=== PATIENT | female | born 1970 | race Caucasian/White ===

== ENCOUNTER 2017-08-25 18:33 | Inpatient (IN) | payer OTHER ==
--- OUTSIDE RECORDS SUMMARY | 2017-08-25 18:36 | XMS REPORT | Clinical Summary ---
:1970 Author Organization [facility] Address [address] [place] [address] Care Team Providers Name Role Phone Chidi Anguiano MD Primary Care Provider Allergies Active Allergy Reactions Severity Noted Date Comments Aspirin 05/26/2016 Aspirin Anaphylaxis High 06/16/2016 Codeine 05/26/2016 Codeine Anaphylaxis High 06/16/2016 Meperidine 05/26/2016 Meperidine Anaphylaxis High 06/16/2016 Hydrocodone 05/26/2016 Hydrocodone Anaphylaxis High 06/16/2016 Morphine Anaphylaxis High 06/16/2016 Penicillins 05/26/2016 Penicillins Anaphylaxis High 06/16/2016 Ondansetron Hcl 05/26/2016 Ondansetron Hcl Other (See Comments) High 06/16/2016 Psychotic behavior Current Medications Prescription Sig. Disp. Refills Start End Date Status Date clonAZEPAM (KlonoPIN) Take 0.5 mg by Active 0.5 MG tablet mouth 2 (two) times a day as needed for anxiety. nifedipine 0.2% with Apply 1 Active lidocaine 5% 0.2-0.5 application % ointment topically 2 (two) times a day as needed (for Anal Fissures). zolpidem (AMBIEN) 5 Take 5 mg by Active MG tablet mouth nightly as needed for sleep. pantoprazole Take 40 mg by Active (PROTONIX) 40 MG EC mouth daily. tablet traMADol (ULTRAM) 50 Take 50 mg by Active mg tablet mouth every 6 (six) hours as needed for moderate pain. enoxaparin (LOVENOX) Inject 0.8 mL 60 Syringe 1 Active 120 mg/0.8 mL syringe (120 mg total) 8 under the skin 2 (two) times a day. apixaban (ELIQUIS) 5 Take 1 tablet 60 tablet 11 Active mg tablet (5 mg total) by 8 mouth 2 (two) times a day. nifedipine 0.2% with Apply 1 0.06 g 0 11/25/19 Discontinued lidocaine 5% 0.2-0.5 application 7 17 % ointment topically 2 (two) times a day. Apply generously every morning and evening. SUPREP BOWEL PREP KIT Take 2 Bottles 354 mL 0 11/15/19 17.5-3.13-1.6 gram (354 mL total) 7 17 recon soln by mouth once for 1 dose. Take as directed by physician zolpidem (AMBIEN) 5 Take 5 mg by 11/25/19 Discontinued MG tablet mouth nightly 17 as needed for sleep. nebivolol (BYSTOLIC) Take 5 mg by 11/25/19 Discontinued 5 MG tablet mouth daily. 17 lisdexamfetamine 10 Take 10 mg by 11/25/19 Discontinued mg capsule mouth daily. 17 hyoscyamine (LEVSIN) Take 0.125 mg 11/24/19 Discontinued 0.125 mg SL tablet by mouth every 17 4 (four) hours as needed for cramping. clonAZEPAM (KlonoPIN) Take 0.5 mg by 11/25/19 Discontinued 0.5 MG tablet mouth 2 (two) 17 times a day as needed for anxiety. traMADol (ULTRAM) 50 Take 50 mg by 11/24/19 Discontinued mg tablet mouth every 6 17 (six) hours as needed for moderate pain. traMADol (ULTRAM) 50 Take 1 tablet 15 tablet 0 11/25/19 Discontinued mg tablet (50 mg total) 7 17 by mouth every 6 (six) hours as needed for moderate pain for up to 15 days. nebivolol (BYSTOLIC) Take 5 mg by 11/29/19 Discontinued 5 MG tablet mouth daily. 17 lisdexamfetamine Take 30 mg by 04/10/19 Discontinued (VYVANSE) 30 MG mouth every 18 capsule morning. amLODIPine (NORVASC) Take 1 tablet 30 tablet 0 12/29/19 2.5 mg tablet (2.5 mg total) 7 17 by mouth daily for 30 days. traMADol (ULTRAM) 50 Take 1 tablet 50 tablet 0 12/09/19 mg tablet (50 mg total) 7 17 by mouth every 6 (six) hours as needed for moderate pain for up to 10 days. Active Problems Problem Noted Date Generalized abdominal pain 11/24/2016 Colonic polyp 11/21/2016 Encounters Date Type Specialty Care Team Description 06/08/2017 Hospital Encounter Radiology Saud Sosa Malignant neoplasm of overlapping sites of colon; MD Abhishek Portal vein thrombosis; RLQ abdominal pain; Obesity, unspecified classification, unspecified obesity type, unspecified whether serious comorbidity present 05/21/2017 Procedure Pass Radiology 05/21/2017 Transcribe Orders Access Saud Sosa Malignant neoplasm of overlapping sites of colon (Primary Dx); MD Abhishek Portal vein thrombosis; RLQ abdominal pain; Obesity, unspecified classification, unspecified obesity type, unspecified whether serious comorbidity present 05/08/2017 Lab Lab Marianna Blum Portal vein thrombosis 05/08/2017 Office Visit Oncology Marianna Blum Portal vein thrombosis (Primary Dx) 05/07/2017 Hospital Encounter Radiology Marianna Blum Portal vein thrombosis 05/07/2017 Telephone Oncology Marianna Blum MD 04/27/2017 Orders Only Oncology Marianna Blum MD 04/26/2017 Telephone Oncology Marianna Blum MD 04/13/2017 Telephone Oncology Jazmin Carreno RN 04/13/2017 Orders Only Oncology Jazmin Carreno RN 04/10/2017 Lab Lab Marianna Blum Portal vein thrombosis 04/10/2017 Office Visit Oncology Marianna Blum Portal vein thrombosis (Primary Dx) 04/10/2017 Orders Only Oncology Marianna Blum MD 04/05/2017 Telephone Oncology Tom Avila MD 04/04/2017 Orders Only General Surgery Rafiagurumy, Portal vein Zaira Roberto thrombosis (Primary [employer]-C Dx) 04/03/2017 Hospital Encounter Radiology Vinh Nicholas Abdominal pain, MD Horace unspecified abdominal location 04/03/2017 Ancillary Orders General Surgery Vinh Nicholas Abdominal pain, MD Horace unspecified abdominal location 03/30/2017 Orders Only General Surgery Vinh Nicholas Abdominal pain, MD Horace unspecified abdominal location (Primary Dx) 03/21/2017 Office Visit General Surgery Vinh Nicholas Abdominal pain, MD Horace generalized (Primary Dx) 12/06/2016 Office Visit General Surgery Vinh Nicholas Adenomatous polyp of MD Horace ascending colon (Primary Dx) 11/24/2016 - Hospital Encounter General Surgery Vinh Nicholas Generalized 11/28/2016 MD Horace abdominal pain Kamlesh Solano (Primary Dx) MD Josep 11/21/2016 - Hospital Encounter General Surgery Vinh Nicholas Colonic polyp 11/23/2016 MD Horace 11/21/2016 Procedure Pass General Surgery 11/21/2016 Surgery General Surgery Vinh Nicholas LAPROSCOPIC RIGHT MD Horace COLECTOMY 11/15/2016 Pre-Admit Testing Pre-Admission Vinh Nicholas Preop testing Appointment Testing MD Horace (Primary Dx) 11/15/2016 Anesthesia Event General Surgery Sabiha Whitlock NP 11/15/2016 Orders Only General Surgery Vinh Nicholas MD 11/14/2016 Orders Only General Surgery Vinh Nicholas MD 11/13/2016 Office Visit General Surgery Vinh Nicholas Colon polyp (Primary Dx) ; MD Horace Fecal incontinence; LLQ abdominal pain 11/10/2016 Orders Only General Surgery Vinh Nicholas MD 11/07/2016 Orders Only General Surgery Vinh Nicholas MD 11/02/2016 Office Visit General Surgery Vinh Nicholas LLQ abdominal pain ( Primary Dx); MD Horace Fecal urgency; Fecal incontinence; Colon polyp 11/02/2016 Orders Only General Surgery Vinh Nicholas Constipation, MD Horace unspecified constipation type (Primary Dx) after 08/24/2016 Immunizations Name Dates Previously Given Next Due FLUCELVAX QUAD PF (0.5mL syringe) 11/23/2016 Family History Medical History Relation Name Comments Heart disease Father Lung cancer Father Stroke Father Colon cancer Paternal Grandfather Liver cancer Paternal Grandmother Relation Name Status Comments Father Paternal Aunt pancreatic cancer Alive Paternal Grandfather Paternal Grandmother Social History Tobacco Use Types Packs/Day Years Used Date Former Smoker Cigarettes 03 21 Quit: 2015 Smokeless Tobacco: Never Used Tobacco Cessation: Counseling Given: No Alcohol Use Drinks/Week oz/Week Comments No Sex Assigned at Date Recorded Not on file Last Filed Vital Signs Vital Sign Reading Time Taken Blood Pressure 144/74 05/08/2017 9:21 AM CDT Pulse 85 05/08/2017 9:21 AM CDT Temperature 35.7 C (96.3 F) 04/10/2017 9:16 AM [employer] Respiratory Rate 16 05/08/2017 9:21 AM CDT Oxygen Saturation 95% 11/28/2016 4:32 PM CDT Inhaled Oxygen Concentration - - Weight 126 kg (277 lb) 06/08/2017 9:21 AM CDT Height 180.3 cm (5' 11") 06/08/2017 9:21 AM CDT Body Mass Index 38.63 06/08/2017 9:21 AM CDT Plan of Treatment Health Maintenance Due Date Last Done Comments CERVICAL CANCER SCREENING 1993 INFLUENZA VACCINE 09/26/2017 11/23/2016 Procedures Procedure Name Priority Date/Time Associated Comments Diagnosis MRI ABDOMEN W WO Routine 06/08/2017 9:55 Malignant neoplasm Results for this CONTRAST AM CDT of overlapping procedure are in sites of colon the results Portal vein section. thrombosis RLQ abdominal pain Obesity, unspecified classification, unspecified obesity type, unspecified whether serious comorbidity present FLOW CYTOMETRY Routine 05/08/2017 10:23 Portal vein Results for this EVALUATION AM CDT thrombosis procedure are in the results section. US ABDOMINAL DOPPLER Routine 05/07/2017 11:18 Portal vein Results for this AM CDT thrombosis procedure are in the results section. ANTI XA, LOW MOLECULAR Routine 04/27/2017 11:48 Results for this WEIGHT AM [employer] procedure are in the results section. ESTIMATED GFR Routine 04/10/2017 10:43 Results for this AM [employer] procedure are in the results section. COMPREHENSIVE Routine 04/10/2017 10:43 Portal vein Results for this METABOLIC PANEL AM [employer] thrombosis procedure are in the results section. HOMOCYSTINE, PLASMA Routine 04/10/2017 10:43 Portal vein Results for this AM [employer] thrombosis procedure are in the results section. CARDIOLIPIN ANTIBODIES Routine 04/10/2017 10:43 Portal vein Results for this AM [employer] thrombosis procedure are in the results section. PROTHROMBIN MUTATION, Routine 04/10/2017 10:43 Portal vein Results for this FACTOR II, BY PCR AM [employer] thrombosis procedure are in the results section. FACTOR V LEIDEN BY PCR Routine 04/10/2017 10:43 Portal vein Results for this AM [employer] thrombosis procedure are in the results section. LUPUS ANTICOAGULANT Routine 04/10/2017 10:43 Portal vein Results for this PANEL AM [employer] thrombosis procedure are in the results section. FUNCTIONAL PROTEIN S Routine 04/10/2017 10:43 Portal vein Results for this AM [employer] thrombosis procedure are in the results section. FUNCTIONAL PROTEIN C Routine 04/10/2017 10:43 Portal vein Results for this AM [employer] thrombosis procedure are in the results section. ANTITHROMBIN III LEVEL Routine 04/10/2017 10:43 Portal vein Results for this AM [employer] thrombosis procedure are in the results section. FACTOR VIII ASSAY Routine 04/10/2017 10:43 Portal vein Results for this AM [employer] thrombosis procedure are in the results section. HC COMPLETE BLD COUNT Routine 04/10/2017 10:43 Portal vein Results for this W/AUTO DIFF AM [employer] thrombosis procedure are in the results section. PROTEIN C ANTIGEN, Routine 04/10/2017 10:36 Results for this TOTAL AM [employer] procedure are in the results section. CT ABDOMEN PELVIS W Routine 04/03/2017 3:54 Abdominal pain, Results for this CONTRAST PM [employer] unspecified procedure are in abdominal location the results section. ESTIMATED GFR Routine 11/28/2016 4:00 Results for this AM CDT procedure are in the results section. BASIC METABOLIC PANEL Routine 11/28/2016 4:00 Results for this AM CDT procedure are in the results section. HC COMPLETE BLD COUNT Routine 11/28/2016 4:00 Results for this W/AUTO DIFF AM CDT procedure are in the results section. HC COMPLETE BLD COUNT Routine 11/27/2016 4:40 Results for this W/AUTO DIFF AM CDT procedure are in the results section. ESTIMATED GFR Routine 11/27/2016 4:00 Results for this AM CDT procedure are in the results section. BASIC METABOLIC PANEL Routine 11/27/2016 4:00 Results for this AM CDT procedure are in the results section. POC GLUCOSE Routine 11/26/2016 5:45 Results for this PM CDT procedure are in the results section. POC GLUCOSE Routine 11/26/2016 12:20 Results for this PM CDT procedure are in the results section. ESTIMATED GFR Routine 11/26/2016 8:50 Results for this AM CDT procedure are in the results section. BASIC METABOLIC PANEL Routine 11/26/2016 8:50 Results for this AM CDT procedure are in the results section. HC COMPLETE BLD COUNT Routine 11/26/2016 8:50 Results for this W/AUTO DIFF AM CDT procedure are in the results section. POC GLUCOSE Routine 11/26/2016 8:23 Results for this AM CDT procedure are in the results section. POC GLUCOSE Routine 11/26/2016 3:52 Results for this AM CDT procedure are in the results section. POC GLUCOSE Routine 11/25/2016 11:46 Results for this PM CDT procedure are in the results section. POC GLUCOSE Routine 11/25/2016 8:55 Results for this PM CDT procedure are in the results section. POC GLUCOSE Routine 11/25/2016 8:00 Results for this PM CDT procedure are in the results section. POC GLUCOSE Routine 11/25/2016 6:38 Results for this PM CDT procedure are in the results section. POC GLUCOSE Routine 11/25/2016 12:54 Results for this PM CDT procedure are in the results section. HC COMPLETE BLD COUNT Routine 11/25/2016 4:35 Results for this W/AUTO DIFF AM CDT procedure are in the results section. ESTIMATED GFR Routine 11/25/2016 4:00 Results for this AM CDT procedure are in the results section. PHOSPHORUS LEVEL Routine 11/25/2016 4:00 Results for this AM CDT procedure are in the results section. MAGNESIUM LEVEL Routine 11/25/2016 4:00 Results for this AM CDT procedure are in the results section. BASIC METABOLIC PANEL Routine 11/25/2016 4:00 Results for this AM CDT procedure are in the results section. XR ABDOMEN 1 VW STAT 11/24/2016 7:30 Results for this PORTABLE PM CDT procedure are in the results section. ESTIMATED GFR STAT 11/24/2016 5:00 Results for this PM CDT procedure are in the results section. HC COMPLETE BLD COUNT STAT 11/24/2016 5:00 Results for this W/AUTO DIFF PM CDT procedure are in the results section. COMPREHENSIVE STAT 11/24/2016 5:00 Results for this METABOLIC PANEL PM CDT procedure are in the results section. URINALYSIS SCREEN AND Routine 11/24/2016 4:10 Results for this MICROSCOPY, WITH PM CDT procedure are in REFLEX TO CULTURE the results section. GRAM STAIN Routine 11/24/2016 4:10 Results for this PM CDT procedure are in the results section. URINE CULTURE Routine 11/24/2016 4:10 Results for this PM CDT procedure are in the results section. ESTIMATED GFR Routine 11/23/2016 3:04 Results for this AM CDT procedure are in the results section. PHOSPHORUS LEVEL Routine 11/23/2016 3:04 Results for this AM CDT procedure are in the results section. MAGNESIUM LEVEL Routine 11/23/2016 3:04 Results for this AM CDT procedure are in the results section. BASIC METABOLIC PANEL Routine 11/23/2016 3:04 Results for this AM CDT procedure are in the results section. HC COMPLETE BLD COUNT Routine 11/23/2016 2:35 Results for this W/AUTO DIFF AM CDT procedure are in the results section. ESTIMATED GFR Routine 11/22/2016 4:00 Results for this AM CDT procedure are in the results section. PHOSPHORUS LEVEL Routine 11/22/2016 4:00 Results for this AM CDT procedure are in the results section. MAGNESIUM LEVEL Routine 11/22/2016 4:00 Results for this AM CDT procedure are in the results section. BASIC METABOLIC PANEL Routine 11/22/2016 4:00 Results for this AM CDT procedure are in the results section. CBC WITH PLATELET AND Routine 11/22/2016 3:50 Results for this DIFFERENTIAL AM CDT procedure are in the results section. SURGICAL PATHOLOGY Routine 11/21/2016 1:38 Results for this REQUEST PM CDT procedure are in the results section. TX AN ELECTIVE Routine 11/21/2016 9:02 ENDOTRACHEAL AIRWAY AM CDT Procedure Note - Haley Ryder CRNA - 11/21/2016 8:06 AM CDT Airway Date/Time: 11/21/2016 7:37 AM Performed by: HALEY RYDER Authorized by: RANJAN GANNON Location: OR Urgency: Elective Difficult Airway: No Anesthesiologist: RANJAN GANNON Resident/REHABILITATION CASEWORKER: HALEY RYDER Preoxygenated with 100% O2: Yes Mask Ventilation: Easy mask Final Airway Type: Endotracheal airway Final Endotracheal Airway: ETT Technique Used: Direct laryngoscopy Devices/Methods Used in Placement: Intubating stylet Insertion Site: Oral Blade Type: Arnett Laryngoscope Blade/Videolaryngoscope Blade Size: 2 ETT Size (mm): 7.0 Measured from: Teeth ETT to Teeth (cm): 21 Placement Verified by: CO2 detection, direct visualization and equal breath sounds Laryngoscopic view: Grade I - full view of glottis Number of Attempts at Approach: 2 DL X 1 by SRNA. Grade 3 view. DL X 1 by REHABILITATION CASEWORKER. Grade 1 view. Atraumatic DL. No apparent change to oropharynx/dentition HEMICOLECTOMY, RIGHT, LAPAROSCOPIC 11/21/2016 7:30 AM CDT Colonic polyp Case Notes PINPOINT, AIRSEAL Special Needs PINPOINT, AIRSEAL CONSULT TO OSTOMY CARE STAT 11/21/2016 6:06 AM NURSE CDT ECG PRE/POST OP Routine 11/15/2016 1:10 PM Preop testing Results for this CDT procedure are in the results section. ESTIMATED GFR Routine 11/15/2016 12:51 PM Results for this CDT procedure are in the results section. TYPE AND SCREEN Routine 11/15/2016 12:51 PM Preop testing Results for this CDT procedure are in the results section. COMPREHENSIVE METABOLIC Routine 11/15/2016 12:51 PM Preop testing Results for this PANEL CDT procedure are in the results section. HC COMPLETE BLD COUNT Routine 11/15/2016 12:51 PM Preop testing Results for this W/AUTO DIFF CDT procedure are in the results section. RADIOLOGY EXAM SURG Routine 11/08/2016 12:00 AM SPECIMEN CDT RADIOLOGY EXAM SURG Routine 11/08/2016 12:00 AM SPECIMEN CDT SURGICAL PATHOLOGY Routine 11/06/2016 12:00 AM REQUEST CDT after 08/24/2016 Results MRI Abdomen W Wo Contrast (06/08/2017 9:55 AM) Narrative Performed At EXAMINATION:MRI ABDOMEN W WO CONTRAST HM [facility] CLINICAL HISTORY:C18.8 Malignant neoplasm of overlapping sites of colon, I81 Portal vein thrombosis, COLON CA COMPARISON:April 03, 2017 TECHNIQUE: Multiplanar, multisequence MRI of the abdomen with and without intravenous gadolinium. FINDINGS: [id number] fatty infiltration of the liver with geographic prominence in the right posterior segment. There is some subcapsular increased T2 signal in the posterior right lobe with subtle parenc hymal distortion. There is relative hypertrophy of the left lobe. No hepatic mass is seen. Portal vein thrombosis has resolved. Spleen is normal in size. No ascites. No significant varices are seen. Gallbladder absent. Normal pancreas. Bile ducts are nondilated. Multifocal cortical scarring in the right kidney. Punctate cyst in the right lower pole. IMPRESSION: 1.Resolved portal vein thrombosis. 2.Fatty liver disease with suggestion of some peripheral fibrosis, mostly in the posterior right lobe, possibly secondary to KENNEY. [facility]-[id number] Procedure Note Hm Interface, Radiology Results Incoming - 06/08/2017 10:19 AM CDT EXAMINATION: MRI ABDOMEN W WO CONTRAST CLINICAL HISTORY: C18.8 Malignant neoplasm of overlapping sites of colon, I81 Portal vein thrombosis, COLON CA COMPARISON: April 03, 2017 TECHNIQUE: Multiplanar, multisequence MRI of the abdomen with and without intravenous gadolinium. FINDINGS: [id number] fatty infiltration of the liver with geographic prominence in the right posterior segment. There is some subcapsular increased T2 signal in the posterior right lobe with subtle parenchymal distortion. There is relative hypertrophy of the left lobe. No hepatic mass is seen. Portal vein thrombosis has resolved. Spleen is normal in size. No ascites. No significant varices are seen. Gallbladder absent. Normal pancreas. Bile ducts are nondilated. Multifocal cortical scarring in the right kidney. Punctate cyst in the right lower pole. IMPRESSION: 1. Resolved portal vein thrombosis. 2. Fatty liver disease with suggestion of some peripheral fibrosis, mostly in the posterior right lobe, possibly secondary to KENNEY. [facility]-[id number] Performing Organization Address City/[facility]/Zipcode Phone Number [facility] [address] [place] [address] Flow cytometry evaluation (05/08/2017 10:23 AM) [facility] DEPARTMENT OF PATHOLOGY AND GENOMIC MEDICINE Flow cytometry evaluation See link below for PDF [facility] DEPARTMENT OF Lab Report PATHOLOGY AND GENOMIC MEDICINE Specimen Blood Performing Organization Address City/[facility]/Zipcode Phone Number [facility] DEPARTMENT OF PATHOLOGY AND [address] [place] [phone] [employer] MEDICINE US Abdominal Doppler (05/07/2017 11:18 AM) Narrative Performed At EXAMINATION:US ABDOMINAL DOPPLER [facility] CLINICAL HISTORY:I81 Portal vein thrombosis, re-evaluate known portal vein thrombosis COMPARISON:CT scan April 03, 2017 TECHNIQUE: Treadwell scale, color Doppler and spectral waveform analysis of the hepatic and upper abdominal vasculature. IMPRESSION: PORTAL VEIN:Main portal vein measures 14 mm, with velocity of 20.3 cm/sec. Main, right, and left portal veins are patent with hepatopetal flow. Thrombus has resolved. HEPATIC VEINS:The middle, right and left hepatic veins are patent and demonstrate acceptable waveforms. HEPATIC ARTERIES:The proper, right, and left hepatic arteries are identified with appropriate waveforms. INFERIOR VENA CAVA: Patent. SUPERIOR MESENTERIC VEIN: Patent. SPLENIC ARTERY AND VEIN:Splenic artery and vein are identified and are patent. [facility]-[id number] Procedure Note Hm Interface, Radiology Results Incoming - 05/07/2017 11:23 AM CDT EXAMINATION: US ABDOMINAL DOPPLER CLINICAL HISTORY: I81 Portal vein thrombosis, re-evaluate known portal vein thrombosis COMPARISON: CT scan April 03, 2017 TECHNIQUE: Treadwell scale, color Doppler and spectral waveform analysis of the hepatic and upper abdominal vasculature. IMPRESSION: PORTAL VEIN: Main portal vein measures 14 mm, with velocity of 20.3 cm/sec. Main, right, and left portal veins are patent with hepatopetal flow. Thrombus has resolved. HEPATIC VEINS: The middle, right and left hepatic veins are patent and demonstrate acceptable waveforms. HEPATIC ARTERIES: The proper, right, and left hepatic arteries are identified with appropriate waveforms. INFERIOR VENA CAVA: Patent. SUPERIOR MESENTERIC VEIN: Patent. SPLENIC ARTERY AND VEIN: Splenic artery and vein are identified and are patent. [facility]-[id number] Performing Organization Address City/State/Zipcode Phone Number [facility] [address] [place] [address] Anti Xa, low molecular weight (04/27/2017 11:48 AM) Anti Xa, low molecular 1.09 IU/mL [facility] weight Comment: [employer] [facility] UFH Therapeutic Range: 0.30-0.70 LMWH Therapeutic Ranges (target anti-Xa levels measured 4 hours after dosing): Enoxaparin (Lovenox) Therapeutic bid dosing 0.6-1.0 Therapeutic qD dosing >1.0 Tinzaparin (Innohep) Therapeutic qD dosing 0.85 Dalteparin (Fragmin) Therapeutic qD dosing 1.05 Reference: Chest 2012;141;[id number] For more information on this test, go to: http://education.[employer]/faq/AXU73a4 (This link is being provided for informational/educational purposes only.) Narrative Performed At FASTING:YES [facility] FASTING: YES Resulting Agency Comment Performing Organization Information: Site ID: [id number] Name: [facility], Address: [address] [place] [address] Director: Yancy Ann MD,PhD,REBEL Performing Organization Address City/State/Zipcode Phone Number [facility] [address] [place] [address] [phone] [facility] Homocystine, plasma (04/10/2017 10:43 AM) Homocysteine 11.5 0.0 - 15.0 umol/L [facility] DEPARTMENT OF Comment: PATHOLOGY AND GENOMIC The risk for coronary vascular disease increases progressively MEDICINE with homocysteine concentration.A 3.4 times greater risk is associated with a homocysteine concentration of greater than 15.8 umol/L as compared to a concentration below 14.1 umol/L. Specimen Plasma specimen Performing Organization Address [facility] Phone Number [facility] DEPARTMENT OF PATHOLOGY AND [address] [place] [address] [employer] MEDICINE Estimated GFR (04/10/2017 10:43 AM)Only the most recent of9 resultswithin the time period is included. GFR Non Af Amer >90 mL/min/1.73 m2 [facility] DEPARTMENT OF PATHOLOGY AND GENOMIC MEDICINE GFR Af Amer >90 mL/min/1.73 m2 [facility] DEPARTMENT OF Comment: PATHOLOGY AND GENOMIC Chronic kidney disease: <60 mL/min/1.73m2 MEDICINE Kidney failure: <15 mL/min/1.73m2 The estimated GFR is calculated from the IDMS-traceable Modification of Diet in Renal Disease Equation. The accuracy of the calculation is poor when the creatinine is normal. Calculated values >90 mL/min/1.73m2 are not reported. This equation has not been validated in children (<18 years), women, the elderly (>70 years), or ethnic groups other than Caucasians and Americans. Specimen Plasma specimen Performing Organization Address City/[facility] Phone Number [facility] DEPARTMENT OF PATHOLOGY AND [address] [place] [phone] [employer] [facility] Prothrombin mutation, factor II, by PCR (04/10/2017 10:43 AM) Prothrombin gene mutation Heterozygous (A) Normal [facility] DEPARTMENT OF PATHOLOGY AND GENOMIC MEDICINE Prothrombin gene mutation See link below for PDF Lab [facility] DEPARTMENT OF ReportComment: Case PATHOLOGY AND GENOMIC Number: [id number] MEDICINE Specimen Blood Performing Organization Address City/[facility] Centercode Phone Number [facility] DEPARTMENT OF PATHOLOGY AND [address] [place] [phone] [place] [address] MEDICINE Functional protein S (04/10/2017 10:43 AM) Functional protein S 86 58 - 160 % [facility] DEPARTMENT OF Comment: PATHOLOGY AND GENOMIC Functional Protein S performed.If result is decreased Total MEDICINE and Free Protein S Antigen will be performed. Specimen Blood Performing Organization Address City/[facility] Centercode Phone Number [facility] DEPARTMENT OF PATHOLOGY AND [address] [place] [phone] [place] [address] Functional protein C (04/10/2017 10:43 AM) Functional protein C 100 70 - 165 % [facility] DEPARTMENT OF PATHOLOGY AND GENOMIC MEDICINE Specimen Blood Performing Organization Address [facility] Centercode Phone Number [facility] DEPARTMENT OF PATHOLOGY AND [address] [place] [id number] [place] [address] Lupus anticoagulant panel (04/10/2017 10:43 AM) Prothrombin time 13.5 12.0 - 15.0 sec [facility] DEPARTMENT OF PATHOLOGY AND GENOMIC MEDICINE INR 1.0 [facility] DEPARTMENT OF Comment: PATHOLOGY AND The International Normalized Ratio (INR) is a therapeutic [facility] monitoring tool for patients who are stable on oral anticoagulant therapy. An INR of 2.0-3.0 is suggested for deep vein thrombosis/pulmonary embolism. PTT 25.8 23.0 - 36.0 sec [facility] DEPARTMENT OF Comment: PATHOLOGY AND PTT therapeutic range for unfractionated heparin is [facility] 61.0-112.0 seconds which corresponds to Anti-Xa 0.3-0.7 U/ml. PTT lupus anticoagulant 25.4 (L) 27.0 - 38.0 sec [facility] DEPARTMENT OF Comment: PATHOLOGY AND Lupus anticoagulant (LA) panel consists of PT, PTT, PTT-LA, GENOMIC MEDICINE and DRVVT. If the PTT-LA is above the normal range, the hexagonal phospholipid will be performed. If the DRVVT is above the normal range, the DRVVC confirmatory test will be performed. A normal result for both the DRVVT and the PTT-LA means the patient is negative for lupus anticoagulant. The patient is considered positive for lupus anticoagulant if either the Ratio SCR/CONF or the hexagonal phospholipid is high (positive) on two occassions at least six weeks apart. Clinical confirmation is also required for diagnosis. DRVVT 30.6 29.0 - 46.0 sec [facility] DEPARTMENT OF PATHOLOGY AND [employer] MEDICINE Specimen Blood Performing Organization Address City/[facility] Centercode Phone Number [facility] DEPARTMENT OF PATHOLOGY AND [address] [place] [address] Cardiolipin antibodies (04/10/2017 10:43 AM) Cardiolipin IgG 5 0 - 14 GPL [facility] DEPARTMENT OF PATHOLOGY AND Comment: GENOMIC MEDICINE Negative=<15 GPL Indeterminate=15-20 GPL Positive=>20 GPL Cardiolipin IgM 9 0 - 12 MPL [facility] DEPARTMENT OF PATHOLOGY AND Comment: GENOMIC MEDICINE Negative=<13 MPL Indeterminate=13-20 MPL Positive=>20 MPL Specimen Blood Performing Organization Address City/[facility] Phone Number [facility] DEPARTMENT OF PATHOLOGY AND [address] [place] [address] Factor V leiden by PCR (04/10/2017 10:43 AM) Factor V Leiden Normal [facility] DEPARTMENT OF PATHOLOGY AND [employer] MEDICINE Factor V Leiden See link below for PDF Lab [facility] DEPARTMENT OF PATHOLOGY AND ReportComment: Case Number: [facility] [id number] Specimen Blood Performing Organization Address [facility] Centercopa Phone Number [facility] DEPARTMENT OF PATHOLOGY AND [address] [place] [address] Antithrombin III level (04/10/2017 10:43 AM) Antithrombin III 94 80 - 130 % [facility] DEPARTMENT OF PATHOLOGY AND [employer] MEDICINE Specimen Blood Performing Organization Address [facility] Phone Number [facility] DEPARTMENT OF PATHOLOGY AND [address] [place] [address] Factor VIII assay (04/10/2017 10:43 AM) Factor VIII activity 211 (H) 60 - 150 % [facility] DEPARTMENT OF PATHOLOGY AND [employer] MEDICINE Specimen Blood Performing Organization Address [facility] Centercode Phone Number [facility] DEPARTMENT OF PATHOLOGY AND [address] [place] [address] CBC with platelet and differential (04/10/2017 10:43 AM)Only the most recent of9 resultswithin the time period is included. WBC 9.53 4.50 - 11.00 k/uL [facility] DEPARTMENT OF PATHOLOGY AND GENOMIC MEDICINE RBC 4.76 4.20 - 5.50 m/uL [facility] DEPARTMENT OF PATHOLOGY AND GENOMIC MEDICINE HGB 14.2 12.0 - 16.0 g/dL [facility] DEPARTMENT OF PATHOLOGY AND GENOMIC MEDICINE HCT 43.2 37.0 - 47.0 % [facility] DEPARTMENT OF PATHOLOGY AND GENOMIC MEDICINE MCV 90.8 82.0 - 100.0 fL [facility] DEPARTMENT OF PATHOLOGY AND GENOMIC MEDICINE MCH 29.8 27.0 - 34.0 pg [facility] DEPARTMENT OF PATHOLOGY AND GENOMIC MEDICINE MCHC 32.9 31.0 - 37.0 g/dL [facility] DEPARTMENT OF PATHOLOGY AND GENOMIC MEDICINE RDW - SD 45.3 37.0 - 55.0 fL [facility] DEPARTMENT OF PATHOLOGY AND GENOMIC MEDICINE MPV 9.4 8.8 - 13.2 fL [facility] DEPARTMENT OF PATHOLOGY AND GENOMIC MEDICINE Platelet count 323 150 - 400 k/uL [facility] DEPARTMENT OF PATHOLOGY AND GENOMIC MEDICINE Nucleated RBC 0.00 /100 WBC [facility] DEPARTMENT OF PATHOLOGY AND GENOMIC MEDICINE Neutrophils 76.2 (H) 39.0 - 69.0 % [facility] DEPARTMENT OF PATHOLOGY AND GENOMIC MEDICINE Lymphocytes 16.9 (L) 25.0 - 45.0 % [facility] DEPARTMENT OF PATHOLOGY AND GENOMIC MEDICINE Monocytes 5.4 0.0 - 10.0 % [facility] DEPARTMENT OF PATHOLOGY AND GENOMIC MEDICINE Eosinophils 0.9 0.0 - 5.0 % [facility] DEPARTMENT OF PATHOLOGY AND GENOMIC MEDICINE Basophils 0.4 0.0 - 1.0 % [facility] DEPARTMENT OF PATHOLOGY AND GENOMIC MEDICINE Immature granulocytes 0.2Comment: 0.0 - 1.0 % [facility] DEPARTMENT OF "Immature PATHOLOGY AND GENOMIC granulocytes" MEDICINE (promyelocytes, myelocytes, metamyelocytes) Specimen Blood Performing Organization Address City/State/Zipcode Phone Number [facility] DEPARTMENT OF PATHOLOGY AND [address] [place] [address] GENOMIC MEDICINE Comprehensive metabolic panel (04/10/2017 10:43 AM)Only the most recent of3 resultswithin the time period is included. Sodium 139 135 - 148 mEq/L [facility] DEPARTMENT OF PATHOLOGY AND GENOMIC MEDICINE Potassium 4.5 3.5 - 5.0 mEq/L [facility] DEPARTMENT OF PATHOLOGY AND GENOMIC MEDICINE Chloride 103 98 - 112 mEq/L [facility] DEPARTMENT OF PATHOLOGY AND GENOMIC MEDICINE CO2 24 24 - 31 mEq/L [facility] DEPARTMENT OF PATHOLOGY AND GENOMIC MEDICINE Anion gap 12 7 - 15 mEq/L [facility] DEPARTMENT OF Comment: PATHOLOGY AND GENOMIC Starting from May , anion gap calculation MEDICINE no longer incorporates potassium. Please note the change. BUN 9 6 - 20 mg/dL [facility] DEPARTMENT OF PATHOLOGY AND GENOMIC MEDICINE Creatinine 0.7 0.5 - 0.9 mg/dL [facility] DEPARTMENT OF PATHOLOGY AND GENOMIC MEDICINE Glucose 92 65 - 99 mg/dL [facility] DEPARTMENT OF PATHOLOGY AND GENOMIC MEDICINE Calcium 9.3 8.3 - 10.2 mg/dL [facility] DEPARTMENT OF PATHOLOGY AND GENOMIC MEDICINE Protein 8.0 6.3 - 8.3 g/dL [facility] DEPARTMENT OF Comment: PATHOLOGY AND GENOMIC 4.6-7.0 g/dL MEDICINE 1 week 4.4-7.6 g/dL 7 months-1year5.1-7.3 g/dL 1-2 years5.6-7.5 g/dL >3 years6.0-8.0 g/dL 18-150 6.3-8.3 g/dL Albumin 3.6 3.5 - 5.0 g/dL [facility] DEPARTMENT OF PATHOLOGY AND GENOMIC MEDICINE A/G ratio 0.8 0.7 - 3.8 [facility] DEPARTMENT OF PATHOLOGY AND GENOMIC MEDICINE Alkaline phosphatase 86 35 - 104 U/L [facility] DEPARTMENT OF PATHOLOGY AND GENOMIC MEDICINE AST 19 10 - 35 U/L [facility] DEPARTMENT OF PATHOLOGY AND GENOMIC MEDICINE ALT 8 5 - 50 U/L [facility] DEPARTMENT OF PATHOLOGY AND GENOMIC MEDICINE Total bilirubin 0.3 0.0 - 1.2 mg/dL [facility] DEPARTMENT OF PATHOLOGY AND GENOMIC MEDICINE Specimen Plasma specimen Performing Organization Address City/State/Zipcode Phone Number [facility] DEPARTMENT OF PATHOLOGY AND [address] [place] [address] [facility] Protein C antigen, total (04/10/2017 10:36 AM) Functional protein C 64 (L) 70 - 180 % normal [facility] Comment: DI[facility]NOST[facility]/[employer] [facility] Decreased levels of protein C activity may be found in hereditary deficiency, treatment with oral anticoagulants, liver disease, D.I.C. and post surgery. An elevated protein C activity is not clinically significant. Only deficiencies are associated with an increased thrombotic risk. However, anti-thrombin or oral anti-Xa medications may cause false elevations. Protein C antigen 113 70 - 140 % normal [facility] Comment: DIAGNOSTICS/[employer] [facility] Decreased levels of Protein C antigen may be found in congenital deficiency, treatment with oral anticoagulants, liver disease, D.I.C. and post surgery. Narrative Performed At FASTING: UNKNOWN [facility] Resulting Agency Comment Performing Organization Information: Site ID: [id number] Name: Brian Malik/Laquita [facility], Address: [id number] [place] [phone] Director: Shemar King MD,PhD Performing Organization Address City/State/Zipcode Phone Number BRIAN MALIK/LAQUITA [address] [place] [address] [facility] CT Abdomen Pelvis W Contrast (04/03/2017 3:54 PM) Narrative Performed At EXAMINATION:CT ABDOMEN PELVIS W CONTRAST [facility] CLINICAL HISTORY:R10.9 Unspecified abdominal pain, concern for SMVportal vein thrombosisplease do three phase CT to evaluate for portal vein thrombosis per protocol. no oral contrast needed TECHNIQUE: Multiple axial images of the abdomen and pelvis were obtained following intravenous administration of iodinated contrast. Sagittal and coronal computerized reformatted images were also obtained.CT scans are performed using radiation dose reduction techniques. Technical factors are evaluated and adjusted to ensure appropriate moderation of exposure. Automated dose management technology is applied to adjust radiation exposure while achieving a diagnostic quality image. COMPARISON:06/16/2016 IMPRESSION: Abdomen: 1. 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 2.Liver is normal in contour. Gallbladder surgically absent. 3.Patient is post sleeve gastrectomy and right hemicolectomy. 4.Spleen, pancreas, adrenals, kidneys are within normal limits. 5.The abdominal aorta is normal in caliber. There is no regional adenopathy. Pelvis: 1. Urinary bladder is decompressed. Uterus is unremarkable. No adnexal mass. 2.No suspicious osseous lesions are seen. [facility]-[id number] Procedure Note Interface, Radiology Results Incoming - 04/03/2017 5:33 PM TEACHER VOCAL EXAMINATION: CT ABDOMEN PELVIS W CONTRAST CLINICAL HISTORY: R10.9 Unspecified abdominal pain, concern for SMV portal vein thrombosis please do three phase CT to evaluate for portal vein thrombosis per protocol. no oral contrast needed TECHNIQUE: Multiple axial images of the abdomen and pelvis were obtained following intravenous administration of iodinated contrast. Sagittal and coronal computerized reformatted images were also obtained.CT scans are performed using radiation dose reduction techniques. Technical factors are evaluated and adjusted to ensure appropriate moderation of exposure. Automated dose management technology is applied to adjust radiation exposure while achieving a diagnostic quality image. COMPARISON: 06/16/2016 IMPRESSION: Abdomen: 1. 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 2. Liver is normal in contour. Gallbladder surgically absent. 3. Patient is post sleeve gastrectomy and right hemicolectomy. 4. Spleen, pancreas, adrenals, kidneys are within normal limits. 5. The abdominal aorta is normal in caliber. There is no regional adenopathy. Pelvis: 1. Urinary bladder is decompressed. Uterus is unremarkable. No adnexal mass. 2. No suspicious osseous lesions are seen. [facility]-[id number] Performing Organization Address City/[facility]ode Phone Number [facility] [address] [place] [address] Basic metabolic panel (11/28/2016 4:00 AM)Only the most recent of6 resultswithin the time period is included. Sodium 138 135 - 148 mEq/L [facility] DEPARTMENT OF PATHOLOGY AND GENOMIC MEDICINE Potassium 4.0 3.5 - 5.0 mEq/L [facility] DEPARTMENT OF PATHOLOGY AND GENOMIC MEDICINE Chloride 102 98 - 112 mEq/L [facility] DEPARTMENT OF PATHOLOGY AND GENOMIC MEDICINE CO2 22 (L) 24 - 31 mEq/L [facility] DEPARTMENT OF PATHOLOGY AND GENOMIC MEDICINE Anion gap 14 7 - 15 mEq/L [facility] DEPARTMENT OF PATHOLOGY Comment: [facility] Starting from May , anion gap calculation no longer incorporates potassium. Please note the change. BUN 4 (L) 6 - 20 mg/dL [facility] DEPARTMENT OF PATHOLOGY AND GENOMIC MEDICINE Creatinine 0.6 0.5 - 0.9 mg/dL [facility] DEPARTMENT OF PATHOLOGY AND GENOMIC MEDICINE Glucose 93 65 - 99 mg/dL [facility] DEPARTMENT OF PATHOLOGY AND GENOMIC MEDICINE Calcium 8.4 8.3 - 10.2 mg/dL [facility] DEPARTMENT OF PATHOLOGY AND GENOMIC MEDICINE Specimen Plasma specimen Performing Organization Address City/[facility]ode Phone Number [facility] DEPARTMENT OF PATHOLOGY AND [address] [place] [address] [facility] POC glucose (11/26/2016 5:45 PM)Only the most recent of9 resultswithin the time period is included. POC glucose 96 65 - 99 mg/dL [facility] DEPARTMENT OF PATHOLOGY AND Comment: GENOMIC MEDICINE [facility] Notified RN Meter ID: [id number] Philanthropy Officer: Radha Merritt Performing Organization Address [facility] Phone Number [facility] DEPARTMENT OF PATHOLOGY AND [address] [place] [address] Phosphorus level (11/25/2016 4:00 AM)Only the most recent of3 resultswithin the time period is included. Phosphorus 2.5 2.4 - 4.5 mg/dL [facility] DEPARTMENT OF PATHOLOGY AND GENOMIC MEDICINE Specimen Plasma specimen Performing Organization Address [facility]ercode Phone Number [facility] DEPARTMENT OF PATHOLOGY AND [address] [place] [address] GENOMIC [facility] Magnesium level (11/25/2016 4:00 AM)Only the most recent of3 resultswithin the time period is included. Magnesium 1.8 1.6 - 2.6 mg/dL [facility] DEPARTMENT OF PATHOLOGY AND GENOMIC MEDICINE Specimen Plasma specimen Performing Organization Address [facility] Phone Number [facility] DEPARTMENT OF PATHOLOGY AND [address] [place] [address] XR Abdomen 1 Vw Portable (11/24/2016 7:30 PM) Narrative Performed At EXAM:XR ABDOMEN 1 VW PORTABLE [facility] CLINICAL HISTORY:ng tube COMPARISON:None. IMPRESSION: A Dobbhoff tube is identified with the tip overlying the right upper quadrant in the expected location of the first portion of the duodenum. Loop of small bowel within the right hemiabdomen measures 3.5 cm, dilated. The colon does not appear to be dilated. No pathologic masses or calcifications are identified. The lung bases are free of acute disease. There are clips within the right upper abdomen likely related to prior cholecystectomy. No acute osseous abnormality identified. [facility]-[id number] Procedure Note Interface, Radiology Results Incoming - 11/24/2016 7:39 PM CDT EXAM: XR ABDOMEN 1 VW PORTABLE CLINICAL HISTORY: ng tube COMPARISON: None. IMPRESSION: A Dobbhoff tube is identified with the tip overlying the right upper quadrant in the expected location of the first portion of the duodenum. Loop of small bowel within the right hemiabdomen measures 3.5 cm, dilated. The colon does not appear to be dilated. No pathologic masses or calcifications are identified. The lung bases are free of acute disease. There are clips within the right upper abdomen likely related to prior cholecystectomy. No acute osseous abnormality identified. [facility]-[id number] Performing Organization Address City/State/Zipcode Phone Number [facility] [address] [place] [address] Urinalysis screen and microscopy, with reflex to culture (11/24/2016 4:10 PM) Specimen site Random void [facility] DEPARTMENT OF PATHOLOGY AND GENOMIC MEDICINE Color, UA Yellow [facility] DEPARTMENT OF PATHOLOGY AND GENOMIC MEDICINE Appearance, UA Clear [facility] DEPARTMENT OF PATHOLOGY AND GENOMIC MEDICINE Specific gravity, UA 1.041 (H) 1.001 - 1.035 [facility] DEPARTMENT OF PATHOLOGY AND GENOMIC MEDICINE pH, UA 6.0 5.0 - 8.5 [facility] DEPARTMENT OF PATHOLOGY AND GENOMIC MEDICINE Protein, UA 1+ (A) Negative [facility] DEPARTMENT OF PATHOLOGY AND GENOMIC MEDICINE Glucose, UA Negative Negative [facility] DEPARTMENT OF PATHOLOGY AND GENOMIC MEDICINE Ketones, UA 2+ (A) Negative [facility] DEPARTMENT OF PATHOLOGY AND GENOMIC MEDICINE Bilirubin, UA Negative Negative [facility] DEPARTMENT OF PATHOLOGY AND GENOMIC MEDICINE Blood, UA Small (A) Negative [facility] DEPARTMENT OF PATHOLOGY AND GENOMIC MEDICINE Nitrite, UA Positive (A) Negative [facility] DEPARTMENT OF PATHOLOGY AND GENOMIC MEDICINE Urobilinogen, UA <2.0 <2.0 [facility] DEPARTMENT OF PATHOLOGY AND GENOMIC MEDICINE Leukocyte esterase, UA Small (A) Negative [facility] DEPARTMENT OF PATHOLOGY AND GENOMIC MEDICINE Epithelial cells, UA 4 /HPF [facility] DEPARTMENT OF PATHOLOGY AND GENOMIC MEDICINE WBC, UA 54 (H) 0 - 4 /HPF [facility] DEPARTMENT OF PATHOLOGY AND GENOMIC MEDICINE RBC, UA 2 0 - 2 /HPF [facility] DEPARTMENT OF PATHOLOGY AND GENOMIC MEDICINE Bacteria, UA Moderate (A) None seen [facility] DEPARTMENT OF PATHOLOGY AND GENOMIC MEDICINE Yeast, UA None seen [facility] DEPARTMENT OF PATHOLOGY AND GENOMIC MEDICINE Yeast with pseudohyphae, UA None seen [facility] DEPARTMENT OF PATHOLOGY AND GENOMIC MEDICINE Specimen Urine Performing Organization Address City/[facility]/Zipcode Phone Number [facility] DEPARTMENT OF PATHOLOGY AND [address] [place] [address] GENOMIC MEDICINE Gram stain (11/24/2016 4:10 PM) Gram stain result Few WBC's [facility] DEPARTMENT OF PATHOLOGY No organisms seen AND GENOMIC MEDICINE Comment: Specimen Information Specimen Source: Urine Specimen Site: Clean catch Specimen Urine Performing Organization Address City/[facility]/Zipcode Phone Number [facility] DEPARTMENT OF PATHOLOGY AND [address] [place] [address] [facility] Urine culture (11/24/2016 4:10 PM) Urine culture isolate Mixed Gram positive phillip [facility] DEPARTMENT OF 10-4 cfu/ml PATHOLOGY AND GENOMIC (A) MEDICINE Comment: Specimen Information Specimen Source: Urine Specimen Site: Clean catch Urine culture isolate Escherichia coli [facility] DEPARTMENT OF colony count undetermined, PATHOLOGY AND GENOMIC probably due to inhibiting substance. MEDICINE (A) Specimen Urine Organism Antibiotic Method Susceptibility Escherichia coli Ampicillin ZAKI >16 mcg/mL: Resistant Escherichia coli Amoxicillin/Clavulanate ZAKI 8/4 mcg/mL: Susceptible Escherichia coli Amikacin ZAKI <=4 mcg/mL: Susceptible Escherichia coli Aztreonam ZAKI <=1 mcg/mL: Susceptible Escherichia coli Ceftazidime ZAKI <=0.5 mcg/mL: Susceptible Escherichia coli Ciprofloxacin ZAKI >2 mcg/mL: Resistant Escherichia coli Ceftriaxone ZAKI <=0.5 mcg/mL: Susceptible Escherichia coli Cefuroxime Sodium ZAKI 8 mcg/mL: Susceptible Escherichia coli Cefazolin ZAKI 2 mcg/mL: Susceptible Escherichia coli Cefipime ZAKI <=0.5 mcg/mL: Susceptible Escherichia coli Nitrofurantoin ZAKI <=16 mcg/mL: Susceptible Escherichia coli Cefoxitin ZAKI 8 mcg/mL: Susceptible Escherichia coli Gentamicin ZAKI >8 mcg/mL: Resistant Escherichia coli Imipenem ZAKI <=0.25 mcg/mL: Susceptible Escherichia coli Levofloxacin ZAKI >4 mcg/mL: Resistant Escherichia coli Meropenem ZAKI <=0.125 mcg/mL: Susceptible Escherichia coli Tobramycin ZAKI 8 mcg/mL: Resistant Escherichia coli Ampicillin/Sulbactam ZAKI 16/8 mcg/mL: Resistant Escherichia coli Trimethoprim/Sulfamethoxazole ZAKI >2/38 mcg/mL: Resistant Escherichia coli Tetracycline ZAKI >8 mcg/mL: Resistant Escherichia coli Piperacillin/Tazobactam ZAKI 4/4 mcg/mL: Susceptible Escherichia coli Ertapenem ZAKI <=0.125 mcg/mL: Susceptible Escherichia coli Tigecycline ZAKI <=0.5 mcg/mL: Susceptible Performing Organization Address City/State/Zipcode Phone Number [facility] DEPARTMENT OF PATHOLOGY AND [address] [place] [address] [facility] Surgical pathology request (11/21/2016 1:38 PM)Only the most recent of2 resultswithin the time period is included. [facility] DEPARTMENT OF PATHOLOGY AND GENOMIC MEDICINE Surgical pathology report See link below for PDF [facility] DEPARTMENT OF Lab Report PATHOLOGY AND GENOMIC MEDICINE Performing Organization Address City/State/Zipcode Phone Number [facility] DEPARTMENT OF PATHOLOGY AND [address] [place] [address] GENOMIC MEDICINE ECG Pre/Post Op (11/15/2016 1:10 PM) Ventricular rate 55 [facility] MUSE Atrial rate 55 [facility] MUSE [place] interval 144 [facility] MUSE QRSD interval 78 [facility] MUSE QT interval 412 [facility] MUSE QTC interval 394 [facility] MUSE P axis 1 70 [facility] QRS axis 1 58 [facility] MUSE T wave axis 49 [facility] MUSE EKG impression Sinus bradycardia-Otherwise normal ECG-No [facility] M[facility] previous ECGs available- Performing Organization Address City/State/Zipcode Phone Number [facility] MUSE [address] [place] [address] Type and screen (11/15/2016 12:51 PM) ABO grouping O [facility] DEPARTMENT OF PATHOLOGY AND GENOMIC MEDICINE Rh type POS [facility] DEPARTMENT OF PATHOLOGY AND GENOMIC MEDICINE Antibody screen (gel) NEG [facility] DEPARTMENT OF PATHOLOGY AND GENOMIC MEDICINE Specimen Blood Performing Organization Address City/[facility] Number [facility] DEPARTMENT OF PATHOLOGY AND [address] [place] [address] GENOMIC MEDICINE Radiology Exam Surg Specimen (11/08/2016)Only the most recent of2 resultswithin the time period is included. Narrative Performed At after 08/24/2016 Insurance Payer Benefit Plan / Group Subscriber ID Type Phone Address AETNA AETNA HMO,POS,EPO, MC/EC xxxxxxxxxx HMO
[2017-08-25] MEDS ORDERED: NA CHLORIDE 0.9% 1,000 ML ONE ×2 (19:41→19:49)
--- NOTE | 2017-08-25 19:47 | EDPHYS ---
Physician Documentation [facility] Name: Blanka Reilly Age: 46 yrs Sex: Female : 1970 Arrival Date: 08/25/2017 Time: 18:37 Bed 14 Private MD: Chidi Anguiano ED Physician TommieJono HPI: 08/25 19:44 This 46 yrs old Female presents to ER via Ambulatory with complaints of Blood nayely Pressure Problem - LOW. 19:44 The patient or guardian reports chest pain that is located primarily in the substernal nayely area. Onset: today. weakness, low blood pressure. The pain does not radiate. Onset: The symptoms/episode began/occurred today. Associated signs and symptoms: The patient has no apparent associated signs or symptoms. The chest pain is described as a pressure. 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 aj1 Historical: - Allergies: 19:03 Aspirin; aj1 19:03 Codeine; aj1 19:03 Demerol; aj1 19:03 HYDROCODONE; aj1 19:03 Morphine; aj1 19:03 PENICILLINS; aj1 19:03 Zofran; aj1 - Home Meds: 19:03 amlodipine 5 mg tab 1 tab once daily [Active]; Eliquis 5 mg oral tab 1 tab 2 times per aj1 day [Active]; olmesartan-hydrochlorothiazide oral 20-12.5 mg oral once daily [Active]; Vyvanse 30 mg oral cap 1 cap once in the morning and once at lunch time [Active]; Ambien 5 mg Oral tab 1 tab once daily [Active]; clonazepam 0.5 mg Oral TbDL 1 tab 2 times per day [Active]; - PMHx: 19:03 colon cancer; kidney disease; Portal vein thrombosis; aj1 - PSHx: 19:03 Bowel resection; aj1 - Immunization history:: Flu vaccine is up to date. - Social history:: Smoking status: Patient/guardian denies using tobacco. - Ebola Screening: : Patient denies travel to an Ebola-affected area in the 21 days before illness onset. - Family history:: not pertinent. ROS: 19:44 Constitutional: Negative for fever, chills, and weight loss, Eyes: Negative for injury, nayely pain, redness, and discharge, ENT: Negative for injury, pain, and discharge, Neck: Negative for injury, pain, and swelling, Respiratory: Negative for shortness of breath, cough, wheezing, and pleuritic chest pain, Abdomen/GI: Negative for abdominal pain, nausea, vomiting, diarrhea, and constipation, Back: Negative for injury and pain, : Negative for injury, bleeding, discharge, and swelling, MS/Extremity: Negative for injury and deformity, Skin: Negative for injury, rash, and discoloration, Neuro: Negative for headache, weakness, numbness, tingling, and seizure, Psych: Negative for depression, anxiety, suicide ideation, homicidal ideation, and hallucinations, Allergy/Immunology: Negative for hives, rash, and allergies, Endocrine: Negative for neck swelling, polydipsia, polyuria, polyphagia, and marked weight changes, Hematologic/Lymphatic: Negative for swollen nodes, abnormal bleeding, and unusual bruising. 19:44 Neck: Positive for 19:44 Cardiovascular: Positive for chest pain. Exam: 19:44 Constitutional: This is a well developed, well nourished patient who is awake, alert, nayely and in no acute distress. Head/Face: Normocephalic, atraumatic. Eyes: Pupils equal round and reactive to light, extra-ocular motions intact. Lids and lashes normal. Conjunctiva and sclera are non-icteric and not injected. Cornea within normal limits. Periorbital areas with no swelling, redness, or edema. ENT: Nares patent. No nasal discharge, no septal abnormalities noted. Tympanic membranes are normal and external auditory canals are clear. Oropharynx with no redness, swelling, or masses, exudates, or evidence of obstruction, uvula midline. Mucous membranes moist. Neck: Trachea midline, no thyromegaly or masses palpated, and no cervical lymphadenopathy. Supple, full range of motion without nuchal rigidity, or vertebral point tenderness. No Meningismus. Chest/axilla: Normal chest wall appearance and motion. Nontender with no deformity. No lesions are appreciated. Cardiovascular: Regular rate and rhythm with a normal S1 and S2. No gallops, murmurs, or rubs. Normal PMI, no JVD. No pulse deficits. Respiratory: Lungs have equal breath sounds bilaterally, clear to auscultation and percussion. No rales, rhonchi or wheezes noted. No increased work of breathing, no retractions or nasal flaring. Abdomen/GI: Soft, non-tender, with normal bowel sounds. No distension or tympany. No guarding or rebound. No evidence of tenderness throughout. Back: No spinal tenderness. No costovertebral tenderness. Full range of motion. Female : Normal external genitalia. Skin: Warm, dry with normal turgor. Normal color with no rashes, no lesions, and no evidence of cellulitis. MS/ Extremity: Pulses equal, no cyanosis. Neurovascular intact. Full, normal range of motion. Neuro: Awake and alert, GCS 15, oriented to person, place, time, and situation. Cranial nerves II-XII grossly intact. Motor strength 5/5 in all extremities. Sensory grossly intact. Cerebellar exam normal. Normal gait. Psych: Awake, alert, with orientation to person, place and time. Behavior, mood, and affect are within normal limits. 19:44 Musculoskeletal/extremity: DVT Exam: No signs of deep vein thrombosis. no pain, no swelling, no tenderness, negative Homans' sign noted on exam, no appreciated bluish discoloration, no erythema, no increased warmth. Vital Signs: 19:03 BP 108 / 62; Pulse 85; Resp 18; Temp 98.1; Pulse Ox 97% on R/A; Weight 120.2 kg; Height aj1 5 ft. 11 in. (180.34 cm); Pain 5/10; 20:20 BP 97 / 66; Pulse 62; Resp 12; Pulse Ox 98% on R/A; rv 20:50 BP 99 / 69; Pulse 63; Resp 16; Pulse Ox 100% on R/A; rv 21:55 BP 100 / 77; Pulse 63; Resp 16; Pulse Ox 97% on R/A; rv 19:03 Body Mass Index 36.96 (120.20 kg, 180.34 cm) aj1 MDM: 19:12 Patient medically screened. [facility] 19:46 Data reviewed: vital signs, nurses notes, lab test result(s), EKG, radiologic studies, [facility] plain films. 08/25 19:22 Order name: Basic Metabolic Panel; Complete Time: 20:22 [facility] 08/25 19:22 Order name: CBC with Diff; Complete Time: 20:22 [facility] 08/25 19:22 Order name: Ckmb; Complete Time: 20:22 [facility] 08/25 19:22 Order name: CPK; Complete Time: 20:22 [facility] 08/25 19:22 Order name: LFT's; Complete Time: 20:22 [facility] 08/25 19:22 Order name: Magnesium; Complete Time: 20:22 [facility] 08/25 19:22 Order name: NT PRO-BNP; Complete Time: 20:22 [facility] 08/25 19:22 Order name: PT-INR; Complete Time: 20:22 [facility] 08/25 19:22 Order name: Ptt, Activated; Complete Time: 20:22 [facility] 08/25 19:22 Order name: Troponin (emerg Dept Use Only); Complete Time: 20:22 [facility] 08/25 19:22 Order name: Lipase; Complete Time: 20:22 [facility] 08/25 19:22 Order name: Urine Culture [facility] 08/25 19:22 Order name: Type And Screen; Complete Time: 21:22 [facility] 08/25 19:22 Order name: Blood Culture Adult (2) [facility] 08/25 19:22 Order name: XRAY Chest (1 view) [facility] 08/25 20:02 Order name: Basic Metabolic Panel [facility] 08/25 20:02 Order name: Basic Metabolic Panel [facility] 08/25 20:02 Order name: CBC with Automated Diff [facility] 08/25 20:02 Order name: CBC with Automated Diff [facility] 08/25 20:02 Order name: Troponin I [facility] 08/25 20:02 Order name: Troponin I [facility] 08/25 20:02 Order name: Troponin I [facility] 08/25 20:02 Order name: Chest Single View [facility] 08/25 20:47 Order name: Cortisol [facility] 08/25 20:55 Order name: ABO/RH no charge; Complete Time: 21:22 [facility] 08/25 21:00 Order name: Urine Dipstick--Ancillary (enter results) 08/25 21:00 Order name: Urine --Ancillary (enter results) 08/25 21:03 Order name: Urine --Ancillary; Complete Time: 21:22 [facility] 08/25 21:03 Order name: Urine Dipstick-Ancillary; Complete Time: 21:22 [facility] 08/25 21:17 Order name: Cortisol; Complete Time: 21:22 [facility] 08/25 19:22 Order name: Urine Test (obtain specimen) [facility] 08/25 19:22 Order name: EKG; Complete Time: 19:22 [facility] 08/25 19:22 Order name: Cardiac monitoring; Complete Time: 19:41 [facility] 08/25 19:22 Order name: EKG - Nurse/Tech; Complete Time: 19:23 [facility] 08/25 19:22 Order name: IV Saline Lock; Complete Time: 19:41 [facility] 08/25 19:22 Order name: Labs collected and sent; Complete Time: 19:41 [facility] 08/25 19:22 Order name: O2 Per Protocol; Complete Time: 19:41 [facility] 08/25 19:22 Order name: O2 Sat Monitoring; Complete Time: 19:41 [facility] 08/25 20:02 Order name: Consistent Carb (ADA) [address] EDMS 08/25 20:02 Order name: EKG Electrocardiogram EDMS 08/25 20:02 Order name: EKG Electrocardiogram EDMS 08/25 20:02 Order name: EKG Electrocardiogram EDMS 08/25 20:02 Order name: EKG Electrocardiogram EDMS 08/25 20:02 Order name: Chest Single View EDMS 08/25 20:23 Order name: CT Chest For PE Angio [facility] 08/25 21:07 Order name: RAD; Complete Time: 21:22 EDMS 08/25 21:29 Order name: CT; Complete Time: 21:53 EDMS Administered Medications: 19:41 Drug: NS 0.9% 1000 ml Route: IV; Rate: 125 ml/hr; Site: right antecubital; rv 20:22 Follow up: Response: No adverse reaction rv 22:05 Follow up: IV Status: Infusion continued upon admission rv 19:44 Drug: NS 0.9% 1000 ml Route: IV; Rate: 1 bolus; Site: right antecubital; rv 20:21 Follow up: Response: No adverse reaction rv 22:05 Follow up: IV Status: Completed infusion rv 20:30 Drug: Potassium Effervescent Tablet 25 mEq Route: PO; rv 22:04 Follow up: Response: No adverse reaction rv 21:45 Drug: Rocephin - (cefTRIAXone) 1 grams Route: IVPB; Infused Over: 30 mins; Site: right rv antecubital; 21:57 Follow up: Response: No adverse reaction rv Disposition: 08/25/17 19:47 Hospitalization ordered by Chidi Anguiano for Observation. Preliminary diagnosis are Hypotension, Weakness, Chest pain on breathing, Hypokalemia. - Bed requested for Telemetry/MedSurg (observation). - Status is Observation. rv - Condition is Stable. - Problem is new. - Symptoms have improved. UTI on Admission? No Signatures: Dispatcher [employer] EDNeeta Wynne RN RN aj1 Jono Reilly MD MD cha Botello, Elizabeth eb Vicente, Ronaldo, RN RN rv Corrections: (The following items were deleted from the chart) 20:24 19:47 Hospitalization Ordered by Chidi Anguiano MD for Inpatient Admission. Preliminary nayely diagnosis is Hypotension; Weakness; Chest pain on breathing. Bed requested for Telemetry/MedSurg (Inpatient). Status is Inpatient Admission. Condition is Stable. Problem is new. Symptoms have improved. UTI on Admission? No. nayely 20:30 20:24 08/25/2017 19:47 Hospitalization Ordered by Chidi Anguiano MD for Inpatient nayely Admission. Preliminary diagnosis is Hypotension; Weakness; Chest pain on breathing; Hypokalemia. Bed requested for Telemetry/MedSurg (Inpatient). Status is Inpatient Admission. Condition is Stable. Problem is new. Symptoms have improved. UTI on Admission? No. nayely 20:31 20:30 08/25/2017 19:47 Hospitalization Ordered by Chidi Anguiano MD for Observation. eb Preliminary diagnosis is Hypotension; Weakness; Chest pain on breathing; Hypokalemia. Bed requested for Telemetry/MedSurg (observation). Status is Observation. Condition is Stable. Problem is new. Symptoms have improved. UTI on Admission? No. nayely 21:39 20:31 08/25/2017 19:47 Hospitalization Ordered by Chidi Anguiano MD for Observation. eb Preliminary diagnosis is Hypotension; Weakness; Chest pain on breathing; Hypokalemia. Bed requested for Telemetry/MedSurg (observation). Status is Observation. Condition is Stable. Problem is new. Symptoms have improved. UTI on Admission? No. eb 22:14 21:39 08/25/2017 19:47 Hospitalization Ordered by Chidi Anguiano MD for Observation. rv Preliminary diagnosis is Hypotension; Weakness; Chest pain on breathing; Hypokalemia. Bed requested for Telemetry/MedSurg (observation). Status is Observation. Condition is Stable. Problem is new. Symptoms have improved. UTI on Admission? No. eb
--- NOTE | 2017-08-25 19:47 | ER ---
Nurse's Notes [facility] Name: Blanka Reilly Age: 46 yrs Sex: Female : 1970 Arrival Date: 08/25/2017 Time: 18:37 Bed 14 Private MD: Chidi Anguiano Diagnosis: Hypotension;Weakness;Chest pain on breathing;Hypokalemia Presentation: 08/25 18:57 Presenting complaint: Patient states: "My blood pressure just keeps getting lower and aj1 lower so I was told on the phone by Dr. Anguiano told me to come straight here" Reports dizziness, chest pain. Reports that her blood pressure was 74/43 at home on her wrist monitor. Transition of care: patient was not received from another setting of care. Onset of symptoms was August 25, 2017. Risk Assessment: Do you want to hurt yourself or someone else? Patient reports no desire to harm self or others. Initial Sepsis Screen: Does the patient meet any 2 criteria? No. Patient's initial sepsis screen is negative. Does the patient have a suspected source of infection? No. Patient's initial sepsis screen is negative. Care prior to arrival: None. 18:57 Method Of Arrival: Ambulatory aj1 18:57 Acuity: ILANA 3 aj1 Triage Assessment: 19:03 General: Appears in no apparent distress. uncomfortable, Behavior is calm, cooperative, aj1 appropriate for age. Pain: Complains of pain in anterior aspect of left upper chest and left side of neck Pain does not radiate. Pain currently is 5 out of 10 on a pain scale. Neuro: Level of Consciousness is awake, alert, obeys commands, Oriented to person, place, time, situation, Moves all extremities. Full function Gait is steady, Speech is normal, Facial symmetry appears normal, Reports dizziness. Cardiovascular: Reports chest pain, Denies nausea, palpitations, shortness of breath, Patient's skin is warm and dry. Respiratory: Airway is patent Respiratory effort is even, unlabored, Respiratory pattern is regular, symmetrical. Derm: Skin is pink, warm \\T\\ dry. normal. Musculoskeletal: Circulation, motion, and sensation intact. 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 aj1 Historical: - Allergies: 19:03 Aspirin; aj1 19:03 Codeine; aj1 19:03 Demerol; aj1 19:03 HYDROCODONE; aj1 19:03 Morphine; aj1 19:03 PENICILLINS; aj1 19:03 Zofran; aj1 - Home Meds: 19:03 amlodipine 5 mg tab 1 tab once daily [Active]; Eliquis 5 mg oral tab 1 tab 2 times per aj1 day [Active]; olmesartan-hydrochlorothiazide oral 20-12.5 mg oral once daily [Active]; Vyvanse 30 mg oral cap 1 cap once in the morning and once at lunch time [Active]; Ambien 5 mg Oral tab 1 tab once daily [Active]; clonazepam 0.5 mg Oral TbDL 1 tab 2 times per day [Active]; - PMHx: 19:03 colon cancer; kidney disease; Portal vein thrombosis; aj1 - PSHx: 19:03 Bowel resection; aj - Immunization history:: Flu vaccine is up to date. - Social history:: Smoking status: Patient/guardian denies using tobacco. - Ebola Screening: : Patient denies travel to an Ebola-affected area in the 21 days before illness onset. - Family history:: not pertinent. Screenin:42 Abuse screen: Denies threats or abuse. Denies injuries from another. Nutritional rv screening: No deficits noted. Tuberculosis screening: No symptoms or risk factors identified. Fall Risk None identified. Assessment: 19:23 General: Appears in no apparent distress. uncomfortable, Behavior is calm, cooperative. rv Pain: Denies pain. Complains of pain in chest Pain does not radiate. Pain level that patient reports is acceptable is 5 out of 10 on a pain scale. Neuro: Level of Consciousness is awake, alert, obeys commands, Oriented to person, place, time, situation. Cardiovascular: Heart tones S1 S2 present. Respiratory: Airway is patent. GI: No signs and/or symptoms were reported involving the gastrointestinal system. : No signs and/or symptoms were reported regarding the genitourinary system. EENT: No signs and/or symptoms were reported regarding the EENT system. Derm: Skin is intact. Musculoskeletal: No signs and/or symptoms reported regarding the musculoskeletal system. 21:55 Reassessment: Patient appears in no apparent distress at this time. Patient is alert, rv oriented x 3, equal unlabored respirations, skin warm/dry/pink. PATIENT NOTED TO BE STILL DIZZY. ABLE TO USE BEDSIDE COMMODE. VITAL SIGNS ARE STABLE. Vital Signs: 19:03 BP 108 / 62; Pulse 85; Resp 18; Temp 98.1; Pulse Ox 97% on R/A; Weight 120.2 kg; Height aj1 5 ft. 11 in. (180.34 cm); Pain 5/10; 20:20 BP 97 / 66; Pulse 62; Resp 12; Pulse Ox 98% on R/A; rv 20:50 BP 99 / 69; Pulse 63; Resp 16; Pulse Ox 100% on R/A; rv 21:55 BP 100 / 77; Pulse 63; Resp 16; Pulse Ox 97% on R/A; rv 19:03 Body Mass Index 36.96 (120.20 kg, 180.34 cm) aj1 ED Course: 18:37 Patient arrived in ED. sb2 18:37 Chidi Anguiano MD is Private Physician. sb2 18:59 Triage completed. aj1 19:03 Arm band placed on Patient placed in an exam room. aj1 19:10 Mari Mcmullen, RN is Primary Nurse. aj 19:12 Jono Reilly MD is Attending Physician. nayely 19:19 Keron Gutiérrez, RUBY is Primary Nurse. bp 19:30 Inserted saline lock: 20 gauge in right antecubital area, using aseptic technique. rv 19:43 Patient has correct armband on for positive identification. Placed in gown. Bed in low rv position. Call light in reach. Side rails up X 1. Adult w/ patient. cardiac monitor technician on. Pulse ox on. NIBP on. 19:46 Chidi Anguiano MD is Hospitalizing Provider. nayely 20:13 X-ray completed. Portable x-ray completed in exam room. Patient tolerated procedure la2 well. 20:34 Radiology exam delayed due to test not completed at this time. sj 20:58 Note: neg upt per jesus akers. sj 21:18 CT completed. Patient tolerated procedure well. Patient moved back from CT. sj 22:02 Patient admitted, IV remains in place. intact. rv 22:02 No provider procedures requiring assistance completed. rv Administered Medications: 19:41 Drug: NS 0.9% 1000 ml Route: IV; Rate: 125 ml/hr; Site: right antecubital; rv 20:22 Follow up: Response: No adverse reaction rv 22:05 Follow up: IV Status: Infusion continued upon admission rv 19:44 Drug: NS 0.9% 1000 ml Route: IV; Rate: 1 bolus; Site: right antecubital; rv 20:21 Follow up: Response: No adverse reaction rv 22:05 Follow up: IV Status: Completed infusion rv 20:30 Drug: Potassium Effervescent Tablet 25 mEq Route: PO; rv 22:04 Follow up: Response: No adverse reaction rv 21:45 Drug: Rocephin - (cefTRIAXone) 1 grams Route: IVPB; Infused Over: 30 mins; Site: right rv antecubital; 21:57 Follow up: Response: No adverse reaction rv Outcome: 19:47 Decision to Hospitalize by Provider. nayely 22:03 Admitted to Tele accompanied by tech, via stretcher, room 405, with chart, Report rv called to GLENN 22:03 Condition: stable rv 22:03 Instructed on the need for admit. 22:14 Patient left the ED. rv Signatures: Neeta Spencer RN RN Mari Carlos RN RN aj Anderson, Corey, MD MD cha Jones, Susan sj Ardoin, Leslie la2 Keron Gutiérrez RN RN bp Billeau, Sheri sb2 Jj Gastelum RN RN rv Corrections: (The following items were deleted from the chart) 19:42 19:42 Inserted saline lock: 20 gauge in right antecubital area, using aseptic rv technique. rv
[2017-08-25 19:49] LABS: Absolute Lymphocytes (CBC) 3.3 K/uL (0.7-4.9); Absolute Monocytes 0.8 K/uL (0.1-1.3); Absolute Neutrophil 7.7 K/uL (1.8-8.0); Basophils % 0.6 % (0-1.3); Eosinophils % 1.4 % (0-4.4); Hematocrit 39.9 % (36.0-45.0); Lymphocytes % 27.3 % (15.3-44.8); MCH 29.6 pg (27.0-35.0); MCV 88.2 fL (80-100); MPV 8.2 fL (7.6-11.3); Monocytes % 6.4 % (3.3-12.3); RBC Red Blood Cell Count 4.52 M/uL (3.86-4.86)
[2017-08-25 19:52] LABS: Protime INR 1.47
[2017-08-25] MEDS ORDERED: ACETAMINOPHEN 500 MG TAB PO PRN (19:59)
[2017-08-25] MEDS ORDERED: ONDANSETRON 4 MG/2 ML VIAL IV PRN (19:59)
[2017-08-25 20:09] LABS: ALT/SGPT 20 U/L (12-78); AST/SGOT 16 U/L (15-37); Albumin 3.5 g/dL (3.4-5.0); Alkaline Phosphatase 92 U/L (45-117); BUN Blood Urea Nitrogen 21 mg/dL (7-18); Bicarbonate 28 mmol/L (21-32); Bilirubin Direct < 0.1 mg/dL (0-0.2); Bilirubin Total 0.2 mg/dL (0.2-1.0); CKMB Creatine Kinase MB < 1.0 ng/mL (0.3-3.6); Creatine Phosphokinase 62 U/L (26-192); Glucose Level 103 mg/dL (74-106); Lipase 340 U/L (73-393); Magnesium 2.1 mg/dL (1.8-2.4); NT PRO-BNP 45 pg/mL (<125); Potassium 3.3 mmol/L (3.5-5.1); Protein, Total 7.7 g/dL (6.4-8.2); Sodium Level 141 mmol/L (136-145)
[2017-08-25] MEDS: APIXABAN 5 MG TABLET PO SCH (21:00)
[2017-08-25 21:03] LABS: Urine Blood NEGATIVE (NEG); Urine Glucose NEGATIVE (NEG); Urine Protein NEGATIVE (NEG); Urine Specific Gravity 1.025 (1.005-1.030); Urine pH 5.5 (5.0-7.0)
--- NOTE | 2017-08-25 21:07 | RAD REPORT ---
EXAM DESCRIPTION: RAD - Chest Single View - 08/25/2017 8:17 pm CLINICAL HISTORY: Cough and congestion COMPARISON: April 13 TECHNIQUE: AP portable chest image was obtained 1944 hours . FINDINGS: Lungs are clear. Heart and vasculature are normal. No measurable pleural effusion and no p neumothorax. No gross bony abnormality seen. No acute aortic findings suspected. IMPRESSION: No acute cardiopulmonary process. No significant interval change.
--- NOTE | 2017-08-25 21:28 | RAD REPORT ---
EXAM DESCRIPTION: CT - Chest For Pe Angio - 08/25/2017 9:19 pm CLINICAL HISTORY: Dizziness, chest pain, shortness of breath COMPARISON: Chest films same date, PE study April 13 TECHNIQUE: Dynamically enhanced 3 mm thick images of the chest were obtained during administration o f approximately 150mL Isovue 370 IV contrast. Coronal and oblique reconstruction images were generate d using maximum intensity projection algorithm and reviewed. Exam utilizes a protocol to evaluate the pulmonary arterial tree. All CT scans are performed using dose optimization technique as appropriate and may include automated exposure control or mA/KV adjustment according to patient size. FINDINGS: No pulmonary emboli are identified. The aorta as imaged shows no acute or suspicious finding. No pericardial thickening or effusion. No infiltrate or mass in the lung parenchyma. No pleural effusion or pleural thickening. No mediastinal or hilar suspicious masses. No chest wall masses or abnormal axillary lymphadenopathy. IMPRESSION: No pulmonary emboli identified. No other significant or suspicious findings.
[2017-08-25] MEDS ORDERED: CEFTRIAXONE/SWI 1gm 1 GM/10 ML SYR ONE (21:44)
[2017-08-25] MEDS: FAMOTIDINE 20 MG/2 ML VIAL IV SCH (22:45)
[2017-08-25] MEDS: PROMETHAZINE 25 MG/ML VIAL IV PRN (22:46)
[2017-08-25] MEDS: POTASSIUM 25 MEQ EFFERV TAB PO SCH (22:47)
--- NOTE | 2017-08-25 22:56 | EKG ---
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
[2017-08-26 04:31] LABS: Absolute Lymphocytes (CBC) 3.3 K/uL (0.7-4.9); Absolute Monocytes 0.5 K/uL (0.1-1.3); Basophils % 0.7 % (0-1.3); Eosinophils % 1.8 % (0-4.4); Hematocrit 36.5 % (36.0-45.0); Lymphocytes % 41.3 % (15.3-44.8); MCV 88.5 fL (80-100); MPV 8.2 fL (7.6-11.3); Monocytes % 6.4 % (3.3-12.3); RBC Red Blood Cell Count 4.13 M/uL (3.86-4.86)
[2017-08-26 04:51] LABS: Potassium 3.3 mmol/L (3.5-5.1)
[2017-08-26] MEDS: APIXABAN 5 MG TABLET PO SCH ×2 (09:10→21:23)
[2017-08-26] MEDS: POTASSIUM 25 MEQ EFFERV TAB PO SCH ×2 (09:10→21:22)
[2017-08-26] MEDS: FAMOTIDINE 20 MG/2 ML VIAL IV SCH ×2 (09:10→21:23)
[2017-08-26] MEDS: PROMETHAZINE 25 MG/ML VIAL IV PRN ×3 (09:17→21:34)
[2017-08-26] MEDS: NA CHLORIDE 0.9% 1,000 ML IV SCH ×4 (09:18→23:58)
--- NOTE | 2017-08-26 12:19 | RAD REPORT ---
EXAM DESCRIPTION: RAD - Chest Single View - 08/26/2017 6:36 am CLINICAL HISTORY: Chest Pain Chest pain. COMPARISON: Chest Single View dated 08/25/2017; Chest Single View dated 04/13/2017; CHEST SINGLE VIEW dated 08/16/2012; CHEST PA AND LAT 2 VIEW dated 04/15/2012 FINDINGS: Portable technique limits examination quality. The lungs are grossly clear. The heart is normal in size. No displaced fractures. IMPRESSION: No acute intrathoracic process suspected.
--- NOTE | 2017-08-26 16:20 | HP ---
Date of Admission: 08/25/2017 HUSSAIN/MODL Voice ID: [id number]
--- NOTE | 2017-08-26 19:19 | HP ---
Date of Admission: 08/26/2017 Chief Complaint: Feeling weak and dizzy. History Of Present Illness: A 46-year-old female patient, who sees me regularly and the last time she was seen at office was on 08/15/2017. The patient was taking amlodipine 5 mg twice a day for her hypertension and her blood pressure well controlled at office, but she was complaining of leg swelling. So decision was made to reduce amlodipine dose to 5 mg daily at bedtime and olmesartan/HCTZ 20/12.5 mg 1 tablet p.o. daily in morning was prescribed to her. The patient was asked to come for followup in about 1 month. She was doing fine until yesterday. She was feeling weak, dizzy as if she might faint, so she decided to check her blood pressure. Her blood pressure was 90/50 and pulse rate was around 52, so she called me yesterday morning with this as she was concerned about it. I explained it to her not to take any medication yesterday at all and as of today, she was advised just to take olmesartan/HCTZ in the morning and not to take amlodipine at all and for her to keep her appointment to see me, which should be the next 2 weeks or so. The patient contacted me second time yesterday during evening hours and at that time. She was feeling worse with her blood pressure even dropping further, it was 74/43. So, I advised her to come to emergency room and she was brought in by her family. She denies any fall or injury. Denies any vomiting or diarrhea. No fever or chills. No abdominal pain. Denies any bleeding. After she was evaluated in the ER, she was admitted to the hospital. This morning, when I saw her, she is still feeling weaker than usual. Denies any chest pain or shortness of breath. Allergies: TO ASPIRIN, CODEINE, HYDROCODONE, MORPHINE, MEPERIDINE, PENICILLIN, ZOFRAN, AND SHE DESCRIBES ALL OF THOSE MEDICATION CAUSING ANAPHYLAXIS. Medications: Ambien 5 mg at bedtime as needed, amlodipine 5 mg in the evening time, clonazepam 0.5 mg daily as needed for anxiety, Eliquis 5 mg p.o. b.i.d., Imitrex 50 mg p.o. every 2 hours as needed for migraine, olmesartan/HCTZ 20/ 12.5 one p.o. daily in morning, Ultram 50 mg p.o. 3 times a day as needed, vitamin B12 1000 mcg p.o. daily. Review of Systems: Cardiovascular: As mentioned above. All other systems reviewed and negative. Past Medical History: Significant for hypertension, portal vein thrombosis, gastroesophageal reflux disease, migraine, chronic anticoagulation therapy due to portal vein thrombosis and hypercoagulable state and she is under care of Dr. Davidson, attention deficit disorder, cervical cancer, colon cancer for which she had right hemicolectomy in November 21, 2016, and bipolar disorder. Past Surgical History: Significant for gastric sleeve, April 25, 2014 for morbid obesity; right hemicolectomy, November 21, 2016 for colon cancer; cholecystectomy in 2002, exploratory laparotomy with lysis of intraabdominal adhesions in 1999. Family History: Father, who had stroke. Social History: Occasional smoking. Use of alcohol, negative. Physical Examination: Vital Signs: Height 5 feet 11 inches, weight recorded as 250 pounds, temperature 98, pulse 55, respiratory rate 16, blood pressure 88/54, oxygen saturation 94%. General exam: The patient appears weaker than normal. Not in any distress. Awake, alert, oriented x3. HEENT: Head atraumatic, normocephalic. Conjunctivae nonerythematous. Sclerae white. Mouth, no thrush or edema noted. Ears/Nose, no mass, lesion, discharge noted. Neck: Supple. No JVD, lymph nodes, bruit, thyromegaly noted. Lungs: Bilateral good equal air entry. Clear to auscultation. No rhonchi. No rales. Heart: Normal heart sounds, no murmur or gallop. Abdomen: Soft, bowel sounds normal. No guarding, rigidity, tenderness, mass, hepatosplenomegaly, distention, or bruit noted. Extremities: No leg edema. No calf tenderness. Skin: No rash, ulcer, cellulitis. Lymphatics: No lymph node enlargement in neck, supraclavicular, infraclavicular region. Neuro: No focal neurological deficit. Chest: Unremarkable. External Genitalia: Deferred. Rectal: Deferred. Laboratory Data: Yesterday white count 12, hemoglobin 13.4, platelets 338. This morning white count 8.1, hemoglobin 12.4, platelets 309. INR 1.47, sodium 141 yesterday with potassium 3.3, chloride 107 bicarb 28, BUN 21, creatinine 1.10, glucose 103, liver function tests unremarkable, troponin less than 0.02, lipase 340, and random serum cortisol level was 6.4. This morning, sodium 142, potassium 3.3, chloride 109, bicarb 28, BUN 16, creatinine 0.80, glucose 93. Troponin less than 0.02. Urinalysis trace leukocyte esterase, otherwise negative. Urine test negative. CAT scan of the chest per PE protocol , no evidence of any pulmonary embolism. No other significant or suspicious findings. Chest x-ray, no acute changes. Normal sinus rhythm, normal EKG. Impression: 1. Hypotension. 2. Hypokalemia. 3. Rule out adrenal insufficiency. 4. Colon cancer. 5. Total vein thrombosis. 6. Hypercoagulable state. 7. Chronic anticoagulation therapy. 8. Migraine. Plan: We will go ahead and admit the patient to hospital for further evaluation and management of this problem. The patient is appropriate for inpatient and is expected to spend 2 midnights in hospital. We will continue her Eliquis as she takes it at home. The patient received 1 L of IV fluid in the emergency room and we will continue IV fluid using normal saline at 125 cc/ hour. I will go ahead and get a CAT scan of the abdomen with contrast to be done tomorrow to evaluate her adrenal glands. We need to make sure there is no evidence of any metastatic disease to adrenal gland because of her colon cancer problem, other thing we also need to rule out is adrenal insufficiency with help of cortisol stimulation test, which will be done tomorrow morning. Depending on this test results we will decide if she is stable enough for discharge tomorrow or not with appropriate medication changes. We will not be giving any antihypertensive medication while in the hospital and at the time of discharge we will decide if she needs to restart any particular medication then we will discuss it with the patient. Plan of treatment discussed with her. Please note that the patient's weight at office was 270 pounds when she came to see me about 10 days ago and at the hospital it was recorded as 250 pounds. The patient feels like she might have lost some weight, but not 20 pounds, so what we will do is obviously I will follow up her weight when she comes back to see me and also will review multiple prior office visits and weight chart as it is possible that if she has not lost this 20 pounds then there is some inaccurate weight measurement at some point, whether that was at hospital or office. If office weight readings are consistent, then we will have to think about that hospital weight recorded was wrong. HUSSAIN/MARISELL Voice ID: [id number] GARRETT
[2017-08-26] MEDS: ZOLPIDEM TARTRATE 5 MG TABLET PO SCH (21:23)
[2017-08-27 04:13] LABS: Absolute Lymphocytes (CBC) 3.1 K/uL (0.7-4.9); Absolute Monocytes 0.4 K/uL (0.1-1.3); Absolute Neutrophil 3.7 K/uL (1.8-8.0); Basophils % 0.7 % (0-1.3); Lymphocytes % 41.9 % (15.3-44.8); MCH 29.7 pg (27.0-35.0); MCV 90.2 fL (80-100); MPV 8.5 fL (7.6-11.3); Monocytes % 5.4 % (3.3-12.3); RBC Red Blood Cell Count 4.11 M/uL (3.86-4.86)
[2017-08-27 04:34] LABS: Potassium 3.6 mmol/L (3.5-5.1); Thyroid Stimulating Hormone 0.85 uIU/mL (0.36-3.74)
[2017-08-27] MEDS ORDERED: KCL 20 MEQ/100 mL IVPB 20 MEQ/100 ML BAG IV SCH (06:00)
[2017-08-27] MEDS: NA CHLORIDE 0.9% 1,000 ML IV SCH ×3 (06:29→16:20)
[2017-08-27] MEDS ORDERED: COSYNTROPIN 0.25 MG VIAL IV ONE (08:00)
[2017-08-27] MEDS ORDERED: SODIUM CHLORIDE 0.9% 10ML INJ IV ONE (08:00)
[2017-08-27] MEDS: POTASSIUM 25 MEQ EFFERV TAB PO SCH ×2 (09:00→20:48)
[2017-08-27] MEDS: APIXABAN 5 MG TABLET PO SCH ×3 (09:00→20:48)
[2017-08-27] MEDS: FAMOTIDINE 20 MG/2 ML VIAL IV SCH ×2 (09:33→20:48)
[2017-08-27] MEDS: PROMETHAZINE 25 MG/ML VIAL IV PRN ×3 (09:43→22:47)
--- NOTE | 2017-08-27 13:19 | RAD REPORT ---
EXAM DESCRIPTION: CT - Abdomen Pelvis W/Wo Contrast - 08/27/2017 12:56 pm CLINICAL HISTORY: Colon cancer. COMPARISON: February 2017. TECHNIQUE: Computed axial tomography of the abdomen and pelvis was obtained. Un-enhanced and enhance d images were taken. 100 cc Isovue 300 was administered intravenously. Images were obtained in arteri al, venous and delayed phases. Coronal reconstruction was performed. All CT scans are performed using dose optimization technique as appropriate and may include automated exposure control or mA/KV adjustment according to patient size. Coronal reconstruction was performed . FINDINGS: Fatty infiltration of the liver is present. The gallbladder has been removed. The caudate and left lobe are prominent. The spleen, pancreas and kidneys demonstrate no significant abnormality. An adrenal mass is not visualized. Postsurgical changes of a right hemicolectomy are present. The bowel caliber is normal. The previously described omental infarct has decreased in size. An umbilical hernia contains fat. A 2 cm left ovarian cyst is present without significant free-fluid. IMPRESSION: 1. Fatty infiltration of the liver. 2. Prominence of the caudate and left lobe of the liver may indicate chronic disease. 3. Right hemicolectomy. 4. An adrenal mass is not seen.
--- NOTE | 2017-08-27 16:58 | ECHO ---
HEIGHT: 5 ft 11 in WEIGHT: 250 lb 0 oz DATE OF STUDY: 08/27/[address]: Chidi Anguiano MD 2-DIMENSIONAL: YES M.MODE: YES DOPPLER: YES COLOR FLOW: YES TDS: PORTABLE: DEFINITY: BUBBLE STUDY: DIAGNOSIS: HYPOTENSION CARDIAC HISTORY: CATHERIZATION: NO SURGERY: NO PROSTHETIC VALVE: NO PACEMAKER: NO MEASUREMENTS (cm) DIASTOLIC (NORMALS) SYSTOLIC (NORMALS) IVSd 0.8 (0.6-1.2) LA Diam 3.7 (1.9-4.0) LVEF 53% LVIDd 4.9 (3.5-5.7) LVIDs 3.5 (2.0-3.5) %FS 28% LVPWd 0.8 (0.6-1.2) Ao Diam 2.9 (2.0-3.7) 2 DIMENSIONAL ASSESSMENT: RIGHT ATRIUM: NORMAL LEFT ATRIUM: NORMAL RIGHT VENTRICLE: NORMAL LEFT VENTRICLE: NORMAL TRICUSPID VALVE: NORMAL MITRAL VALVE: NORMAL PULMONIC VALVE: NORMAL AORTIC VALVE: NORMAL PERICARDIAL EFFUSION: NONE AORTIC ROOT: NORMAL LEFT VENTRICULAR WALL MOTION: NORMAL DOPPLER/COLOR FLOW: TRACE MITRAL REGURGITATION AND TRICUSPID REGURGITATION. NORMAL RIGHT VENTRICULAR SYSTOLIC PRESSURE. COMMENTS: NORMAL TWO DIMENSIONAL ECHOCARDIOGRAM. MITRAL REGURGITATION AND TRICUSPID REGURGITATION. TECHNOLOGIST: LATISHA ROSEN
[2017-08-27 20:34] VITALS: O2SAT 98
[2017-08-27] MEDS: ZOLPIDEM TARTRATE 5 MG TABLET PO SCH (20:48)
--- NOTE | 2017-08-28 00:54 | PN ---
Date of Progress Note: 08/27/2017 Subjective: The patient was seen this morning for followup. She was complaining of feeling tired, b ut no other complaints. No chest pain or shortness of breath. No nausea, vomiting, diarrhea. Objective: Vital Signs: Reviewed. Blood pressure remains low and the last blood pressure this morn ing before I saw her was 82/50. HEENT: Unremarkable. Lungs: Clear to auscultation. Heart: Heart sounds normal. Abdomen: Soft, bowel sounds normal. No guarding, rigidity, tenderness, or distention. Extremities: No leg edema. Laboratory Data: White count 7.4, hemoglobin 12.2, platelets 288. Sodium 145, potassium 3.6, chlori de 112, bicarb 28, BUN 9, creatinine 0.90. Glucose 100. TSH 0.850. Echocardiogram shows normal eje ction fraction, unremarkable echo. CAT scan of the abdomen showed changes of fatty liver disease, ot herwise no acute findings. No evidence of any edema or mass. Impression: 1.Hypotension. 2.Colon cancer. 3.Fatty liver disease. 4.Portal vein thrombosis. 5.Chronic anticoagulation therapy. Plan: The patient will have cortisol stimulation test. We will follow up on that result. Continue IV fluid. She has not received any antihypertensive medication during this hospitalization. Dependi ng on her test results and her condition, we will decide if we can possibly discharge her to go home tomorrow or not. Plan of treatment discussed with her. HUSSAIN/MODL Voice ID: [id number] Report ID: [id number]
[2017-08-28] MEDS: NA CHLORIDE 0.9% 1,000 ML IV SCH ×3 (01:00→09:00)
[2017-08-28] MEDS: PROMETHAZINE 25 MG/ML VIAL IV PRN (07:28)
[2017-08-28 08:15] VITALS: BP 116/73; TEMP 97.2
[2017-08-28 08:16] VITALS: BMI 39.1
[2017-08-28] MEDS: APIXABAN 5 MG TABLET PO SCH (09:45)
[2017-08-28] MEDS: FAMOTIDINE 20 MG/2 ML VIAL IV SCH (09:46)
[2017-08-28] MEDS: POTASSIUM 25 MEQ EFFERV TAB PO SCH (09:46)
--- NOTE | 2017-08-28 10:10 | HP ---
Date of Admission: 08/26/2017 HUSSAIN/MODL Voice ID: [id number] MTDD
--- NOTE | 2017-08-28 13:40 | DS ---
Date of Discharge: 08/28/2017 Disposition: Discharged to go home. Physical Examination: HEENT: Unremarkable. Lungs: Clear to auscultation. Heart: Sounds normal. Abdomen: Soft, bowel sounds normal. No guarding, rigidity, tenderness, or distention. Extremities: No leg edema. Laboratory Data: Labs and test results done during this hospitalization. Cortisol stimulation test from yesterday shows baseline cortisol level of 12.2, 30 minutes cortisol level was 19.9, 60 minutes cortisol level was 24.8, and 90 minutes cortisol level was 26.0. Her white count upon admission was 12.0, hemoglobin 13.4, platelets 338. Last white count yesterday 7.4, hemoglobin 12.2, platelets 288 . Her TSH yesterday 0.850. Chemistry from yesterday sodium 145, potassium 3.6, chloride 112, bicarb 28, BUN 9, creatinine 0.90, glucose 100, magnesium 2. Her random cortisol level when she was admitt ed through ER was 6.4 on 08/25/2017. Troponin less than 0.02. CAT scan of the chest per PE protocol was negative for pulmonary embolism or any other acute or significant finding in the chest cavity. Chest x-ray, no acute cardiopulmonary changes. Echocardiogram from yesterday shows unremarkable echo cardiogram with normal ejection fraction and CAT scan of abdomen done yesterday with contrast shows n o evidence of any adrenal tumor, changes of fatty infiltration of liver, an approximately 2 cm left o varian cyst. Discharge Medications: Continue all prior home medications except stop losartan/HCTZ and stop amlodi pine. Discharge Instructions: The patient to check blood pressure 2 times a day every morning and every ev ening and once systolic blood pressure is 140 or higher then to restart amlodipine 5 mg 1 tablet by miguel christensen daily. Follow up at my office this month as per her scheduled appointment. The patient was advised today wh en I saw her, that she should bring her home blood pressure readings and machine to office when she c omes to see me at the time of her appointment. The patient did inform me that recently she started to take some medications for her ADD and she is g oing to go ahead and discontinue that. She does not know the name. This is something fairly new giorgio t she just started within last 2-3 weeks of this admission. Hospital Course: A 46-year-old female patient, who was admitted to the hospital after she came into emergency room with complaints of feeling weak and dizzy. Please see dictated H and P for more infor mation. After patient was evaluated in the ER, she was admitted to the hospital with hypotension pro blem. No definite etiology was found with initial evaluation in emergency room. She does not have a ny vomiting diarrhea. No bleeding. After she was admitted to the hospital, she was started on IV fl uid. We did not give any antihypertensive medication during this hospitalization at all. Her blood pressure remained low. Lowest blood pressure during this hospitalization was 82/50. As of this morn ing, her blood pressure is looking actually better and this is the best reading we have seen this mor milagros is between rather around 110 systolic. We have ruled out adrenal insufficiency, pulmonary embol ism, and there was no evidence of any volume loss. At this point, we believe that her low blood pres sure was due to her antihypertensive medication. Her weight during last office visit was around 272 pounds or so, when she was admitted to the hospital her weight was recorded at 250 pounds which was h dat to believe and today her weight was rechecked and it was recorded at 280 pounds. I believe that hospital's weight measurement is not accurate and I have advised the patient that we will follow up o n her weight when she comes back to see me at the office. She feels weaker than usual and dizzy, whe n her blood pressure runs low. I have advised her not to restrict any salt intake right now to start with and once her blood pressure starts to go up, then we will worry about salt restriction at that time. The patient was discharged to go home in stable condition with above-mentioned medication and instructions. I did inform her about the ovarian cyst that we have detected and she was advised to f kacilow up with her cable braider, Dr. Liang. She saw him sometime later part of last year. 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 Final Diagnoses: 1.Hypotension. 2.Colon cancer. 3.Portal vein thrombosis. 4.Hypercoagulable state. 5.Chronic anticoagulation therapy. 6.Gastroesophageal reflux disease. 7.Migraine. 8.Hypertension. HUSSAIN/MODL Voice ID: [id number] Report ID: [id number]
[2017-08-30] MEDS ORDERED: BUPIVACAINE 0.5% PF 10 ML VIAL ONE (09:20)
[2017-08-30] MEDS ORDERED: LIDOCAINE 1% MPF 5 ML VIAL ONE (09:21)
== END 2017-08-28 10:00 | disposition home or self-care (01) | DRG 314 ==
LOC: ER 18:33 → ERHOLD 19:57 → 4TH 22:06
PROVIDERS: ADMIT Internal Medicine; ATTEND Internal Medicine
DX: I95.9 Hypotension, unspecified (principal); I81 Portal vein thrombosis; D68.59 Other primary thrombophilia; K21.9 Gastro-esophageal reflux disease without esophagitis; G43.909 Migraine, unspecified, not intractable, without status migrainosus; I10 Essential (primary) hypertension; K76.0 Fatty (change of) liver, not elsewhere classified; F31.9 Bipolar disorder, unspecified; F98.8 Other specified behavioral and emotional disorders with onset usually occurring in childhood and adolescence; Z79.01 Long term (current) use of anticoagulants; Z88.5 Allergy status to narcotic agent; Z88.0 Allergy status to penicillin; Z88.8 Allergy status to other drugs, medicaments and biological substances; Z85.41 Personal history of malignant neoplasm of cervix uteri; Z85.038 Personal history of other malignant neoplasm of large intestine; Z90.49 Acquired absence of other specified parts of digestive tract; Z98.84 Bariatric surgery status; E87.6 Hypokalemia; T46.5X5A Adverse effect of other antihypertensive drugs, initial encounter; Y92.009 Unspecified place in unspecified non-institutional (private) residence as the place of occurrence of the external cause
CPT/HCPCS: 36415; 71045; 71275; 74178; 80048; 80076; 81003; 81025; 82024; 82533; 82550; 82553; 83690; 83735; 83880; 84443; 84484; 85025; 85610; 85730; 86850; 86900; 86901; 87040; 87077; 87086; 87088; 87186; 93005; 93306; 96361; 96374; 99285; J0696; J0834; J2550; J7030; Q9967

== ENCOUNTER 2018-10-14 10:41 | Emergency (ER) | payer OTHER ==
--- OUTSIDE RECORDS SUMMARY | 2018-10-14 10:53 | XMS REPORT | Clinical Summary ---
:1970 Author Organization [facility] Address [address] [place] [address] Care Team Providers Name Role Phone Chidi Anguiano MD Primary Care Provider Allergies Active Allergy Reactions Severity Noted Date Comments Aspirin 05/26/2016 Aspirin Anaphylaxis High 06/16/2016 Codeine 05/26/2016 Codeine Anaphylaxis High 06/16/2016 Meperidine 05/26/2016 Meperidine Anaphylaxis High 06/16/2016 Hydrocodone 05/26/2016 Hydrocodone Anaphylaxis High 06/16/2016 Morphine Anaphylaxis High 06/16/2016 Penicillins 05/26/2016 Penicillins Anaphylaxis High 06/16/2016 Vancomycin Itching 07/21/2018 Patient developed rash and itching after receiving second dose of IV vancomycin Ondansetron Hcl 05/26/2016 Ondansetron Hcl Other (See Comments) High 06/16/2016 Psychotic behavior Medications Medication Sig Dispensed Refills Start End Date Status Date clonAZEPAM Take 0.5 mg by 0 Active (KlonoPIN) 0.5 MG mouth 2 (two) tablet times a day as needed for anxiety. pantoprazole Take 40 mg by 0 Active (PROTONIX) 40 MG mouth daily. EC tablet nifedipine 0.2% Apply 1 0 06/27/19 Discontinued with lidocaine 5% application 19 (Med List 0.2-0.5 % topically 2 Cleanup) ointment (two) times a day as needed (for Anal Fissures). zolpidem (AMBIEN) Take 5 mg by 0 07/25/19 Discontinued 5 MG tablet mouth nightly as 19 (Stop Taking at needed for Discharge) sleep. traMADol (ULTRAM) Take 50 mg by 0 07/25/19 Discontinued 50 mg tablet mouth every 6 19 (Stop Taking at (six) hours as Discharge) needed for moderate pain. enoxaparin Inject 0.8 mL 60 Syringe 1 06/27/19 Discontinued (LOVENOX) 120 (120 mg total) 8 19 (Med List mg/0.8 mL syringe under the skin 2 Cleanup) (two) times a day. apixaban Take 1 tablet (5 60 tablet 11 04/30/19 Discontinued (ELIQUIS) 5 mg mg total) by 8 19 (Reorder) tablet mouth 2 (two) times a day. ELIQUIS 5 mg TAKE 1 TABLET BY 60 tablet 0 07/25/19 Discontinued tablet MOUTH TWICE 9 19 (Stop Taking at DAILY Discharge) levoFLOXacin Take 1 tablet 7 tablet 0 08/01/19 (LEVAQUIN) 500 MG (500 mg total) 9 19 tablet by mouth daily for 7 days. apixaban Take 1 tablet (5 60 tablet 0 08/24/19 (ELIQUIS) 5 mg mg total) by 9 19 tablet mouth 2 (two) times a day for 30 days. sennosides-docusa Take 1 tablet by 60 tablet 0 08/24/19 te sodium mouth 2 (two) 9 19 (SENOKOT-S) times a day for 8.6-50 mg per 30 days. tablet Active Problems Problem Noted Date AMOL drain, broken, sequela 08/08/2018 Incisional hernia, without obstruction or gangrene 07/19/2018 Incisional hernia of anterior abdominal wall without obstruction or 05/15/2018 gangrene Generalized abdominal pain 11/24/2016 Colonic polyp 11/21/2016 Encounters Date Type Specialty Care Team Description 08/22/2018 Telephone General Surgery Maurice Russ MA 08/14/2018 Office Visit General Surgery Gordy Bowels Canceled (Patient) Nikita Villavicencio MD 08/08/2018 Office Visit General Surgery Gordy Bowles Incisional hernia of anterior abdominal wall without obstruction or gangrene (Primary Dx); Nikita Villavicencio MD JP drain, broken, sequela 07/19/2018 Surgery General Surgery Gordy Bowles OPEN INCISIONAL Nikita Villavicencio MD HERNIA REPAIR W/ MESH; REMOVAL OF HERNIA SAC 07/19/2018 Anesthesia Event General Surgery Terrence Reyes MD Everitt, Amanda W., MANAGER LINE 07/19/2018 - Hospital Encounter General Surgery Gordy Bowles Incisional hernia, 07/24/2018 Nikita Villavicencio MD without obstruction Tarun Bustamante, or gangrene 07/17/2018 Anesthesia Event Pre-Admission Mari Curtis Testing W., MANAGER LINE 07/02/2018 Pre-Admit Testing Pre-Admission Wilbur Gordy Preop examination Appointment Testing Nikita Villavicencio MD (Primary Dx) 06/29/2018 Refill Oncology Marianna Blum MD 06/27/2018 Pre-Admit Testing Pre-Admission Wilbur Gordy Preop examination Appointment Testing Nikita Villavicencio MD (Primary Dx) 05/23/2018 Office Visit General Surgery Gordy Bowles Incisional hernia Nikita Villavicencio MD of anterior abdominal wall without obstruction or gangrene (Primary Dx) 05/17/2018 Hospital Encounter Radiology Gordy Bowles Incisional hernia, without obstruction or gangrene; Nikita Villavicencio MD Umbilical hernia without obstruction and without gangrene 05/14/2018 Orders Only General Surgery Gordy Bowles Incisional hernia, without obstruction or gangrene (Primary Dx); Nikita Villavicencio MD Umbilical hernia without obstruction and without gangrene 05/13/2018 Office Visit General Surgery Gordy Bowles Incisional hernia Nikita Villavicencio MD of anterior abdominal wall without obstruction or gangrene (Primary Dx) 04/29/2018 Refill Oncology Marianna Blum MD after 10/13/2017 Immunizations Name Administration Dates Next Due FLUCELVAX QUAD PF (0.5mL syringe) [...] Comments No Sex Assigned at Date Recorded Female 08/12/2018 10:19 AM CDT Job Start Date Occupation Industry Not on file Not on file Not on file Travel History Travel Start Travel End No recent travel history available. Last Filed Vital Signs Vital Sign Reading Time Taken Comments Blood Pressure 127/90 08/08/2018 12:41 PM CDT Pulse 97 08/08/2018 12:41 PM CDT Temperature 36.8 C (98.2 F) 08/08/2018 12:41 PM CDT Respiratory Rate 18 07/24/2018 8:35 AM CDT Oxygen Saturation 94% 07/24/2018 8:35 AM CDT Inhaled Oxygen Concentration - - Weight 124 kg (272 lb 4.8 oz) 07/19/2018 8:35 AM CDT Height 180.3 cm (5' 11") 07/19/2018 8:35 AM CDT Body Mass Index 37.98 07/19/2018 8:35 AM CDT Plan of Treatment Health Maintenance Due Date Last Done Comments INFLUENZA VACCINE 09/26/2018 11/23/2016 Implants Implanted Type Area Associate Designer Device Shelf Model / Identifier Expiration Serial / Date Lot Matrx Tiss Strttice 10 X 16cm Rcnstrctv Prcn Acell Perforate - [id number] Human Tissue N/A: N/A [employer] 04/25/2020 [id number] / Implanted: Qty: 1 on 07/19/2018 by Gordy Bowles MD at [facility] [employer] / [id number] Procedures Procedure Name Priority Date/Time Associated Comments Diagnosis ESTIMATED GFR Routine 07/23/2018 5:50 Results for this AM CDT procedure are in the results section. PHOSPHORUS LEVEL Routine 07/23/2018 5:50 Results for this AM CDT procedure are in the results section. MAGNESIUM LEVEL Routine 07/23/2018 5:50 Results for this AM CDT procedure are in the results section. HC COMPLETE BLD COUNT Routine 07/23/2018 5:50 Results for this W/AUTO DIFF AM CDT procedure are in the results section. BASIC METABOLIC PANEL Routine 07/23/2018 5:50 Results for this AM CDT procedure are in the results section. ANTI XA, LOW Timed 07/22/2018 1:02 Results for this MOLECULAR WEIGHT PM CDT procedure are in the results section. ESTIMATED GFR Routine 07/22/2018 4:00 Results for this AM CDT procedure are in the results section. ANTI XA, LOW Routine 07/22/2018 4:00 Results for this MOLECULAR WEIGHT AM CDT procedure are in the results section. C-REACTIVE PROTEIN Routine 07/22/2018 4:00 Results for this AM CDT procedure are in the results section. PHOSPHORUS LEVEL Routine 07/22/2018 4:00 Results for this AM CDT procedure are in the results section. MAGNESIUM LEVEL Routine 07/22/2018 4:00 Results for this AM CDT procedure are in the results section. CBC WITH PLATELET AND Routine 07/22/2018 4:00 Results for this DIFFERENTIAL AM CDT procedure are in the results section. BASIC METABOLIC PANEL Routine 07/22/2018 4:00 Results for this AM CDT procedure are in the results section. ANTI XA, LOW Routine 07/22/2018 1:00 Results for this MOLECULAR WEIGHT AM CDT procedure are in the results section. HC COMPLETE BLD COUNT Routine 07/21/2018 10:34 Results for this W/AUTO DIFF AM CDT procedure are in the results section. ESTIMATED GFR Routine 07/21/2018 3:02 Results for this AM CDT procedure are in the results section. BASIC METABOLIC PANEL Routine 07/21/2018 3:02 Results for this AM CDT procedure are in the results section. POC GLUCOSE Routine 07/20/2018 4:01 Results for this PM CDT procedure are in the results section. ESTIMATED GFR STAT 07/20/2018 6:32 Results for this AM CDT procedure are in the results section. BASIC METABOLIC PANEL STAT 07/20/2018 6:32 Results for this AM CDT procedure are in the results section. XR ABDOMEN 1 VW STAT 07/19/2018 4:53 Results for this PORTABLE PM CDT procedure are in the results section. SURGICAL PATHOLOGY Routine 07/19/2018 2:59 Results for this REQUEST PM CDT procedure are in the results section. RI AN ELECTIVE Routine 07/19/2018 1:15 ENDOTRACHEAL AIRWAY PM CDT Procedure Note - Isamar Bustamante CRNA - 07/19/2018 1:15 PM CDT Airway Date/Time: 07/19/2018 11:57 AM Performed by: Isamar Bustamante CRNA Authorized by: Terrence Reyes MD Location: OR Urgency: Elective Difficult Airway: No Anesthesiologist: Terrence Reyes MD Resident/LEARNING ENGINEER/AA: Isamar Bustamante CRNA Performed by: resident/LEARNING ENGINEER/AA Preoxygenated with 100% O2: Yes Mask Ventilation: Easy mask Final Airway Type: Endotracheal airway Final Endotracheal Airway: ETT Cuffed: Yes Technique Used: Direct laryngoscopy Devices/Methods Used in Placement: Intubating stylet Insertion Site: Oral Blade Type: Arnett Laryngoscope Blade/Videolaryngoscope Blade Size: 2 ETT Size (mm): 7.0 Cuff at minimum occlusion pressure: Yes Measured from: Lips ETT to Lips (cm): 22 Placement Verified by: CO2 detection, direct visualization and equal breath sounds Laryngoscopic view: Grade I - full view of glottis Rapid Sequence Induction (RSI): No Modified RSI: No Number of Attempts at Approach: 1 PreO2, SIVI, easy mask. DL x 1 with Mil 2, OETT 7.0 placed with ease. No trauma. Dentition and oral mucosa unchanged as per preop. REPAIR, HERNIA 07/19/2018 11:51 AM CDT Incisional hernia, without obstruction or gangrene Case Notes DR CONNOR (WORKING 1ST/ EST 2 HRS)POSSIBLE EXTENDED RECOVERY NEEDED, DR HAHN CO-SURGEON(WORKING 2ND/ EST 3 HRS)MD DOES NOT REQ PLAS STAFFSTRATTICE MESH 16 X [address] CONNOR (WORKING 1ST/ EST 2 HRS)POSSIBLE EXTENDED RECOVERY NEEDED, DR HAHN CO-SURGEON(WORKING 2ND/ EST 3 HRS)MD DOES NOT REQ PLAS STAFFSTRATTICE MESH 16 X 20 LAPAROTOMY, EXPLORATORY 07/19/2018 11:51 AM CDT Incisional hernia, without obstruction or gangrene Case Notes DR CONNOR (WORKING 1ST/ EST 2 HRS)POSSIBLE EXTENDED RECOVERY NEEDED, DR HAHN CO-SURGEON(WORKING 2ND/ EST 3 HRS)MD DOES NOT REQ PLAS STAFFSTRATTICE MESH 16 X [address] CONNOR (WORKING 1ST/ EST 2 HRS)POSSIBLE EXTENDED RECOVERY NEEDED, DR HAHN CO-SURGEON(WORKING 2ND/ EST 3 HRS) DOES NOT REQ PLAS STAFFSTRATTICE MESH 16 X 20 POC , URINE Routine 07/19/2018 9:40 Results for this AM CDT procedure are in the results section. ECG PRE/POST OP Routine 07/02/2018 8:35 Preop examination Results for this AM CDT procedure are in the results section. ESTIMATED GFR Routine 07/02/2018 8:25 Results for this AM CDT procedure are in the results section. CBC HEMOGRAM Routine 07/02/2018 8:25 Preop examination Results for this AM CDT procedure are in the results section. TYPE AND SCREEN Routine 07/02/2018 8:25 Preop examination Results for this AM CDT procedure are in the results section. HEPATIC FUNCTION PANEL Routine 07/02/2018 8:25 Preop examination Results for this AM CDT procedure are in the results section. PARTIAL THROMBOPLASTIN Routine 07/02/2018 8:25 Preop examination Results for this TIME (PTT) AM CDT procedure are in the results section. PROTHROMBIN TIME WITH Routine 07/02/2018 8:25 Preop examination Results for this INR AM CDT procedure are in the results section. BASIC METABOLIC PANEL Routine 07/02/2018 8:25 Preop examination Results for this AM CDT procedure are in the results section. CT ABDOMEN PELVIS W Routine 05/17/2018 2:20 Incisional hernia, Results for this CONTRAST PM CDT without obstruction procedure are in or gangrene the results Umbilical hernia section. without obstruction and without gangrene after 10/13/2017 Results Estimated GFR (07/23/2018 5:50 AM CDT)Only the most recent of5 resultswithin the time period is included. [facility] Estimated GFR >=90 mL/min/1.73 [facility] Comment: HOSPITAL CatergoryUnitsInterpretation G1 >=90 Normal or high G2 60-89Mildly decreased L1a01-28Sposqm to moderately decreased [id number] to severely decreased G4 15-29Severely decreased G5 <15Kidney failure The eGFR was calculated using the Chronic Kidney Disease Epidemiology Collaboration (CKD-EPI) equation. Interpretation is based on recommendations of the National Kidney Foundation-Kidney Disease Outcomes Quality Initiative (NKF-KDOQI) published in 2014. Specimen Plasma specimen Performing Organization Address City/State/Zipcode Phone Number [facility] DEPARTMENT OF PATHOLOGY AND [address] [place] [address] GENOMIC MEDICINE [address] [address] CBC with platelet and differential (07/23/2018 5:50 AM CDT)Only the most recent of3 resultswithin the time period is included. [facility] WBC 8.03 4.50 - 11.00 [facility] k/uL HOSPITAL RBC 3.47 (L) 4.20 - 5.50 [facility] m/uL [facility] HGB 10.4 (L) 12.0 - 16.0 [facility] g/dL [facility] HCT 33.0 (L) 37.0 - 47.0 % [facility] MCV 95.1 82.0 - 100.0 [facility] MCH 30.0 27.0 - 34.0 pg [facility] MCHC 31.5 31.0 - 37.0 [facility] g/dL [facility] RDW - SD 49.7 37.0 - 55.0 fL [facility] MPV 9.9 8.8 - 13.2 fL [facility] Platelet count 230 150 - 400 k/uL [facility] Nucleated RBC 0.00 /100 WBC [facility] Neutrophils 63.3 39.0 - 69.0 % [facility] Lymphocytes 25.8 25.0 - 45.0 % [facility] Monocytes 7.6 0.0 - 10.0 % [facility] Eosinophils 2.7 0.0 - 5.0 % [facility] Basophils 0.2 0.0 - 1.0 % [facility] Immature granulocytes 0.4Comment: 0.0 - 1.0 % [facility] "Immature [facility] granulocytes" (promyelocytes , myelocytes, metamyelocytes ) Specimen Blood Performing Organization Address City/[facility] Phone Number [facility] DEPARTMENT OF PATHOLOGY AND [address] [place] [phone] Phosphorus level (07/23/2018 5:50 AM CDT)Only the most recent of2 resultswithin the time period is included. Phosphorus 2.7 2.4 - 4.5 mg/dL [facility] Specimen Plasma specimen Performing Organization Address City/[facility] Phone Number [facility] DEPARTMENT OF PATHOLOGY AND [address] [place] [phone] Magnesium level (07/23/2018 5:50 AM CDT)Only the most recent of2 resultswithin the time period is included. Magnesium 2.2 1.6 - 2.6 mg/dL [facility] Specimen Plasma specimen Performing Organization Address City/State/Zipcode Phone Number [facility] DEPARTMENT OF PATHOLOGY AND [address] [place] [address] Basic metabolic panel (07/23/2018 5:50 AM CDT)Only the most recent of5 resultswithin the time period is included. [facility] Sodium 140 135 - 148 mEq/L [facility] Potassium 3.7 3.5 - 5.0 mEq/L [facility] Chloride 106 98 - 112 mEq/L [facility] CO2 24 24 - 31 mEq/L [facility] Anion gap 10@ANIO 7 - 15 mEq/L [facility] BUN 4 (L) 6 - 20 mg/dL [facility] Creatinine 0.73 0.50 - 0.90 mg/dL [facility] Glucose 118 (H) 65 - 99 mg/dL [facility] Calcium 7.7 (L) 8.3 - 10.2 mg/dL [facility] Specimen Plasma specimen Performing Organization Address City/[facility] Phone Number [facility] DEPARTMENT OF PATHOLOGY AND [address] [place] [phone] Anti Xa, low molecular weight (07/22/2018 1:02 PM CDT)Only the most recent of3 resultswithin the time period is included. Heparin name Lovenox [facility] Anti Xa, low 1.22 (H) 0.60 - 1.00 [facility] weight Comment: U/mL HOSPITAL Specimen must be drawn at least 4 hours post dose following a minimum of 3 doses. Therapeutic Range:0.60 - 1.00 U/mL Specimen Blood Performing Organization Address City/[facility]/Zipcode Phone Number [facility] DEPARTMENT OF PATHOLOGY AND [address] [place] [phone] C-reactive protein (07/22/2018 4:00 AM CDT) CRP 11.16 (H) 0.00 - 0.50 mg/dL [facility] Specimen Plasma specimen Performing Organization Address City/[facility] Phone Number [facility] DEPARTMENT OF PATHOLOGY AND [address] [place] [phone] [address] POC glucose (07/20/2018 4:01 PM CDT) POC glucose 100 (H) 65 - 99 mg/dL [facility] Comment: [facility] Notified RN Meter ID: [id number] Addiction Specialist: Yaron Crenshaw Specimen Performing Organization Address [facility] Phone Number [facility] DEPARTMENT OF PATHOLOGY AND [address] [place] [phone] [address] XR Abdomen 1 Vw Portable (07/19/2018 4:53 PM CDT) Specimen Narrative Performed At Examination:XR ABDOMEN 1 VW PORTABLE [facility] Clinical history:"ngt placement" Comparison: 11/24/2016 IMPRESSION:The bowel gas pattern is nonspecific.Surgical clips are seen in the right upper quadrant. The imaged bones appear to be unchanged. Nasogastric tube seen with its tip in the proximal stomach. A couple drains overlie the abdomen. [id number] Procedure Note Interface, Radiology Results Incoming - 07/19/2018 5:03 PM CDT Examination: XR ABDOMEN 1 VW PORTABLE Clinical history: "ngt placement" Comparison: 11/24/2016 IMPRESSION: The bowel gas pattern is nonspecific. Surgical clips are seen in the right upper quadrant. The imaged bones appear to be unchanged. Nasogastric tube seen with its tip in the proximal stomach. A couple drains overlie the abdomen. [id number] Performing Organization Address [facility]/Zipcode Phone Number [facility] [address] [place] [address] Surgical pathology request (07/19/2018 2:59 PM CDT) Pathologist [facility] DEPARTMENT OF PATHOLOGY AND GENOMIC MEDICINE Surgical pathology See link below [facility] DEPARTMENT OF report for PDF Lab PATHOLOGY AND Report GENOMIC MEDICINE Result status This is Final [facility] DEPARTMENT OF Report for PATHOLOGY AND [id number] GENOMIC MEDICINE Specimen Performing Organization Address City/[facility] Phone Number [facility] DEPARTMENT OF PATHOLOGY AND [address] [place] [phone] [facility] MEDICINE POC , urine (07/19/2018 9:40 AM CDT) [facility] test urine, POC Negative QC done Yes Specimen Urine ECG Pre/Post Op (07/02/2018 8:35 AM CDT) [facility] Ventricular rate 53 [facility]USE Atrial rate 53 [facility] RI interval 150 [facility] QRSD interval 80 [facility] QT interval 400 [facility] QTC interval 375 [facility] P axis 1 59 [facility] MUSE QRS axis 1 45 HM MUSE T wave axis 46 H MUSE EKG impression Sinus bradycardia with [facility] MUSE sinus arrhythmia-Otherwise normal ECG-In automated comparison with ECG of 15-NOV-2016 13:10,-No significant change was found- Specimen Narrative Performed At Performing Organization Address [facility] Phone Number [facility] MUSE [address] [place] [address] Partial thromboplastin time, activated (07/02/2018 8:25 AM CDT) Pathologist [facility] PTT 32.4 23.0 - 36.0 [facility] Comment: [facility] PTT therapeutic range for unfractionated heparin is 61.0-112.0 seconds which corresponds to Anti-Xa 0.3-0.7 U/ml. Specimen Blood Performing Organization Address City/State/Zipcode Phone Number [facility] DEPARTMENT OF PATHOLOGY AND [address] [place] [address] GENOMIC MEDICINE [address] [address] Prothrombin time with INR (07/02/2018 8:25 AM CDT) [facility] Prothrombin time 14.7 (H) 11.5 - 14.5 [facility] INR 1.2 [place] Comment: [facility] International Normalized Ratio (INR) is a therapeutic HOSPITAL monitoring tool for patients who are stable on oral anticoagulant therapy. An INR of 2.0-3.0 is suggested for deep vein thrombosis/pulmonary embolism. Specimen Blood Performing Organization Address City/State/Zipcode Phone Number [facility] DEPARTMENT OF PATHOLOGY AND [address] [place] [phone] [address] CBC hemogram (07/02/2018 8:25 AM CDT) WBC 7.28 4.50 - 11.00 k/uL [facility] RBC 4.75 4.20 - 5.50 m/uL [facility] HGB 14.4 12.0 - 16.0 g/dL [facility] HCT 45.9 37.0 - 47.0 % [facility] MCV 96.6 82.0 - 100.0 fL [facility] MCH 30.3 27.0 - 34.0 pg [facility] MCHC 31.4 31.0 - 37.0 g/dL [facility] RDW - SD 51.5 37.0 - 55.0 fL [facility] MPV 9.9 8.8 - 13.2 fL [facility] Platelet count 338 150 - 400 k/uL [facility] Nucleated RBC 0.00 /100 WBC [facility] Specimen Blood Performing Organization Address City/[facility] Phone Number [facility] DEPARTMENT OF PATHOLOGY AND [address] [place] [phone] [place] [phone] Type and screen (07/02/2018 8:25 AM CDT) ABO grouping O [facility] Rh type POS [facility] Antibody screen (gel) NEG [facility] Specimen Blood Performing Organization Address City/[facility]/Zipcode Phone Number [facility] DEPARTMENT OF PATHOLOGY AND [address] [place] [phone] [place] [phone] Hepatic function panel (07/02/2018 8:25 AM CDT) Albumin 3.6 3.5 - 5.0 g/dL [facility] Total bilirubin 0.3 0.0 - 1.2 [facility] mg/dL HOSPITAL Bilirubin direct <0.2 0.0 - 0.3 [facility] mg/dL HOSPITAL Alkaline phosphatase 79 35 - 104 U/L [facility] Protein 7.3 6.3 - 8.3 g/dL [facility] Comment: HOSPITAL Doon 4.6-7.0 g/dL 1 week 4.4-7.6 g/dL 7 months-1year5.1-7.3 g/dL 1-2 years5.6-7.5 g/dL >3 years6.0-8.0 g/dL 18-150 6.3-8.3 g/dL ALT <5 (A) 5 - 50 U/L [facility] AST 11 10 - 35 U/L [facility] Specimen Plasma specimen Performing Organization Address City/State/Zipcode Phone Number [facility] DEPARTMENT OF PATHOLOGY AND [address] [place] [address] GENOMIC MEDICINE [address] [address] [address] Abdomen Pelvis W Contrast (05/17/2018 2:20 PM CDT) Specimen Narrative Performed At EXAMINATION:CT ABDOMEN PELVIS W CONTRAST RADIANT CLINICAL HISTORY:K43.2 Incisional hernia without obstruction or gangrene, K42.9 Umbilical hernia without obstruction or gangrene, incisional hernia umbilical TECHNIQUE: Multiple axial images of the abdomen and pelvis were obtained following intravenous administration of iodinated contrast. Sagittal and coronal computerized reformatted images were also obtained. Radiation dose reduction technique was utilized. COMPARISON:April 03, 2017 IMPRESSION: Abdomen: 1. There is a ventral abdominal wall hernia present containing fat. Defect measures 4 cm in transverse dimension and 4 cm in AP dimension. 2.There is no intestinal obstruction. Status post sleeve gastroplasty. Status post right hemicolectomy. 3.Status post cholecystectomy. 4.There is fatty infiltration of the liver. No masses are seen. 5.Previously noted portal vein thrombus has resolved. 6.Spleen, pancreas, adrenals, and kidneys are normal. 7.There is no retroperitoneal adenopathy or ascites. Pelvis: 1. There is no pelvic mass, adenopathy, or fluid collection. [facility]-[id number] Procedure Note Interface, Radiology Results Incoming - 05/17/2018 2:38 PM CDT EXAMINATION: CT ABDOMEN PELVIS W CONTRAST CLINICAL HISTORY: K43.2 Incisional hernia without obstruction or gangrene, K42.9 Umbilical hernia without obstruction or gangrene, incisional hernia umbilical TECHNIQUE: Multiple axial images of the abdomen and pelvis were obtained following intravenous administration of iodinated contrast. Sagittal and coronal computerized reformatted images were also obtained. Radiation dose reduction technique was utilized. COMPARISON: April 03, 2017 IMPRESSION: Abdomen: 1. There is a ventral abdominal wall hernia present containing fat. Defect measures 4 cm in transverse dimension and 4 cm in AP dimension. 2. There is no intestinal obstruction. Status post sleeve gastroplasty. Status post right hemicolectomy. 3. Status post cholecystectomy. 4. There is fatty infiltration of the liver. No masses are seen. 5. Previously noted portal vein thrombus has resolved. 6. Spleen, pancreas, adrenals, and kidneys are normal. 7. There is no retroperitoneal adenopathy or ascites. Pelvis: 1. There is no pelvic mass, adenopathy, or fluid collection. [facility]-[id number] Performing Organization Address City/State/[facility] Phone Number [facility] [address] [place] [address] after 10/13/2017 KAREN Reilly Reconstructive Self 1970 [phone] (Home) [place] [address] Advance Directives For more information, please contact: [phone] Type Date Recorded Patient Grievance Manager Explanation Advance Directives, Living Will and Medical Power of Sales And Service Officer Advance Directives, Living Will 06/16/2016 1:43 PM and Medical Power of Sales And Service Officer Code Status Date Activated Date Inactivated Comments Full Code 11/24/2016 8:53 PM 11/28/2016 11:07 PM Code Status decision reached by: Patient
[2018-10-14] MEDS ORDERED: PROMETHAZINE 25 MG/ML VIAL ONE ×2 (11:42→14:08)
[2018-10-14] MEDS ORDERED: FENTANYL CITR 100 MCG/2 ML ONE (11:42)
[2018-10-14] MEDS ORDERED: NA CHLORIDE 0.9% 1,000 ML ONE (11:42)
[2018-10-14 11:49] LABS: Absolute Lymphocytes (CBC) 1.1 K/uL (0.7-4.9); Basophils % 0.4 % (0-1.3); Hematocrit 40.4 % (36.0-45.0); Lymphocytes % 11.2 % (15.3-44.8); MPV 7.9 fL (7.6-11.3); RBC Red Blood Cell Count 4.57 M/uL (3.86-4.86)
[2018-10-14 12:07] LABS: Albumin 3.3 g/dL (3.4-5.0); Bilirubin Direct 0.1 mg/dL (0-0.2); Bilirubin Total 0.3 mg/dL (0.2-1.0); Potassium 3.1 mmol/L (3.5-5.1); Protein, Total 7.3 g/dL (6.4-8.2)
--- NOTE | 2018-10-14 12:56 | RAD REPORT ---
EXAM DESCRIPTION: CTAbdomen Pelvis W Contrast - 10/14/2018 12:44 pm CLINICAL HISTORY: Abdominal pain. ABD PAIN COMPARISON: Abdomen Pelvis W Contrast dated 03/13/2017; Abdomen Pelvis W Contrast dated 11/24/2016 ; Abdomen Pelvis W Contrast dated 10/10/2016; Abdomen Pelvis W Contrast dated 05/11/2016; Abdomen Pelvis W/Wo Contrast dated 08/27/2017 TECHNIQUE: Biphasic CT imaging of the abdomen and pelvis was performed with 100 ml non-ionic IV cont rast. All CT scans are performed using dose optimization technique as appropriate and may include automated exposure control or mA/KV adjustment according to patient size. FINDINGS: The lung bases are clear. Mild diffuse fatty liver is present. Cholecystectomy clips. Postsurgical changes are present about th e stomach. The spleen, pancreas, adrenal glands and kidneys are within normal limits. Right hemicolectomy postsurgical changes are noted. No pathologic finding in the right upper quadrant anastomotic site. Mild mucosal thickening is seen involving the rectosigmoid colon. Postsurgical ch anges are present along the midline of the abdomen with oblong fluid collection seen along the subcut aneous space anterior to the abdominal wall fascia along the midline of the abdomen. This is likely p ostsurgical in nature. No evidence of significant lymphadenopathy. No suspicious bony findings. IMPRESSION: Mild oblong fluid collection measuring 7 x 1 cm is seen along the anterior aspect of the anterior abdominal wall fascia in the subcutaneous space. This is probably a postoperative in etiolo gy right follow-up CT in 2-3 months would be useful to demonstrate stability. Mild mucosal enhancement of the rectosigmoid colon could indicate mild proctitis.
[2018-10-14] MEDS ORDERED: CEFTRIAXONE/SWI 1gm 1 GM/10 ML SYR ONE (13:58)
[2018-10-14] MEDS ORDERED: METRONIDAZOLE 500mg IVPB 500 MG/100 ML BAG IV ONE (13:58)
--- NOTE | 2018-10-14 14:40 | ER ---
Nurse's Notes [facility] Name: Blanka Reilly Age: 48 yrs Sex: Female : 1970 Arrival Date: 10/14/2018 Time: 10:44 Bed 19 Private MD: Iveth Anguiano C Diagnosis: Generalized abdominal pain-proctitis Presentation: 10/14 11:21 Presenting complaint: Patient states: i was dx with colon cancer and last June i had an hj ab wall abscess from the surgery i had,last night i started having pain on my abd, fever, N/V;. Transition of care: patient was not received from another setting of care. Onset of symptoms was October 14, 2018. Risk Assessment: Do you want to hurt yourself or someone else? Patient reports no desire to harm self or others. Initial Sepsis Screen: Does the patient meet any 2 criteria? RR > 20 per min. HR > 90 bpm. No. Patient's initial sepsis screen is negative. Does the patient have a suspected source of infection? Yes: Skin breakdown/wound. Care prior to arrival: None. 11:21 Method Of Arrival: Ambulatory 11:21 Acuity: ILANA 2 hj Triage Assessment: 11:22 General: Appears in no apparent distress. uncomfortable, Behavior is calm, cooperative, hj appropriate for age. Pain: Complains of pain in abdomen. GI: Reports lower abdominal pain, upper abdominal pain, nausea, vomiting. 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 hj Historical: - Allergies: 11:25 Aspirin; hj 11:25 Codeine; hj 11:25 Demerol; hj 11:25 HYDROCODONE; hj 11:25 Morphine; hj 11:25 PENICILLINS; hj 11:25 Zofran; hj 11:25 vancomycin; hj 11:25 Levaquin; hj - Home Meds: 11:27 Ambien 5 mg Oral tab 1 tab once daily [Active]; amlodipine 5 mg tab 1 tab once daily hj [Active]; clonazepam 0.5 mg Oral TbDL 1 tab 2 times per day [Active]; Eliquis 5 mg Oral tab 1 tab 2 times per day [Active]; olmesartan-hydrochlorothiazide 20-12.5 mg Oral once daily [Active]; Vyvanse 30 mg Oral cap 1 cap once in the morning and once at lunch time [Active]; - PMHx: 11:25 colon cancer; kidney disease; Portal vein thrombosis; hj - PSHx: 11:25 Bowel resection; hj - Immunization history:: Adult Immunizations up to date. - Social history:: Smoking status: Patient/guardian denies using tobacco, Patient/guardian denies using alcohol. - Ebola Screening: : Patient negative for fever greater than or equal to 101.5 degrees Fahrenheit, and additional compatible Ebola Virus Disease symptoms Patient denies exposure to infectious person Patient denies travel to an Ebola-affected area in the 21 days before illness onset. Screenin:22 Abuse screen: Denies threats or abuse. Denies injuries from another. Nutritional hj screening: No deficits noted. Tuberculosis screening: No symptoms or risk factors identified. Fall Risk None identified. Assessment: 11:27 General: Appears in no apparent distress. uncomfortable, Behavior is calm, cooperative, hj appropriate for age. Pain: Complains of pain in abdomen. Neuro: Level of Consciousness is awake, alert, obeys commands, Oriented to person, place, time, situation, Appropriate for age. Cardiovascular: Capillary refill < 3 seconds Patient's skin is warm and dry. Respiratory: Airway is patent Respiratory effort is even, unlabored, Respiratory pattern is regular, symmetrical. GI: surgical wound. : No signs and/or symptoms were reported regarding the genitourinary system. EENT: No signs and/or symptoms were reported regarding the EENT system. Derm: No signs and/or symptoms reported regarding the dermatologic system. Musculoskeletal: No signs and/or symptoms reported regarding the musculoskeletal system. 12:28 Reassessment: Patient and/or family updated on plan of care and expected duration. Pain hj level reassessed. Patient is alert, oriented x 3, equal unlabored respirations, skin warm/dry/pink. awaiting results and POC;. Vital Signs: 11:19 BP 115 / 80; Pulse 90; Resp 18; Temp 99.5(O); Pulse Ox 100% on R/A; Weight 126.55 kg; hj Height 5 ft. 11 in. (180.34 cm); Pain 8/10; 12:28 BP 118 / 65; Pulse 89; Resp 18; Pulse Ox 100% on R/A; hj 14:53 BP 120 / 68; Pulse 88; Resp 18; Pulse Ox 100% on R/A; hj 11:19 Body Mass Index 38.91 (126.55 kg, 180.34 cm) hj ED Course: 10:44 Patient arrived in ED. as 10:44 Iveth Anguiano MD is Private Physician. as 10:59 [facility] Gutier[facility]C [facility] kb 10:59 Rodney Gotti MD is Attending Physician. kb 11:14 Justin Hale, RUBY is Primary Nurse. hj 11:22 Triage completed. hj 11:23 Arm band placed on right wrist. hj 11:27 Patient has correct armband on for positive identification. Placed in gown. Bed in low hj position. Call light in reach. Side rails up X 1. 11:35 Inserted saline lock: 22 gauge in left antecubital area, using aseptic technique. Blood hj collected. 11:35 Initial lab(s) drawn, by me, sent to lab. First set of blood cultures drawn by me. hj 12:48 CT Abd/Pelvis - IV Contrast Only In Process Unspecified. EDMS 14:38 Iveth Anguiano MD is Referral Physician. kb 14:51 No provider procedures requiring assistance completed. IV discontinued, intact, hj bleeding controlled, No redness/swelling at site. Pressure dressing applied. Administered Medications: 11:35 Drug: NS 0.9% 1000 ml Route: IV; Rate: 1000 ml; Site: left antecubital; hj 13:45 Follow up: IV Status: Completed infusion; IV Intake: 1000ml hj 11:35 Drug: Phenergan 12.5 mg Route: IVP; Site: left antecubital; hj 12:15 Follow up: Response: No adverse reaction hj 11:35 Drug: fentaNYL (PF) 25 mcg Route: IVP; Site: left antecubital; hj 12:15 Follow up: Response: No adverse reaction hj 13:54 Drug: Rocephin - (cefTRIAXone) 1 grams Route: IVPB; Infused Over: 30 mins; Site: left hj antecubital; 14:45 Follow up: IV Status: Completed infusion; IV Intake: 10ml hj 14:04 Drug: Flagyl 500 mg Volume: 100 ml; Route: IVPB; Rate: 200 ml/hr; Infused Over: 30 hj mins; Site: left antecubital; 14:45 Follow up: IV Status: Completed infusion; IV Intake: 100ml hj 14:11 Drug: Phenergan 12.5 mg Route: IVP; Site: left antecubital; hj 14:56 Follow up: Response: No adverse reaction; Nausea is decreased hj Intake: 13:45 IV: 1000ml; Total: 1000ml. hj 14:45 IV: 100ml; Total: 1100ml. hj 14:45 IV: 10ml; Total: 1110ml. hj Outcome: 14:38 Discharge ordered by . winston 14:51 Discharged to home ambulatory. hj 14:51 Condition: stable 14:51 Discharge instructions given to patient, Instructed on discharge instructions, follow up and referral plans. medication usage, Demonstrated understanding of instructions, follow-up care, medications, Prescriptions given X 2. 14:55 Patient left the ED. Signatures: Dispatcher [employer] EDMS Rita Gutierrez, VALENTINA-C VALENTINA-Alejandra Coleman Henry, RN RN hj Corrections: (The following items were deleted from the chart) 12:28 12:00 GI: Abdomen is non-distended, guevara waterman
--- NOTE | 2018-10-14 14:40 | EDPHYS ---
Physician Documentation [facility] Name: Blanka Reilly Age: 48 yrs Sex: Female : 1970 Arrival Date: 10/14/2018 Time: 10:44 Bed 19 Private MD: Iveth Anguiano C ED Physician Rodney Gotti HPI: 10/14 14:36 This 48 yrs old Female presents to ER via Ambulatory with complaints of kb Fever, Vomiting/Diarrhea. 14:36 The patient presents with abdominal pain that is diffuse. Onset: The symptoms/episode kb began/occurred 1 week(s) ago. The symptoms do not radiate. Associated signs and symptoms: Pertinent positives: nausea, vomiting, and diarrhea, fever, Pertinent negatives: anorexia, blood in stools, chest pain, constipation, dysuria, headache, hematuria, palpitations, shortness of breath, vaginal discharge, vomiting blood. The symptoms are described as constant. Modifying factors: The symptoms are alleviated by nothing, the symptoms are aggravated by nothing. Severity of pain: At its worst the pain was severe in the emergency department the pain has improved moderately. The patient has not experienced similar symptoms in the past. The patient has been recently seen by a physician: the patient's primary care provider, Dr. Anguiano in the office, with similar presenting complaints, and was sent to the [facility] Emergency Department for further evaluation. Pt reports abd pain for a week that started to get better, then woke up this morning with fever, chills, n/v/d and worsening pain. 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 hj Historical: - Allergies: 11:25 Aspirin; hj 11:25 Codeine; hj 11:25 Demerol; hj 11:25 HYDROCODONE; hj 11:25 Morphine; hj 11:25 PENICILLINS; hj 11:25 Zofran; hj 11:25 vancomycin; hj 11:25 Levaquin; hj - Home Meds: 11:27 Ambien 5 mg Oral tab 1 tab once daily [Active]; amlodipine 5 mg tab 1 tab once daily hj [Active]; clonazepam 0.5 mg Oral TbDL 1 tab 2 times per day [Active]; Eliquis 5 mg Oral tab 1 tab 2 times per day [Active]; olmesartan-hydrochlorothiazide 20-12.5 mg Oral once daily [Active]; Vyvanse 30 mg Oral cap 1 cap once in the morning and once at lunch time [Active]; - PMHx: 11:25 colon cancer; kidney disease; Portal vein thrombosis; hj - PSHx: 11:25 Bowel resection; hj - Immunization history:: Adult Immunizations up to date. - Social history:: Smoking status: Patient/guardian denies using tobacco, Patient/guardian denies using alcohol. - Ebola Screening: : Patient negative for fever greater than or equal to 101.5 degrees Fahrenheit, and additional compatible Ebola Virus Disease symptoms Patient denies exposure to infectious person Patient denies travel to an Ebola-affected area in the 21 days before illness onset. ROS: 14:34 ENT: Negative for injury, pain, and discharge, Neck: Negative for injury, pain, and kb swelling, Cardiovascular: Negative for chest pain, palpitations, and edema, Respiratory: Negative for shortness of breath, cough, wheezing, and pleuritic chest pain, Back: Negative for injury and pain, : Negative for injury, bleeding, discharge, and swelling, MS/Extremity: Negative for injury and deformity, Skin: Negative for injury, rash, and discoloration, Neuro: Negative for headache, weakness, numbness, tingling, and seizure. 14:34 Constitutional: Positive for chills, fever. 14:34 Abdomen/GI: Positive for abdominal pain, nausea, vomiting, and diarrhea. Exam: 14:34 Constitutional: This is a well developed, well nourished patient who is awake, alert, kb and in no acute distress. Head/Face: Normocephalic, atraumatic. Chest/axilla: Normal chest wall appearance and motion. Nontender with no deformity. No lesions are appreciated. Cardiovascular: Regular rate and rhythm with a normal S1 and S2. No gallops, murmurs, or rubs. Normal PMI, no JVD. No pulse deficits. Respiratory: Lungs have equal breath sounds bilaterally, clear to auscultation and percussion. No rales, rhonchi or wheezes noted. No increased work of breathing, no retractions or nasal flaring. Back: No spinal tenderness. No costovertebral tenderness. Full range of motion. Skin: Warm, dry with normal turgor. Normal color with no rashes, no lesions, and no evidence of cellulitis. MS/ Extremity: Pulses equal, no cyanosis. Neurovascular intact. Full, normal range of motion. Neuro: Awake and alert, GCS 15, oriented to person, place, time, and situation. Cranial nerves II-XII grossly intact. Motor strength 5/5 in all extremities. Sensory grossly intact. Cerebellar exam normal. Normal gait. 14:34 Abdomen/GI: Inspection: scar(s), along center of abd. Small open wound below umilicus, healing well, Bowel sounds: normal, in all quadrants, Palpation: soft, in all quadrants, mild abdominal tenderness, in all quadrants. Vital Signs: 11:19 BP 115 / 80; Pulse 90; Resp 18; Temp 99.5(O); Pulse Ox 100% on R/A; Weight 126.55 kg; hj Height 5 ft. 11 in. (180.34 cm); Pain 8/10; 12:28 BP 118 / 65; Pulse 89; Resp 18; Pulse Ox 100% on R/A; hj 14:53 BP 120 / 68; Pulse 88; Resp 18; Pulse Ox 100% on R/A; hj 11:19 Body Mass Index 38.91 (126.55 kg, 180.34 cm) MDM: 11:04 Patient medically screened. kb 13:35 Data reviewed: vital signs, nurses notes. Data interpreted: Pulse oximetry: on room air kb is 100 %. Interpretation: normal. ED course: Dr Gotti seeing pt now. 14:19 Physician consultation: A Silvio PIPER was contacted at 14:19, regarding patient's condition.kb 14:34 Counseling: I had a detailed discussion with the patient and/or guardian regarding: the kb historical points, exam findings, and any diagnostic results supporting the discharge/admit diagnosis, lab results, radiology results, the need for outpatient follow up, a family practitioner, to return to the emergency department if symptoms worsen or persist or if there are any questions or concerns that arise at home. ED course: Has follow up appt with Dr Nicholas next week. 10/14 11:13 Order name: Basic Metabolic Panel; Complete Time: 12:20 kb 10/14 11:13 Order name: CBC with Diff; Complete Time: 12:01 kb 10/14 11:13 Order name: Hepatic Function; Complete Time: 12:20 kb 10/14 11:13 Order name: Lipase; Complete Time: 12:20 kb 10/14 11:13 Order name: Blood Culture Adult (2) kb 10/14 11:13 Order name: Lactate; Complete Time: 12:20 kb 10/14 11:13 Order name: Procalcitonin; Complete Time: 12:39 kb 10/14 12:21 Order name: CT Abd/Pelvis - IV Contrast Only; Complete Time: 12:58 kb 10/14 11:13 Order name: IV Saline Lock; Complete Time: 11:49 kb 10/14 11:13 Order name: Labs collected and sent; Complete Time: 11:49 kb Administered Medications: 11:35 Drug: NS 0.9% 1000 ml Route: IV; Rate: 1000 ml; Site: left antecubital; hj 13:45 Follow up: IV Status: Completed infusion; IV Intake: 1000ml hj 11:35 Drug: Phenergan 12.5 mg Route: IVP; Site: left antecubital; hj 12:15 Follow up: Response: No adverse reaction hj 11:35 Drug: fentaNYL (PF) 25 mcg Route: IVP; Site: left antecubital; hj 12:15 Follow up: Response: No adverse reaction hj 13:54 Drug: Rocephin - (cefTRIAXone) 1 grams Route: IVPB; Infused Over: 30 mins; Site: left hj antecubital; 14:45 Follow up: IV Status: Completed infusion; IV Intake: 10ml hj 14:04 Drug: Flagyl 500 mg Volume: 100 ml; Route: IVPB; Rate: 200 ml/hr; Infused Over: 30 hj mins; Site: left antecubital; 14:45 Follow up: IV Status: Completed infusion; IV Intake: 100ml hj 14:11 Drug: Phenergan 12.5 mg Route: IVP; Site: left antecubital; hj 14:56 Follow up: Response: No adverse reaction; Nausea is decreased hj Disposition: 15:40 Co-signature as Attending Physician, Rodney Gotti MD. rn Disposition: 10/14/18 14:38 Discharged to Home. Impression: Generalized abdominal pain - proctitis. - Condition is Stable. - Discharge Instructions: Abdominal Pain, Adult, [id number]. - Prescriptions for Flagyl 500 mg Oral Tablet - take 1 tablet by ORAL route every 8 hours for 10 days; 30 tablet. cefpodoxime 100 mg Oral Tablet - take 1 tablet by ORAL route every 12 hours for 10 days take with food; 20 tablet. - Medication Reconciliation Form, Thank You Letter, Antibiotic Education, Prescription Opioid Use form. - Follow up: Emergency Department; When: As needed; Reason: Worsening of condition. Follow up: Iveth Anguiano MD; When: 2 - 3 days; Reason: Recheck today's complaints, Continuance of care, Re-evaluation by your physician. Signatures: Dispatcher [employer] EDRita Smith, VALENTINA-Dorie SUPERVISOR TELLERS-Rodney Carter MD MD rn Joaquin, Henry, RN RN hj Corrections: (The following items were deleted from the chart) 14:55 14:38 10/14/2018 14:38 Discharged to Home. Impression: Generalized abdominal pain - hj proctitis. Condition is Stable. Forms are Medication Reconciliation Form, Thank You Letter, Antibiotic Education, Prescription Opioid Use. Follow up: Emergency Department; When: As needed; Reason: Worsening of condition. Follow up: Iveth Anguiano; When: 2 - 3 days; Reason: Recheck today's complaints, Continuance of care, Re-evaluation by your physician. kb
[2018-10-14 15:10] VITALS: TEMP 99.5; O2SAT 100
[2018-10-14 15:13] VITALS: BP 120/68
== END 2018-10-14 14:55 | disposition home or self-care (01) ==
LOC: ER 10:41
DX: K62.89 Other specified diseases of anus and rectum (principal); N18.9 Chronic kidney disease, unspecified; Z85.038 Personal history of other malignant neoplasm of large intestine; Z79.01 Long term (current) use of anticoagulants; Z88.0 Allergy status to penicillin; Z88.3 Allergy status to other anti-infective agents; Z88.5 Allergy status to narcotic agent; Z88.6 Allergy status to analgesic agent; Z88.8 Allergy status to other drugs, medicaments and biological substances
CPT/HCPCS: 87040 ×2; 85025; 80048; 36415; 80076; 83605; 83690; 84145; 74177; Q9967; J2550 ×2; J3010; J0696; J7030; 96361; 96365; 96375

== ENCOUNTER 2021-09-05 22:59 | Observation (INO) | payer BC ==
[2021-09-05 23:31] LABS: Urine Blood Negative (Negative); Urine Glucose Negative (Negative); Urine Protein Negative (Negative); Urine Specific Gravity 1.015 (1.005-1.030)
[2021-09-05 23:42] LABS: Absolute Lymphocytes (CBC) 3.5 K/uL (0.7-4.9); Lymphocytes % 33.3 % (15.3-44.8); MCV 91.4 fL (80-100); RBC Red Blood Cell Count 4.82 M/uL (3.86-4.86)
[2021-09-06] LABS: Potassium 3.7 mmol/L (3.5-5.1); Troponin High Sensitivity 3.5 pg/mL (<58.9)
--- NOTE | 2021-09-06 01:39 | ER ---
Nurse's Notes [facility] Name: Blanka Reilly Age: 50 yrs Sex: Female : 1970 Arrival Date: 09/05/2021 Time: 23:09 Bed 15 Private MD: Diagnosis: Chest pain, unspecified;Essential (primary) hypertension Presentation: 09/05 23:09 Chief complaint: EMS states: FOR THE LAST HOUR SHE HAS BEEN HAVING CHEST PAIN THAT kd3 RADIATES TO THE RIGHT SIDE OF NECK AND ARM. ITS JUST GETTING WORSE AND WORSE ALL DAY. SHE HAS HAD ONE EPISODE OF DIARRHEA. Coronavirus screen: Vaccine status: Patient reports being unvaccinated. Ebola Screen: No symptoms or risks identified at this time. Initial Sepsis Screen: Does the patient meet any 2 criteria? No. Patient's initial sepsis screen is negative. Does the patient have a suspected source of infection? No. Patient's initial sepsis screen is negative. Risk Assessment: Do you want to hurt yourself or someone else? Patient reports no desire to harm self or others. Onset of symptoms was September 05, 2021. 23:09 Method Of Arrival: EMS: [facility] kd3 23:09 Acuity: ILANA 3 kd3 Triage Assessment: 23:13 General: Appears uncomfortable, Behavior is cooperative, agitated. Pain: Complains of kd3 pain in chest Pain radiates to right jaw. Cardiovascular: Patient's skin is warm and dry. 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 kd3 Historical: - Allergies: 23:13 Aspirin; kd3 23:13 Codeine; kd3 23:13 HYDROCODONE; kd3 23:13 Demerol; kd3 23:13 Morphine; kd3 23:13 Levaquin; kd3 23:13 Vancomycin; kd3 23:13 PENICILLINS; kd3 23:13 Zofran; kd3 - Home Meds: 23:13 Ambien 5 mg Oral tab 1 tab once daily [Active]; clonazepam 0.5 mg Oral TbDL 1 tab 2 kd3 times per day [Active]; amlodipine 5 mg tab 1 tab once daily [Active]; Eliquis 5 mg Oral tab 1 tab 2 times per day [Active]; olmesartan-hydrochlorothiazide 20-12.5 mg Oral once daily [Active]; Vyvanse 30 mg Oral cap 1 cap once in the morning and once at lunch time [Active]; - PMHx: 23:13 colon cancer; kidney disease; Portal vein thrombosis; kd3 - Immunization history:: Adult Immunizations up to date. - Social history:: Smoking status: unknown. - Family history:: not pertinent. Screenin:14 Abuse screen: Denies threats or abuse. Denies injuries from another. Nutritional kd3 screening: No deficits noted. Tuberculosis screening: No symptoms or risk factors identified. Fall Risk None identified. Assessment: 09/06 01:00 Reassessment: Patient appears in no apparent distress at this time. Patient and/or jb4 family updated on plan of care and expected duration. Pain level reassessed. Patient is alert, oriented x 3, equal unlabored respirations, skin warm/dry/pink. see triage note. 02:00 Reassessment: Patient appears in no apparent distress at this time. Patient and/or jb4 family updated on plan of care and expected duration. Pain level reassessed. Patient is alert, oriented x 3, equal unlabored respirations, skin warm/dry/pink. 03:00 Reassessment: Patient appears in no apparent distress at this time. Patient and/or jb4 family updated on plan of care and expected duration. Pain level reassessed. Patient is alert, oriented x 3, equal unlabored respirations, skin warm/dry/pink. 06:19 Pain: Pain began gradually. kd3 06:19 Pain: Complains of pain in face and right jaw and chest. kd3 Vital Signs: 09/05 23:09 BP 165 / 97; Pulse 68; Resp 19; Temp 98.1; Pulse Ox 98% on R/A; Weight 127.01 kg; kd3 Height 5 ft. 11 in. (180.34 cm); Pain 10; 09/06 02:45 BP 129 / 90; Pulse 59; Resp 16; Pulse Ox 100% on R/A; jb4 06:16 BP 116 / 85; Pulse 63; Resp 18; Pulse Ox 93% on R/A; kd3 09/05 23:09 Body Mass Index 39.05 (127.01 kg, 180.34 cm) kd3 ED Course: 09/05 23:09 Patient arrived in ED. ja2 23:13 Triage completed. kd3 23:13 Arm band placed on right wrist. kd3 23:52 XRAY Chest (1 view) In Process Unspecified. EDMS 09/06 00:32 Adán Rodriguez, RUBY is Primary Nurse. as6 00:33 Jono Reilly MD is Attending Physician. nayely 01:00 Patient has correct armband on for positive identification. Client placed on continuous jb4 cardiac and pulse oximetry monitoring. NIBP monitoring applied. pvc monitor on. 01:37 Iveth Anguiano MD is Hospitalizing Provider. nayely 02:10 Inserted saline lock: 18 gauge in right antecubital area, using aseptic technique. as6 06:19 Patient maintains SpO2 saturation greater than 95% on room air. kd3 Administered Medications: 02:10 Drug: Dilaudid (HYDROmorphone) 1 mg Route: IVP; Site: right antecubital; as6 06:20 Follow up: Response: No adverse reaction kd3 02:11 Drug: Phenergan (promethazine) 12.5 mg Route: IVP; Site: right antecubital; as6 06:20 Follow up: Response: No adverse reaction kd3 02:30 Drug: Xarelto (rivaroxaban) 10 mg Route: PO; jb4 06:20 Follow up: Response: No adverse reaction kd3 05:39 CANCELLED (Duplicate Order): Zofran (Ondansetron) 4 mg IVP once; over 2 minutes nayely 06:04 Drug: Dilaudid (HYDROmorphone) 1 mg Route: IVP; Site: right antecubital; kd3 06:20 Follow up: Response: No adverse reaction kd3 06:04 Drug: Phenergan (promethazine) 12.5 mg Route: IVP; Site: right antecubital; kd3 06:20 Follow up: Response: No adverse reaction kd3 Medication: 01:00 VIS not applicable for this client. jb4 Outcome: 01:38 Decision to Hospitalize by Provider. nayely 08:34 Patient left the ED. ll1 Signatures: Dispatcher [employer] EDDE Jono Reilly MD MD cha Bryson, James, RN RN jb4 Sneha Coronado RN RN ll1 Tanika Caceres 2 Adán Rodriguez, RUBY BELTRAN as6 Meggan Lowry RN RN kd3
--- NOTE | 2021-09-06 01:39 | EDPHYS ---
Physician Documentation [facility] Name: Blanka Reilly Age: 50 yrs Sex: Female : 1970 Arrival Date: 09/05/2021 Time: 23:09 Bed 15 Private MD: CHILANGO Physician Jono Reilly HPI: 09/06 01:28 This 50 yrs old Female presents to ER via EMS with complaints of Chest Pain. [facility] 01:28 The patient or guardian reports chest pain that is located primarily in the substernal nayely area. Onset: 6 hour(s) ago. The pain radiates to the left shoulder, Associated signs and symptoms: Pertinent positives: shortness of breath. The chest pain is described as a heaviness, causing indigestion, a pressure. Duration: The patient or guardian reports a single episode, that is still ongoing. Modifying factors: The symptoms are alleviated by nothing. the symptoms are aggravated by nothing. Severity of pain: At its worst the pain was mild moderate in the emergency department the pain is unchanged. 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 N/A - Hysterectomy kd3 Historical: - Allergies: 23:13 Aspirin; kd3 23:13 Codeine; kd3 23:13 HYDROCODONE; kd3 23:13 Demerol; kd3 23:13 Morphine; kd3 23:13 Levaquin; kd3 23:13 Vancomycin; kd3 23:13 PENICILLINS; kd3 23:13 Zofran; kd3 - Home Meds: 23:13 Ambien 5 mg Oral tab 1 tab once daily [Active]; clonazepam 0.5 mg Oral TbDL 1 tab 2 kd3 times per day [Active]; amlodipine 5 mg tab 1 tab once daily [Active]; Eliquis 5 mg Oral tab 1 tab 2 times per day [Active]; olmesartan-hydrochlorothiazide 20-12.5 mg Oral once daily [Active]; Vyvanse 30 mg Oral cap 1 cap once in the morning and once at lunch time [Active]; - PMHx: 23:13 colon cancer; kidney disease; Portal vein thrombosis; kd3 - Immunization history:: Adult Immunizations up to date. - Social history:: Smoking status: unknown. - Family history:: not pertinent. ROS: 09/06 01:28 Constitutional: Negative for fever, chills, and weight loss, Eyes: Negative for injury, nayely pain, redness, and discharge, ENT: Negative for injury, pain, and discharge, Neck: Negative for injury, pain, and swelling, Respiratory: Negative for shortness of breath, cough, wheezing, and pleuritic chest pain, Abdomen/GI: Negative for abdominal pain, nausea, vomiting, diarrhea, and constipation, Back: Negative for injury and pain, : Negative for injury, bleeding, discharge, and swelling, MS/Extremity: Negative for injury and deformity, Skin: Negative for injury, rash, and discoloration, Neuro: Negative for headache, weakness, numbness, tingling, and seizure, Psych: Negative for depression, anxiety, suicide ideation, homicidal ideation, and hallucinations, Allergy/Immunology: Negative for hives, rash, and allergies, Endocrine: Negative for neck swelling, polydipsia, polyuria, polyphagia, and marked weight changes, Hematologic/Lymphatic: Negative for swollen nodes, abnormal bleeding, and unusual bruising. Cardiovascular: Positive for chest pain, of the chest. Exam: 01:28 Constitutional: This is a well developed, well nourished patient who is awake, alert, nayely and in no acute distress. Head/Face: Normocephalic, atraumatic. Eyes: Pupils equal round and reactive to light, extra-ocular motions intact. Lids and lashes normal. Conjunctiva and sclera are non-icteric and not injected. Cornea within normal limits. Periorbital areas with no swelling, redness, or edema. ENT: Nares patent. No nasal discharge, no septal abnormalities noted. Tympanic membranes are normal and external auditory canals are clear. Oropharynx with no redness, swelling, or masses, exudates, or evidence of obstruction, uvula midline. Mucous membranes moist. Neck: Trachea midline, no thyromegaly or masses palpated, and no cervical lymphadenopathy. Supple, full range of motion without nuchal rigidity, or vertebral point tenderness. No Meningismus. Chest/axilla: Normal chest wall appearance and motion. Nontender with no deformity. No lesions are appreciated. Respiratory: Lungs have equal breath sounds bilaterally, clear to auscultation and percussion. No rales, rhonchi or wheezes noted. No increased work of breathing, no retractions or nasal flaring. Abdomen/GI: Soft, non-tender, with normal bowel sounds. No distension or tympany. No guarding or rebound. No evidence of tenderness throughout. Back: No spinal tenderness. No costovertebral tenderness. Full range of motion. Female : Normal external genitalia. Skin: Warm, dry with normal turgor. Normal color with no rashes, no lesions, and no evidence of cellulitis. MS/ Extremity: Pulses equal, no cyanosis. Neurovascular intact. Full, normal range of motion. Neuro: Awake and alert, GCS 15, oriented to person, place, time, and situation. Cranial nerves II-XII grossly intact. Motor strength 5/5 in all extremities. Sensory grossly intact. Cerebellar exam normal. Normal gait. 01:28 ECG was reviewed by the Attending Physician. 01:28 Musculoskeletal/extremity: DVT Exam: No signs of deep vein thrombosis. no pain, no swelling, no tenderness, negative Homans' sign noted on exam, no appreciated bluish discoloration, no erythema, no increased warmth. 06:12 ECG was reviewed by the Attending Physician. [facility] Vital Signs: 09/05 23:09 BP 165 / 97; Pulse 68; Resp 19; Temp 98.1; Pulse Ox 98% on R/A; Weight 127.01 kg; kd3 Height 5 ft. 11 in. (180.34 cm); Pain 10/10; 0712 02:45 BP 129 / 90; Pulse 59; Resp 16; Pulse Ox 100% on R/A; jb4 06:16 BP 116 / 85; Pulse 63; Resp 18; Pulse Ox 93% on R/A; kd3 09/05 23:09 Body Mass Index 39.05 (127.01 kg, 180.34 cm) kd3 MDM: 00:34 Patient medically screened. [facility] 01:32 Differential diagnosis: abnormal EKG, acute myocardial infarction, acute pericarditis, nayely anxiety, coronary artery disease chest wall pain, Cholelithiasis costochondritis, esophagitis, herpes zoster, hiatal hernia, myocarditis, pancreatitis, peptic ulcer disease, pericarditis, pneumonia, pneumothorax, pulmonary embolus, stable angina, thoracic aortic disection, unstable angina. HEART Score: History: Moderately Suspicious (1), ECG: Normal (0), Age: > 45 and < 65 years (1), Risk Factors: > or = 3 Risk factors for atherosclerotic disease (2), [Hypercholesterolemia] [Hypertension] [+ Family HX] [Obesity] Troponin: < or = 1 x Normal Limit (0). The patient was not given aspirin in the Emergency Department. Not indicated due to patient's past medical history. The patient's deep vein thrombosis risk score was calculated as follows: Total Score: 0. This patient was found to be at low risk for a deep vein thrombosis by using the Well's assessment criteria. The patient's pulmonary embolism risk score was calculated as follows: Total Score: 0-2 points. This patient was found to be at low risk for a pulmonary embolism by using the Well's assessment criteria. KARMA Risk Score: TOTAL SCORE = 0. Data reviewed: vital signs, nurses notes, lab test result(s), EKG, radiologic studies, plain films. Data interpreted: gambling monitor: rate is 68 beats/min, rhythm is regular, Pulse oximetry: on room air is 98 %. Test interpretation: by ED physician or midlevel provider: ECG, plain radiologic studies. Counseling: I had a detailed discussion with the patient and/or guardian regarding: the historical points, exam findings, and any diagnostic results supporting the discharge/admit diagnosis, lab results, radiology results, the need for further work-up and treatment in the hospital. 09/05 23:16 Order name: Basic Metabolic Panel; Complete Time: [facility] 09/05 23:16 Order name: CBC with Diff; Complete Time: [facility] 09/05 23:16 Order name: Troponin HS; Complete Time: [facility] 09/05 23:31 Order name: Urine Dipstick-Ancillary; Complete Time: [facility] 09/06 01:24 Order name: SARS-COV-2 RT PCR (Document "Date of Onset" if Symptomatic); Complete Time: [facility] 05:39 09/06 05:38 Order name: Troponin High Sensitivity [facility] 09/05 23:16 Order name: XRAY Chest (1 view) [facility] 09/06 05:40 Order name: CT Chest For PE Angio [facility] 09/06 06:18 Order name: Troponin High Sensitivity; Complete Time: 07:28 [facility] 09/05 23:16 Order name: EKG; Complete Time: 23:17 [facility] 09/05 23:16 Order name: Cardiac monitoring; Complete Time: 02:19 [facility] 07/11 23:16 Order name: EKG - Nurse/Tech; Complete Time: 02:55 3 09/05 23:16 Order name: IV Saline Lock; Complete Time: 00:44 3 09/05 23:16 Order name: Labs collected and sent; Complete Time: 00:44 3 09/05 23:16 Order name: O2 Per Protocol; Complete Time: 02:13 kd3 09/05 23:16 Order name: O2 Sat Monitoring; Complete Time: 02:13 kd3 09/06 01:44 Order name: CONS Physician Consult EDMS 09/06 05:38 Order name: EKG; Complete Time: 05:40 nayely 09/06 05:38 Order name: EKG - Nurse/Tech; Complete Time: 06:04 [facility] EC:28 Rate is 77 beats/min. Rhythm is regular. QRS Sunspot is Normal. UT interval is normal. QRS nayely interval is normal. QT interval is normal. No Q waves. T waves are Normal. Clinical impression: Normal ECG and No evidence of ischemia. Interpreted by me. Reviewed by me. 06:12 Rate is 48 beats/min. Rhythm is regular. QRS Sunspot is Normal. UT interval is normal. QRS nayely interval is normal. QT interval is normal. No Q waves. T waves are Normal. No ST changes noted. Interpreted by me. Reviewed by me. Administered Medications: 02:10 Drug: Dilaudid (HYDROmorphone) 1 mg Route: IVP; Site: right antecubital; as6 06:20 Follow up: Response: No adverse reaction kd3 02:11 Drug: Phenergan (promethazine) 12.5 mg Route: IVP; Site: right antecubital; as6 06:20 Follow up: Response: No adverse reaction kd3 02:30 Drug: Xarelto (rivaroxaban) 10 mg Route: PO; jb4 06:20 Follow up: Response: No adverse reaction kd3 05:39 CANCELLED (Duplicate Order): Zofran (Ondansetron) 4 mg IVP once; over 2 minutes nayely 06:04 Drug: Dilaudid (HYDROmorphone) 1 mg Route: IVP; Site: right antecubital; kd3 06:20 Follow up: Response: No adverse reaction kd3 06:04 Drug: Phenergan (promethazine) 12.5 mg Route: IVP; Site: right antecubital; kd3 06:20 Follow up: Response: No adverse reaction kd3 Disposition Summary: 09/06/21 01:38 Hospitalization Ordered Hospitalization Status: Observation nayely Provider: Iveth Anguiano cha Condition: Fair nayely Problem: new nayely Symptoms: have improved nayely Bed/Room Type: Standard nayely Location: Intensive Care Unit(09/06/21 08:00) kj1 Room Assignment: 5-(09/06/21 08:00) kj1 Diagnosis - Chest pain, unspecified nayely - Essential (primary) hypertension nayely Forms: - Medication Reconciliation Form nayely - SBAR form nayely Signatures: Dispatcher [employer] EDJono Olivier MD MD cha Garcia, Cindy, RN RN Homar James RN RN [email or web address] Selma Gutierrez kj1 Adán Rodriguez RN RN as6 Meggan Lowry RN RN kd3 Corrections: (The following items were deleted from the chart) 02:04 01:38 Telemetry/MedSurg (observation) nayely cg 02:04 01:38 nayely cg 05:39 05:38 Zofran (Ondansetron) 4 mg IVP once; over 2 minutes ordered. nayely nayely 08:00 02:04 [facility] ER HOLD cg kj1 08:00 02:04 ERHOLD- cg kj1
[2021-09-06] MEDS ORDERED: PROMETHAZINE INJ 25 MG/ML AMP ONE ×2 (02:04→05:48)
[2021-09-06] MEDS ORDERED: HYDROMORPHONE HCL 0.5 MG/0.5 ML INJ ONE ×2 (02:05→05:48)
[2021-09-06] MEDS ORDERED: RIVAROXABAN 20 MG TABLET PO ONE (02:30)
[2021-09-06] MEDS ORDERED: ONDANSETRON 4 MG/2 ML VIAL IV PRN (05:51)
[2021-09-06] MEDS ORDERED: ACETAMINOPHEN 325 MG TABLET PO PRN (05:51)
[2021-09-06] MEDS: METOPROLOL TAR 25 MG TAB PO SCH ×2 (06:00→16:56)
--- NOTE | 2021-09-06 08:18 | EKG ---
Test Date: 2021-09-06 Test Time: 06:02:48 Loan Review Analyst: ANDRE MEASUREMENT RESULTS: Intervals: Rate: 48 TX: 164 QRSD: 86 QT: 462 QTc: 412 [place]: P: 70 TX: 164 QRS: 49 T: 52 INTERPRETIVE STATEMENTS: Marked sinus bradycardia Abnormal ECG Compared to ECG 09/05/2021 23:09:33 Sinus rhythm no longer present Electronically Signed On 09-06-21 08:17:58 CDT by Jose Byers
--- NOTE | 2021-09-06 08:19 | EKG ---
Test Date: 2021-09-05 Test Time: 23:09:33 Stain Wiper: RASHAUN MEASUREMENT RESULTS: Intervals: Rate: 77 ME: 158 QRSD: 80 QT: 396 QTc: 448 [place]: P: 58 ME: 158 QRS: 7 T: 31 INTERPRETIVE STATEMENTS: Normal sinus rhythm Normal ECG Compared to ECG 08/25/2017 19:15:11 No significant changes Electronically Signed On 09-06-21 08:18:11 CDT by Jose Byers
[2021-09-06] MEDS ORDERED: FAMOTIDINE 20 MG/2 ML VIAL IV SCH (09:00)
[2021-09-06] MEDS ORDERED: CLOPIDOGREL 75 MG TABLET PO SCH (09:00)
[2021-09-06] MEDS: RIVAROXABAN 10 MG TABLET PO SCH (10:08)
[2021-09-06] MEDS: PROMETHAZINE INJ 25 MG/ML AMP IV PRN ×2 (10:15→15:36)
[2021-09-06] MEDS: HYDROMORPHONE HCL 1 MG/ML INJ IV PRN ×3 (10:15→20:48)
[2021-09-06] MEDS ORDERED: DIPHENHYDRAMINE 50 MG/ML VIAL IV ONE (10:28)
[2021-09-06] MEDS ORDERED: DIPHENHYDRAMINE 50 MG/ML VIAL ONE (10:37)
--- NOTE | 2021-09-06 11:54 | RAD REPORT ---
EXAM DESCRIPTION: CT - Angio Aorta For Dissection - 09/06/2021 10:57 am CLINICAL HISTORY: . Chest and abd pain COMPARISON: 2019 CT abdomen TECHNIQUE: Computed tomography angiography of the chest, abdomen pelvis were obtained. 100 cc Isovue 370 was administered intravenously. Coronal and sagittal reconstruction were performed. MIP 3D reconstruction was performed All CT scans are performed using dose optimization technique as appropriate and may include automated exposure control or mA/KV adjustment according to patient size. FINDINGS: An aortic dissection is not seen. An aortic aneurysm is not displayed. The celiac, SMA and ROMAN are patent . A lung consolidation is not present. A pericardial effusion is not seen. A pleural effusion is not no gordo. Fatty liver. Prominence of the left and caudate lobes. Spleen, pancreas,adrenals and kidneys demonstrate no significant abnormality. There no evidence diverticulitis. Right hemicolectomy IMPRESSION: Negative for an aortic dissection.
--- NOTE | 2021-09-06 13:19 | CON ---
Date of Consultation: 09/06/2021 The patient is admitted to Dr. Anguiano on 09/06/2021 for chest pain. I saw the patient on 09/06/2021. History Of Present Illness: Ms. Reilly is a 50-year-old. She has a history of colon cancer in the past, portal vein thrombosis, kidney disease. She comes in with chest pain that is really in the ep igastric to substernal, radiating, somehow to the left shoulder associated with diarrhea and some vimal sea, but no vomiting. She did get short of breath, but denied any PND, orthopnea, pedal edema, palpi tation, or syncope. She describes the pain more as a heaviness and her first only episode . She is pain-free right now. Has no previous cardiac history. Allergies: SHE IS ALLERGIC TO PENICILLIN, ZOFRAN, ASPIRIN, CODEINE, HYDROCODONE, DEMEROL, MORPHINE, LEVAQUIN, AND VANCOMYCIN. Review of Systems: Negative. Social History: Negative. Family History: Positive for heart disease. Physical Examination: Vital Signs: She weighed 279 pounds, otherwise her vital signs were stable. She was afebrile. She was in a sinus rhythm, heart rate of 63. O2 saturation was 100% on room air. HEENT: Negative. Neck: Supple with no bruit. Chest: Clear. Cardiac: Revealed a regular rhythm and rate. No murmurs, gallops, or rubs. Abdomen: Benign. Extremities: Revealed no clubbing, cyanosis, or edema. Diagnostic Data: All within normal limit. CT dissection was negative for aortic dissection. Chest x-ray was pending. Impression And Plan: This is a patient, who has had a portal vein thrombosis. She has family histor y of heart disease. She has obesity. Her symptoms are slightly concerning mostly because of the rad iation to the left shoulder pressure related. I still believe this is probably going to b e more of a gastrointestinal issue rather than cardiac, but I believe she has not risk factors. I th ink doing a stress test is very reasonable. I discussed the case with Dr. Anguiano. We will see what he r stress chest shows before we send her home. Continue present regimen otherwise. DORIAN/MODL Voice ID: [id number] Report ID: [id number]
--- NOTE | 2021-09-06 13:37 | RAD REPORT ---
EXAM DESCRIPTION: RAD - Chest Single View - 09/05/2021 11:50 pm CLINICAL HISTORY: PAIN. COMPARISON: None. TECHNIQUE: Single view AP chest radiograph(s). FINDINGS: Mild diffuse pulmonary interstitial thickening. Slightly suboptimal exam due to patient cesar dy habitus. No focal infiltrate identified. No pleural effusion. No pneumothorax. Nonenlarged cardiom ediastinal silhouette. No significant osseous abnormality. IMPRESSION: No focal pulmonary infiltrate identified. Electronically signed by: Lelo Dockery MD 09/06/2021 12:30 AM CDT Due to temporary technical issues with the PACS/Fluency reporting system, reports are being signed by the in house radiologists without review as a courtesy to insure prompt reporting. The interpreting radiologist is fully responsible for the content of the report.
--- NOTE | 2021-09-06 14:17 | ECHO ---
HEIGHT: 5 ft 11 in WEIGHT: 279 lb 0 oz DATE OF STUDY: 09/06/[address]: Jono Reilly MD 2-DIMENSIONAL: YES M.MODE: YES DOPPLER: YES COLOR FLOW: YES TDS: NO PORTABLE: YES DEFINITY: NO BUBBLE STUDY: NO DIAGNOSIS: CHEST PAIN CARDIAC HISTORY: CATHERIZATION: SURGERY: PROSTHETIC VALVE: PACEMAKER: MEASUREMENTS (cm) DIASTOLIC (NORMALS) SYSTOLIC (NORMALS) IVSd 0.9 (0.6-1.2) LA Diam 3.5 (1.9-4.0) LVEF 60% LVIDd 5.1 (3.5-5.7) LVIDs 3.5 (2.0-3.5) %FS 32% LVPWd 0.8 (0.6-1.2) Ao Diam 2.9 (2.0-3.7) 2 DIMENSIONAL ASSESSMENT: RIGHT ATRIUM: NORMAL LEFT ATRIUM: NORMAL RIGHT VENTRICLE: NORMAL LEFT VENTRICLE: NORMAL TRICUSPID VALVE: MILD TRICUSPID REGURGITATION MITRAL VALVE: NORMAL PULMONIC VALVE: NORMAL AORTIC VALVE: MILD AORTIC INSUFFICIENCY PERICARDIAL EFFUSION: NONE AORTIC ROOT: NORMAL LEFT VENTRICULAR WALL MOTION: NORMAL. DOPPLER/COLOR FLOW: SEE BELOW. COMMENTS: NORMAL LEFT VENTRICULAR EJECTION FRACTION 55-60%. NORMAL WALL MOTION. MILD MITRAL REGURGITATION, MILD AORTIC INSUFFICIENCY. MILD TRICUSPID REGURGITATION, MILD PULMONIC INSUFFICIENCY. TECHNOLOGIST: SADAF GAUTHIER
[2021-09-06] MEDS ORDERED: MAGNES/ALUMIN/SIMET 30ML UCUP PO ONE (20:24)
[2021-09-06 20:55] VITALS: O2SAT 98
[2021-09-07] MEDS: PROMETHAZINE INJ 25 MG/ML AMP IV PRN ×2 (02:21→08:51)
--- NOTE | 2021-09-07 04:50 | HP ---
Date of Admission: 09/06/2021 Chief Complaint: Neck pain and chest pain. History Of Present Illness: This is a 50-year-old pleasant female patient, who came into the emergen cy room with few days history of left-sided neck pain and left upper anterior chest pain. The patien t denies any fall or injury. No cough, cold, congestion. No fever. Her pain may last for 30 minute s to an hour or so. Denies any nausea or vomiting associated with that. With her last episode of pa in, she actually also started to have some tingling and numbness on the left side of the neck associa gordo with some tingling and numbness of the left arm. With this, she came into the emergency room. A fter she was evaluated, she was admitted to the hospital. I saw her in the emergency room for this a dmission this morning. Review of Systems: Cardiovascular: As mentioned above. LANDSCAPE MANAGEMENT TECHNICIAN: As mentioned above. All other systems reviewed and negative. Allergies: TO ASPIRIN CAUSING SHORTNESS OF BREATH, CODEINE CAUSING NAUSEA AND VOMITING, HYDROCODONE CAUSING NAUSEA AND VOMITING. LEVAQUIN CAUSING JOINT PAIN. MORPHINE CAUSING HALLUCINATION. DEMEROL CAUSING HALLUCINATION. ZOFRAN CAUSING PSYCHOSIS. PENICILLIN CAUSING ANAPHYLACTIC REACTION. VANCOMY VICTOR HUGO CAUSING THROAT SWELLING FEELING. Medications: Clonazepam 0.5 mg daily as needed for anxiety, Xarelto 10 mg daily, Imitrex p.r.n., vit alexander B12 1 mg daily, zolpidem 5 mg at bedtime as needed for sleep. Past Medical History: Significant for migraine, impaired fasting glucose, hypertension, gastroesopha geal reflux disease, Crohn disease, colon cancer, portal vein thrombosis, hypercoagulable state. The patient is heterozygous for prothrombin gene mutation and she needs lifelong anticoagulation. Past Medical History: Also significant for anxiety, depression, bipolar disorder, . Past Surgical History: Hiatal hernia repair, gastric sleeve, cholecystectomy, partial resection of c olon due to colon cancer, umbilical hernia repair, ventral hernia repair, she had wound dehiscence fo r which she had surgery in December 2018. She also had tubal ligation, hysterectomy with bilateral s alpingo-oophorectomy and repair of umbilical hernia, November 22, 2020. Family History: Father had stroke and lung cancer. Social History: Positive for smoking, use of alcohol negative. Physical Examination: Vital Signs: Height 5 feet 11 inches, weight 279 pounds, oxygen saturation 100% on room air. Blood pressure 165/97, pulse 68, respiratory rate 19, temperature 98.1. General: Awake, alert, oriented, not in distress. HEENT: Head atraumatic, normocephalic. Conjunctivae nonerythematous. Sclerae white. Mouth, no thr ush or edema noted. Ears/Nose, no mass, lesion, discharge noted. Neck: Supple. No JVD, lymph nodes, bruit, thyromegaly noted. Lungs: Bilateral good equal air entry. Clear to auscultation. No rhonchi. No rales. Heart: Normal heart sounds, no murmur or gallop. Abdomen: Soft, bowel sounds normal. No guarding, rigidity, tenderness, mass, hepatosplenomegaly, dis tention, or bruit noted. Extremities: No leg edema. No calf tenderness. Skin: No rash, ulcer, cellulitis. Lymphatics: No lymph node enlargement in neck, supraclavicular, infraclavicular region. Neuro: No focal neurological deficit. Chest: Unremarkable. External Genitalia: Deferred. Rectal: Deferred. Laboratory Data: White count 10.5, hemoglobin 15, platelets 287. Sodium 142, potassium 3.7, chlorid e 112, bicarb 25, BUN 8, creatinine 0.93, glucose 109, troponin 3.5 on the first set, second set 3.43 . Urinalysis negative. COVID-19 test negative. Impression: 1.Chest pain. 2.Hypertension. 3.Impaired fasting glucose. 4.Colon cancer. 5.Gastroesophageal reflux disease. 6.Crohn disease. 7.Portal vein thrombosis. 8.Hypercoagulable state. 9.Anxiety. 10.Depression. 11.Insomnia. Plan: We will go ahead and admit the patient to hospital for further evaluation and management of th is problem. The patient will be admitted to telemetry. We will go ahead and continue her home medic ation. She did receive Xarelto in the emergency room. We will consult Cardiology, get echo with Dop pler and network development coordinator has recommended Lexiscan stress test, which will be done tomorrow. CT scan of the aorta per dissection protocol was done today, which came back negative. We will give pain medica tion per order. The patient did develop some side effect from Plavix, which was ordered from the dejon rgency room and after one dose of Plavix, she started to have some tongue itching and mouth itching t ype of side effect and it actually did get resolved with use of Benadryl 25 mg IV x1 dose. We will s ee her tomorrow for followup. HUSSAIN/SHANEL Voice ID: [id number]
[2021-09-07 05:00] VITALS: BMI 39.9
[2021-09-07 05:13] LABS: Absolute Lymphocytes (CBC) 2.3 K/uL (0.7-4.9); Hematocrit 42.3 % (36.0-45.0); MCV 92.2 fL (80-100); MPV 7.7 fL (7.6-11.3); RBC Red Blood Cell Count 4.59 M/uL (3.86-4.86)
[2021-09-07 05:21] LABS: Potassium 3.9 mmol/L (3.5-5.1)
[2021-09-07] MEDS: METOPROLOL TAR 25 MG TAB PO SCH (06:00)
[2021-09-07] MEDS: HYDROMORPHONE HCL 1 MG/ML INJ IV PRN ×2 (06:14→11:40)
--- NOTE | 2021-09-07 07:39 | RAD REPORT ---
EXAM DESCRIPTION: USCarotid Artery Bilateral09/07/2021 7:33 am CLINICAL HISTORY: Neck pain COMPARISON: None FINDINGS: The velocity of the right internal carotid artery equals 119 cm/sec. The right ICA/CCA rat io 1.4 The velocity of the left internal carotid artery equals 107 cm/sec. The left ICA/CCA ratio 1.33 Plaque is not visualized within the carotid arteries The vertebral arteries demonstrate antegrade flow IMPRESSION: Unremarkable exam NASCET criteria used. Mild 0-49% stenosis Moderate 50-69% stenosis Severe 70-99% stenosis
[2021-09-07] MEDS ORDERED: REGADENOSON 0.4 MG/5 ML SYR IV ONE (08:30)
[2021-09-07] MEDS: RIVAROXABAN 10 MG TABLET PO SCH (08:45)
[2021-09-07 08:56] VITALS: BP 122/91; TEMP 97.7
--- NOTE | 2021-09-07 11:43 | RAD REPORT ---
EXAM DESCRIPTION: NM - Rest Stress Cardiac Imaging - 09/07/2021 11:37 am CLINICAL HISTORY: Chest pain. COMPARISON: None. TECHNIQUE: The patient was administered 10.6 mCi of Tc 99m Sestamibi prior to resting SPECT imaging of the heart. The patient was then administered 30.7 mCi of Tc 99m Sestamibi following exercise or ph armacologic stress. Multiplanar SPECT images were reviewed. FINDINGS: There is uniformity of radiotracer uptake involving the entire left ventricular myocardiu m on rest and stress images. The left ventricular ejection fraction equals 55% IMPRESSION: Negative for a myocardial perfusion defect
--- NOTE | 2021-09-07 12:00 | TREADPHA ---
DX: CHEST PAIN Date of Study: 09/07/21 Ht: 5' 11 " Wt: 286 lb 3.2 oz Consulting Physician: ABBY MEDICATIONS: DILAUDID, LOPRESSOR, PHENEGRAN, XARELTO HISTORY: 50 YEAR OLD FEMALE, COMPLAINTS OF CHEST PAIN, HISTORY: CHRONS, LUPUS, COLON CANCER. PATIENT SMOKES PACK DAILY, NON-DRINKER. PHYSICIAL EXAMINATION: RESTING B.P.: 121/81 RESTING H.R.: 62 RESTING EKG: NORMAL PROTOCOL: LEXISCAN EXERCISE TIME: 3:30 B.P. AT PEAK STRESS: 113/68 IMPRESSION: LEXISCAN INJECTED FOLLOWED BY CARDIOLITE PER PROTOCOL. SEE NUCLEAR MEDICINE REPORT. NO SUPRA VENTRICULAR TACHYCARDIA, VENTRICULAR TACHYCARDIA, PREMATURE ATRIAL COMPLEXES, PREMATURE VENTRICULAR COMPLEXES. PATIENT REPORTS NO CHEST PAIN.
--- NOTE | 2021-09-08 06:17 | DS ---
Date of Discharge: 09/07/2021 Disposition: Discharged to go home. Physical Examination: HEENT: Unremarkable. Lungs: Clear to auscultation. Heart: Heart sounds normal. Abdomen: Soft, bowel sounds normal. No guarding, rigidity, tenderness, or distention. Extremities: No leg edema. Laboratory Data: Today, white count 6.6, hemoglobin 14.2, platelets 245. Sodium 141, potassium 3.9, chloride 111, bicarb 26, BUN 13, creatinine 0.82, glucose 105. First troponin 3.5, second troponin 3.4. CT scan of the aorta per dissection protocol was negative. Carotid Doppler was normal. Stress test was normal and did not show any evidence of stress-induced ischemia. Echocardiogram showed nor mal ejection fraction 60%, mild tricuspid regurgitation and pulmonary regurgitation and mitral regurg itation. History Of Present Illness: This is a 50-year-old female patient admitted to the hospital with left- sided neck pain and left-sided chest pain. Please see dictated H and P for more information. The lamin gasca was evaluated in the emergency room, she was admitted to the hospital. The patient was admitte d to ICU as overflow patient because there were no beds available on regular medical floor. Cardiolo gy consultation was requested. Overall, her condition improved during this hospitalization and clau p was unremarkable and patient was discharged to go home in stable condition. The patient did receiv e 1 dose of Plavix on the day of admission, which was so ordered by ER physician and she developed so me side effects so she should be listed as allergic to Plavix and the side effect was itching sensati on in her mouth. She responded well to Benadryl. Overall, the patient's condition was stable for miah draper and I will see her for followup next week as outpatient followup. Discharge Medications: Continue all prior home medications. Final Diagnoses: 1.Chest pain. 2.Hypertension. 3.Impaired fasting glucose. 4.Colon cancer. 5.Gastroesophageal reflux disease. 6.Crohn disease. 7.Portal vein thrombosis. 8.Hypercoagulable state. 9.Anxiety. 10.Depression. 11.Insomnia. HUSSAIN/MODL Voice ID: [id number] Report ID: [id number]
== END 2021-09-07 12:05 | disposition home or self-care (01) ==
LOC: ER 22:59 → ERHOLD 09-06 01:41 → 3RD-ICU 09-06 08:12
PROVIDERS: ADMIT Internal Medicine; ATTEND Internal Medicine
DX: R07.9 Chest pain, unspecified (principal); I10 Essential (primary) hypertension; L29.9 Pruritus, unspecified; T45.525A Adverse effect of antithrombotic drugs, initial encounter; Y92.239 Unspecified place in hospital as the place of occurrence of the external cause; I81 Portal vein thrombosis; R73.01 Impaired fasting glucose; K21.9 Gastro-esophageal reflux disease without esophagitis; K50.90 Crohn's disease, unspecified, without complications; D68.59 Other primary thrombophilia; N28.9 Disorder of kidney and ureter, unspecified; F41.9 Anxiety disorder, unspecified; F32.A Depression, unspecified; G47.00 Insomnia, unspecified; F31.9 Bipolar disorder, unspecified; E66.9 Obesity, unspecified; Z68.39 Body mass index [BMI] 39.0-39.9, adult; F17.200 Nicotine dependence, unspecified, uncomplicated; Z20.822 Contact with and (suspected) exposure to COVID-19; Z88.0 Allergy status to penicillin; Z88.3 Allergy status to other anti-infective agents; Z88.5 Allergy status to narcotic agent; Z88.6 Allergy status to analgesic agent; Z88.8 Allergy status to other drugs, medicaments and biological substances; Z79.01 Long term (current) use of anticoagulants; Z98.84 Bariatric surgery status; Z85.038 Personal history of other malignant neoplasm of large intestine; Z90.49 Acquired absence of other specified parts of digestive tract; Z90.710 Acquired absence of both cervix and uterus; Z90.722 Acquired absence of ovaries, bilateral; Z90.79 Acquired absence of other genital organ(s); Z82.3 Family history of stroke; Z80.1 Family history of malignant neoplasm of trachea, bronchus and lung
CPT/HCPCS: 36415; 71045; 71275; 74175; 78452; 80048; 81003; 84484; 85025; 93005; 93017; 93306; 93880; 96374; 96375; 99285; A9500; G0378; J1170; J1200; J2550; J2785; J3490; Q9967; U0003

== ENCOUNTER 2022-03-28 15:07 | Emergency (ER) | payer BC ==
--- OUTSIDE RECORDS SUMMARY | 2022-03-28 15:10 | XMS REPORT | Clinical Summary ---
:1970 Author Organization [facility] MD [facility] Address [address] [place] [address] Care Team Providers Name Role Phone Chidi Anguiano MD Unavailable Nidhi Martin MD Primary Care Provider Linette Byrd Unavailable Allergies Active Allergy Reactions Severity Noted Date Comments Aspirin GI Intolerance 07/30/2020 Buprenorphine Other (See Comments) 08/23/2020 Agitat ion and skin blisters Codeine Anaphylaxis High 07/30/2020 Meperidine Anaphylaxis High 07/30/2020 Hydrocodone Anaphylaxis High 07/30/2020 Levofloxacin Other (See Comments) 07/30/2020 Joint s welling Opioids - Morphine Anaphylaxis High 07/30/2020 Analogues Penicillins Anaphylaxis High 07/30/2020 Vancomycin Analogues Anaphylaxis High 07/30/2020 Ondansetron Hcl Other (See Comments) 07/30/2020 Sofia re psychosis Medications Medication Sig Dispensed Refills Start Date End Date Status clonazePAM Take 1 tablet 0 09/28/2015 Acti ve (KlonoPIN) 0.5 mg by mouth as tablet needed. zolpidem (AMBIEN) Take 1 tablet 0 07/21/2020 Active 5 mg tablet by mouth at bedtime. HYDROmorphone Take 2 mg by 0 Act hasmukh (DILAUDID) 2 mg mouth every tablet 12 (twelve) hours as needed. gabapentin Take 1 60 capsule 0 10/21/2020 Active (NEURONTIN) 300 mg capsule (300 capsuleIndications mg) by mouth : Pelvic pain twice daily. baclofen Take 1 tablet 90 tablet 0 10/21/2020 Activ e (LIORESAL) 10 mg (10 mg) by tabletIndications: mouth every 6 Pelvic pain (six) hours as needed for muscle spasms (pain). oxyMORphone (OPANA Take 1 tablet 60 tablet 0 10/25/2020 Active ER) 5 mg 12 hr (5 mg) by tabletIndications: mouth every Chronic pain 12 (twelve) hours. peg Use as 4000 mL 0 06/08/2021 Active 3350-electrolytes directed by (Otto) ordering [phone] g provider. solutionIndication s: Colonoscopy planned rivaroxaban Take 10 mg by 0 Acti ve (XARELTO) 10 mg mouth daily. tablet apixaban (Eliquis) Take 1 tablet 0 02/26/2017 Discontinued 2.5 mg tablet by mouth 2 (Alter du twice daily. therapy ) Active Problems Patient Care Coordination Note Formatting of this note might be differe nt from the original. 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 Overview: Added automatically from request for dragan moser [id number] Personal history of colonic polyp 06/08/2021 Overview: Added automatically from request for dragan moser [id number] Muscular hypertonicity 09/17/2020 Mixed urinary incontinence 09/17/2020 Fecal incontinence with fecal urgency 09/17/2020 Suprapubic pain 09/17/2020 History of venous thrombosis 07/30/2020 H/O: major abdominal surgery 07/30/2020 Personal history of cervical dysplasia 07/30/2020 Morbid (severe) obesity due to excess calories 021 Factor V Leiden mutation 07/29/2020 Chronic vaginal pain 07/29/2020 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 07/29/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 Lupus erythematosus 07/29/2020 Imaging of genitourinary system abnormal 07/02/2020 History of endometrial ablation 07/02/2020 Adenomatous polyp of colon 05/02/2016 Encounters Date Type Specialty Care Team Description 06/29/2021 Prep for Surgery Gastroenterology, Nannette Treviño h syndrome Hepatology & Nutrition N, PA (Prim machelle Dx) 06/23/2021 Surgery Endoscopy Padmini, RADHA Davenport MD FLEXIBLE COLONOSCOPY PROXIMAL TO SPLENIC FLEXURE 06/23/2021 Anesthesia Event Endoscopy Bogdan Parham DO 06/23/2021 Hospital Encounter Endoscopy Padmini, Personal history MD Issac of colonic poly p 06/23/2021 Travel 06/22/2021 POEM Appointments Anesthesiology Nidhi Martin MD 06/20/2021 Clinical Support Nidhi Sotelo MD observation for Zamudio, other suspected RUBY Terrell exposure to biological agen t ruled out (Prim machelle Dx) 06/20/2021 Travel 06/17/2021 Nurse Only Anesthesiology Kym Pierre, RUBY 06/17/2021 Nurse Only Anesthesiology Kym Pierre, RUBY 06/16/2021 Anesthesia Event Anesthesiology Kym Pierre, RUBY 06/08/2021 Prep for Surgery Gastroenterology, Nannette Treviño Pers onal history of colonic polyp (Primary Dx); Hepatology & Nutrition N, PA Colon oscopy planned after 03/28/2021 Surgical History Surgery Date Site/Laterality Comments COLON SURGERY Nov 16, 2016 COLONOSCOPY 02/26/2019 - 03/28/2019 HERNIA REPAIR 06/26/2018 - 07/26/2018 STOMACH SURGERY 03/29/2014 - 04/25/2014 CHOLECYSTECTOMY 02/26/1999 - 02/26/2000 UPPER GASTROINTESTINAL 02/26/2019 - ENDOSCOPY 03/28/2019 REPAIR PERFORATION BOWEL 12/06/2019 TUBAL LIGATION 12/27/2014 - 01/25/2015 ENDOMETRIAL ABLATION 02/26/2014 - 02/25/2015 LAPAROTOMY EXPLORATORY 02/26/1998 - removed s car tissue from 02/25/1999 right ovary SC COLONOSCOPY FLX DX 08/12/2020 N/A Procedure: DIAGNOSTIC W/COLLJ SPEC WHEN PFRMD FLEXIBLE COLONOSCOPY PROXIMAL TO SPLE RAINE FLEXURE; Surgeon : Issac Washington MD; Lo cation: [facility]; Service: GASTROENTEROLOGY HYSTERECTOMY 10/27/2020 - 11/25/2020 SC COLONOSCOPY FLX DX 06/23/2021 N/A Procedure: DIAGNOSTIC W/COLLJ SPEC WHEN PFRMD FLEXIBLE COLONOSCOPY PROXIMAL TO SPLE RAINE FLEXURE; Surgeon : Issac Washington MD; Lo cation: [facility]; Service: GASTROE NTEROLOGY Medical History Medical History Date Comments Thrombosis April 2017 Portal vein thrombos is Fatty liver September 2017 Crohn's disease June 1999 Polyp of colon April 2016 Polycystic ovarian syndrome 1999 Anemia Feb 2020 Lupus erythematosus 1989 Genetic susceptibility to other malignant neoplasm Malignant neoplasm of colon April 2016 Factor V Leiden mutation Family History Medical History Relation Name Comments Colon polyps Brother benign Skin cancer Brother Unknown Colon polyps Father Grant Aguilera precancerous Lung cancer Father Grant Aguilera Skin cancer Father Grant Aguilera unknown. Breast cancer Maternal Aunt Dx: before 50 Ovarian cancer Maternal Aunt Dx: diagnosed be fore 50. Breast cancer Maternal Cousin 1 Other Maternal Grandmother ANNEMARIE BSO at 40. Unknown reason. Cervical cancer Mother Breast cancer Other 1 -Other cancer Other 4 metastatic abdom inal cancer (possible pancra tic or colon primary) -Other cancer Other 7 Casimiro metastatic cance r of unknown primary. Brain cancer Other 8 Pancreatic cancer Other 10 Kidney failure Paternal Aunt 1 Crane Cancer Paternal Aunt 2 Sammie Metastatic cance r of unknown primary. Other Paternal Cousin 4 "Issue with ut erus, unsure if cancer" Colon cancer Paternal Grandmother Norma Relation Name Status Comments Brother Alive No history of ca ncer. Daughter 1 Alive A&W Daughter 2 Alive Father Grant Aguilera Alive Maternal Aunt Alive Maternal Cousin 1 Alive Maternal Cousin 2 n=5 Alive Maternal Cousin 3 Alive Maternal Grandfather (Age 55) d: heart attack. Maternal Grandmother (Age 70) ANNEMARIE BSO Maternal Uncle Alive ? Mother Alive Never had colono scopy. 2 years agolump in breast, never returned f or biopsy. Nephew Alive A&W Other 1 Other 2 Joi Alive No history of ca ncer. Other 3 Alive Other 4 Alive Other 5 Alive Other 6 Alive Other 7 Casimiro Other 8 Alive Other 9 Alive Other 10 Alive Paternal Aunt 1 Crane Alive No history of ca ncer Paternal Aunt 2 Sammie (Age 50-59) Paternal Cousin 1 Alive No history of cancer. Paternal Cousin 2 Alive No history of cancer Paternal Cousin 3 Alive ? Paternal Cousin 4 Alive Paternal Grandfather (Age 60-69) No his tory of cancer. Paternal Grandmother Norma (Age 50-59) Paternal Uncle 1 Blane Alive No history of c ancer Paternal Uncle 2 Adarsh Alive No history of c ancer Paternal Uncle 3 Mark Alive No history of c ancer. Social History Tobacco Use Types Packs/Day Years Used Date Smoking Tobacco: Former Cigarettes 0.5 15 Smokeless Tobacco: Never Alcohol Use Standard Drinks/Week Comments Not Currently 0 (1 standard drink = 0.6 oz pure alcoho l) Sex Assigned at Date Recorded Female 07/19/2020 11:04 AM CDT Job Start Date Occupation Industry Not on file Not on file Not on file Obstetrics History Para Term AB IAB SAB Ectopic Multiple Living Live Births 2 2 2 2 Date Outcome GA Total Labor/2nd/3rd Weight Sex Delivery Anes PTL Marta A 1 A5 Name Clin Labor Term Term Last Filed Vital Signs Vital Sign Reading Time Taken Comments Blood Pressure 106/74 06/23/2021 10:55 AM CDT Pulse 62 06/23/2021 10:55 AM CDT Temperature 36.9 C (98.4 F) 06/23/2021 10:50 AM CDT Respiratory Rate 15 06/23/2021 10:55 AM CDT Oxygen Saturation 98% 06/23/2021 10:55 AM CDT Inhaled Oxygen Concentration - - Weight 132.4 kg (291 lb 14.2 oz) 06/23/2021 9:13 AM CDT Height - - Body Mass Index 43.73 07/30/2020 9:44 AM CDT Plan of Treatment Date Type Specialty Care Team Description 05/26/2022 Clinical Support Nidhi Sotelo MD [address] [place] [address] 7703 (Wo rk) 05/30/2022 Hospital Encounter Endoscopy Tera Washington MD [facility] [place], [place] [address] (Wo rk) 05/30/2022 Surgery Endoscopy Issac Washington MD DIAGNOSTIC FLEXIBLE [address] [place] [address] COLONOSCOPY PROXIMAL TO [place], [place] [address] 0 SPLENIC FLEXURE [phone] (Wo rk) Name Priority Associated Diagnoses Date/Time DIAGNOSTIC FLEXIBLE COLONOSCOPY Dias syndrome 05/30/2022 8:00 AM CDT PROXIMAL TO SPLENIC FLEXURE DIAGNOSTIC UPPER Dias syndrome 05/30/2022 8:00 AM CDT GASTROINTESTINAL ENDOSCOPY Health Maintenance Due Date Last Done Comments COVID-19 Vaccination (3 - Booster for 06/22/2020 04/27/2020 , 03/23/2020 Moderna series) Procedures Procedure Name Priority Date/Time Associated Comments Diagnosis PATHOLOGY BIOPSY Routine 06/23/2021 10:02 Personal history Res ults for this INTERPRETATION AM CDT of colonic polyp procedure are in the results section. DIAGNOSTIC FLEXIBLE 06/23/2021 9:39 AM Personal histor y COLONOSCOPY PROXIMAL TO CDT of colonic polyp SPLENIC FLEXURE Case Notes New x1 06/08/2021 POC GLUCOSE SCREEN Routine 06/23/2021 9:36 AM Res ults for this CDT procedure are i n the results section. COVID-19 Routine 06/20/2021 9:21 AM Encounter for Results for this (SARS-COV-2) PCR CDT observation for procedur e are in ASYMPTOMATIC other suspected the results exposure to section. biological agent ruled out after 03/28/2021 Results Pathology Biopsy Interpretation (06/23/2021 10:02 AM CDT) Component Value Ref Test Analysis Performed Pathologis t Range Method Time At Signature Submitted Personal history 06/25/2021 [facility] Clinical of colonic polyp 2:22 PM History [Z86.010] CDT Diagnosis A: Colon, anastomosis ulcer, biopsy: [facility] Electronically Colonic mucosa with erosion, mild active inflammation, and reactive/regenerative changes. 2:22 PM signed by [facility] No malignancy identified. CDT Giovany Garcia MD on Deeper levels examined. 06/25/2021 at 2:22 PM B: Colon, left, polyp, biopsy: Colonic mucosa with mild rodriguez porter propria expansion and reactive surface changes. No tumor identified. Deeper levels examined. Gross A: 06/25/2021 [facility] Description Colon, 1. anastomosis ulcer bx: Two warren-white fragments of soft tissue measuring less than 0.1 and 0.3 cm, entirely submitted in A1. GM 2:22 PM CDT B: Colon, 2. left colon polyp: One warren-yellow fragment of soft tissue measuring 0.2 cm, entirely submitted in B1. GM Biomarker N/A 06/25/2021 [facility] Block(s) 2:22 PM CDT Disclaimer "Some tests 06/25/2021 [facility] reported here may 2:22 PM have been CDT developed and performance characteristics determined by [facility] Pathology and Laboratory Medicine. These tests have not been specifically cleared or approved by the U.S. Food and Drug Administration. If applicable, controls were reviewed and showed appropriate reactivity." Specimen Anatomical Collection Method Collection Time Receive d Time (Source) Location / / Volume Laterality Tissue (Colon) 06/23/2021 10:02 2 3:43 AM CDT PM CDT Comment: Hx of right colectomy Tissue (Colon) 06/23/2021 10:08 AM CDT 3:43 PM CDT Issac Washington MD LAB PATHOLOGY ORDERABLES Performing Organization Address City/[facility]/ZIP Code Phon e Number [facility] [place] [address] [address] (ABNORMAL) POC Glucose Screen (06/23/2021 9:36 AM CDT) P athologist Signature POC Glucose 124 (H) 70 - 99 POC [facility] mg/dL Comment: Notified RN Notified Capillary blood samples, e.g. obtained b y fingerstick, may have inaccurate results in patients with decreased peripheral blood flow. Method description: All results are lexis ured using Electrochemistry test methodology. The glucose in the sample mixes with the reagents on the test strip. The reaction produces an electric current. The amount of current produced is proportion al to the glucose concentration in the blood. PO Sample Type Capillary POC [facility] Performing Lab [facility] POC TEL[facility] OR Comment: [facility],[address] [facility], [place] [address]; Point of Care [place] Calker: Sho Calvillo MD Specimen Anatomical Collection Method Collection Time Receive d Time (Source) Location / / Volume Laterality Blood 06/23/2021 9:36 AM 2 9:36 CDT AM CDT Issac Washington MD POCT ORDERABLES - DEVICE Performing Organization Address City/State/ZIP Code Phon e Number POC [facility] Unless otherwise noted, [place] [address] lab tests performed by: Division of Pathology and Laboratory Medicine [address] POC [facility] COVID-19 (SEJAL-CoV-2) PCR Asymptomatic (06/20/2021 9:21 AM CDT) Component Value Ref Range Test Analysis Performed Pathologis t Method Time At [facility] COVID19 SARS Pre-Out of OR [facility] MD Indication Procedure [facility] COVID19 SARS Not Detected Not [place] Result Detected [facility] COVID19 SARS SARS-CoV-2 NOT Detected. [facility] MD Interpretation [place] Reference Range: Not Detected [facility] Methodology: The Mcdonald Real Time SARS-CoV-2 assay is a qualitative real-time reverse producer arborist manager polymerase chain reaction (clinical asst-PCR) test to detect RNA from SARS-CoV-2 in nasal, nasopharyngeal and oropharyngeal swabs from patients with signs and symptoms of infection who ar e suspected of COVID-19 by their health care provider. The Mcdonald RealTime SARS-CoV-2 performed on the Happy Elements000 System is a dual target assay with primers and probes for the RdRp and N genes. Results must be interpreted within the context of all relevant clinical and laboratory findings, and epidemiological risk factors. Positive results are indicative of the presence of SARS-CoV-2 RNA; clinical correlation with patient history and other diagnostic information is ne cessary to determine patient infection status. Positive results do not rule out bacterial infection or co-infection with other viruses. Negative results do not preclude SARS- CoV-2 infection and should not be used as the sole basis for patient management decisions. The Mcdonald RealTime SARS-CoV -2 assay is for in vitro diagnostic use under FDA Emergency Use Authorization only. Testing is limited to laboratories certified under the Clinical Laboratory Improvement Ashlee ndments of 1988 (CLIA), 42U.S.C. 263a, to perform high complexity tests. The T est was performed by the CLIA-certified, high- complexity Molecular Diagnostics Laboratory (MDL) at [facility] under the Food and Drug Administration (FDA) s Emergency Use Authorization. Factsheet for patients: https://www.Nulogynderson.org/AbbottFac tSheetPatients Factsheet for healthcare pro viders: https://www.mdanderson.org/AbbottFactSheetHCP Test performed by: [facility] [address] [place] [address] Specimen (Source) Anatomical Collection Method Collection Time Re ceived Time Location / / Volume Laterality Nasopharyngeal Swab 06/20/2021 9:21 06/20 AM CDT 11:25 AM CDT Issac Washington MD MICROBIOLOGY - GENERAL ORDER [place] Performing Organization Address City/State/ZIP Code Phon e Number [facility] Unless otherwise noted, [place] [address] CENTER all lab tests performed by: Division of Pathology and Laboratory Medicine Yadira Kan after 03/28/2021 Insurance Payer Benefit Plan / Subscriber ID Effective Dates Phone Addre ss Type Group [employer] [place] HMO [id number] 2019-Present PO MIRANDA X [id number] O [employer] [place] [employer] [phone] Care Teams Block Mason Relationship Specialty Start Date End Date Chidi Anguiano MD PCP - External Primary Internal Medicine 07/13/[address] [place] [address] [place] [address] Nidhi Martin, PCP - General Gynecological Oncology 07/13/20 [place] [address] Linette Byrd PCP - External 07/21/[address] [place] [address] [address] [place], [place] [id number]
--- OUTSIDE RECORDS SUMMARY | 2022-03-28 15:15 | XMS REPORT | Continuity of Care Document ---
:1970 Author Organization [facility] t Address [address] [place] [address] Care Team Providers Name Role Phone [phone] Primary Care Physician Unavailable ISSAC WASHINGTON Attending Clinician Unavailable SYSTEM, PROVIDER NOT IN Attending Clinician Unavailable TARIQ MASTERS Attending Clinician Unavailable Norbert Yepez Attending Clinician Unavailable Javier PIPER, Vincenzo Kemp Attending Clinician Provider, Unknown Attending Clinician Unavailable Rayne Love MA Attending Clinician Unavailable Nannette Quach Attending Clinician Issac Washington MD Attending Clinician Bogdan Parham DO Attending Clinician Tariq Masters MD Attending Clinician Tariq Zamudio RN Attending Clinician Unavailable Kym Pierre RN Attending Clinician Unavailable [facility] ocasio PT Attending Clinician Winter RN, Treva Eric Attending Clinician Rudi Campos Attending Clinician Unavailable Mike Harmon MD Attending Clinician Adal PT, Corie Lebron Attending Clinician Unavailable CHERY BYRD Attending Clinician Unavailable Chery Byrd MD Attending Clinician Eveline Sánchez Attending Clinician Doctor Unassigned, [facility] Attending Clinician Unavailable GIGI RAGLAND Attending Clinician Unavailable PLACIDO HAMMOND Attending Clinician Unavailable Wilfrid Josue Attending Clinician Provider, [facility] Attending Clinician Unavailable Martin Barnard PA-C Attending Clinician MARTIN BARNARD Attending Clinician Unavailable AMBANTIONE_TATYANA Attending Clinician Unavailable STEVE SANTANA Attending Clinician Unavailable ISSAC WASHINGTON Admitting Clinician Unavailable TARIQ MASTERS Admitting Clinician Unavailable Norbert Yepez Admitting Clinician Unavailable VINCENZO HERRERA Admitting Clinician Unavailable Rudi Campos Admitting Clinician Unavailable KAELA Admitting Clinician Unavailable KNOW, DOES_NOT Admitting Clinician Unavailable Payers Payer Name Policy Type Policy Number Effective Date Expiration Date S nadi[place] O [id number] 2019 BLUE/BLUE 00:00:00 ESSENTIALS BLUE ESSENTIALS O [id number] 2019 00:00:00 Problems Condition Condition Condition Status Onset Resolution Last Treating Co mments Source Name Details Category Date Date Treatment Clinician Date Angina Angina Disease Active 2021-02 Methodi pectoris pectoris 0-15 st 00:00: Hospita 00 l Coronary Coronary Disease Active 2021-02 Overview: Me thodi artery artery 0-[address] disease disease 00:00: g of this Hospi ta involving involving 00 note l chickaloon chickaloon might be heart heart different from the original. Added automatic ally from request for surgery [id number] Dias Dias Disease Active Overview: Univer s syndrome syndrome 5-04 Formattin ity of 00:00: g of this [place] 00 note might be Anderso different n from the Cancer original. Center Added automatic ally from request for surgery [id number] Personal Personal Disease Active Overview: Un maya history of history of 4-13 Formattin ity of colonic colonic 00:00: g of this [place] polyp polyp 00 note might be Sylvia keen n from the Cancer original. 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 09-17 ity of incontin[place] 00 [place] Sylvia patel [facility] Fecal Fecal Disease Active Univers incontinen incontinen 09-17 it y of ce with ce with 00:00: [place] fecal fecal 00 urgency urgency Sylvia patel [facility] History of History of Disease Active U nivers venous venous 6 [place] of [place]via patel [facility] H/O: major H/O: major Disease Active U nivers abdominal abdominal 6-04 ity of surgery surgery 00:00: 00 MD Sylvia patel [facility] [place] Personal Personal Disease Active Unive rs history of history of 604 it y of cervical cervical 00:00: [place] dysplasia dysplasia 00 MD Sylvia patel [facility] Morbid Morbid Disease Active Univers (severe) (severe) 6-04 ity of obesity obesity 00:00: [place] due to due to 00 excess excess Sylvia calories tripp [facility] Factor V Factor V Disease Active Unive rs Leiden Leiden 6-03 ity of mutation mutation 00:00: 00 MD Sylvia patel [facility] Chronic Chronic Disease Active Univers vaginal vaginal 6- ity of pain pain 00:00: 00 MD Sylvia patel [facility] Crohn's Crohn's Disease Active Univers disease disease 6-03 ity of 00:00: 00 MD [facility] 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 Disease Active Uni vers current current 6-03 ity of use of use of 00:00: [place] anticoagul anticoagul 00 ant [facility] Lupus Lupus Disease Active Univers erythemato erythemato 6-03 it y of todd todd 00:00: [place] 00 MD [facility] Imaging of Imaging of Disease Active U nivers genitourin genitourin 5-07 it y of machelle system machelle system [place] abnormal abnormal 00 MD [facility] History of History of Disease Active U nivers endometria endometria 5-07 it y of l ablation l ablation [place] 00 [place] [facility] Morbid Morbid Disease Active Univers obesity obesity 5-07 [place] of with body with body 00:[place] mass index mass index 00 Me dical of of Branch 40.0-49.9 40.0-49.9 Yeast Yeast Disease Active Univers detected detected 5-07 ity of 00:00: [place] 00 [facility] 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 5-07 ity of 00:00: [place] 00 [facility] Pain Pain Disease Active Univers pelvic pelvic 5-07 ity of 00:00: [place] 00 [facility] Fluid in Fluid in Disease Active Unive rs endometria endometria 5-07 it y of l cavity l cavity 00:00: [place] 00 [facility] AMOL drain, AMOL drain, Disease Active Met hodi broken, broken, 6-13 st sequela sequela 00:00: Hospita 00 l Incisional Incisional Disease Active M ethodi hernia, hernia, 5-24 st without without 00:00: Hospita obstructio obstructio 00 l n or n or gangrene gangrene Incisional Incisional Disease Active M ethodi hernia of hernia of 3-20 st anterior anterior 00:00: Hospit a abdominal abdominal 00 l wall wall without without obstructio obstructio n or n or gangrene gangrene Generalize Generalize Disease Active M ethodi d d 9-29 st abdominal abdominal 00:00: Hosp damaris pain pain 00 l Colonic Colonic Disease Active Methodi polyp polyp 9-26 st 00:00: Hospita 00 l Adenomatou Adenomatou Disease Active U phani s polyp of s polyp of 05-02 it y of colon colon 00:00: [place] 00 MD [facility] Colon Colon Disease Active Univers cancer cancer 3- ity of 00:00: [place] 00 [facility] Nocturia Nocturia Disease Active Unive rs 517 ity of 00:00: [place] 00 [facility] No known No known Disease Unive rs active active ity of problems problems [facility] Allergies, Adverse Reactions, Alerts Allergy Allergy Status Severity Reaction(s) Onset Inactive Treating Comm ents Source Name Type Date Date Clinician Clopidog Propensi Active Anaphylaxis 2021-02 M ethodi rel ty to 02-28 st adverse 00:00: Hospita reaction 00 l s to drug meperidi DA Active SV ANAPHYLAXIS [facility] ne 11-18 [place] 00:00: Health 00 are [facility] st ondanset DA Active SV SEVERE [facility] larry PSYCOSIS 11-18 [place] 00:00: Health 00 are [facility] st vancomyc DA Active SV ANAPHYLAXIS 2020- [facility] in 11-18 [place] 00:00: Health 00 are [facility] st levoflox DA Active SV SEVERE JOINT HC A acin SWELLING 11-18 [place] 00:00: Health 00 are [facility] st Penicill DA Active SV 2020- [facility] ins 11-18 [place] 00:00: Health 00 are [facility] st morphine DA Active SV 2020- [facility] 11-18 [place] 00:00: Health are [facility] st codeine DA Active SV 2020- [facility] 11-18 [place] 00:00: Health 00 are [facility] st hydrocod DA Active SV 2020- [facility] one 11-18 [place] 00:00: Health 00 are [facility] st ciproflo DA Active SV [facility] xacin 11-18 [place] 00:00: Health 00 are [facility] st meperidi DA Active SV 2020- [facility] ne 11-18 [place] 00:00: Health 00 are [facility] st ondanset DA Active SV 2020-0 [facility] larry 11-18 [place] 00:00: Health 00 are [facility] st vancomyc DA Active SV 2020- [facility] in 11-18 [place] 00:00: Health 00 are [facility] levoflox DA Active SV 2020- [facility] acin 11-18 [place] 00:00: Health 00 are [facility] Penicill DA Active SV ANAPHYLAXIS [facility] ins 11-18 [place] 00:00: Health 00 are [facility] morphine DA Active SV ANAPHYLAXIS [facility] 11-18 [place] 00:00: Health are [facility] codeine DA Active SV SEVERE [facility] GASTRIC 11-18 [place] VOMITING 00:00: Health 00 are [facility] hydrocod DA Active SV SEVERE [facility] one VOMITING 11-18 [place] 00:00: Health 00 are [facility] ciproflo DA Active SV SEVERE JOINT HC A xacin SWELLING 11-18 [place] 00:00: Health 00 are [facility] Buprenor Propensi Active Rash Breaks Univjesus foremanne ty to 09-01 out in ity of adverse 00:00: blisters [place] reaction 00 Medical s Branch BUPRENOR DRUG Active Rash Univers PHINE INGREDI 09-01 ity of 00:00: [place] 00 [facility] Buprenor Propensi Active Other (See Agitation Univers phine ty to Comments) 08-23 and skin ity o f adverse 00:00: blisters [place] reaction 00 MD osvaldo patel [facility] BUPRENOR DRUG Active Other MD VILLALBA INGREDI 08-23 Anderso 00:00: n 00 BUPRENOR DRUG Active Other MD VILLALBA INGREDWesley 08-23 Anderso 00:00: n 00 Aspirin Propensi Active GI Univers ty to Intolerance 07-30 ity o f adverse 00:00: [place] reaction 00 MD [facility]valdo [facility] Codeine Propensi Active Anaphylaxis Un maya ty to 604 ity of adverse 00:00: [place] reaction 00 MD osvaldo [facility] Meperidi Propensi Active Anaphylaxis 2020-0 U nivers ne ty to 604 ity of adverse 00:00: [place] reaction 00 MD osvaldo patel [facility] Hydrocod Propensi Active Anaphylaxis 2020-0 U nivers one ty to 604 ity of adverse 00:00: [place] reaction 00 MD osvaldo patel [facility] Levoflox Propensi Active Other (See 0 Joint Un maya acin ty to Comments) 07-30 swelling ity o f adverse 00:00: [place] reaction 00 MD osvaldo patel [facility] Opioids Propensi Active Anaphylaxis 2020-0 Un maya - ty to 07-30 ity of Morphine adverse 00:00: [place] Analogue reaction 00 MD osvaldo patel [facility] Penicill Propensi Active Anaphylaxis 2020-0 U nivers ins ty to 07-30 ity of adverse 00:00: [place] reaction 00 MD osvaldo patel [facility] Vancomyc Propensi Active Anaphylaxis 2020-0 U nivers in ty to 07-30 ity of Analogue adverse 00:00: [place] s reaction 00 MD osvaldo patel [facility] Ondanset Propensi Active Other (See Severe Un maya larry Hcl ty to Comments) 07-30 psychosis ity of adverse 00:00: [place] reaction 00 MD osvaldo patel [facility] MEPERIDI DRUG Active High Anaphylaxis 2020-0 Uni vers NE INGREDI 6-04 ity of 00:00: [place] 00 Medical Branch CODEINE DRUG Active High Anaphylaxis 2020-0 MD INGREDI 6-04 Anderso 00:00: n 00 MEPERIDI DRUG Active High Anaphylaxis 2020-0 MD NE INGREDI 6-04 Anderso 00:00: n 00 HYDROCOD DRUG Active High Anaphylaxis 2020-0 MD ONE INGREDI 6-04 Anderso 00:00: n 00 OPIOIDS Drug Active High Anaphylaxis 2020-0 MD - Class 6-04 Anderso MORPHINE 00:00: n ANALOGUE 00 S PENICILL Drug Active High Anaphylaxis 2020-0 MD INS Class 6-04 Anderso 00:00: n 00 VANCOMYC Drug Active High Anaphylaxis 2020-0 MD IN Class 6-04 Anderso ANALOGUE 00:00: n S 00 ASPIRIN DRUG Active Nausea 2020-0 MD INGREDI 6-04 Anderso 00:00: n 00 LEVOFLOX DRUG Active Other 2020-0 MD ACIN INGREDI 6-04 Anderso 00:00: n 00 ONDANSET DRUG Active Other 2020-0 MD LARRY HCL INGREDI 6-04 Anderso 00:00: n 00 CODEINE DRUG Active High Anaphylaxis 2020-0 MD INGREDI 6-04 Anderso 00:00: n 00 MEPERIDI DRUG Active High Anaphylaxis 2020-0 MD NE INGREDI 6-04 Anderso 00:00: n 00 HYDROCOD DRUG Active High Anaphylaxis 2020-0 MD ONE INGREDI 6-04 Anderso 00:00: n 00 OPIOIDS Drug Active High Anaphylaxis 2020-0 MD - Class 6-04 Anderso MORPHINE 00:00: n ANALOGUE 00 S PENICILL Drug Active High Anaphylaxis 2020-0 MD INS Class 6-04 Anderso 00:00: n 00 VANCOMYC Drug Active High Anaphylaxis 2020-0 MD IN Class 6-04 Anderso ANALOGUE 00:00: n S 00 ASPIRIN DRUG Active Nausea 2020-0 MD INGREDI 6-04 Anderso 00:00: n 00 LEVOFLOX DRUG Active Other 2020-0 MD ACIN INGREDI 6-04 Anderso 00:00: n 00 ONDANSET DRUG Active Other 2020-0 MD LARRY HCL INGREDI 6-04 Anderso 00:00: n 00 Levoflox Propensi Active Swelling 2020-0 Univ ers acin ty to 4-27 ity of adverse 00:00: [place] reaction 00 Medical s Branch LEVOFLOX DRUG Active Swelling 2020-0 Univer s ACIN INGREDI 4-27 ity of 00:00: [place] 00 [facility] Vancomyc Propensi Active Anaphylaxis 2020-0 U nivers in ty to 4-25 ity of adverse 00:00: [place] reaction 00 Medical s Branch Ondanset Propensi Active Other - See 2020-0 Psychosi s Univers larry Hcl ty to comments 4-25 ity of adverse 00:00: [place] reaction 00 Medical s Branch ONDANSET DRUG Active Other-Cmnt 0 Univ ers LARRY HCL INGREDI 4-25 ity of 00:00: [place] 00 [facility] VANCOMYC DRUG Active Anaphylaxis 2020-0 Uni vers IN INGREDI 4-25 ity of 00:00: [place] 00 [facility] Penicill DA Active U 2019- [facility] ins 0-08 Clear 00:00: [place] 00 [facility] morphine DA Active SV 2019-02 [facility] 0-08 Clear 00:00: [place] 00 [facility] codeine DA Active U 2019-02 [facility] 0-08 Clear 00:00: [place] 00 [facility] hydrocod DA Active U 2019-02 [facility] one 0-08 Clear 00:00: [place] 00 [facility] aspirin DA Active U 2020-1 [facility] 0-08 Clear 00:00: [place] 00 [facility] meperidi DA Active U 2020-1 [facility] ne 0-08 Clear 00:00: [place] 00 [facility] ondanset DA Active U 2020-1 [facility] larry 0-08 Clear 00:00: [place] 00 [facility] vancomyc DA Active U 2020-1 [facility] in 0-08 Clear 00:00: [place] [facility] Penicill DA Active U anaphalytic 2020-1 [facility] ins 0-08 Clear 00:00: [place] [facility] morphine DA Active SV Anaphalytic 2020-1 [facility] reaction 0-08 Clear 00:00: [place] [facility] codeine DA Active U Anaphalytic 2020-1 [facility] reaction 0-08 Clear 00:00: [place] [facility] hydrocod DA Active U Anaphalytic 2020-1 [facility] one 0-08 Clear 00:00: [place] [facility] aspirin DA Active U Anaphalytic 2020-1 [facility] reaction 0-08 Clear 00:00: [place] [facility] meperidi DA Active U Anaphalytic 2020-1 [facility] ne reaction 0-08 Clear 00:00: [place] 00 [facility] ondanset DA Active U psychosis 2020-1 [facility] larry 0-08 Clear 00:00: [place] [facility] vancomyc DA Active U anaphalytic 2020-1 [facility] in reaction 0-08 Clear 00:00: [place] [facility] Levoflox Propensi Active Other (See 2018-02 Joint Me thodi acin ty to Comments) 03-[address] adverse 00:00: Hospita reaction 00 l s to drug Methocar Propensi Active Anaphylaxis 2018-02 M ethodi bamol ty to 1- st adverse 00:00: Hospita reaction 00 l s to drug Vancomyc Propensi Active Anaphylaxis Patient Methodi in ty to 07-[address] adverse 00:00: rash and Hospita reaction 00 itching l s to after drug receiving second dose of IV vancomyci n. Throat started closing. Codeine Propensi Active Anaphylaxis Me thodi ty to 06-16 st adverse 00:00: Hospita reaction 00 l s to drug Meperidi Propensi Active Anaphylaxis M ethodi ne ty to 06-16 st adverse 00:00: Hospita reaction 00 l s to drug Hydrocod Propensi Active Anaphylaxis 2017-0 M ethodi one ty to 06-16 adverse 00:00: Hospita reaction 00 l s to drug Morphine Propensi Active Anaphylaxis 2017-0 M ethodi ty to 06-16 adverse 00:00: Hospita reaction 00 l s to drug Penicill Propensi Active Anaphylaxis 2017-0 M ethodi ins ty to 06-16 adverse 00:00: Hospita reaction 00 l s to drug Ondanset Propensi Active Other (See 2017 Psychotic Methodi larry Hcl ty to Comments) 06-16 st adverse 00:00: Hospita reaction 00 l s to drug Aspirin Propensi Active Anaphylaxis 0 Me thodi ty to 06-16 adverse 00:00: Hospita reaction 00 l s to drug ASPIRIN DRUG Active Anaphylaxis Univ ers INGREDI - ity of 00:00: [place] 00 [facility] ATROPINE DRUG Active Anaphylaxis Uni vers -DEMEROL - ity of 00:00: [place] 00 [facility] CODEINE DRUG Active Anaphylaxis Univ ers PHOSPHAT INGREDI 05-24 ity of E 00:00: [place] 00 [facility] HYDROCOD DRUG Active Anaphylaxis 0 Uni vers ONE INGREDI 05-24 ity of BITARTRA 00:00: [place] TE 00 Medical Branch MORPHINE DRUG Active Anaphylaxis Uni vers SULFATE INGREDI 05-24 ity of 00:00: [place] 00 [facility] PENICILL Drug Active Anaphylaxis 0 Uni vers INS Class 3-29 ity of 00:00: [place] 00 [facility] Aspirin Propensi Active Anaphylaxis 0 Un maya ty to 3 ity of adverse 00:00: [place] reaction 00 Medical s Branch Atropine Propensi Active Anaphylaxis 2011-0 U nivers -Demerol ty to 3 ity of adverse 00:00: [place] reaction 00 Medical s Branch Codeine Propensi Active Anaphylaxis 0 Un maya Phosphat ty to 3 ity of e adverse 00:00: [place] reaction 00 Medical s Branch Hydrocod Propensi Active Anaphylaxis 0 U nivers one ty to 3 ity of Bitartra adverse 00:00: [place] te reaction 00 Medical s Branch Morphine Propensi Active Anaphylaxis 2012-0 U nivers Sulfate ty to 3-29 ity of adverse 00:00: [place] reaction 00 Medical s Branch Penicill Propensi Active Anaphylaxis 2012-0 U nivers ins ty to 3-29 ity of adverse 00:00: [place] reaction 00 Medical s [place] NO KNOWN Drug Active Univers ALLERGIE Class ity of S [facility] Family History Family Member Diagnosis Comments Start Date Stop Date Source Natural brother Colon polyps [facility] [place] [facility] Natural brother Skin cancer [facility]i ty [facility] [place] [facility] Natural daughter [facility] [place] [facility] Natural father Colon polyps [facility] [place] [facility] Natural father Skin cancer [facility] [place] [facility] Natural father Heart disease [facility] Natural father Lung cancer [facility] Natural father Stroke [facility] Maternal aunt Breast cancer [facility] [place] [facility] Maternal aunt Ovarian cancer [facility] [place] [facility] Maternal cousin Breast cancer Univer sity [facility] Maternal [facility] MD [place] [facility] Maternal Other [facility] MD [place] [facility] [place] Maternal uncle [facility] MD [facility] Natural [facility] Nephew [facility] Other Breast cancer [facility] Other [facility]Other cancer [facility] MD [facility] Other Brain cancer [facility] Other Pancreatic cancer Univers ity [facility] MD [facility] Paternal aunt Cancer [facility] MD [facility] P[facility] Paternal cousin [facility] [place] [facility] Paternal Colon cancer [facility] MD [place] [facility] Paternal Liver cancer [facility] grandmother [facility]aternal uncle [facility] MD [facility] Paternal Colon cancer [facility] grandfather Social History Social Habit Start Date Stop Date Quantity Comments Source History of tobacco Cigarette Smoker [facility] MD [facility] Exposure to Not sure University of SARS-CoV-2 (event) [facility] Alcohol intake 2022-01-02 2022-01-02 Current [facility] 00:[facility]:00 00:00:00 non-drinker of Hospital alcohol (finding) Cigarettes smoked 2016-11-15 2016-11-[address] current (pack per 00:00:00 00:00:00 Hospita l day) - Reported Cigarette 2016-11-15 2016-11-15 [facility] pack-years 00:00:00 00:00:00 Hospital Tobacco use and 2016-11-15 2016-11-15 Smokeless [facility] exposure 00:00:00 00:00:00 tobacco non-user Hospital Sex Assigned At [birth year] Universit y of 00:00:00 00:00:00 [facility] Smoking Status Start Date Stop Date Source Unknown if ever smoked [facility] Ex-smoker 2016-11-15 00:00:00 2016-11-15 00:00:00 [facility] Medications Ordered Filled Start Stop Current Ordering Indication Dosage Frequency Signature Comments Components Source Medication Medication Date Date Medication? Clinician (SIG) Name Name clonAZEPAM 2021-02 Yes .5mg Q.5D Take 0.5 Met hodi (KlonoPIN) 1-[address] 0.5 MG 18:30: mouth 2 Hospita tablet 34 (two) l times a day as needed for anxiety. zolpidem 2021-02 Yes 5mg QD Take 5 mg Meth sergey (AMBIEN) 5 1-[address] MG tablet 18:30: nightly as Ho spita 34 needed for l sleep. rivaroxaban 2021-02 Yes 10mg QD Take 1 Meth sergey (XARELTO) 1-04 tablet (10 st 10 mg 18:30: mg total) Hospita tablet 34 by mouth l daily. propranolol Yes 5mg Q.5D Take 5 mg M ethodi HCl 8-[address] (PROPRANOLO 00:00: (two) Hospi ta L ORAL) 00 times a l day. HYDROmorpho Yes 2mg Take 2 mg U nivers ne 4-28 by mouth ity of (DILAUDID) 11:39: every 12 John as 2 mg tablet 04 (twelve) MD hours as Anderso needed. [facility] rivaroxaban Yes 10mg Take 10 mg Univers (XARELTO) 4-28 by mouth ity of 10 mg 11:39: daily. [place] tablet 04 MD [facility]o [facility] HYDROmorpho Yes 2mg Take 2 mg U nivers ne 4-28 by mouth ity of (DILAUDID) 11:39: every 12 John as 2 mg tablet 04 (twelve) MD hours as Anderso needed. n Cancer Center rivaroxaban Yes 10mg Take 10 mg Univers (XARELTO) 4-28 by mouth ity of 10 mg 11:39: daily. [place] tablet 04 MD Ward n [facility] [place] peg Yes Colonoscopy Use as Univ ers 3350-electr 13 planned directed i ty of olytes 00:00: by [place] (Golytely) 00 ordering [id number] provider. And erso .74 g n solution [facility] peg Yes Colonoscopy Use as Univ ers 3350-electr 13 planned directed i ty of olytes 00:00: by [place] (Golytely) 00 ordering [id number] provider. And erso .74 g n [facility] oxyMORphone Yes Chronic 5mg Take 1 U nivers (OPANA ER) 8-30 pain tablet (5 ity of 5 mg 12 hr 00:00: mg) by [place] tablet 00 mouth MD every 12 Anderso (twelve) n hours. Cancer [place] oxyMORphone Yes Chronic 5mg Take 1 U nivers (OPANA ER) 8-30 pain tablet (5 ity of 5 mg 12 hr 00:00: mg) by [place] tablet 00 mouth MD every 12 Anderso (twelve) n hours. Cancer Center gabapentin Yes Pelvic pain 300mg Take 1 Univers (NEURONTIN) 8-26 capsule ity o f 300 mg 00:00: (300 mg) [place] capsule 00 by mouth MD twice Anderso daily. n Cancer Center baclofen Yes Pelvic pain 10mg Take 1 Univers (LIORESAL) 8-26 tablet (10 ity of 10 mg 00:00: mg) by [place] tablet 00 mouth MD every 6 Anderso (six) n hours as Cancer needed for Center muscle spasms (pain). gabapentin Yes Pelvic pain 300mg Take 1 Univers (NEURONTIN) 8-26 capsule ity o f 300 mg 00:00: (300 mg) [place] capsule 00 by mouth MD twice Anderso daily. n Cancer Center baclofen Yes Pelvic pain 10mg Take 1 Univers (LIORESAL) 8-26 tablet (10 ity of 10 mg 00:00: mg) by [place] tablet 00 mouth MD every 6 Anderso (six) n hours as Cancer needed for Center muscle spasms (pain). oxyMORphone 2020- No Chronic 5mg Take 1 Univers (OPANA ER) 09-2130 pain tablet (5 ity of 5 mg 12 hr 00:00: 00[place]00 [place] :00 mouth 3 MD (three) [facility] times a n day. [facility] gabapentin 2020- No Pelvic pain 300mg Take 1 Univers (NEURONTIN) 09-21 capsule ity of 300 mg 00:00: 00:00 (300 mg) [place] capsule 00 :00 by mouth MD twice [place] daily. n [facility] oxyMORphone 2020- No Chronic 5mg Take 1 Univers (OPANA ER) 09-21 pain tablet (5 ity of 5 mg 12 hr 00:00: 00:00 [place] :00 mouth 3 MD (three) [place] times a n day. [facility] baclofen 2020- No Pelvic pain 10mg Take 1 Univers (LIORESAL) 09-16 08-26 tablet (10 it y of 10 mg 00:00: 00:00 mg) by [place] tablet 00 :00 mouth MD every 6 Anderso (six) n hours as Cancer needed for Center muscle spasms (pain). HYDROmorpho Yes 2mg Take 2 mg U nivers ne 2 mg 7-08 by mouth. ity of tablet 00:00: [address] HYDROmorpho 0 Yes 2mg Take 2 mg U nivers ne 2 mg 7-08 by mouth. ity of tablet 00:00: [address] HYDROmorpho 0 Yes 2mg Take 2 mg U nivers ne 2 mg 7-08 by mouth. ity of tablet 00:00: [address] FENTanyl PF 2020- No 50ug 50 mcg, Un maya (SUBLIMAZE 09-01 Slow IV ity o f (PF)) 23:30: 22:27 Push, [place] injection 00 :00 ONCE, 1 Medical 50 mcg dose, Wed Branch 09/01/20 at 1830, STAT iopamidol 2020- No [id number] 120mL 120 mL, Univers (ISOVUE 09-01 Intravenou ity o f 370-500 mL) 22:30: 21:16 s, ONCE, 1 [place] injection 00 :00 dose, Wed Medic al 120 mL 09/01/20 at Branch 1730, Routine proMETHazin 2020- No 12.5mg 12.5 mg, Univers e 09-01 IV ity of (PHENERGAN) 21:45: 21:00 Piggyback, [place] 12.5 mg in 00 :00 ONCE, 1 Medica l NaCl 0.9% dose, Wed Branc h (NS) 50 mL 09/01/20 at piggyback 1645, 50 mL FENTanyl PF 2020- No 100ug 100 mcg, Univers (SUBLIMAZE 09-01 Slow IV ity o f (PF)) 21:45: 21:01 Push, [place] injection 00 :00 ONCE, 1 Medical 100 mcg dose, [facility] Branch 09/01/20 at 1645, STAT oxyMORphone Yes Univer s 5 mg tablet 08-27 ity of 00:00: [place] [facility] oxyMORphone Yes Univer s 5 mg tablet 08-27 ity of 00:00: [facility] oxyMORphone Yes Univer s 5 mg tablet 08-27 ity of 00:00: [place] 00 [facility] oxyMORphone 2020- No Chronic 5mg Take 1 Univers (OPANA ER) 08-27 pain tablet (5 ity of 5 mg 12 hr 00:00: 00:00 mg[place] :00 mouth MD every 12 Anderso (twelve) n hours. [facility] Center celecoxib Yes TAKE 1 Univer s 200 mg 08-16 CAPSULE ity of capsule 00:00: (200 MG) [place] 00 BY MOUTH Medical DAILY. Branch gabapentin Yes TAKE 1 Unive rs 300 mg 6-21 CAPSULE ity of capsule 00:00: (300 MG) BY MOUTH Medical TWICE Branch DAILY. celecoxib Yes TAKE 1 Univer s 200 mg 6-21 CAPSULE ity of capsule 00:00: (200 MG) BY MOUTH Medical DAILY. Branch gabapentin Yes TAKE 1 Unive rs 300 mg 6-21 CAPSULE ity of capsule 00:00: (300 MG) BY MOUTH Medical TWICE Branch DAILY. celecoxib Yes TAKE 1 Univer s 200 mg 6-21 CAPSULE ity of capsule 00:00: (200 MG) BY MOUTH Medical DAILY. Branch gabapentin Yes TAKE 1 Unive rs 300 mg 6-21 CAPSULE ity of capsule 00:00: (300 MG) BY MOUTH Medical TWICE Branch DAILY. gabapentin 2020- No Pelvic pain 300mg Take 1 Univers (NEURONTIN) -15 09- capsule ity of 300 mg 00:00: 00:00 (300 mg) [place] capsule 00 :00 by mouth MD leatha Ward daily. n [facility] celecoxib 2020- No Pelvic pain 200mg Take 1 Univers (CeleBREX) 08-16- capsule ity o f 200 mg 00:00: 00:00 (200 mg) [place] capsule 00 :00 by mouth daily. Sylvia patel [facility] [place] buprenorphi 2020- No Pelvic pain 5ug Place 1 Univers ne 08-16 patch (5 ity of (Butrans) 5 00:00: 00:00 [place] mcg/hour [place] :00 the skin ptwk every 7 [facility] transdermal days. n patch Remove old Cancer patch(es) Center before replacing new patch(es). zolpidem Yes 1{tbl} Take 1 Unive rs (AMBIEN) 5 5-26 tablet by [place]y of mg tablet 00:00: [place] 00 bedtime. MD Sylvia [facility] zolpidem Yes 1{tbl} Take 1 Unive rs (AMBIEN) 5 5-26 tablet by [place]y of mg tablet 00:00: [place] 00 bedtime. MD Sylvia patel [facility] zolpidem 5 2021-0 Yes zolpidem 5 U nivers mg tablet 5-07 mg tablet ity o f 19:26: [address] zolpidem 5 2020-0 Yes zolpidem 5 U nivers mg tablet 5-07 mg tablet ity o f 19:26: [address] zolpidem 5 2020-0 Yes zolpidem 5 U nivers mg tablet 5-07 mg tablet ity o f 19:26: [address] zolpidem 5 2020-0 Yes zolpidem 5 U nivers mg tablet 5-07 mg tablet ity o f 19:26: [address] zolpidem 5 2020-0 Yes zolpidem 5 U nivers mg tablet 5-07 mg tablet ity o f 19:26: [address] clonazePAM 2020-0 Yes clonazepam U nivers 0.5 mg 5-07 0.5 mg ity of tablet 19:25: tablet [address] clonazePAM 2020-0 Yes clonazepam U nivers 0.5 mg 5-07 0.5 mg ity of tablet 19:25: tablet [address] clonazePAM 2020-0 Yes clonazepam U nivers 0.5 mg 5-07 0.5 mg ity of tablet 19:25: tablet [address] clonazePAM 2020-0 Yes clonazepam U nivers 0.5 mg 5-07 0.5 mg ity of tablet 19:25: tablet [address] clonazePAM 2020-0 Yes clonazepam U nivers 0.5 mg 5-07 0.5 mg ity of tablet 19:25: tablet [address] fluconazole 2020-0 Yes [id number] 150mg Take 1 Univers 150 mg 5-07 tablet by ity of tablet 00:00: mouth [place] 00 every 72 Medical ([facility] wo) hours. fluconazole 2020-0 Yes [id number] 150mg Take 1 Univers 150 mg 5-07 tablet by ity of tablet 00:00: mouth [place] 00 every 72 Medical ([facility] wo) hours. fluconazole 2020-0 1- No [id number] 150mg Take 1 Univers 150 mg 5-07 07-07 tablet by ity of tablet 00:00: 00:00 mouth [place] 00 :00 every 72 Medical ([facility] wo) hours. HYDROmorpho 2020- No [id number] 2mg Take 1 Uni vers ne 5-07 05-15 tablet by ity of (DILAUDID) 00:00: 04:59 mouth [place] 2 mg tablet 00 :00 every 6 Medic al (six) Branch hours as needed for Pain (scale 7-10) for up to 7 days. Indication s: acute pain miSOPROStoL Yes Univer s 100 mcg 4-30 ity of tablet 00:00: [place] 00 [facility] Branch miSOPROStoL Yes Univer s 100 mcg 4-30 ity of tablet 00:00: [place] 00 [facility] Branch miSOPROStoL 2020- No Unive rs 100 mcg 4-30 -07 ity of tablet 00:00: 00:00 [place] 00 :00 [facility] ketorolac 2020- No 30mg 30 mg, Unive rs (TORADOL) 06-21-26 Slow IV ity of injection 04:30: 03:22 Push, [place] 30 mg 00 :00 ONCE, 1 Medical dose, [facility] 06/20/20 at 2330, LAURIE
Fa culty member approving Restricted medication : Wilfrid PAT FENTanyl PF 2020- No 100ug 100 mcg, Univers (SUBLIMAZE 06-21 Slow IV ity o f (PF)) 02:00: 00:48 Push, [place] injection 00 :00 ONCE, 1 Medical 100 mcg dose, [facility] 06/20/20 at 2100, STAT proMETHazin 2020- No 25mg 25 mg, Uni vers e 06-20 04-25 Oral, ity of (PHENERGAN) 23:30: 22:45 ONCE, 1 [place] tablet 25 00 :00 dose, [place] Medic al mg 06/20/20 at Branch 1830, Routine FENTanyl PF 2020- No 50ug 50 mcg, Un maya (SUBLIMAZE - 04-25 Slow IV ity o f (PF)) 23:30: 22:45 Push, [place] injection 00 :00 ONCE, 1 Medical 50 mcg dose, [facility] 06/20/20 at 1830, STAT iohexol 2020- No [id number] 120mL 120 mL, U nivers (OMNIPAQUE 4-25 04-25 Intravenou it y of 350 22:45: 22:36 s, ONCE, 1 [place] BULK-150 00 :00 dose, [place] [facility] mL) 06/20/20 at Branch injection 1745, 120 mL Routine apixaban Yes Eliquis Univer s (ELIQUIS) 4-25 2.5 mg ity of 2.5 mg 21:51: tablet [place] tablet 51 [facility] apixaban Yes Eliquis Univer s (ELIQUIS) 4-25 2.5 mg ity of 2.5 mg 21:51: tablet [place] tablet 51 [facility] apixaban Yes Eliquis Univer s (ELIQUIS) 4-25 2.5 mg ity of 2.5 mg 21:51: tablet [facility] 51 [facility] apixaban Yes Eliquis Univer s (ELIQUIS) 4-25 2.5 mg ity of 2.5 mg 21:51: tablet [address] apixaban Yes Eliquis Univer s (ELIQUIS) 4-25 2.5 mg ity of 2.5 mg 21:51: tablet [place] tablet 51 [facility] apixaban Yes Eliquis Univer s (ELIQUIS) 4-25 2.5 mg ity of 2.5 mg 21:51: tablet [place] tablet 51 [facility] apixaban Yes Eliquis Univer s (ELIQUIS) 4-25 2.5 mg ity of 2.5 mg 21:20: tablet [place] tablet 22 [facility] ibuprofen Yes [id number] 800mg Take 1 Univers 800 mg 4-25 [id number] tablet by ity of tablet 00:00: mouth [place] 00 every 8 Medical (eight) Branch hours as needed for Pain (scale 4-6). clonazePAM Yes Univers 0.5 mg 4-06 ity of tablet 00:00: [place] 00 [facility] Branch clonazePAM Yes Univers 0.5 mg 4-06 ity of tablet 00:00: [place] 00 [facility] zolpidem 5 Yes Univers mg tablet 3-27 ity of 00:00: [place] [facility] Branch zolpidem 5 Yes Univers mg tablet - ity of 00:00: Medical Branch traMADoL 50 Yes Univer s mg tablet 3- ity of 00:: Medical Branch traMADoL 50 Yes Univer s mg tablet 3- ity of 00:00: Medical Branch ELIQUIS 2.5 2018-2021- No 2.5mg Q.5D 2.5 mg 2 Methodi mg tablet 12-09 (two) st 00:00: 00:00 times a Hospita 00 :00 day. l apixaban 2021- No 1{tbl} Take 1 Univ ers (Eliquis) 02-26 tablet by ity of 2.5 mg 00:00: 00:00 mouth [place] tablet 00 :00 twice MD daily. [facility] apixaban 2021- No 1{tbl} Take 1 Univ ers (Eliquis) 02-26 tablet by ity of 2.5 mg 00:00: 00:00 mouth [place] tablet 00 :00 twice MD daily. [facility] clonazePAM Yes 1{tbl} Take 1 Uni vers (KlonoPIN) 8-02 tablet by ity of 0.5 mg 00:00: mouth as [place] tablet 00 needed. [facility] clonazePAM Yes 1{tbl} Take 1 Uni vers (KlonoPIN) 8-02 tablet by ity of 0.5 mg 00:00: mouth as [place] tablet 00 needed. [facility] ketorolac ketorolac No ketorolac [place] 10 mg 10 mg 10 mg da tablet tablet tablet [facility] metronidazo metronidazo No metronidaz [place] 500 mg le 500 mg ole 500 mg da tablet tablet tablet [facility] pantoprazol pantoprazol No pantoprazo [place] 40 mg e 40 mg le 40 mg da tablet,henrry tablet,henrry tablet,del [facility] yed release yed release ayed a l release Health Outreac h Program potassium potassium No potassium [place] chloride ER chloride ER chloride da 20 mEq 20 mEq ER 20 mEq [facility] p tablet,exte tablet,exte tablet,ext al nded nded ended Health release(par release(par release(pa Outreac t/cryst) t/cryst) rt/cryst) h Program promethazin promethazin No promethazi [place] 25 mg e 25 mg ne 25 mg da tablet tablet tablet [facility] sulfamethox sulfamethox No sulfametho [place] azole 800 azole 800 xazole 800 da mg-trimetho mg-trimetho mg-trimeth [facility] prim 160 mg prim 160 mg oprim 160 al tablet tablet mg tablet Health Outreac h Program zolpidem 5 zolpidem 5 No zolpidem 5 [place] mg tablet mg tablet mg tablet da [facility] azithromyci azithromyci No azithromyc [place] n 250 mg n 250 mg in 250 mg da tablet tablet tablet [facility] ciprofloxac ciprofloxac No ciprofloxa [place] in 500 mg in 500 mg marciano 500 mg da tablet tablet tablet [facility]re[facility] Program clonazepam clonazepam No clonazepam [place] 0.5 mg 0.5 mg 0.5 mg da tablet tablet tablet [facility] Outre[facility] h Program cyanocobala cyanocobala No cyanocobal [place] min (vit min (vit alexander (vit da B-12) 1,000 B-12) 1,000 B-12) [facility] mcg/mL mcg/mL 1,000 al injection injection mcg/mL Hea lth solution solution injection Ou treac solution h Program Eliquis 2.5 Eliquis 2.5 No Eliquis [place] mg tablet mg tablet 2.5 mg da tablet [facility] fluconazole fluconazole No fluconazol [place] 150 mg 150 mg e 150 mg da tablet tablet tablet [facility] Fluzone Fluzone No Fluzone [place] Quad Quad Quad da [facility] 60 mcg (15 60 mcg (15 60 mcg (15 al mcg x mcg x mcg x Health 4)/0.5 mL 4)/0.5 mL 4)/0.5 mL Outreac intramuscul intramuscul intramuscu h ar susp. ar susp. lar susp. Pr ogram Immunizations Ordered Filled Immunization Date Status Comments [facility] e Immunization Name Name Influenza Virus 2020-06-20 Completed Universit y of Vaccine 00:00:00 [facility] Influenza Virus 2020-06-20 Completed Universit y of Vaccine 00:00:00 [facility] Influenza Virus 2020-06-20 Completed Universit y of Vaccine 00:00:00 [facility] Influenza Virus 2020-06-20 Completed Universit y of Vaccine 00:00:00 [facility] Influenza Virus 2020-06-20 Completed Universit y of Vaccine 00:00:00 [facility] COVID-19, mRNA, COVID-19, mRNA, 2020-04-27 Completed Vasquez yuliya LNP-S, PF, 100 LNP-S, PF, 100 13:47:21 [facility] mcg/0.5 mL dose mcg/0.5 mL dose Outr each Program SARS-COV-2 COVID-19 2020-04-27 Completed Unive rsity of MODERNA VACCINE 00:00:00 [facility] [place] [facility] SARS-COV-2 COVID-19 2020-04-27 Completed Unive rsity of MODERNA VACCINE 00:00:00 [facility] [place] [facility] SARS-COV-2 COVID-19 2020-04-27 Completed Unive rsity of MODERNA VACCINE 00:00:00 [facility] [place] [facility] SARS-COV-2 COVID-19 2020-04-27 Completed Unive rsity of MODERNA VACCINE 00:00:00 [facility] [place] [facility] SARS-COV-2 COVID-19 2020-04-27 Completed Unive rsity of MODERNA VACCINE 00:00:00 [facility] [place] [facility] COVID-19, mRNA, COVID-19, mRNA, 2020-03-23 Completed Vasquez yuliya LNP-S, PF, 100 LNP-S, PF, 100 15:31:29 [facility] mcg/0.5 mL dose mcg/0.5 mL dose Outr each Program SARS-COV-2 COVID-19 2020-03-23 Completed Unive rsity of MODERNA VACCINE 00:00:00 [facility] [place] [facility] SARS-COV-2 COVID-19 2020-03-23 Completed Unive rsity of MODERNA VACCINE 00:00:00 [facility] ical Branch SARS-COV-2 COVID-19 2020-03-23 Completed Unive rsity of MODERNA VACCINE 00:00:00 [facility] ical Branch SARS-COV-2 COVID-19 2020-03-23 Completed Unive rsity of MODERNA VACCINE 00:00:00 [facility] SARS-COV-2 COVID-19 2020-03-23 Completed Unive rsity of MODERNA VACCINE 00:00:00 [facility] Branch FLUCELVAX QUAD PF 2016-11-[address] 00:00:00 Hospital Vital Signs Vital Name Observation Time Observation Value Comments Source Systolic blood 2020-09-01 23:00:00 142 mm[Hg] Univer sity of pressure [facility] Diastolic blood 2020-09-01 23:00:00 97 mm[Hg] Unive rsity of pressure [facility] Heart rate 2020-09-01 23:00:00 56 /min [facility] Respiratory rate 2020-09-01 23:00:00 12 /min Univ ersity of [facility] Oxygen saturation in 2020-09-01 23:00:00 98 /min University of Arterial blood by [place] [employer] [facility] Pulse oximetry Branch Body temperature 2020-09-01 19:56:00 37.17 [facility] height 2020-09-01 19:56:00 180.3 cm [facility] Body weight 2020-09-01 19:56:00 136.079 kg [facility] BMI 2020-09-01 19:56:00 41.84 kg/m2 [facility] Systolic blood 2020-06-21 03:00:00 112 mm[Hg] Univer sity of pressure [facility] Diastolic blood 2020-06-21 03:00:00 70 mm[Hg] Unive rsity of pressure [facility] Heart rate 2020-06-21 03:00:00 63 /min [facility] Oxygen saturation in 2020-06-21 03:00:00 97 /min University of Arterial blood by [place] [employer] doris Pulse oximetry Branch Respiratory rate 2020-06-21 02:32:00 18 /min Univ ersity of [facility] Body temperature 2020-06-20 21:52:00 37.22 Annetta Univ ersity of [facility] Body weight 2020-06-20 21:51:00 131.09 kg Universi ty [facility] Systolic blood 2020-06-20 21:37:00 136 mm[Hg] Univer sity of pressure [facility] Diastolic blood 2020-06-20 21:37:00 89 mm[Hg] Unive rsity of pressure [facility] Heart rate 2020-06-20 21:37:00 82 /min Universi ty of [facility] Respiratory rate 2020-06-20 21:37:00 18 /min Univ ersity of [facility] Oxygen saturation in 2020-06-20 21:37:00 99 /min University Arterial blood by [facility] Pulse oximetry [place] Heart rate 2021-12-30 23:15:00 49 /min [facility] Respiratory rate 2021-12-30 23:15:00 12 /min [facility] Oxygen saturation in 2021-12-30 23:15:00 98 /min [facility] Arterial blood by Pulse oximetry Systolic blood 2021-12-30 22:00:00 169 mm[Hg] [facility] pressure Diastolic blood 2021-12-30 22:00:00 81 mm[Hg] [facility] pressure Body temperature 2021-12-30 22:00:00 36.67 Annetta [facility] Body height 2021-12-30 19:16:00 180.3 cm [facility] Body weight 2021-12-30 19:16:00 119.84 kg [facility] BMI 2021-12-30 19:16:00 36.85 kg/m2 [facility] Systolic blood 2021-06-23 15:55:00 106 mm[Hg] Univer sity of pressure [facility] Diastolic blood 2021-06-23 15:55:00 74 mm[Hg] Unive rsity of pressure [facility] Heart rate 2021-06-23 15:55:00 62 /min [facility] [place] [facility] Respiratory rate 2021-06-23 15:55:00 15 /min Univ ersity of [facility] Oxygen saturation in 2021-06-23 15:55:00 98 /min [facility] Arterial blood by Omaira orozco Pulse oximetry [facility] Body temperature 2021-06-23 15:50:00 36.89 Annetta [facility] MD [facility] Body weight 2021-06-23 14:13:00 132.4 kg [facility] MD [facility] BMI 2021-06-23 14:13:00 43.73 kg/m2 [facility] MD [facility] Procedures Procedure Date / Time Performing Clinician Source Performed CV LEFT HEART CATH LV GRAM 2021-12-30 21:47:10 Vincenzo Herrera [facility] WITH CORS ECG PRE/POST OP 2021-12-30 19:11:02 [facility] METABOLIC 2021-12-23 13:56:00 HerreraVincenzo [facility] PANEL PROTHROMBIN TIME WITH INR 2021-12-23 13:56[facility] CBC WITH PLATELET AND 2021-12-23 13:56:00 Vincenzo Herrera [facility] DIFFERENTIAL PATHOLOGY BIOPSY 2021-06-23 15:02:00 Issac Washington [facility] INTERPRETATION MD [facility] DIAGNOSTIC FLEXIBLE 2021-06-23 14:39:00 Issac Washington [facility] COLONOSCOPY PROXIMAL TO MD Mccoy son Cancer SPLENIC FLEXURE Center POC GLUCOSE SCREEN 2021-06-23 14:36:00 Issac Washington [facility] [employer] [facility] [place] COVID-19 (SARS-COV-2) 2021-06-20 14:21:00 Jacqueline Hairston [facility] PCR ASYMPTOMATIC [facility] US PELVIS COMPLETE WITH 2020-09-06 21:48:51 Chery Byrd [facility] TRANSVAGINAL Medical [place] CT ABDOMEN PELVIS W 2020-09-01 21:20:41 Eveline Gibson [facility] CONTRAST [facility] Branch POCT TEST 2020-09-01 20:59:00 Eveline Gibson [facility] URINALYSIS 2020-09-01 20:49:00 Eveline Gibson [facility] LIPASE 2020-09-01 20:44:00 Eveline Gibson [facility] COMP. METABOLIC PANEL 2020-09-01 20:44:00 Eveline Gibson [facility] ([id number]) Medical Branch CBC WITH DIFF 2020-09-01 20:44:00 Eveline Gibson [facility] CONSENT/REFUSAL FOR 2020-09-01 19:50:09 Doctor Law [facility] DIAGNOSIS AND TREATMENT [facility] [place] EXTERNAL PROVIDER RECORDS 2020-08-20 05:01:00 Doctor Law, [facility] Name Medical [place] DISCLOSURE AND CONSENT, 2020-07-02 05:01:00 Doctor Law [facility] MEDICAL AND SURGICAL [facility] PROCEDURES US OVARY TORSION 2020-06-21 01:30:27 Wilfrid Pat [facility] ABDOMEN PELVIS W 2020-06-20 22:43:28 Wilfrid Pat [facility] CONTRAST Medical Branch URINALYSIS 2020-06-20 22:03:00 Wilfrid Pat [facility] LIPASE 2020-06-20 21:57:00 Wilfrid Pat [facility] MAGNESIUM 2020-06-20 21:57:00 Wilfrid Pat [facility] COMP. METABOLIC PANEL 2020-06-20 21:57:00 Wilfrid Pat [facility] ([id number]) Medical Branch CBC WITH DIFF 2020-06-20 21:57:00 Wilfrid Pat [facility] NOTICE OF PRIVACY 2020-06-20 21:42:16 Doctor Law [facility] PRACTICES [facility] [place] CONSENT/REFUSAL FOR 2020-06-20 21:41:53 Doctor Law [facility] DIAGNOSIS AND TREATMENT [facility] [id number] 2019-12-06 00:00:00 [email or web address] [facility] [id number] 2019-12-06 00:00:00 [email or web address] [facility] [id number] 2019-12-06 00:00:00 [email or web address] [facility] [id number] 2019-12-06 00:00:00 [email or web address] [facility] [id number] 2019-12-06 00:00:00 GARAM.[email or web address] [facility] DIAGNOSTIC UPPER Issac Washington [facility] ex GASTROINTESTINAL ENDOSCOPY MD Zamarripa [facility] Plan of Care Planned Activity Planned Date Details Comments Source Future Scheduled 2022-03-23 Pneumococcal Vaccine: [facility] Test 10:10:54 Pediatrics (0 to 5 Years) and At-Risk Patients (6 to 64 Years) (1 - PCV) [code = Pneumococcal Vaccine: Pediatrics (0 to 5 Years) and At-Risk Patients (6 to 64 Years) (1 - PCV)] Future Scheduled 2022-03-23 Hepatitis C screening [facility] Test 10:10:54 (procedure) [code = 630759103] Future Scheduled 2022-03-23 Screening for [facility] Test 10:10:54 malignant neoplasm of cervix (procedure) [code = 406933831] Future Scheduled 2022-03-23 BREAST CANCER [facility] Test 10:10:54 SCREENING [code = BREAST CANCER SCREENING] Future Scheduled 2022-03-23 COLONOSCOPY SCREENING [facility] Test 10:10:54 [code = COLONOSCOPY SCREENING] Future Scheduled 2022-03-23 COVID-19 VACCINE (4 - [facility] Test 10:10:54 Booster for Moderna series) [code = COVID-19 VACCINE (4 - Booster for Moderna series)] Future Scheduled 2022-03-23 INFLUENZA VACCINE Method [facility] Test 10:10:54 [code = INFLUENZA VACCINE] Future Scheduled 2021-12-24 COVID-19 Vaccination [facility] [place] Test 13:23:43 (3 - Booster for MD [facility] Moderna series) [code Center = COVID-19 Vaccination (3 - Booster for Moderna series)] Future Scheduled 2021-06-29 COVID-19 Vaccination [facility] [place] Test 09:31:32 (3 - Booster for MD [facility] Moderna series) [code Center = COVID-19 Vaccination (3 - Booster for Moderna series)] Future Appointment 2022-05-30 Issac Washington MD, [facility] [place] 08:00:00 607Gale Stevenson MD [address] Future Appointment 2022-05-29 Issac Washington MD, [facility] 00:00:00 Yadira Stevenson MD [address] Future Appointment 2022-05-30 Issac Washington MD, [facility] 08:00:00 Yadira Stevenson MD [address] Procedure 2022-05-30 DIAGNOSTIC FLEXIBLE [facility] 13:00:00 COLONOSCOPY PROXIMAL Chandana rson [facility] TO SPLENIC FLEXURE Center Encounters Start End Encounter Admission Attending Care Care Encounter Source Date/Time Date/Time Type Type Clinicians Facility Department ID 2022-02-28 Outpatient WILFREDO WASHINGTON Mary/Hep/Nu [id number] 11:49:02 ISSAC patel 2020-12-27 Emergency [facility] [id number] [facility] 06:38[facility]-12-26 Emergency [facility] [id number] Univers 15:07:37 [facility] 2020-10-05 Outpatient SYSTEM, WILFREDO VILLALOBOS [id number] 08:54:08 PROVIDER Roman o n 2020-08-21 Outpatient SYSTEM, WILFREDO VILLALOBOS [id number] 14:37:23 PROVIDER Roman o n 2020-08-03 Outpatient MASTERS, WILFREDO UNIT NURSE [id number] 9 14:33:35 TARIQ Oncology Roman o n 2020-07-14 Outpatient SYSTEM, WILFREDO VILLALOBOS [id number] 08:34:58 PROVIDER Roman o n 2019-12-04 Inpatient UR Lucho, [facility] MEDI.01 [id number] [facility] 01:03:[address] 2021-12-30 2021-12-30 Hospital Javier 1.2.840.1 [id number] Methodi 13:52:00 18:25:00 Encounter Vincenzo Kemp 92783.1.[address] 3.430.2.7 Hospit a .3.138231 l .8 2021-12-30 2021-12-30 Surgery Javier 1.2.840.1 [id number] Methodi 16:25:00 17:25:00 Vincen[address]ka [address]666.[address] 3.430.2.7 Hospit a .3.950475 l .8 2021-12-30 2021-12-30 Outpatient [facility] [id number] [place] 00:00:00 00:00:00 VINCENZO [address] 2021-12-29 2021-12-29 Documentat Provider, 1.2.840.1 [id number] 2 [id number] Methodi 00:00:00 00:00:00 ion Unknown 96250.1.[address] 3.430.2.7 Hospit a .3.153346 l .8 2021-12-21 2021-12-21 Travel 1.2.840.1 1.2.174.137 0648 [id number] Methodi 00:00:00 00:00:[address] 3.430.2.7 0.2.7.3.698 Ho spita .3.975840 084.8 l .8 2021-12-09 2021-12-09 Office Javier, 1.2.840.1 [id number] 7888 Methodi 08:15:00 08:30:00 Visit Vincenzo Kemp 77296.1.[address] 3.430.2.7 Hospit a .3.262013 l .8 2021-12-09 2021-12-09 Travel 1.2.840.1 1.2.831.490 3346 [id number] Methodi 00:00:00 00:00:[address] 3.430.2.7 0.2.7.3.698 Ho spita .3.522228 084.8 l .8 2021-12-09 2021-12-09 [facility] [id number] 00:00:00 00:00:00 VINCENZO [address] 2021-12-06 2021-12-06 Telephone Kate, 1.2.840.1 [id number] 2 [id number] Methodi 00:00:00 00:00:[address] 3.430.2.7 Hospit a .3.467962 maria g .8 2021-06-29 2021-06-29 Prep for Kamila, 1.2.840.1 [id number] 82317 [id number] Univers 00:00:00 00:00:00 Surgery Nannette N 17372.1.1 it y of 3.412.2.7 [place] .3.935936 MD Barnett8 [facility] 2021-06-29 2021-06-29 Prep for Kamila, 1.2.840.1 [id number] Univers 00:00:00 00:00:00 Surgery Nannette N 57506.1.1 it y of 3.412.2.7 [place] .3.843373 MD Barnett8 [facility] 2021-06-23 2021-06-23 [facility], 1.2.840.1 [id number] [id number] Univers 08:56:00 11:12:00 Encounter Mazen 29393.1.1 it y of 3.412.2.7 [place] .3.994075 MD Barnett8 [facility] 2021-06-23 2021-06-23 [facility], 1.2.840.1 [id number] [id number] Univers 08:56:00 11:12:00 Encounter Mazen 99731.1.1 it y of 3.412.2.7 [place] .3.454440 MD Rodrigez [facility] 2021-06-23 2021-06-23 [facility], 1.2.840.1 [id number] [id number] Univers 10:00:00 10:55:00 Mazen 88562.1.1 ity of 3.412.2.7 [place] .3.810823 MD Rodrigez [facility] 2021-06-23 2021-06-23 [facility], 1.2.840.1 [id number] [id number] Univers 10:00:00 10:55:00 Mazen 12383.1.1 ity of 3.412.2.7 [place] .3.314504 MD Rodrigez [facility] 2021-06-23 2021-06-23 Anesthesia Heir, 1.2.840.1 [id number] 870 [id number] Univers 09:49:00 10:15:00 Event Bogdan 60062.1.1 ity of [place] 3.412.2.7 [place] .3.152428 MD Barnett8 [facility] 2021-06-23 2021-06-23 Anesthesia Heir, 1.2.840.1 [id number] Univers 09:49:00 10:15:00 Event Bogdan 60646.1.1 ity of [place] 3.412.2.7 [place] .3.730067 MD Rodrigez [facility] 2021-06-23 2021-06-23 Travel 1.2.840.1 1.2.471.756 3075 [id number] Univers 00:00:00 00:00:00 87629.1.1 350.1.13.41 ity of 3.412.2.7 [place].7.3.698 [place] .3.934171 084.8 MD Rodrigez [facility] 2021-06-23 2021-06-23 Travel 1.2.840.1 1.2.501.059 8970 080354 Univers 00:00:00 00:00:00 78883.1.1 350.1.13.41 ity of 3.412.2.7 2.2.7.3.698 [place] .3.615175 084.8 MD Rodrigez [facility] 2021-06-22 2021-06-22 BANDAR Masters, 1.2.840.1 [id number] Univers 15:00:00 15:30:00 Minna Chicas 58775.1.1 ity of ts 3.412.2.7 [place] .3.301045 MD Rodrigez [facility] 2021-06-22 2021-06-22 BANDAR Masters, 1.2.840.1 [id number] 76101 Univers 15:00:00 15:30:00 Appointmen Tariq D. 98830.1.1 ity of ts 3.412.2.7 [place] .3.414981 MD Rodrigez [facility] 2021-06-20 2021-06-20 Clinical Tariq Harrell 1.2.840.1 1020 70840 [id number] Univers 09:45:00 09:45:00 Support Tariq aZmudio 52832.1.1 ity of 3.412.2.7 [place] .3.573663 MD Rodrigez [facility] 2021-06-20 2021-06-20 Tariq Sandoval 1.2.840.1 1020 96029 [id number] Univers 09:45:00 09:45:00 Support Tariq Zamudio 72369.1.1 ity of 3.412.2.7 [place] .3.915427 MD Rodrigez [facility] 2021-06-20 2021-06-20 Travel 1.2.840.1 1.2.830.653 0454 [id number] Univers 00:00:00 00:00:00 19092.1.1 350.1.13.41 ity of 3.412.2.7 2.2.7.3.698 [place] .3.397806 084.Mazin Rodrigez [facility] 2021-06-20 2021-06-20 Travel 1.2.840.1 1.2.111.461 7661 [id number] Univers 00:00:00 00:00:00 48025.1.1 350.1.13.41 ity of 3.412.2.7 2.2.7.3.698 [place] .3.291977 084.8 MD Rodrigez [facility] 2021-06-17 2021-06-17 Nurse Only Ignacio, 1.2.840.1 [id number] 10 [id number] Univers 00:00:00 00:00:00 Kym 19111.1.1 ity of 3.412.2.7 [place] .3.640312 MD Rodrigez [facility] 2021-06-17 2021-06-17 Nurse Only Tichota, 1.2.840.1 [id number] 10 [id number] Univers 00:00:00 00:00:00 Kym 70717.1.1 ity of 3.412.2.7 [place] .3.079097 MD Barnett8 [facility] 2021-06-17 2021-06-17 Nurse Only [place], 1.2.840.1 [id number] 10 [id number] Univers 00:00:00 00:00:00 Kym 58752.1.1 ity of 3.412.2.7 [place] .3.934631 MD Barnett8 [facility] 2021-06-17 2021-06-17 Nurse Only [place], 1.2.840.1 [id number] 10 [id number] Univers 00:00:00 00:00:00 Kym 74561.1.1 ity of 3.412.2.7 [place] .3.569166 MD Barnett8 [facility] 2021-06-16 2021-06-16 Anesthesia [place]ota, 1.2.840.1 [id number] 10 [id number] Univers 23:59:59 23:59:59 Event Kym 91005.1.1 ity of 3.412.2.7 [place] .3.682839 MD Barnett8 [facility] 2021-06-16 2021-06-16 Anesthesia [place]ichota, 1.2.840.1 [id number] 10 [id number] Univers 23:59:59 23:59:59 Event Kym 82745.1.1 ity of 3.412.2.7 [place] .3.567070 MD Barnett8 [facility] 2021-06-08 2021-06-08 Prep for Kamila 1.2.840.1 [id number] Univers 00:00:00 00:00:00 Surgery Nannette N 59634.1.1 it y of 3.412.2.7 [place] .3.260588 MD Barnett8 [facility] 2021-06-08 2021-06-08 Prep for Kamila 1.2.840.1 [id number] Univers 00:00:00 00:00:00 Surgery Nannette N 27395.1.1 it y of 3.412.2.7 [place] .3.490487 MD Barnett8 [facility] 2020-12-07 2020-12-07 Documentat Sam, 1.2.840.1 [id number] Univers 00:00:00 00:00:00 ion Kim Sherrell 61589.1.1 it y of 3.412.2.7 [place] .3.716634 MD Barnett8 [facility] 2020-12-02 2020-12-02 Telephone Winter, 1.2.840.1 [id number] 1084 [id number] Univers 00:00:00 00:00:00 Treva Eric 41354.1.1 it y of 3.412.2.7 [place] .3.281043 MD Barnett8 [facility] 2020-11-25 2020-11-25 Telephone Winter, 1.2.840.1 [id number] 1084 [id number] Univers 00:00:00 00:00:00 Treva Eric 95597.1.1 it y of 3.412.2.7 [place] .3.164097 MD Barnett8 [facility] 2020-11-22 2020-11-23 Inpatient ADA Lang DAYS [id number] [facility] 11:00:00 10:30:00 Rudi 82 [facility] 2020-11-22 2020-11-22 Outpatient SENA Campos REF [id number] [facility] 11:52:00 11:52:00 Rudi 66 [facility] 2020-10-25 2020-10-25 Hospital Mike Pérez 1.2.840.1 [id number] [id number] Univers 16:47:12 23:59:00 Encounter Corie Galeas 83600.1.1 ity of 3.412.2.7 [place] .3.112679 MD Barnett8 [facility] 2020-10-25 2020-10-25 Travel 1.2.840.1 1.2.897.699 8389 [id number] Univers 00:00:00 00:00:00 26883.1.1 350.1.13.41 ity of 3.412.2.7 2.2.7.3.698 [place] .3.594250 084.8 MD Barnett8 [facility] 2020-10-25 2020-10-25 Lee Max, 1.2.840.1 [id number] Univers 00:00:00 00:00:00 Treva Eric 89557.1.1 it y of 3.412.2.7 [place] .3.518223 MD Barnett8 [facility] 2020-10-21 2020-10-21 [facility] HAYLIE Harmon 1.2.840.1 [id number] Univers 09:30:00 09:35:16 az Mike Weaver 89902.1.1 it y of 3.412.2.7 [place] .3.346477 MD Barnett8 [facility] 2020-10-20 2020-10-20 [facility] 1.2.840.1 [id number] 7204 Univers 00:00:00 00:00:00 Mike Weaver 68387.1.1 it y of 3.412.2.7 [place] .3.265487 MD Rodrigez [facility] 2020-10-19 2020-10-19 [facility] Mike Pérez 1.2.840.1 [id number] [id number] Univers 09:58:42 23:59:00 Kim Sultana 40087.1.1 ity of 3.412.2.7 [place] .3.977478 MD Barnett8 [facility] 2020-10-19 2020-10-19 Travel 1.2.840.1 1.2.549.316 7212 [id number] Univers 00:00:00 00:00:00 02958.1.1 350.1.13.41 ity of 3.412.2.7 2.2.7.3.698 [place] .3.108962 084Ericka8 MD Rodrigez [facility] 2020-10-12 2020-10-12 [facility] Mike Hamron. 1.2.840.1 92765 [id number] [id number] Univers 07:18:34 23:59:00 Encounter Kim Gonzales 65924.1.1 ity of 3.412.2.7 [place] .3.708713 MD Rodrigez [facility] 2020-10-12 2020-10-12 Travel 1.2.840.1 1.2.825.304 1144 [id number] Univers 00:00:00 00:00:00 63588.1.1 350.1.13.41 ity of 3.412.2.7 2.2.7.3.698 [place] .3.263615 084Ericka8 MD Rodrigez [facility] 2020-09-21 2020-09-21 [facility] Mike Harmon. 1.2.840.1 [id number] [id number] Univers 13:41:21 23:59:00 Encounter Kim Gonzales 57470.1.1 ity of 3.412.2.7 [place] .3.880947 MD Rodrigez [facility] 2020-09-21 2020-09-21 Lee Max, 1.2.840.1 [id number] 1256 Univers 00:00:00 00:00:00 Treva June 82040.1.1 it y of 3.412.2.7 [place] .3.093088 MD Rodrigez [facility] 2020-09-21 2020-09-21 Travel 1.2.840.1 1.2.748.504 9693 [id number] Univers 00:00:00 00:00:00 31438.1.1 350.1.13.41 ity of 3.412.2.7 2.2.7.3.698 [place] .3.625329 084Ericka8 MD Rodrigez [facility] 2020-09-21 2020-09-21 Lee aMx, 1.2.840.1 [id number] 3818 Univers 00:00:00 00:00:00 Treva Eric 85759.1.1 it y of 3.412.2.7 [place] .3.410394 MD Rodrigez [facility] 2020-09-17 2020-09-17 [facility] HAYLIE MorleyMike patel 1.2.840.1 40885 4308 [id number] Univers 13:55:09 23:59:00 Encounter Kim Gonzales 38031.1.1 ity of 3.412.2.7 [place] .3.711888 MD Rodrigez [facility] 2020-09-17 2020-09-17 Travel 1.2.840.1 1.2.504.320 0773 [id number] Univers 00:00:00 00:00:00 26567.1.1 350.1.13.41 ity of 3.412.2.7 2.2.7.3.698 [place] .3.949060 084Rain Rodrigez [facility] 2020-09-16 2020-09-16 [facility] HAYLIE Harmon 1.2.840.1 [id number] Univers 10:30:00 11:28:32 Visit Mike Weaver 82526.1.1 it y of 3.412.2.7 [place] .3.552735 MD Rodrigez [facility] 2020-09-16 2020-09-16 Travel 1.2.840.1 1.2.049.082 5512 [id number] Univers 00:00:00 00:00:00 43223.1.1 350.1.13.41 ity of 3.412.2.7 2.2.7.3.698 [place] .3.342331 084.8 MD Rodrigez [facility] 2020-09-10 2020-09-10 Outpatient R CHERY BYRD [facility] [id number] Univers 15:30:00 15:30:00 ity of [facility] 2020-09-07 2020-09-07 Telephone Cheyr Byrd [facility] 1.2.840.114 [id number] Univers 00:00:00 00:00:00 Ajo 350.1.13.10 i ty of [place]2.[place] [facility] [id number] Ar dical nal [address] [facility] 2020-09-06 2020-09-06 [facility] Chery Byrd [facility] 1.2.840.114 [id number] Univers 15:33:43 23:59:00 Encounter Davidson 350.1.13.10 it[place] [id number] [facility] 806 [place] 2020-09-06 2020-09-06 Outpatient CHERY BYRD [facility] [id number] Univers 00:00:00 00:00:00 ity of [facility] 2020-09-01 2020-09-01 Emergency [facility] 1.2.067.463 [id number] [id number] Univers 14:57:00 19:00:00 Eveline S Davidson 350.1.13.10 i ty of [place] [phone] [facility] [address] 2020-08-20 2020-08-20 Orders Doctor MARTIN 1.2.840.114 [id number] Univers 00:00:00 00:00:00 Only Unassigned, DOLORES 350.1.13.10 ity of [place] [facility] 4.2.7.2.686 John as [id number] [facility] [address] 2020-08-12 2020-08-12 Outpatient HAYLIE WASHINGTON [facility] Mary/Hep/Nu 1 [id number] 11:22:00 13:39:00 ISSAC patel 2020-08-11 2020-08-11 Outpatient HAYLIE MASTERS MDA MDA [id number] 08:27:01 08:27:01 TARIQ patel 2020-08-10 2020-08-10 Outpatient HAYLIE MASTERS MDA MDA [id number] 15:56:24 16:26:56 TARIQ patel 2020-08-10 2020-08-10 Outpatient HAYLIE DOUGLAS [facility] MDA [id number] 16:20:02 16:20:02 Roman Larwence 2020-08-09 2020-08-09 Outpatient HAYLIE HAMMOND, MDA MDA [id number] 12:42:48 12:42:48 PLACIDO patel 2020-07-30 2020-07-30 Outpatient HAYLIE MASTERS, MDA MDA [id number] 12:32:19 12:44:27 TARIQ patel 2020-07-30 2020-07-30 Outpatient HAYLIE MASTERS, MDA MDA [id number] 11:12:07 11:12:07 TARIQ patel 2020-07-30 2020-07-30 Outpatient HAYLIE MASTERS, MDA MDA [id number] 08:50:32 08:50:32 TARIQ patel 2020-07-30 2020-07-30 Outpatient HAYLIE MASTERS, MDA MDA [id number] 08:46:54 08:48:07 TARIQ patel 2020-07-27 2020-07-27 Outpatient HAYLIE MASTERS, MDA MDA [id number] MD 16:48:36 19:06:15 TARIQ patel 2020-07-02 2020-07-02 Outpatient CHERY GRANT [facility] [id number] Univers 14:00:00 14:00:00 ity [facility] 2020-07-02 2020-07-02 Orders Doctor SALAZAR 1.2.840.114 [id number] Univers 00:00:00 00:00:00 Only Unassigned, DOLORES 350.1.13.10 ity of [place] [facility] 4.2.7.2.686 John as [phone] [address] 2020-06-29 2020-06-29 Outpatient CHERY GRANT [facility] [id number] Univers 09:45:00 09:45:00 ity [facility] 2020-06-22 2020-06-22 Outpatient CHERY GRANT [facility] [id number] Univers 13:30:00 13:30:00 ity [facility] 2020-06-20 2020-06-20 Emergency Wilfrid Pat [facility] 1.2.840.114 [id number] Univers 16:42:00 22:47:00 Sinai Ajo 350.1.13.10 [place] [id number] [place] [id number] [place] 2020-06-20 2020-06-20 Urgent Provider, [facility] 1.2.840.114 [id number] Univers 15:54:51 16:14:51 Martin Salgado [facility] 350.1.13.10 ity [facility] 4.2.7.2.686 John as Professio [phone] [facility] [address] 2020-06-20 2020-06-20 Outpatient R IZABELLA [facility] [id number] Univers 16:00:00 16:00:00 MARTIN [facility] 2020-04-27 2020-04-27 Outpatient AMBREEN[facility] [address] [place] 02:03:00 02:03:00 MIGUEL [address]1254 [facility] 2020-04-27 2020-04-27 Tatyana MEHOP [place] - [id number] M atagor 00:00:00 00:00:00 Bartolome Alcala MD: [id number] Confucianism Epis manager endoscopy [place] 59 [facility] Program [address] , Ph. 2020-04-02 2020-04-02 [facility] [id number] [address] [place] [address] 00:00:00 00:00:00 STEVE Banks [facility] 2020-03-23 2020-03-23 Outpatient AMBREEN[facility] [address] [place] 03:50:00 03:50:00 MIGUEL 91817 [facility] 2020-03-23 2020-03-23 Tatyana MEHOP [place] - [id number] M atagor 00:00:00 00:00:00 Bartolome Alcala MD: [id number] Confucianism Epis manager endoscopy [place] 59 [facility] [address] , Ph. 2020-03-22 2020-03-22 Outpatient REHANA_DONI BASILIO [facility] 113 [id number] [place] 04:39:00 04:39:00 MIGUEL 92159 da [facility] 2019-12-05 2019-12-05 Outpatient CESAR Yepez LABO [id number] [facility] 08:04:00 08:04:[address] Results Test Description Test Time Test Comments Results Result Comments Source ECG Pre/Post Op (PRN) 2021-12-31 23:56:05 Test Item Value Reference Range Interpretation Comme nts Ventricular rate (test code = 253) 55 Atrial rate (test code = 255) 55 MD interval (test code = 266) 158 QRSD interval (test code = 260) 82 QT interval (test code = 264) 432 QTC interval (test code = 265) 413 P axis 1 (test code = 267) 59 QRS axis 1 (test code = 268) 16 T wave axis (test code = 270) 26 EKG impression (test code = 273) Sinus bradycardia with sinus arrhythmia-Otherwise normal ECG-In automated comparison with ECG of 02-JUL-2018 08:35,-No significant change was found- [facility] [id number] 07:49:00 Test Item Value Reference Range Interpretation Comments Glucose (test code 88 mg/dL 65-99 Fasting = 2345-7) reference interval BUN (test code = 8 mg/dL 7-25 3094-0) Creatinine (test 0.90 mg/dL 0.50-0.99 code = 2160-0) eGFR (test code = 78 See_Comment The eGFR i s based 8257) on the CKD-EPI 2020 equation. To calculate the n ew eGFR from a previous Creatinine or Cystatin Cresul t, go to https://www.kid ne y.org/profhelenaio na ls/kdoqi/gfr%5F ca lculator [Automated message] The system which generated this result transmitted reference range : > OR = 60 mL/min/1.73m2. The reference range was not used to interpr et this result as normal/abnormal . BUN/creatinine NOT APPLICABLE See_Comment [Automated ratio (test code = message] The 3097-3) system which generated this result transmitted reference range : 6 - 22 (calc). The reference range was not used to interpr et this result as normal/abnormal . Sodium (test code 142 mmol/L 135-146 = 2951-2) Potassium (test 4.1 mmol/L 3.5-5.3 code = 2823-3) Chloride (test 108 mmol/L 98-110 code = 2075-0) CO2 (test code = 26 mmol/L 20-32 2027-9) Calcium (test code 9.2 mg/dL 8.6-10.2 = 85970-9) Protein (test code 6.7 g/dL 6.1-8.1 = 2885-2) Albumin, S (test 3.9 g/dL 3.6-5.1 code = 1751-7) Globulin, total 2.8 See_Comment [Automated (test code = message] The 44664-8) system which generated this result transmitted reference range : 1.9 - 3.7 g/dL (calc). The reference range was not used to interpret this result as normal/abnormal . Albumin/globulin 1.4 See_Comment [Automated ratio (test code = message] The 1759-0) system which generated this result transmitted reference range : 1.0 - 2.5 (calc ). The reference range was not used to interpr et this result as normal/abnormal . Total bilirubin 0.4 mg/dL 0.2-1.2 (test code = 1975-2) Alkaline 99 U/L 31-125 phosphatase (test code = 6768-6) AST (test code = 17 U/L 10-35 1920-8) ALT (test code = 10 U/L 08-24 1742-6) RAC (test code = Performing RAC) Organization Information: Site ID: RGA Name: [facility] Lab Address: [address] [place] [address] Director: Jeromy Mcdermott [facility] with platelet and [id number] 07:49:00 Test Item Value Reference Range Interpretation Comments WBC (test code = 7.0 See_Comment [Automated 0490-2) message] The system which generated this result transmitted reference range : 3.8 - 10.8 Thousand/uL. Th e reference range was not used to interpret this result as normal/abnormal . RBC (test code = 4.67 See_Comment [Automated 789-8) message] The system which generated this result transmitted reference range : 3.80 - 5.10 Million/uL. The reference range was not used to interpret this result as normal/abnormal . HGB (test code = 14.6 g/dL 11.7-15.5 718-7) HCT (test code = 42.5 % 35.0-45.0 4544-3) MCV (test code = 91.0 fL 80.0-100.0 787-2) MCH (test code = 31.3 pg 27.0-33.0 785-6) MCHC (test code = 34.4 g/dL 32.0-36.0 786-4) RDW (test code = 13.1 % 11.0-15.0 788-0) Platelet count 300 See_Comment [Automated (test code = message] The 777-3) system which generated this result transmitted reference range : 140 - 400 Thousand/uL. Th e reference range was not used to interpret this result as normal/abnormal . MPV (test code = 10.0 fL 7.5-12.5 776-5) Neutrophils, 4046 See_Comment [Automated absolute (test message] The code = 751-8) system which generated this result transmitted reference range : 1,500 - 7,800 cells/uL. The reference range was not used to interpret this result as normal/abnormal . Lymphocytes, 2380 See_Comment [Automated absolute (test message] The code = 731-0) system which generated this result transmitted reference range : 850 - 3,900 cells/uL. The reference range was not used to interpret this result as normal/abnormal . Monocytes, 364 See_Comment [Automated absolute (test message] The code = 742-7) system which generated this result transmitted reference range : 200 - 950 cells/uL. The reference range was not used to interpret this result as normal/abnormal . Eosinophils, 168 See_Comment [Automated absolute (test message] The code = 711-2) system which generated this result transmitted reference range : 15 - 500 cells/uL. The reference range was not used to interpret this result as normal/abnormal . Basophils, 42 See_Comment [Automated absolute (test message] The code = 704-7) system which generated this result transmitted reference range : 0 - 200 cells/u L. The reference range was not used to interpr et this result as normal/abnormal . Neutrophils (test 57.8 % code = 770-8) Lymphocytes (test 34.0 % code = 736-9) Monocytes (test 5.2 % code = 5905-5) Eosinophils (test 2.4 % code = 713-8) Basophils + RC 0.6 % (test code = 706-2) RAC (test code = Performing RAC) Organization Information: Site ID: [id number] [facility] Address: [address] [place] [phone] Director: Jeromy Maria G JacksonOhioHealth Hardin [facility] HospitalProthrombin time with [id number] 07:49:00 Test Item Value Reference Range Interpretation Comments INR (test code = 1.1 Reference R ramesh 6301-6) 0.9-1.1Moderate -i ntensity Warfar in Therapy 2.0-3.0Higher-i nt ensity Warfarin Therapy 3.0-4.0 Prothrombin time 10.9 See_Comment For additio nal (test code = information, 5902-2) please refer [email or web address] io n.Diditz/faq/[email or web address] 4( This link is being provided for informational/e du cational purpos es only.) [Automat ed message] The system which generated this result transmitted reference range : 9.0 - 11.5 sec. The reference range was not used to interpr et this result as normal/abnormal . RAC (test code = Performing RAC) Organization Information: Site ID: [id number] Name[facility] Address: [address] [place] [phone] Director: Jeromy Shetty [facility] Pjrhaxbkykelsc1425-69-42 19:22:41 Test Item Value Reference Range Interpretation Comments Submitted Clinical History k5cwfWQhGBIdg0mvHZJ (test code = 86226) mbGFuZzEwMzNcZnRuYm pcdWMxIHtccnRmMVxzc 5FwX8YiYcEvJWjlrqRj XGRlZmxhbmcxMDMzXGZ 0bmJqXHVjMVxkZWZmMH fuCq9xdGFdvDztGtRkU ERog8qvynCAppsmoWc6 c0wdIESgYvW5uZSnQKj tK2zbgyCuvKAlTANnIE a3oO24NIKfuI7xeUKwV CvitvOlNhA5ZPbtQKUt YbH5ZDEslZKsBMDfC3f yZWQwXGdyZWVuMFxibH XmTUV9rTiif8L1lCWtt GVldHtcZjBcZnMyMiBO e2JnPSp9vChyF2VuVIC qSyF1wFEmZUXcTNumTU FeIUCgczI8pZ46QVvyh cU4fTAfq8Vce93fu639 gN6jgWZhPQV1PRBwIVH rlJAaWRWhWUF1POVxdD YsV2gqWIBmUE7wwgvcE CliXLxnCPHhtLQ0RNFz qYExW0MtULFqIQzsGMI tldv0QfFgPg9qgFHdbG ehLAnkl2brv9mgbUFbQ ss5GSFhAcPjXkfoUHim n1Jfs2mdJEHoyq7uBWX 1hGGelKuvx4B6xPCeQV ZvjSRcmjXlFRDaBgH6M VuzUH5kry56UAEuARA1 am4bsAWbrLwrzmNhkUA iHDfdJ1AhHHVon119TK FiN6DqAELxs3N4ilJeW qLaDYFgsDX4jxQ2HBTz UFi1yXYohsR0kmRawXM iW2emhG7lVGXcHG2kqg acy3oaBXjwWPgmEKBgj AW1llU3ZFMrzCBwC7Lg jZ9dMXKiRPkuDNTwvtw 8WhFqJi6kwGSwoBkaDQ xzYmtwYWdlXHBnbmNvb nRccGduZGVjXHBsYWlu XHBsYWluXGYwXGZzMjR ziQzqtCklqW9uQvWjWv TjWSigKN4uIQQdH9qbx SVfUDKgEOFcI2cvZoZg kW0pbDqmKAbdlcXwAWB krsOkgzQeFCjtd1Olko yto9NvB22qc11rWbZtb 9l3sUGdIjr6VrOvAW1p qHlzaJ4qQdUdAwTnBvf wHK6gCQAsJ7lmiPVjLI WuDNMgY7zyDnDbtK2mz IutHXfudvHyRUHztl26 Diagnosis (test code = 34) a0qzjKClVDCdpNG6AvE jOWSff1mat8VkeUWnlB SpGYtsnFVycvRopi40d IK3aX42JU0rQVNpLfI7 FHDmkmL2Qoz1GHVsPFW adZXsQ604v3vzf9pgsl VyxIM4LUAvOSScX3UhL K8rZNOcaOTbV14ewSHf ILV7SIUqARGrfILrMBP mOLC8IZMucTIeU8pzSG OxWA7bjufgVObwZMviB UMsoHJ7AYWctRCfF6Ba SPAhADsoPSBzjri3GoG hFt4byOWxcEspGJvvYR JkXHBsYWluXGZzMjBcY 9LrHNU1HKKxfU9kPRYk zqWmdM7vo0GpyjB3fCU wrlcaKznkbGO3WqriYK JcbGkxNDQwXGZpLTcyM MvroA9jDJOaIVRhRHOU x0vwlpzeCY64J08eEOM 5oSLgIMXkm0Jke67wWX 3pqDNrWDE4zNUiNUzyH uxqqW2lvQhutrjdCK4x AQYbEKY9aFYdK5UiW3S kSDFijZi3KIYmeZDkF1 UhHjqxBKIfUu8wzOXho OlvCX5ljWBaUFRasNtd aWVkLlxwYXIgRGVlcGV yIGxldmVscyBleGFtaW 9kAJ5kfCToRKguIDavf ABrlMmwMEerSXWbJ2Mj TPN1MKThqX3sSOZeYRR 9SVSzx1u5sVvhUulglX P7McopEEAlpQfwYYVdF MIkPQtlZBjziX8tFYPa KUHyMLTHk1efqllnMG1 9M82rQKH1hMRzNT0uuW EskJNamM5eDMTrz4Itx RCbZFxdON7mfA8hJSUl FEYrNDMyjVt2ELQjdKV yESHpSHGbVJ4tFLNoLT QduyXUufQ7mJ2ztqLaY GVudGlmaWVkLlxwYXIg RGVlcGVyIGxldmVscyB fvMHydD0zNY4loJFpnU == Gross Description (test c3ctzGIvIGLyiWGLXFx code = [id number]) wMVxhbnNpXHNwbHRwZ3 KroeqsKMwxZL7eCC9nf MrmtNAsqDYmHA9EZZWh ZmYxXHBhcGVydzEyMjQ yRYVgcHHvnYI2OKWkMR 1hcmdsMTgwMFxtYXJnc xF4KEIxxEQqW1DwIFFe FP2jmtjqODD5NHoovX4 krgFWPqujDk1grECpcG tcZjFcZmNoYXJzZXQwX NEqtVdxKNBgUHy6cZ9G HexnI44lm2N5Nmt6VCP xBIZiS2ZdUS5hVLYwtL UkV19NNpbwCDT1SBRNX qxrLGVqGT0Hh5bdUAGt uZCmYAY5JLkjpNOyWSA cGHLwLCt4LZZnCJlmdG AwAQ3rgGroUvvflVknw 2VjdCBcXGlkIDUxMDAy OYjnYGUrFQ6VLkJaTNI 3HAQvQdMcDKr2REs2FI 0YAvJbNBEjDNC8FUE3W xAzUNh9FDphBC4KAWKu Xvx0JKPhAQKnKXYzDLZ aNMt8HQRsEFthMOBnwT FsIFxcZnMgMTAgXFxmY eLoCBNiGSwhhxC2OSNq YWluXGJcZnMyMCBBOlx oITTuFSwzyNfjsQ8iIA JwC51ux5JXx8XuVW1BR Uv1hqSthmsvdT8cPHDh cxZgNJzlrEHxC8cxGar cXmOcPlPxAKTBv3ygqz qxEF2cFL8zh8QepB6ek PZdiRvrQUVcItd0BNAm XGNmMCAgVHdvIHRhbi1 6oDg7WSLxpoRbfKXwsA Ftm0Adh30gtFC8qGXtw ELyrHYtm9AaiY2xVTss u3KpaAoabvXxMaZpYK8 aUVEuGpOlrAmuTY57qZ SjnTjkg6GzaIu5wAVfW HneKYFqDnMqKHQls6Fr Y9Q7PQVaJNmqu9onYRY vLOtyk6DmDCoTNYWGBQ 8WJP8llXO2GXzIY9WJZ 2xVxACpDAM4lKD3FGPF KcmknZL9eFY0qB16ZER hGTAbdDSzRZzbB907Y6 99LIHrODbas4ixGUYaM Fxio3HjQTaGOFJVVG7F HY4hfSM4OUfCO5YBIKs eLSGsJsjnuNMCBCY2IP qphQijqAk7q0xyaAJtm 2p3ABboKDS4rGstcYCi blxsdHJjaFxmczIwIA0 GUUHglUXRVUR6LT8kGP q4RRnlAHQkN1MvU8Sse tGmhCAoNNFkbvMpm5nu WTJ1QBUblUGthFAwYtK aQmqvARX8LCJaMDssGJ 4Ie1joZFKppOLoQWE4D FxcaWQgNTEwMDIgXFxk RePsW1PNDPMgPrWgUHZ zDmOyFHm4HKquG0COVC OcIQV4SDi2SvtzQsT5K Vx6QPUQMf2xTXCvDva8 SncsTND7ITCaBUXsJTX gMiBcXGYgQXJpYWwgXF xmcyAxMCBcXGZiIFxcZ ijmILseQ66lzFokxC4f ArskegPnOFJ8SFSqnxV NClxwbGFpblxlcGljTm VzdERvYzEgDQpcbHRyc GFyXGxpbjBccmluMCAN ClxsdHJjaFxiXGNmMVx gjiHkDEUhpQ7xKZCqKt MhURK1JLMofJ5hOTSqt PkyRzjeVKmtRhFtZL9n RIU1EH1wzKZxrV25FSA oNIbnTA55VQ3gORZpUv AvtSwwn2RzMJ4qKLK6w avsYbXuZbEmL76dYKJr bIcdHZl9IQY1Fv8ieCY eJOPftjRNQK5nJNllzp 60LYP3j0wvgJPcYGuvN cbnyWZdbqL3KZkRITYW LHiJGoZyJY1sSMdKPyl CRUdJTnwyMTAxNnwxfF OENLP3LWdduSjavCo5b 4krnYUky6d4LPdyLFW7 dAiEu3wnfKXxADjtMaz haJBaehN7PKsCLDQIPO aIVzZhIA7vATpRYagQQ gO5KaHkPTN0ZOvMN4DP vXR9Wnl6JHf8eGccPzf fklRdtLMtKeDKhT5moV gihX7peSBtE1ejQtOoE CANClxlcGljTmVzdERv UyYlblK1QIAmtGJkNBG 2QO4gXZEydnotDTZlWD QwKBO2GZczqO79wBPkE GZzMTZccGFyfVxwbGFp iyZHCnxwdW4qGwGyp3o hwEt9SZZJKnwvgLEouc hucwW0DGHws2xmrPbbm 8AgtSVpVD8yfSmpxA5e ZnMxNiANCn0= Biomarker Block(s) (test h2dhxNWtJGTcqEA2JfH code = 9841) lAMRct6bvh7SlmHTwgF AsKLjrwOWcryWncz89q DO8pE71RU1iVZAjMyZ7 SETbpfY5Ixw0EJMsSWV pySQuC607m9xtx6plmt DshAT0rOylAINzurneP fS1AQagPTJigrhpXEq7 INchBCYbeIO9WRBubCJ nN7DgCPJlGO7izbh9UJ T8PDntWERsUuL9VYHrs JYwXMPsuHisDHfbd860 BEL2UmEzYQXjcxHywDd ryI4xKbFqJOIVR8PipL FyfQ== Disclaimer (test code = o1ayeLWcXBSveJHwEoC 9844) qBUXkPMZed7qxWWQogA FuZzEwMzNcZnRuYmpcd BKyEFCwKlFcd0ftp600 yLXhj9tbPSYkZoM1wFP nURIbpTXhV706YOOkMP vvm5lrp9CgYMQwdLLwl 8B4LMXXjmbmcGb7wUxk N21ot8Q8TevmB3uzDLJ wBATjB4AcBE6kSVDyGf i8HPQ3TFE8BFAzRKBgT 5YpGQ7mVXJefBOdDNc6 b5pqyYmkWAEuEXT5t1k eZSgeqlPaFP7piu5nvV a1o4bzalHsCSMqVMSyd PBVELMyW8IsvWkqKm1c xOj4tNqvQhseBTW4Bsm 8HT9qru37fyb0yYtwEF SswgamAhP6FQbtQBWoi dmcXQb3EVpfTAWleVV1 IPNrbOHyH8OfFXKvPO4 rmjt5NKL5PFtgAUAkZn S0VBKivGJlEYWfyPxgD Ycij669LST3CsDhCJ6c E2Jpj5X2uR0viBLmCWH dyDVeAfYdPFFtnp6pfP AgAFgtu3MbWZT1usE2f TRcwFBaHUAtPF79Gboh k7FyJznnECZ3BFXhylL vz6Pde5hvBtOdnzOhC8 xqP8VgRZCrYUYbATYaP hLgevZlk1Lph8LirFLc lJz1e3ixPYKwMDNboUq vf1jlRRP1POPvA9Z0lU Qof9ymLZaqHMIodBG7p xT3OWNssRBcG6MvmR4a MAEaMD8sdfi9n5keZZE 4AGftTXBwObM7vpH4SE BcaGVhZGVyeTcyMFxmb 252HIX0MtYqKIDfu6Mo Z3BjqBbsM72tpRfjE10 eEOIpuEeniL8ffBlvsW 5cZjBcZnMyNFxxbFxwb ZOxzasyAMqrorD1IDlr akkcFNDlQEwgK4mrPqQ sZQXpdHmnPZriu1DyCC BjWMTwZzjnplB9XXXVk 86iOCJpg5AtGGVbfC0c sGXzZGgncsPyjPO1QQl hdmUgYmVlbiBkZXZlbG 7aSWOgHT1gQIIjgiKyj m9eyqDoVGNbYSWeW8Oo cmlzdGljcyBkZXRlcm1 pciHwGBT3KPTXIQ7XFH FkHMDfm22rFREkuWmnn U0ieOPgnaFkSCHul4Qt yN7uoSOTVBNtA1bcMC5 vEKlqo5XfhOBejENpjI C7TLQtb4SbBhMqadSgc TWvvJPkN9WcxGypF3bt WMUfANExbdZmbSGjp6O wFZCuzTA6oQAiEB5BSf PRs37qZJOiOPKRmaFoK NQqlWbuvVG4nwY1uG8z LiBJZiBhcHBsaWNhYmx yRTGvm480rk9iamA4CI UvKSCaeuios0RvPEBsY KIucG85YBBjOFLbmf3v yvnerXMxglBgM7Lmukk 7uK5mRTLxTBjaUKTlAI ZzMjJcbGFuZzEwMzNca GljaFxmMVxkYmNoXGYx ASnvV6kjVeWlEbLjNkd wYXJ9 [facility] Interpretation 2021-06-25 19:22:41 Test Item Value Reference Range Interpretation Comments Submitted Clinical History x5stbUJfSTZer2rtAJO (test code = 10531) mbGFuZzEwMzNcZnRuYm pcdWMxIHtccnRmMVxzc 3PbW6VrHmOoNUcbluCr XGRlZmxhbmcxMDMzXGZ 0bmJqXHVjMVxkZWZmMH gxEo0ifXZhaTpdXjEaE PKpj5xtugTEutbqdJs8 v0tgTTLrRxF5sAOmNPh hO5nqtrDlkTBcKUNwZT h0gD42NRTsbQ0xzMJuK YztxwKmJmQ0GErgGDQy BbK1ZWLvgAMoWUIgB7s yZWQwXGdyZWVuMFxibH TwYMC7dDdzb2D1qYMws GVldHtcZjBcZnMyMiBO f9RcUGr1mXysG1KpVTV yWkA1bOJqHPZmWRqeMN NtYHCwusR0qN06DHytj qJ4iQGbl6Wve90qv827 pV8rbJMwAQJ1MTFsQBZ phMRuWJSpWFN1CEYavZ CiU8vfJHCpRA1hyocaU JykJNzbQMPhdIH6WRDt dHCvN1YwAEZmJJlsTCS faex2TlFhHd3cxWAxsO laRXoxb2uqe6tpiCQdJ jl2HDWuZwEoNhnaSRkl k9Kuj0avPFQcam6eZHV 7kLNctOxom1W8cLElWJ ImfXLeewKqTGBkLdZ7Z YwfQR2zth93NXVtOAR7 yg9bxVOvbNvhvpNlgVD rVPixY3GuUDXxh874VA AxD4WlYXXku0F8zbXzN dRuATQcoOX4rfM9TXBj QUp1kFRsagL4hjUuaUS bK3sbzS0mAVQdRO3vwq qhq7jnVZviIHyxSEUds IU9avH0OFMsnPGdP1Xb iI2cLLBwOJkhCEEuvuz 2OfGqLe8uxIRaoQbnYH xzYmtwYWdlXHBnbmNvb nRccGduZGVjXHBsYWlu XHBsYWluXGYwXGZzMjR jvZtlqIkvwL1mJpHwDs WnYCujAP1mXWRyV7lci JXgGBXrBEQyA6tuBhUv xT0ffRobFWraxwRkTPS syuWzonMcKUrso9Lslc szz9ZmK35fl38iRmYcn 1f1sJUfKtq8TeTqCH6e mCzuuX6vIdDpZkPxFxw cNJ0yUAOyJ1wcpMCoKZ KzUOFzD5xsWeRzmI0by WhuFHgstzXePZOhmj48 Diagnosis (test code = 34) y2ztsZFgWPJavHG8GkF wGIZps9aie4ByxVHvjH CwBMjzmZVwyqCjfc36u CU0bY01LM2kOFKcImK5 ECFzatH4Meb2AUXsTIP rxZLcA357y6cni9rgji YbzQH7GITzEZUuO5GmI T6bZPFqvXRmD51shNJz TWB1KSVnIXGdxFZsMAY aAYE8FCYfyAMdO5ozVW MrRR1expqoJHyiLCoqK NMdyDQ9FVRevXRaE6Zf PFPvRMiiBHCixgd2ZfQ xNi7tlJRmlZwcRUriCY JkXHBsYWluXGZzMjBcY 1ArFVM3EVBriL4gHGBy eqNnbM6pf0ZxvdJ9tFA keeowYldbiQC1YpioDH JcbGkxNDQwXGZpLTcyM GchjS2oNZWzLLPiXQSK v1tlgrupTW01D88oVBA 2fUByAZRzp2Aab26iKC 8ifKEcZTD5oHUnISxqM pehcT1izLlimshcQX5j ZQTsUBX6qULxP9DiE9P hFCFhsOx2UEMxfSCeV3 BrAlsuSYPcVl2siZQix IpvZU7lvRPwKWFrdLak aWVkLlxwYXIgRGVlcGV yIGxldmVscyBleGFtaW 7mGN8bgIPsAVqaHDznz KPyvWtbHTpsLFVuN5Uq HZD4SSUfbG6lHUUwTUR 9XGRsg1c9qHxsSydypT X3CerjECRiiWqnOYDtJ LLfTPcyGEozgV6rWUJv UXKrZGMVl5wxrsslFU5 8Q98wUOM0nPMtHW4spA LrlAZyrA7mFVGzy3Jzt KGtFUpxMO6pwT5lZQXz IYMiLTEhrMj3TZMnhWL yKOGaJOOsVB3fNXHxOA IjybEYlaI5oA6unaSpK GVudGlmaWVkLlxwYXIg RGVlcGVyIGxldmVscyB qcTLfxJ8gFM8oxZBsvP == Gross Description (test o9lcvSNnTGHihHSCLZr code = [id number]) wMVxhbnNpXHNwbHRwZ3 RiccnoLWxnGU4kTT5dj VpbiJJtjJAhOQ8YKLYm ZmYxXHBhcGVydzEyMjQ jSCZntITpuAO4LNMjSQ 1hcmdsMTgwMFxtYXJnc lH1THCqzXOeI4ZcFZBi YP2kwpryCPF0FZadkN3 qhaPUGcopYb6stMJarA tcZjFcZmNoYXJzZXQwX CHysGxzXNKlKHg1fB7K GkmqX16jm9N2Kyu6ONE hLMPyY0XlRS7hJTSdgM VaD35APbkaMKJ8UGAYB skeXYXhFU9Yo6dzLMJn mHXlKQN6SZaiwLQxUVG gINKuGJn7VHPwQVtfyW TdZI8bqSdzHemuhVllm 2VjdCBcXGlkIDUxMDAy SAvmQWTvIK6EIgFpZMW 4BVYdMmUrOOp3YNw9VH 5YStYhHCBeFLO7VFT6A gOaTZb7EZswDP8RJGRy Ovt2AGBnHYUjUPAoAGR vMUd4HNXoMNgfNAIquA FsIFxcZnMgMTAgXFxmY sNtMZOcRNuniiV4TELc YWluXGJcZnMyMCBBOlx jTEQbYOeraClslR5tCM FnR34jm6NGt4HtCV5JR Tx5ygHazfjduQ4mJINy lfChDItqdKLgR6dzUpr nTfSwUxSvAOUTl2xnzg iuQQ5tSZ4oo7ZxmA3dv OUcjBmbOGUxIrn2ZPJo XGNmMCAgVHdvIHRhbi1 6eDf8NZVoyqAwqTNlsX Eak8Shk15tqTM4gHMnq ZDetHTpn7BqiK7yTOlw g3HueKjbooOtPsZmTL8 uNVZjRaIjkFuxXM28kL LboHcce9XooFr3gAQuI NmfEHXgNnPyUXOmt0Ot T0M2EFFaOOupg9cnVXL wDRpcl6WuFTrPSUDMRR 2ZSQ9ukJB6WLoRC7BZA 1lYvEMmGAH3aFH9MXIW IaposIC2rYQ4vR10EDQ lNPGumMLiOEliT207T9 02FKAuNEvgw3iwDYAhT Pahp7NcBXgPICFWBR2J VD2mnLQ4BGtRA4SIFQy aLVBhAkoajKNTGXA5QY dqbSodvEv6m5ucdCEhg 9i3DFedXRY7uJwbbIJm blxsdHJjaFxmczIwIA0 LEEYlgPVVALP8PI7qQA g9IRceHYAgR6QyL5Qsg eUusOZuZCPtrkTbg8cx FCK6SVXkbASxqLXjYrR kKehcPEU0XXEpOYprPW 2Qj9xnNWVuzKTsOAF3O FxcaWQgNTEwMDIgXFxk FgIwQ8ABHZXgLlYzQHA rXjPmWBp9SKelE9KQGM SxJMM6INi8ZtomMjI5X Wu4MHRYWg0rSIWlMfy8 CrchGRF9NGBeLUVrUVL gMiBcXGYgQXJpYWwgXF xmcyAxMCBcXGZiIFxcZ xltVPtkR49wnIsigO1j CfmupwUqCXT2COQjlbG NClxwbGFpblxlcGljTm VzdERvYzEgDQpcbHRyc GFyXGxpbjBccmluMCAN ClxsdHJjaFxiXGNmMVx rdqPdVDKkkL3sXSLuQt PxXGK1OTFsaN9zUAGnl ZcdZrhaKJajEpGxGD0u KWM5DS2hmEDufK57KXE qDUiyLU12UI6kKGGoSm BtyYegf7EuTD3pBZX4r amdMeRwOjGkK35kWGLj aYqlEBw5EIH5Ur1rgGN gFPCryyZUMT4fOCgsce 23MIL8i4lopJTwCNoqR jjrrIItfxO4UZrTJIGY MEgVSjKsAM3vVIfTMxp CRUdJTnwyMTAxNnwxfF VFDMV9OYdtfOmlfCc5w 0hpmCBmn5e7BLtfKSR9 qFmJt7fhtPVlIRvnOin ypFTywdK9YWuSFQDOBP jSCoBvXU3vOZyVMjnGX dR1DxSeRMR5KXxRM8WH tAH7Zmu8YNt9bQlcIes fdjDuvIIqIuABlJ9ygK dsyW8htSAlI5hbOcGjV CANClxlcGljTmVzdERv YvOcqmE9IFUwyDAlNCT 4QW5kCOHmcxlbPJKqRM FiVUW6SBihcE38nXBtG GZzMTZccGFyfVxwbGFp gqIMXtioiE6cJcEyq1o slEc8CPWFNdqjaBVpvr opwrM7QSBtp3nhzSprq 5TfoGAmYW7vmGwvaE5q ZnMxNiANCn0= Biomarker Block(s) (test k5wgwSMnGFXmkLD7BgP code = 9841) hVFZwt6fef3UwwKDwdZ EwOCutqDGijxXsgx99k ZB5wF79XC3qRAKeTbI2 OOLqakT5Tmb1UMDwIIY zhWEdZ996t1vre9ageo WdtFA3gKgcBBBcgnjlN bQ3WHknDWNreezlNYv8 WTqyGDCejSQ2UEVcaVE dD2NoDSCfXQ7mrau0OJ E5NFxyPVMbGbK4TUFui UNvVEIxoJiuEZrpg738 SAT5UtFkCVFdwnJopWd dpX5aRuIqMGATA2MhaQ FyfQ== Disclaimer (test code = w9odnMUeZFKgzNKxQvF 9844) yCTRbNZVen2eyHBTjiZ FuZzEwMzNcZnRuYmpcd WGoLZJnZcOix1ltl585 eZMhc4thTOLnAeB4aSO rBPJptOFiO720CSNyPC xxi6ncv8FrWFMxeQMhn 2P2IEVDhaqejAv5yUbg K34to4R4ZnqxI7apQSI pFJXeX9MlQF3eYNDgDa q5SBH1IDE5QKRvUHPtW 8YyZX9yULDxnGWhDLl2 i8qfpFhbDXApHVS9t3a rFOynjmPfJD2him1ybL e4e8bqgyNbKXCaRAOtt ZIARSUwA2QlpXcmDo1z jFb4jImyYotnDSK1Qby 1EP8nji16wrv7xGxrNM DicqmcXqB7ATetPXPsa arpRCq4TYumUFFguXZ1 UECdkAWlI2QeSNAjRH0 dsdg5EEK7SIzaEECnTe T9WREjdJPoLLVcuQtkX Eglr368OXK6XxIxJT1f B6Ctr4A4iX9lpFPlRNA rkUZbLoXnZENftf8pnE SePKjhw0GtNUQ4bdH7x SDmvUHkQFQbQI55Irin i2UfUxbiNWQ2PUNutlL tt8Wnz9wcKfDxfrLmQ2 xiJ6TjMOOnIWHeTWBrN pDscaImp8Fvx1UldUWf cLl6m7deDWWoRKMrwTi aq1lpPBU9ZMVpI5C8hP Wlt9uuIXceIKYtoOF5v tP1RORkvEScM9CczC9n GQPcYH0ctqz1z0zrBOE 6ZUtcVRFyPsZ9xoR9DM BcaGVhZGVyeTcyMFxmb 277BWE3HyJhLUEmf6Ja F0ZorKhiH68phRciO37 aFLVtpRtolY5atLamwF 5cZjBcZnMyNFxxbFxwb AJykbogCAbyleY8ANeh dyfnNAMiRGruA2upAqA pLLDjjAoiPPvek6NaDL OiPLRiImizojG5DXLFi 31nOACpc9AbOKEihX4i oNZbCUdokqOotIA5NAw hdmUgYmVlbiBkZXZlbG 3vLFHhGC5aTCYvfuCcf l4wqwSeZEGqKWJrI7Ny cmlzdGljcyBkZXRlcm1 bytVuOBH8RIRXCT9FZV GvSPQme65uXFWsdBpzu L0vmJEqvbWtXQUtv7Jx oE6qeEMLXJOuO5fsNL5 oNAgwi7DczDAjiADrfJ Q9YXIta5HhYrQpjfHcz QFfeDIpA9JvmGrbV9gx EVXmJLAzupOoxDEcb1P cUPUhzUS7mTJqKA2VWg OZs19sCMTgUJEPjkTmA CEpfOaqsAT3poE6zA8u LiBJZiBhcHBsaWNhYmx bEPAon426my5wvrJ3JD LiKCKkfbtrk0EzXNPqH YHhjN04QDDhUGHogq7e bhsmfFFwwbEfM6Wjdxm 7fH3xFTVmGJeuEIQcZE ZzMjJcbGFuZzEwMzNca GljaFxmMVxkYmNoXGYx RHuoU9rzMxUrAmTfAhv wYXJ9 [facility] Glucose Aviqco0850-29-00 14:47:20 Test Item Value Reference Interpretation Comments Range POC Glucose (test 124 mg/dL 70-99 H MD Cleopatra LewN code = 52073-1) NotifiedCapi llary blood samples, e.g. obtained by fingerstick, ma y have inaccurate resu lts in patients with decreased perip heral blood flow. Met hod description: Al l results are jaziel sured using Electroch emistry test methodolog y. The glucose in the sample mixes with the reagents on the test strip. The reac tion produces an jackson ctric current. The am ount of current produce d is proportional to the glucose concent ration in the blood. PO Sample Type (test Capillary code = 9554) Performing Lab (test [facility] code = 10271) [facility],[address], [facility] [address]; Point of Care Director It: Monet Calvillo MD Lab Interpretation Abnormal (test code = 35284-7) [facility] Glucose Zkisuv0576-17-70 14:47:20 Test Item Value Reference Interpretation Comments Range POC Glucose (test 124 mg/dL 70-99 H MD Cleopatra LewN code = 61973-1) NotifiedHialeah Hospitali llary blood samples, e.g. obtained by fingerstick, ma y have inaccurate resu lts in patients with decreased perip heral blood flow. Met hod description: Al l results are jaziel sured using Electroch emistry test methodolog y. The glucose in the sample mixes with the reagents on the test strip. The reac tion produces an jackson ctric current. The am ount of current produce d is proportional to the glucose concent ration in the blood. PO Sample Type (test Capillary code = 9554) Performing Lab (test [facility] code = 34964) [facility],[address], [facility] [place] [address]; Point of Care Director It: Monet Calvillo MD Lab Interpretation Abnormal (test code = 51518-3) [facility] (SEJAL-[facility]-2) PCR Svnzglfdlhux5569-08-01 00:28:06 Test Item Value Reference Interpretation Comments Range COVID19 SARS Pre-Out of OR Procedure Indication (test code = 84601) COVID19 SARS Result Not Detected Not Detected (test code = 91536-9) COVID19 SARS SARS-CoV-2 NOT Detected. Interpretation (test Reference Range: Not code = 73115) Detected Methodology: The Mcdonald RealTime SARS-CoV-2 assay is a qualitative real-time reverse artist scientific polymerase chain reaction (health support specialist-PCR) test to detect RNA from SARS-CoV-2 in nasal, nasopharyngeal and oropharyngeal swabs from patients with signs and symptoms of infection who are suspected of COVID-19 by their health care provider. The Mcdonald RealTime SARS-CoV-2 performed on the [employer].de000 System is a dual target assay with primers and probes for the RdRp and N genes. Results must be interpreted within the context of all relevant clinical and laboratory findings, and epidemiological risk factors. Positive results are indicative of the presence of SARS-CoV-2 RNA; clinical correlation with patient history and other diagnostic information is necessary to determine patient infection status. Positive results do not rule out bacterial infection or co-infection with other viruses. Negative results do not preclude SARS-CoV-2 infection and should not be used as the sole basis for patient management decisions. The Mcdonald RealTime SARS-CoV-2 assay is for in vitro diagnostic use under FDA Emergency Use Authorization only. Testing is limited to laboratories certified under the Clinical Laboratory Improvement Amendments of 1988 (CLIA), 42U.S.C. 263a, to perform high complexity tests. The Test was performed by the CLIA-certified, high-complexity Molecular Diagnostics Laboratory (MDL) at [facility] under the Food and Drug Administration (FDA) s Emergency Use Authorization. Factsheet for patients: https://www.[facility].org/ AbbottFactSheetPatientsFact sheet for healthcare providers: https://www.[facility].org/ AbbottFactSheetHCP Test performed by:[facility] Molecular Diagnostic [id number] [place] [address] [facility] (SEJAL-CoV-2) PCR Usfuwierncmf4744-19-70 00:28:06 Test Item Value Reference Interpretation Comments Range COVID19 SARS Pre-Out of OR Procedure Indication (test code = 64562) COVID19 SARS Result Not Detected Not Detected (test code = 79557-9) COVID19 SARS SARS-CoV-2 NOT Detected. Interpretation (test Reference Range: Not code = 25091) Detected Methodology: The Mcdonald RealTime SARS-CoV-2 assay is a qualitative real-time reverse artist scientific polymerase chain reaction (health support specialist-PCR) test to detect RNA from SARS-CoV-2 in nasal, nasopharyngeal and oropharyngeal swabs from patients with signs and symptoms of infection who are suspected of COVID-19 by their health care provider. The Mcdonald RealTime SARS-CoV-2 performed on the [employer].de000 System is a dual target assay with primers and probes for the RdRp and N genes. Results must be interpreted within the context of all relevant clinical and laboratory findings, and epidemiological risk factors. Positive results are indicative of the presence of SARS-CoV-2 RNA; clinical correlation with patient history and other diagnostic information is necessary to determine patient infection status. Positive results do not rule out bacterial infection or co-infection with other viruses. Negative results do not preclude SARS-CoV-2 infection and should not be used as the sole basis for patient management decisions. The Mcdonald RealTime SARS-CoV-2 assay is for in vitro diagnostic use under FDA Emergency Use Authorization only. Testing is limited to laboratories certified under the Clinical Laboratory Improvement Amendments of 1988 (CLIA), 42U.S.C. 263a, to perform high complexity tests. The Test was performed by the CLIA-certified, high-complexity Molecular Diagnostics Laboratory (MDL) at [facility] under the Food and Drug Administration (FDA) s Emergency Use Authorization. Factsheet for patients: https://www.[facility].org/ AbbottFactSheetPatientsFact sheet for healthcare providers: https://www.[facility].org/ AbbottFactSheetHCP Test performed by:[facility] Diagnostic [address] [place] [address] [facility] 10:30:00 Test Item Value Reference Range Interpretation Comments SURGICAL (test code = SR) RUN DATE: 11/24/20 [facility] - LAB PAGE 1 RUN TIME: 1030 Specimen Inquiry RUN USER: INTERFACE PATIENT: DEB ODEN LOC: [id number] POD B U #: [id number] AGE/SX: 50/F ROOM: [facility] RE11/22/20REG DR: Rudi Campos MD : 74 BED: 1 DIS: 11/23/20 STATUS: DIS Mark TLOC: SPEC #: [id number] RECD: 11/22/20 STATUS: GEOVANNY PASTRANA #: [id number] EMILY: 11/22/[address] [facility] [address]: Rudi Campos MD ENTERED: 11/22/20 SP TYPE: SURGICAL OTHR DR: Chidi Alexander MD ORDERED: [id number], ANATOMIC SPEC HISTOLOGY: TISSUE ID BLK PCS KENDELL LEV / PROCEDURE DISPOSITION ____ ___ ___ ___ ___ UTTBOVNN A 8 1 TISSUES: A. UTERUS W/WO TUBES OVARIES NON NEOPLASTIC/PROLAPSE - Uterus, Cervix, Bilateral Fallopian Tubes and Ovaries FINAL DIAGNOSIS A. UTERUS, CERVIX, BILATERAL TUBES AND OVARIES, HYSTERECTOMY BILATERAL SALPINGOOPHERECTOMY: -UTERUS, 124 GRAMS WITH INTRAUTERINE ADHESIONS AND BLOOD CONSISTENT WITH HEMATOMETRA. -INACTIVE ENDOMETRIUM. -ENDOCERVIX WITH AHESIONS AND OBSTRUCTION. -CERVIX WITH HYPERKERATOSIS. -RIGHT OVARY WITH CORTICAL INCLUSION CYST. -RIGHT FALLOPIAN TUBE WITH HEMORRHAGE AND HEMOSIDERIN DEPOSITION. -UNREMARKABLE LEFT FALLOPIAN TUBE AND OVARY. -NO EVIDENCE OF MALIGNANCY. GROSS DESCRIPTION Received in a container filled with formalin labeled "cervix, uterus, bilateral fallopiantubes and ovaries" is a hysterectomy specimen that weighs 124 g and measures 9.0 cm fromfundus to cervix, 5.0 cm from cornu to cornu, and 4.0 cm from anterior to posterior. Thereare two attached fallopian tubes. The right fallopian tube measures 4.0 cm in length andthe left fallopian tube measures 4.5 cm in length. The left ovary measures 3.0 x 2.0 x 1.5cm and the right ovary measures 3.5 x 2.0 x 1.5 cm and has a partially cystic andhemorrhagic portion attached to it. The cervix is smooth and pink, and measures 2.8 cm indiameter. The specimen is received partially opened. Continuation of opening revealsa stenosed and obstructed endocervical canal with hemorrhagic endometrial contents andseveral thick endometrial adhesions.Cassette summary: A1 -contains cervix; A2 - contains the obstruction of the endocervix;A3-A4 - contains mortician supplies sales representative endometrial cavity; A5 - contains right ovary; A6 -contains right fallopian tube; A7 - contains left ovary; A8 - contains left fallopian tube. Technical component performed at [facility] [facility], [place] [facility], [address] CONTINUED ON NEXT PAGE RUN DATE: 11/24/20 [facility] - LAB PAGE 2 RUN TIME: 1030 Specimen Inquiry RUN USER: INTERFACE SPEC #: [id number] PATIENT: DEB ODEN #[id number] (Continued) --- CLINICAL INFORMATION Pelvic pain and perineal pain. Signed SIGNATURE ON FILE Brent Melara MD 11/24/20 1030 END OF REPORT - XR ABDOMEN [id number] 11:25:00 [facility] 1970 Sex: FPatient Name: DEB ODEN Unit No: [id number] EXAMS: CPT CODE: [id number] XR ABDOM EN 1V [id number] Exam:Abdomen KUB radiograph one view Location: W1 Clinical Indication:50-year-old with postoperative assessment Comparison:None Impression:No calculus is identified within the kidneys or along expected course of the ureters. Prior cholecystectomy. Nonobstructed bowel gas pattern. at 1125 Reported and signed by: Kathryn Valle CC: Chidi Alexander MD; Rudi Campos MD Technologist: LUKAS HARP RT(R) Fluoro Time: DAP (Gym2): Air Kerma (mGy): Trscr Dt/Tm: 11/22/2020 (1125) by:[email or web address] Printed Date/Time: 11/22/2020 (1129) Name: DEB ODEN [facility] Phys: Rudi Florez [address] : 1970 Age: 50 Sex: [place] [address] Loc: P.SHA 08 Exam Date:11/22/2020 Status: ADM IN PH: FAX: PAGE 1 Signed ReportCOVID Asymptomatic IH [id number] 12:11:00 Test Item Value Reference Interpretation Comments Range COVID Negative Negative A negative resu lt does not Asymptomatic IH preclude the SARS-COV-2 NTX (test code = viralinfect ion and should not COVNONPUINTX) be used as the sole basis forpatient david gement decisions. Nega tive results must becombined with clinical observations, p atient history, andepidemiologi doris information. Vi ral levels in clinicalsamples below the detection limit of the assay could lead tone gative results. This test was p erformed using the [facility] [employer] Smart TM COVID-19 PCRassay. This test was developed and i ts Ziplocal were determined by [facility]. Thi s test has notbeen FDA shy ared or approved. This test is authorized by t rioFDA under Emergency Use Authorization(E UA). The EUA willremain in e ffect unless it is terminated o r revoked by FDA . Testing p arameters have not been valida gordo for screeningasympt omatic patients. This test was validated accor ding to the FDA's guidanced ocument "Policy for Diagnostics testing in LaboratoriesCer tified to Perform High Co mplexity Testing under C SUKHI". First test? UnknownEmployed in Healthcare? UnknownSymptomatic as defined by CDC? UnknownHospitalizeddue to COVID? UnknownIn ICU due to COVID? UnknownResident in a congregate care setting? Unknown? UnknownAge at collection: YBASIC METABOLIC [id number] 13:39:00 Test Item Value Reference Range Interpretation Comments SODIUM (test code 145 mmol/L 136-145 N Please not e: New = NA) Reference Range Mar 2020 POTASSIUM (test 4.2 mmol/L 3.5-5.1 N code = K) CHLORIDE (test 110 mmol/L 98-107 H Please note: New code = CL) Reference Range Mar 2020 CARBON DIOXIDE 27 mmol/L 20-31 N Please note: New (test code = CO2) Reference Range Mar 2020 GLUCOSE (test code 87 mg/dL 74-106 N Please no te: New = GLU) Reference Range Mar 2020 BLOOD UREA 7 mg/dL 9-23 L Please note: Ne w NITROGEN (test Reference Ran ge Feb code = BUN) 2020 GLOMERULAR >=60 max >60 Units are FILTRATION RATE estimate mL/min mL/min/1. 73m2 The (test code = GFR) estimated glomerular filtration rate is computed usingpatient ra ce, age (>18), sex, and serum creatinin e. If anyof the neede d data elements a re missing the Laboratory flora ot compute an estimation of t he glomerular filtration rate . CREATININE (test 0.80 mg/dL 0.55-1.02 N Please note : New code = CREAT) Reference Rang e Mar 2020 CALCIUM (test code 8.9 mg/dL 8.7-10.4 N Please no te: New = CA) Reference Range Mar 2020 CBC W/AUTO [id number] 13:28:00 Test Item Value Reference Range Interpretation Comments WHITE BLOOD CELL (test code = 9.1 x10 3/uL 4.8-10.8 N WBC) RED BLOOD CELL (test code = 5.09 x10 6/uL 4.20-5.40 N RBC) HEMOGLOBIN (test code = HGB) 15.0 g/dL 12.0-16.0 N HEMATOCRIT (test code = HCT) 47.5 % 37.0-47.0 H MEAN CELL VOLUME (test code = 93.3 fL 81.0-99.0 N MCV) MEAN CELL HGB (test code = MCH) 29.5 pg 27-31 N MEAN CELL HGB CONCENTRATION 31.6 G/DL 33-36.5 L (test code = MCHC) RED CELL DISTRIBUTION WIDTH 13.9 % 12.9-16.9 N (test code = RDW) PLATELET COUNT (test code = 342 x10 3/uL 150-440 N PLT) MEAN PLATELET VOLUME (test code 9.9 fL 8.9-12.4 N = MPV) NEUTROPHIL % (test code = NT%) 63.3 % 42.2-75.2 N LYMPHOCYTE % (test code = LY%) 29.6 % 20.5-51.1 N MONOCYTE % (test code = MO%) 5.1 % 1.7-9.3 N EOSINOPHIL % (test code = EO%) 1.4 % 0.0-7.0 N BASOPHIL % (test code = BA%) 0.4 % 0-2.5 N NEUTROPHIL # (test code = NT#) 5.76 x10 3/uL 1.80-7.70 N LYMPHOCYTE # (test code = LY#) 2.69 x10 3/uL 1.00-4.80 N MONOCYTE # (test code = MO#) 0.46 x10 3/uL 0.00-0.80 N EOSINOPHIL # (test code = EO#) 0.13 x10 3/uL 0.00-0.45 N BASOPHIL # (test code = BA#) 0.04 x10 3/uL 0.0-0.20 N UR HCG [id number] 13:27:00 Test Item Value Reference Range Interpretation Comments UR HCG QUAL (test code = HCGQLU) NEGATIVE NEGATIVE US PELVIS COMPLETE WITH [id number] 22:04:08 Overall no interval change compared to 06/20/2020. No change septated fluid collection within endomet rial cavity which mayrepresent adhesion related to prior abrasion and fluid collection relatedto distal endometrial or cervical stenosis. Unchanged 4.1 cm right adnexal complex cystic mass. Although the cysticlocules are not definitely communicating given a tubular structure adjacentto complex mass there is possibility of hydrosalpinx. Other differentialcould be complex cystic adnexal tumor. Recommend correlation with MRIpelvis. TRANSABDOMINAL AND TRANSVAGINAL PELVIC ULTRASOUND HISTORY: right ovarian cyst . Last menstrual bleeding in 2013. Status postendometrial ablation. COMPARISON: Ultrasound 06/20/[address] abdomen 06/20/2020 TECHNIQUE: Transvaginal and limited transabdominal sonography of the p elviswas performed. FINDINGS: The uterus is anteverted and measures 9.4 x 5.2 x 6.5 cm. No myometrialabnormality. The normal endometrium is not visualized. Distendedendometrial cavity with avascular septated fluid collection measuring 3.2 x2.4 x 2.8 cm., UnchangedA couple of nabothian cysts are noted.The right ovary is replaced by 4.1 x 3.0 x 3.7 cm multiseptated complexcystic mass. No communicationbetween cystic locules identified. Justanterior to this complex mass, there is a fluid containing tubular thinstructure (marked as the right adnexal). Although no definite communicationbetween this structure and complex mass, decreased may represent dilatedfallopian tube or alternatively loculated fluid. The left ovary measures 2.2 x 2.7 x 2.1 cm cm. Unchanged 1.7 cm simple leftovarian cyst. No fluidis present in the cul-de-sac. ? [facility], Radiant Results Inft User - 09/06/2020 5:05 PM CDT TRANSABDOMINAL AND TRANSVAGINAL PELVIC ULTRASOUNDHISTORY: right ovarian cyst . Last menstrual bleeding in 2013. Status postendometrial ablation. COMPARISON: Ultrasound 06/20/[address] abdomen 06/20/2020TECHNIQUE: Transvaginal and limited transabdominal sonography of the pelviswas performed.FINDINGS: The uterus is anteverted and measures 9.4 x 5.2 x 6.5 cm. No myometrialabnormality. The normal endometrium is not visualized. Distendedendometrial cavity with avascular septated fluid collection measuring 3.2 x2.4 x 2.8 cm., UnchangedA couple of nabothian cysts are noted.The right ovary is replaced by 4.1 x 3.0 x 3.7 cm multiseptated complexcystic mass. No communication between cystic locules identified. Justanterior to this complex mass, there is a fluid containing tubular thinstructure (marked as the right adnexal). Although no definite communicationbetween this structure and complex mass, decreased may represent dilatedfallopian tube or alternatively loculated fluid.The left ovary measures 2.2 x 2.7 x 2.1 cm cm. Unchanged 1.7 cm simple leftovarian cyst.No fluid is present in the cul-de-sac. IMPRESSIONOverall no interval change compared to 06/20/2020. No change septated fluid collection within endometrial cavity which mayrepresent adhesion related to prior abrasion and fluid collection relatedto distal endometrial or cervical stenosis.Unchanged 4.1 cm right adnexal complex cystic mass. Although the cysticlocules are not definitely communicating given a tubular structure adjacentto complex mass there is possibility of hydrosalpinx. Other differentialcould be complex cystic adnexal tumor. Recommend correlation [facility]pelvis.[facility] W [id number] 22:58:06 1. ?Largely similar appearance small fluid collection in the endometrialcavity and a complex right a dnexal cystic focus measuring 5.8 cm. 2. ?Nonobstructing right lower pole punctate kidney stone. Unchangedfat-containing infraumbilical anterior abdominal wall hernia. Preliminary Report Dictated by Resident: Derick Arguelles MD., have reviewed this study and agree with theabove report.EXAM: CT ABDOMEN PELVIS W CONTRAST 09/01/2020 4:08 PM HISTORY: 49 years-old Female with Abdominal pain, acute, nonlocalized lowerabdominal/pelvic . COMPARISON: CT abdomen pelvis with IV contrast 06/20/2020, ultrasound ovary06/20/2020. TECHNIQUE AND FINDINGS: Contiguous axial imaging from the level of the lungbases through the pubic symphysis was performed after the administration ofintravenous nonioni c iodinated contrast. Abdomen was scanned in venousphase. Corresponding coronal and sagittal MPR reconstructions wereobtained. ?Auto mA and/or iterative reconstruction were used to reduceradiation dose. FINDINGS: LOWER THORAX: The lungs bases are clear. No pleural or pericardialeffusions are visualized. LIVER: The liver is diffusely hypoattenuating. Focal fatty infiltrationalong the falciform ligament. The portal veins are patent. GALLBLADDER AND BILIARY TREE: Prior cholecystectomy. There is no intra orextrahepatic biliary ductal dilation. SPLEEN: The spleen enhances normally. 1.1 cm anterior splenule. PANCREAS: The pancreas enhances normally without ductal dilation. ADRENAL GLANDS: No adrenal nodules. KIDNEYS: Slightly irregular appearance of the right kidney with areas ofcortical thinning may be secondary to a degree of scarring. Nohydronephrosis or nephrolithiasis is seen bilaterally. Stable appearance ofexophytic subcentimeter right lower pole simple cyst. Punctate kidney stonewithin the inf erior pole collecting system of the right kidney. PERITONEUM AND RETROPERITONEUM: No free air or free fluid. LYMPH NODES: No lymphadenopathy. GI TRACT: Changes of a gastric sleeve. Changes of a right hemicolectomywith blind- ending aspect of ascending colon and avmo-qb-hdzq anastomosiswith the small bow el at the transverse colon. No bowel obstruction orcomplication is seen. PELVIS/BLADDER: The urinarybladder is decompressed. Largely similarappearance of an anteverted uterus with hyperattenuating fluid within theuterine fundus extending to the bilateral adnexa. Largely similarappearance of multiloculated cystic enlargement of the right ovarymeasuring 5.8 cm with internal thin septations. VESSELS: Trace atherosclerotic calcifications. BONES AND SOFT TISSUES: No suspicious lytic or sclerotic bony lesions.Similar appearance of lower mid abdominal soft tissue thickening extendingfrom the skin surfacethe perineum, likely a surgical scar. A smallinfraumbilical peritoneal fat containing hernia is seenat the pelvis. [facility], Radiant Results Inft User - 09/01/2020 5:59 PM CDTFormatting of this note mightbe different from the original.EXAM: CT ABDOMEN PELVIS W CONTRAST 09/01/2020 4:08 PMHISTORY: 49 years-o ld Female with Abdominal pain, acute, nonlocalized lowerabdominal/pelvic .COMPARISON: CT abdomen pelvis with IV contrast 06/20/2020, ultrasound ovary06/20/2020.TECHNIQUE AND FINDINGS: Contiguous axial imaging from the level of the lungbases through the pubic symphysis was performed after the administration ofintravenous nonionic iodinated contrast. Abdomen was scanned in venousphase. Corresponding coronal and sagittal MPR reconstructions wereobtained. Auto mA and/or iterative reconstruction were used to reduceradiation dose.FINDINGS:LOWER THORAX: The lungs bases are clear. No pleural or pericardialeffusions are visualized. LIVER: The liver is diffusely hypoattenuating. Focal fatty infiltrationalong the falciform ligament. The portal veins are patent.GALLBLADDER AND BILIARY TREE: Prior cholecystectomy. There is no intra orextrahepatic biliary ductal dilation.SPLEEN: The spleen enhances normally. 1.1 cm anterior splenule.PANCREAS: The pancreas enhances normally without ductal dilation.ADRENAL GLANDS: No adrenal nodules.KIDNEYS: Slightly irregular appearance of the right kidney with areas ofcortical thinning may be secondary to a degree of scarring. Nohydronephrosis or nephrolithiasis is seen bilaterally. Stable appearance ofexophytic subcentimeter right lower pole simple cyst. Punctate kidney stonewithin the inferior pole collecting system of the right kidney.PERITONEUM AND RETROPERITONEUM: No free air or free fluid.LYMPH NODES: No lymphadenopathy.GI TRACT: Changes of a gastric sleeve. Changesof a right hemicolectomywith blind-ending aspect of ascending colon and bpzm-iy-ubui anastomosiswiththe small bowel at the transverse colon. No bowel obstruction orcomplication is seen.PELVIS/BLADDER:The urinary bladder is decompressed. Largely similarappearance of an anteverted uterus with hyperattenuating fluid within theuterine fundus extending to the bilateral adnexa. Largely similarappearance of multiloculated cystic enlargement of the right ovarymeasuring 5.8 cm with internal thin septations.VESSELS: Trace atherosclerotic calcifications.BONES AND SOFT TISSUES: No suspicious lytic or sclerotic bony lesions.Similar appearance of lower mid abdominal soft tissue thickening extendingfrom the skin surface the perineum, likely a surgical scar. A smallinfraumbilical peritoneal fat containing hernia is seen at the pelvis.IMPRESSION1. Largely similar appearance small fluid collection in the endometrialcavity and a complex right adnexal cystic focus measuring 5.8 cm.2. Nonobstructing right lower pole punctate kidney stone. Unchangedfat-containing infraumbilical anterior abdominal wall hernia.Preliminary Report Dictated by Resident: Derick Carson MD., have reviewed this studyand agree with theabove report.[facility] 2020-09-01 21:23:07 Test Item Value Reference Range Interpretation Comments APPEARANCE (test code = Clear Clear 4798704835) COLOR (test code = Yellow Yellow 1145351973) PH (test code = 4.8-8.0 8190990349) SP GRAVITY (test code = 1.003-1.030 1497388049) GLU U QUAL (test code = Normal Normal 2175538203) BLOOD (test code = 1+ Negative A 2566033898) KETONES (test code = Negative Negative 4682677450) PROTEIN (test code = Negative Negative 2887-8) UROBILIN (test code = Normal Normal 6033872643) BILIRUBIN (test code = Negative Negative 6189364505) NITRITE (test code = Negative Negative 1754297727) LEUK RASHID (test code = Negative Negative 4489892340) RBC/HPF (test code = See_Comment [Autom ated message] 5845207155) The system [employer] generated this result transmitted ref erence range: 0 - 3 HP F. The reference range was not used to int erpret this result as normal/abnormal . WBC/HPF (test code = See_Comment H [Autom ated message] 9992408891) The system [employer] generated this result transmitted ref erence range: 0 - 5 HP F. The reference range was not used to int erpret this result as normal/abnormal . BACTERIA (test code = Few Negative A 3730281610) MUCOUS (test code = Slight Negative LPF A 9447620593) SQ EPITH (test code = HPF 0603004883) HYAL CAST (test code = See_Comment [Aut omated message] 9731524528) The system [employer] generated this result transmitted ref erence range: <=2 LPF. The reference range was not used to int erpret this result as normal/abnormal . Lab Interpretation (test Abnormal code = 00016-0) [facility]. METABOLIC PANEL (14401)2020-09-01 21:11:29 Test Item Value Reference Range Interpretation Comments NA (test code = 140 mmol/L 135-145 1150703699) K (test code = 3.9 mmol/L 3.5-5.0 0972889088) CL (test code = 111 mmol/L 98-108 H 3781677751) CO2 TOTAL (test code = 26 mmol/L 23-31 8171228036) AGAP (test code = 2-16 0783293642) BUN (test code = 10 mg/dL 7-23 5145973935) GLUCOSE (test code = 102 mg/dL 70-110 9568863973) CREATININE (test code = 0.70 mg/dL 0.50-1.04 3991028499) TOTAL BILI (test code = 0.3 mg/dL 0.1-1.6 9221137453) CALCIUM (test code = 9.2 mg/dL 8.6-10.6 8527198091) T PROTEIN (test code = 7.6 g/dL 6.3-8.2 6656493539) ALBUMIN (test code = 4.0 g/dL 3.5-5.0 5400313357) ALK PHOS (test code = 100 U/L 34-122 5667352258) ALTv (test code = 13 U/L 5-35 1742-6) AST(SGOT) (test code = 21 U/L 13-40 6716414337) eGFR (test code = mL/min/1.73m2 8425582952) APARNA (test code = APARNA) Association of Glomerular Filtration Rate (GFR) and Staging of Kidney Disease* + --+ --+ ------+| GFR (mL/min/1.73 m2) ?| With Kidney Damage ?| ?Without Kidney Damage+ --------+ --------+ +| ?>90 ?| ?Stage one ?| ? Normal ?+ ---+ ---+ -------+| ?60-89 ?| ?Stage two ?| ? Decreased GFR ? + --+ --+ ------+| ?30-59 ?| ?Stage three ?| ? Stage three ? + --+ --+ ------+| ?15-29 ?| ?Stage four ? | ? Stage four ?+ ---+ ---+ -------+| ?<15 (or dialysis) ? ?| ?Stage five ? | ? Stage five ?+ ---+ ---+ -------+ *Each stage assumes the associated GFR level has been in effect for at least three months. ?Stages 1 to 5, with or without kidney disease, indicate chronic kidney disease. Notes: Determination of stages one and two (with eGFR >59mL/min/1.73 m2) requires estimation of kidney damage for at least three months as defined by structural or functional abnormalities of the kidney, manifested by either:Pathological abnormalities or Markers of kidney damage (including abnormalities in the composition of the blood or urine or abnormalities in imaging tests). Lab Interpretation Abnormal (test code = 94020-9) [facility]IP[facility]2021-07-07 21:11:23 Test Item Value Reference Range Interpretation Comments LIPASE (test code = 2590094597) 196 U/L 0-220 Lab Interpretation (test code = Normal 00203-1) [facility] [id number] 20:59:00 Test Item Value Reference Range Interpretation Comments POCT PREG (test code = 1605) negative On board controls acceptable with present C Line (test code = 3574) POCT PREG LOT # (test code = 3575) [id number] POCT PREG TEST DATE (test 02/25/2022 code = 3576) Lab Interpretation (test code = Normal 70200-5) [facility]CBC WITH [id number] 20:58:22 Test Item Value Reference Range Interpretation Comments WBC (test code = See_Comment [Automated 9859-2) message] The sy stem which generated this result transmitted reference range : 4.30 - 11.10 10*3/?L. The reference range was not used to interpret this result as normal/abnormal . RBC (test code = See_Comment [Automated 370-1) message] The sy stem which generated this result transmitted reference range : 3.93 - 5.25 10*6/?L. The reference range was not used to interpret this result as normal/abnormal . HGB (test code = 14.1 g/dL 11.6-15.0 718-7) HCT (test code = 43.0 % 35.7-45.2 4544-3) MCV (test code = 92.5 fL 80.6-95.5 787-2) MCH (test code = 30.3 pg 25.9-32.8 785-6) MCHC (test code = 32.8 g/dL 31.6-35.1 786-4) RDW-SD (test code = 47.6 fL 39.0-49.9 40277-5) RDW-CV (test code = 14.4 % 12.0-15.5 788-0) PLT (test code = See_Comment [Automated 777-3) message] The sy stem which generated this result transmitted reference range : 166 - 358 10*3/ ?L. The reference r ramesh was not used to interpret this result as normal/abnormal . MPV (test code = 9.4 fL 9.5-12.9 L 20170-6) NRBC/100 WBC (test See_Comment [Automat ed code = 2451398246) message] The system which generated this result transmitted reference range : 0.0 - 10.0 /100 WBCs. The refer ence range was not u sed to interpret th is result as normal/abnormal . NRBC x10^3 (test code <0.01 See_Comment [Auto mated = 2106604201) message] The s ystem which generated this result transmitted reference range : 10*3/?L. The reference range was not used to interpret this result as normal/abnormal . GRAN MAT (NEUT) % 60.9 % (test code = 770-8) IMM GRAN % (test code 0.30 % = 9101209890) LYMPH % (test code = 30.3 % 736-9) MONO % (test code = 6.0 % 5905-5) EOS % (test code = 2.0 % 713-8) BASO % (test code = 0.5 % 706-2) GRAN MAT x10^3(ANC) 6.19 10*3/uL 1.88-7.09 (test code = 2708982727) IMM GRAN x10^3 (test 0.03 10*3/uL 0.00-0.06 code = 6202605809) LYMPH x10^3 (test code 3.08 10*3/uL 1.32-3.29 = 731-0) MONO x10^3 (test code 0.61 10*3/uL 0.33-0.92 = 742-7) EOS x10^3 (test code = 0.20 10*3/uL 0.03-0.39 711-2) BASO x10^3 (test code 0.05 10*3/uL 0.01-0.07 = 704-7) Lab Interpretation Abnormal (test code = 44954-6) [facility] W [id number] 00:57:44 1. ?Hypoattenuating fluid within the endometrial cavity with mucosalenhancement extending into the bilateral adnexa. Findings are nonspecificand may be better evaluated with pelvic ultrasound. Differentials may bephysiologic however may also be seen with endometritis or PID. 2. ?Colonic diverticulosis without diverticulitis. 3. ?Nonobstructive right lower pole stone. No hydronephrosis. 4. ?Hepatic steatosis. Prior cholecystomy. 5. ?Partial colonic resection with uncomplicated anastomosis. Underdistended gastric antrum with mild nonspecific wall thickening may be seenwith physiologic underdistention or gastritis. Preliminary Report Dictated by Resident: Mustapha Ellington ?MD Ruth Ann., have reviewed this study and agree withthe above report.CT ABDOMEN PELVIS W CONTRAST HISTORY: Abdominal pain, acute, nonlocalized TECHNIQUE: Contrast-enhanced spiral CT of the abdomen and pelvis wasperformed with multiplanar reformatted images provided for review. COMPARISON: None FINDINGS:LOWER THORAX: Mild dependent atelectasis. No pericardial effusion. LIVER: Normal size and contour with diffuse and parenchymal hypoattenuationand focal fatty infiltration adjacent to falciform ligament. GALLBLADDER & BILIARY TREE: Prior cholecystectomy. Normal caliber CBD. PANCREAS: No focal lesion or ductal dilation. SPLEEN: Mildly enlarged measuring 13.8 cm in length. Small splenule notedat theanterior splenic tip. ADRENALS: No adrenal nodules. KIDNEYS: Punctate nonobstructive right renal ston e. Exophytic subcentimeterright lower pole simple cyst. No hydronephrosis or focal lesion. ? PELVIS/BLADDER: The bladder is underdistended with moderate circumferentialwall thickening. Anteverted uterus with hypoattenuating fluid within theuterine fundus and mucosal enhancement extending into the bilateral adnexa.Multiloculated cystic enlargement of the right ovary measuring 5.7 cm withinternal thin septation. Unremarkable left ovary. GASTROINTESTINAL: Post surgical changes of probable gastric surgery noted.Mild nonspecific thickening of the gastric antrum. No evidence of bowelobstruction or perienteric inflammation. Partial colonic resection withuncomplicated mid right abdominal anastomosis.. Colonic diverticulosiswithout diverticulitis. PERITONEUM/RETROPERITONEUM: No free air or fluid. VASCULAR: ?Scattered atherosclerotic calcifications. LYMPHATICS: No enlarged lymph nodes by CT size criteria.BONES AND SOFT TISSUES: No concerning bony lesion identified. Complexsurgical changes are visualizedalong the anterior abdominal wall witheventration of mesenteric fat. [facility], Radiant Results Inft User- 06/20/2020 7:58 PM CDTCT ABDOMEN PELVIS W CONTRASTHISTORY: Abdominal pain, acute, nonlocalized TECHNIQUE: Contrast-enhanced spiral CT of the abdomen and pelvis wasperformed with multiplanar reformatted images provided for review.COMPARISON: NoneFINDINGS:LOWER THORAX: Mild dependent atelectasis. No pericardial effusion. LIVER: Normal size and contour with diffuse and parenchymal hypoattenuationand focal fatty infiltration adjacent to falciform ligament. GALLBLADDER & BILIARY TREE: Prior cholecystectomy. Normal caliber CBD.PANCREAS: No focal lesion or ductal dilation. SPLEEN: Mildly enlarged measuring 13.8 cm in length. Small splenule notedat the anterior splenic tip. ADRENALS: No adrenal nodules. KIDNEYS: Punctate nonobstructive right renal stone. Exophytic subcentimeterright lower pole simple cyst. No hydronephrosis or focal lesion. PELVIS/BLADDER: The bladder is underdistended with moderate circumferentialwall thickening. Anteverted uterus with hypoattenuating fluid within theuterine fundus and mucosal enhancement extending into the bilateral adnexa.Multiloculated cystic enlargement of the right ovary measuring 5.7 cm withinternal thin septation. Unremarkable left ovary.GASTROINTESTINAL: Post surgical changes of probable gastric surgery noted.Mild nonspecific thickening of the gastricantrum. No evidence of bowelobstruction or perienteric inflammation. Partial colonic resection withuncomplicated mid right abdominal anastomosis.. Colonic diverticulosiswithout diverticulitis.PERITONEUM/RETROPERITONEUM: No free air or fluid.VASCULAR: Scattered atherosclerotic calcifications. LYMPHATICS: No enlarged lymph nodes by CT size criteria.BONES AND SOFT TISSUES: No concerning bony lesion identified. Complexsurgical changes are visualized along the anterior abdominal wall witheventration of mesenteric fat.IMPRESSION1. Hypoattenuating fluid within the endometrial cavity with mucosalenhancement extending into the bilateral adnexa. Findings are nonspecificand may be better evaluated with pelvic ultrasound. Differentials may bephysiologic however may also be seen with endometritis or PID. 2. Colonic diverticulosis without diverticulitis.3. Nonobstructive right lower pole stone. No hydronephrosis.4. Hepatic steatosis. Prior cholecystomy.5. Partial colonic resection with uncomplicated anastomosis. Underdistended gastric antrum with mild nonspecific wall thickening may be seenwith physiologic underdistention or gastritis.Preliminary Report Dictated by Resident: Mustapha Duvall MD., have reviewed this study and agree withthe above report.[facility]2021-[facility]-25 22:44:51 Test Item Value Reference Range Interpretation Comments APPEARANCE (test code = Hazy Clear A 5546865657) COLOR (test code = Yellow Yellow 3142063886) PH (test code = 4.8-8.0 0225920996) SP GRAVITY (test code = 1.003-1.030 3228321676) GLU U QUAL (test code = Normal Normal 5657341247) BLOOD (test code = 1+ Negative A 6507688503) KETONES (test code = Negative Negative 2707355527) PROTEIN (test code = Negative Negative 2887-8) UROBILIN (test code = Normal Normal 7568604860) BILIRUBIN (test code = Negative Negative 2888532665) NITRITE (test code = Negative Negative 5222851531) LEUK RASHID (test code = 25/uL Negative A 9475178792) RBC/HPF (test code = See_Comment H [Autom ated message] 4863491023) The system [employer]Stream generated this result transmitted ref erence range: 0 - 3 HP F. The reference range was not used to int erpret this result as normal/abnormal . WBC/HPF (test code = See_Comment H [Autom ated message] 1709784592) The system [employer]Stream generated this result transmitted ref erence range: 0 - 5 HP F. The reference range was not used to int erpret this result as normal/abnormal . BACTERIA (test code = Few Negative A 7532876017) MUCOUS (test code = Slight Negative LPF A 7488797515) SQ EPITH (test code = HPF 2248631203) CA OXALATE (test code = See_Comment H [Au tomated message] 8823521082) The system [employer]Stream generated this result transmitted ref erence range: <=1 HPF. The reference range was not used to int erpret this result as normal/abnormal . HYAL CAST (test code = See_Comment [Aut omated message] 8954346937) The system [employer]Stream generated this result transmitted ref erence range: <=2 LPF. The reference range was not used to int erpret this result as normal/abnormal . Lab Interpretation (test Abnormal code = 50309-5) [facility] 22:23:55 Test Item Value Reference Range Interpretation Comments MAGNESIUM (test code = 6434317861) 1.9 mg/dL 1.7-2.4 Lab Interpretation (test code = Normal 39363-6) [facility]. METABOLIC PANEL (20261)2020-06-20 22:23:35 Test Item Value Reference Range Interpretation Comments NA (test code = 141 mmol/L 135-145 2920205194) K (test code = 4.0 mmol/L 3.5-5.0 9093184893) CL (test code = 108 mmol/L 98-108 5542427966) CO2 TOTAL (test code 24 mmol/L 23-31 = 8983070279) AGAP (test code = 2-16 8077068746) BUN (test code = 9 mg/dL 7-23 9632722976) GLUCOSE (test code = 109 mg/dL 70-110 1069155599) CREATININE (test code 0.79 mg/dL 0.50-1.04 = 1441421566) TOTAL BILI (test code 0.4 mg/dL 0.1-1.1 = 2614069400) CALCIUM (test code = 9.2 mg/dL 8.6-10.6 1417872037) T PROTEIN (test code 7.5 g/dL 6.3-8.2 = 0020761662) ALBUMIN (test code = 4.3 g/dL 3.5-5.0 2362702759) ALK PHOS (test code = 103 U/L 34-122 3903060739) ALTv (test code = 14 U/L 5-35 1742-6) AST(SGOT) (test code 24 U/L 13-40 = 5297679927) eGFR (test code = mL/min/1.73m2 0889206492) APARNA (test code = APARNA) Association of Glomerular Filtration Rate (GFR) and Staging of Kidney Disease* + + +- +| GFR (mL/min/1.73 m2) ?| With Kidney Damage ?| ?Without Kidney Damage+ ------+ ----+ ------+| ?>90 ?| ?Stage one ?| ? Normal ?+ -+ + -+| ?60-89 ?| ?Stage two ?| ? Decreased GFR ? + + +- +| ?30-59 ?| ?Stage three ?| ? Stage three ? + + +- +| ?15-29 ?| ?Stage four ? | ? Stage four ?+ -+ + -+| ?<15 (or dialysis) ? ?| ?Stage five ? | ? Stage five ?+ -+ + -+ *Each stage assumes the associated GFR level has been in effect for at least three months. ?Stages 1 to 5, with or without kidney disease, indicate chronic kidney disease. Notes: Determination of stages one and two (with eGFR >59mL/min/1.73 m2) requires estimation of kidney damage for at least three months as defined by structural or functional abnormalities of the kidney, manifested by either:Pathological abnormalities or Markers of kidney damage (including abnormalities in the composition of the blood or urine or abnormalities in imaging tests). [facility]2021-[facility] 22:23:34 Test Item Value Reference Range Interpretation Comments LIPASE (test code = 0199320096) 181 U/L 0-220 Lab Interpretation (test code = Normal 08942-8) [facility]CBC WITH [id number] 22:04:34 Test Item Value Reference Range Interpretation Comments WBC (test code = See_Comment H [Automated 6690-2) message] The sy stem which generated this result transmitted reference range : 4.30 - 11.10 10*3/?L. The reference range was not used to interpret this result as normal/abnormal . RBC (test code = See_Comment [Automated 789-8) message] The sy stem which generated this result transmitted reference range : 3.93 - 5.25 10*6/?L. The reference range was not used to interpret this result as normal/abnormal . HGB (test code = 14.8 g/dL 11.6-15.0 718-7) HCT (test code = 45.7 % 35.7-45.2 H 4544-3) MCV (test code = 88.2 fL 80.6-95.5 787-2) MCH (test code = 28.6 pg 25.9-32.8 785-6) MCHC (test code = 32.4 g/dL 31.6-35.1 786-4) RDW-SD (test code = 69.4 fL 39.0-49.9 H 32497-7) RDW-CV (test code = 22.4 % 12.0-15.5 H 788-0) PLT (test code = See_Comment [Automated 777-3) message] The sy stem which generated this result transmitted reference range : 166 - 358 10*3/ ?L. The reference r ramesh was not used to interpret this result as normal/abnormal . MPV (test code = 9.2 fL 9.5-12.9 L 48124-5) NRBC/100 WBC (test See_Comment [Automat ed code = 5787928587) message] The system which generated this result transmitted reference range : 0.0 - 10.0 /100 WBCs. The refer ence range was not u sed to interpret th is result as normal/abnormal . NRBC x10^3 (test code <0.01 See_Comment [Auto mated = 1574963018) message] The s ystem which generated this result transmitted reference range : 10*3/?L. The reference range was not used to interpret this result as normal/abnormal . GRAN MAT (NEUT) % 67.1 % (test code = 770-8) IMM GRAN % (test code 0.20 % = 4200027519) LYMPH % (test code = 24.8 % 736-9) MONO % (test code = 6.1 % 5905-5) EOS % (test code = 1.3 % 713-8) BASO % (test code = 0.5 % 706-2) GRAN MAT x10^3(ANC) 8.74 10*3/uL 1.88-7.09 H (test code = 7161403728) IMM GRAN x10^3 (test 0.03 10*3/uL 0.00-0.06 code = 4936099742) LYMPH x10^3 (test code 3.22 10*3/uL 1.32-3.29 = 731-0) MONO x10^3 (test code 0.79 10*3/uL 0.33-0.92 = 742-7) EOS x10^3 (test code = 0.17 10*3/uL 0.03-0.39 711-2) BASO x10^3 (test code 0.06 10*3/uL 0.01-0.07 = 704-7) Lab Interpretation Abnormal (test code = 97794-8) [facility]2020-10-16 13:09:00 Test Item Value Reference Range Interpretation Comments POTASSIUM (test code = K) 3.3 mmol/L 3.4-5.0 L BASIC METABOLIC [id number] 06:02:00 Test Item Value Reference Range Interpretation Comments SODIUM (test code = NA) 140 mmol/L 134-147 N POTASSIUM (test code = 2.9 mmol/L 3.4-5.0 LL K) CHLORIDE (test code = 105 mmol/L 100-108 N CL) CARBON DIOXIDE (test 33 mmol/L 21-32 H code = CO2) ANION GAP (test code = 2.0 GAP calc 4.0-15.0 L GAP) GLUCOSE (test code = 113 MG/DL 70-110 H GLU) BLOOD UREA NITROGEN 4 MG/DL 7-18 L (test code = BUN) GLOMERULAR FILTRATION >=60 max estimate >60 RATE (test code = GFR) estGFR CREATININE (test code = 0.6 MG/DL 0.6-1.0 N CREAT) CALCIUM (test code = CA) 7.8 MG/DL 8.5-10.1 L [id number] 06:02:00 Test Item Value Reference Range Interpretation Comments PHOSPHOROUS (test code = PHOS) 2.8 MG/DL 2.5-4.9 N [id number] 06:02:00 Test Item Value Reference Range Interpretation Comments MAGNESIUM (test code = MAG) 2.2 MG/DL 1.8-2.4 N CBC W/AUTO [id number] 05:45:00 Test Item Value Reference Range Interpretation Comments WHITE BLOOD CELL (test code = 11.1 K/mm3 3.5-11.0 H WBC) RED BLOOD CELL (test code = 3.57 M/mm3 4.70-6.10 L RBC) HEMOGLOBIN (test code = HGB) 9.3 G/DL 10.4-14.9 L HEMATOCRIT (test code = HCT) 30.6 % 31.5-44.1 L MEAN CELL VOLUME (test code = 85.7 Fl 84.5-98.6 N MCV) MEAN CELL HGB (test code = MCH) 26.1 pg 27.0-34.2 L MEAN CELL HGB CONCETRATION 30.4 G/DL 31.5-34.0 L (test code = MCHC) RED CELL DISTRIBUTION WIDTH 15.6 SD 11.5-14.5 H (test code = RDW) PLATELET COUNT (test code = 358 K/mm3 150-450 N PLT) MEAN PLATELET VOLUME (test code 8.80 fL 7.0-10.5 N = MPV) NEUTROPHIL % (test code = NT%) 69.5 % 40-76 N IMMATURE GRANULOCYTE % (test 1.1 % 0.0-5.0 N code = IG%) LYMPHOCYTE % (test code = LY%) 19.1 % 20.5-51.1 L MONOCYTE % (test code = MO%) 7.5 % 1.7-9.3 N EOSINOPHIL % (test code = EO%) 2.6 % 0.0-6.0 N BASOPHIL % (test code = BA%) 0.2 % 0.0-2.0 N NUCLEATED RBC % (test code = 0.0 /100WBC% 0.0-1.0 N NRBC%) NEUTROPHIL # (test code = NT#) 7.8 K/mm3 1.8-7.6 H IMMATURE GRANULOCYTE # (test 0.12 x10 3/uL 0.00-0.03 H code = IG#) LYMPHOCYTE # (test code = LY#) 2.1 K/mm3 0.6-3.2 N MONOCYTE # (test code = MO#) 0.8 K/mm3 0.3-1.1 N EOSINOPHIL # (test code = EO#) 0.3 K/mm3 0.0-0.4 N BASOPHIL # (test code = BA#) 0.0 K/mm3 0.0-0.1 N NUCLEATED RBC # (test code = 0.0 K/mm3 0.0-0.1 N NRBC#) MANUAL DIFF REQUIRED (test code NO DIFF/SCN CRITERIA = MDIFF) [id number] 17:54:00 Test Item Value Reference Range Interpretation Comments POTASSIUM (test code = K) 3.0 mmol/L 3.4-5.0 L m mol/L [id number] 16:07:00 Test Item Value Reference Range Interpretation Comments SURG (test code = SURG) RUN DATE: 12/11/19 [facility] PAGE 1 RUN TIME: 1607 Specimen Inquiry RUN USER: INTERFACE PATIENT: DEB ODEN LOC: [place] U #: [id number] AGE/SX: 49/F ROOM: [facility] RE12/05/19REG DR: Edouard Paz MD : 72 BED: 1 DIS: STATUS: ADM IN TLOC: SPEC #: [id number] RECD: 12/08/19 STATUS: SOUT REQ #: [id number] EMILY: 12/06/[address]: Edouard Paz MD ENTERED: 12/08/19 SP TYPE: SURG OTHR DR: DOES_NOT KNOW Self Referred Per Coello MD, Amanda MD Wabrianna,Norbert Sloan MD, MD, Alan J MD Sarvat, Bilal MD Shah, Jignesh P MDORDERED: SURG PATH LVL 5 COPIES TO: DOES_NOT KNOW Self Referred Per Coello MD [address] [facility] [address] [place], [place] [address] [place] [address] [place] [address] [email or web address] Mari Avalos MD [address] [facility] [address] [place] [address] [place] [address] [facility] [address] [place] [address] [place] [address] [place] [address] [email or web address] CONTINUED ON NEXT PAGE RUN DATE: 12/11/19 [facility] PAGE 2 RUN TIME: 1607 Specimen Inquiry RUN USER: INTERFACE SPEC #: [id number] PATIENT: DEB ODEN #[id number] (Continued) COPIES TO: (Continued) Rey Frederick MD [address] [place] [address] Kallie Castro MD [address] [place] [address] Tima Herrera MD [address] [place] [address] HISTOLOGY: TISSUE ID BLK PCS KENDELL LEV PROCEDURE DISPOSITION ____ ___ ___ ___ SMALL INTESTINE A 1 2 PROCEDURES: SURG PATH LVL 5 (12/09/19-0010) TISSUES: A. SMALL INTESTINE, NOS - SMALL BOWEL CLINICAL HISTORY INTRACTABLE ABD PAIN CPT CODES CPT CODE(S): 21283 , , , , , , FINAL DIAGNOSIS Small intestine, resection: SMALL BOWEL WITH SEROSITIS REACTIVE LYMPH NODES GROSS DESCRIPTION Small bowel. Received in formalin is a segment of small bowel, measuring 23.0 cm in length. There is a row of meron along roughly 1/2 of the specimen running a length of 12.0 cm. The opposite end has a stapled margin and a suture. The serosa of the small bowel is covered in dusky greenish-warren exudate. The small bowel segment is opened to reveal normal mucosal folds. The small bowel segment is greatly narrowed along the stapled line. No areas of CONTINUED ON NEXT PAGE RUN DATE: 12/11/19 [facility] PAGE 3 RUN TIME: 1607 Specimen Inquiry RUN USER: INTERFACE SPEC #: [facility]:[id number] PATIENT: DEB ODEN #[id number] (Continued) GROSS DESCRIPTION (Continued) perforation are noted. No lesions are identified. The stapled margin with the suture is marked with green ink and the opposite end of the small bowel segment at the end of the long row of meron is marked with black ink. Sections through the end of the small bowel segment reveals a staple embedded within the tissue that appears to be a possible previous anastomosis site. Sections through the attached adipose tissue reveal several enlarged lymph nodes present. Vacuum Worker sections are submitted. bk/nr Section code: A1 Stapled margin with suture A2 End of stapled segment of small bowel or second margin marked with black ink A3-A7 Sections through small bowel at 1 cm intervals along first half A8-A11 Sections at 1 cm intervals along stapled path of small bowel A12 Sections of small bowel near embedded meron at end of small bowel segment A13-A15 First lymph node A16 Second lymph node A17-A21 Third lymph node A22 Fourth lymph node Grossing performed at [facility] Pathology, [address] [place] [address], [address], [place] [address]. Sheet Rock Applicator: Sawyer Weber M.D. MICROSCOPIC DESCRIPTION Small bowel. Sections demonstrate small bowel. Portions of small bowel demonstrate serositis with prominent acute and chronic inflammation involving the serosal surface. The etiology of this serositis is not identified in the specimen. The small bowel mucosa is relatively unremarkable with minimal architectural distortion or increased inflammation. Additionally multiple reactive enlarged lymph nodes are identified. The lymph nodes demonstrate a reactive appearance with open sinuses with prominent histiocytes. No dysplasia or malignancy is identified. Signed SIGNATURE ON FILE BriJb M 12/11/19 1607 END OF REPORT - XR CHEST 1 [id number] 09:39:00 [facility] 1970 Sex: F Name: DEB ODEN [facility] : 1970 Age/S: 49 / F [address] [address] Unit #: [id number]: [place] [address] Phys: Dulce Hoff Acct: [id number] Dis Date: Status: ADM IN PHONE #: [phone] Exam Date: 12/11/2019 0842 FAX #: Reason: f/u EXAMS: CPT: [id number] XR CHEST 1 [id number] Fluoro Time: DAP (Gy m2): Air Kerma (mGy): Location: B2 EXAM: XR CHEST 1 VIEW INDICATION: Follow-up COMPARISON: Chest radiograph dated 12/09/2019 TECHNIQUE: AP chest FINDINGS: Lines, tubes and hardware: None. Lungs and pleura: There are low lung volumes. There is unchanged elevation of the righthemidiaphragm. There are persistent interstitial opacities within the right upper lobe. No new focal consolidation is identified. The bilateral costophrenic sulci are sharp. No pneumothorax. Heart and mediastinum: The cardiomediastinal silhouette is stable. Bones: No acute bony abnormality is identified. IMPRESSION: Similar appearance of the chest, with mild nonspecific interstitial opacities within the right upper lobe. at 0939 Reported and signed by: Moses Mendoza M.D. CC: Edouard Paz MD; Dulce Hoff PAGE 1 Signed Report Name: DEB ODEN [facility] : 1970 Age/S: 49 / F [address] [address] #: [id number] Loc: [place] [address] Phys: Dulce Hoff AGACNP Acct: [id number] Dis Date:Status: ADM IN PHONE #: [phone] Exam Date: 12/11/2019 08 FAX #: Reason: f/u EXAMS: CPT: [id number] XR CHEST 1 V 77198 Fluoro Time: DAP (Gy m2): Air Kerma (mGy): (Continued) Technologist: Trinity Bodwen, RT(R); Svitlana Tubbs, RT(R) Trnscb Date/Time: 12/11/2019 (938) [email or web address] Orig Print D/T:S: 12/11/2019 (941) PAGE 2 Signed ReportBASIC METABOLIC [id number] 05:07:00 Test Item Value Reference Range Interpretation Comments SODIUM (test code = NA) 139 mmol/L 134-147 N POTASSIUM (test code = 2.6 mmol/L 3.4-5.0 LL K) CHLORIDE (test code = 102 mmol/L 100-108 N CL) CARBON DIOXIDE (test 33 mmol/L 21-32 H code = CO2) ANION GAP (test code = 4.0 GAP calc 4.0-15.0 N GAP) GLUCOSE (test code = 127 MG/DL 70-110 H GLU) BLOOD UREA NITROGEN 4 MG/DL 7-18 L (test code = BUN) GLOMERULAR FILTRATION >=60 max estimate >60 RATE (test code = GFR) estGFR CREATININE (test code = 0.5 MG/DL 0.6-1.0 L CREAT) CALCIUM (test code = CA) 7.8 MG/DL 8.5-10.1 L CBC W/AUTO [id number] 04:51:00 Test Item Value Reference Range Interpretation Comments WHITE BLOOD CELL (test code = 11.8 K/mm3 3.5-11.0 H WBC) RED BLOOD CELL (test code = 3.79 M/mm3 4.70-6.10 L RBC) HEMOGLOBIN (test code = HGB) 10.0 G/DL 10.4-14.9 L HEMATOCRIT (test code = HCT) 31.5 % 31.5-44.1 N MEAN CELL VOLUME (test code = 83.1 Fl 84.5-98.6 L MCV) MEAN CELL HGB (test code = MCH) 26.4 pg 27.0-34.2 L MEAN CELL HGB CONCETRATION 31.7 G/DL 31.5-34.0 N (test code = MCHC) RED CELL DISTRIBUTION WIDTH 15.8 SD 11.5-14.5 H (test code = RDW) PLATELET COUNT (test code = 384 K/mm3 150-450 N PLT) MEAN PLATELET VOLUME (test code 9.20 fL 7.0-10.5 N = MPV) NEUTROPHIL % (test code = NT%) 73.4 % 40-76 N IMMATURE GRANULOCYTE % (test 1.1 % 0.0-5.0 N code = IG%) LYMPHOCYTE % (test code = LY%) 15.4 % 20.5-51.1 L MONOCYTE % (test code = MO%) 7.6 % 1.7-9.3 N EOSINOPHIL % (test code = EO%) 2.4 % 0.0-6.0 N BASOPHIL % (test code = BA%) 0.1 % 0.0-2.0 N NUCLEATED RBC % (test code = 0.0 /100WBC% 0.0-1.0 N NRBC%) NEUTROPHIL # (test code = NT#) 8.6 K/mm3 1.8-7.6 H IMMATURE GRANULOCYTE # (test 0.13 x10 3/uL 0.00-0.03 H code = IG#) LYMPHOCYTE # (test code = LY#) 1.8 K/mm3 0.6-3.2 N MONOCYTE # (test code = MO#) 0.9 K/mm3 0.3-1.1 N EOSINOPHIL # (test code = EO#) 0.3 K/mm3 0.0-0.4 N BASOPHIL # (test code = BA#) 0.0 K/mm3 0.0-0.1 N NUCLEATED RBC # (test code = 0.0 K/mm3 0.0-0.1 N NRBC#) MANUAL DIFF REQUIRED (test code NO DIFF/SCN CRITERIA = MDIFF) - XR CHEST 1 [id number] 16:25:00 Name: DEB ODEN [facility] : 1970 Age/S: 49 / F [address] [address] Unit #: [id number] Loc: [place] [address] Phys: Dulce HoffJEANNE Acct: [id number] Dis Date: Status: ADMIN PHONE #: [phone] Exam Date: 12/09/2019 1619 FAX #: Reason: SOB EXAMS: CPT: [id number] XR CHEST 1 V 69973 Fluoro Time: DAP (Gy m2): Air Kerma (mGy): CHEST 1 VIEW CLINICAL INFORMATION: SOB COMPARISON: None FINDINGS: The lungs are underexpanded. Mild central pulmonary vascular congestion is noted. Mild interstitial thickening is also seen in the inferior right upper lobe. No pneumothorax or pleural effusion is present. The cardiac silhouette is normal in size. The bones are grossly intact. IMPRESSION: 1. Shallow inspiration. 2. Pulmonary vascular congestion. 3. Nonspecific mild interstitial thickening in the right upper lobe. LOCATION: B2 at 9478 Reported and signed by: Aaron Cao M.D. CC: Edouard Paz MD; Dulce Hoff PAGE 1 Signed Report Name: DEB ODEN [facility] : 1970 Age/S: 49 / F [address] [address] Unit #: [id number] Loc: [place] [address] Phys: Dulce HoffJEANNE Acct: [id number] Dis Date: Status: ADM IN PHONE #: [phone] Exam Date: 12/09/2019 1611 FAX #: Reason: SOB EXAMS: CPT: [id number] XR CHEST 1 V 28459 Fluoro Time: DAP (Gy m2): Air Kerma (mGy): (Continued) Technologist: Svitlana Tubbs, RT(R) Trnscb Date/Time: 12/09/2019 (3506) [email or web address] Orig Print D/T: S: 12/09/2019 (0645) PAGE 2 Signed ReportBASIC METABOLIC [id number] 05:11:00 Test Item Value Reference Range Interpretation Comments SODIUM (test code = NA) 139 mmol/L 134-147 N POTASSIUM (test code = 3.0 mmol/L 3.4-5.0 L K) CHLORIDE (test code = 107 mmol/L 100-108 N CL) CARBON DIOXIDE (test 28 mmol/L 21-32 N code = CO2) ANION GAP (test code = 4.0 GAP calc 4.0-15.0 N GAP) GLUCOSE (test code = 127 MG/DL 70-110 H GLU) BLOOD UREA NITROGEN 5 MG/DL 7-18 L (test code = BUN) GLOMERULAR FILTRATION >=60 max estimate >60 RATE (test code = GFR) estGFR CREATININE (test code = 0.6 MG/DL 0.6-1.0 N CREAT) CALCIUM (test code = CA) 7.9 MG/DL 8.5-10.1 L BASIC METABOLIC [id number] 01:43:00 Test Item Value Reference Range Interpretation Comments SODIUM (test code = NA) 140 mmol/L 134-147 N POTASSIUM (test code = 3.0 mmol/L 3.4-5.0 L K) CHLORIDE (test code = 107 mmol/L 100-108 CL) CARBON DIOXIDE (test 29 mmol/L 21-32 N code = CO2) ANION GAP (test code = 4.0 GAP calc 4.0-15.0 N GAP) GLUCOSE (test code = 136 MG/DL 70-110 H GLU) BLOOD UREA NITROGEN 6 MG/DL 7-18 L (test code = BUN) GLOMERULAR FILTRATION >=60 max estimate >60 RATE (test code = GFR) estGFR CREATININE (test code = 0.5 MG/DL 0.6-1.0 L CREAT) CALCIUM (test code = CA) 7.8 MG/DL 8.5-10.1 L BASIC METABOLIC [id number] 06:35:00 Test Item Value Reference Range Interpretation Comments SODIUM (test code = NA) 147 mmol/L 134-147 N POTASSIUM (test code = 2.6 mmol/L 3.4-5.0 LL K) CHLORIDE (test code = 118 mmol/L 100-108 H CL) CARBON DIOXIDE (test 24 mmol/L 21-32 N code = CO2) ANION GAP (test code = 5.0 GAP calc 4.0-15.0 N GAP) GLUCOSE (test code = 111 MG/DL 70-110 H GLU) BLOOD UREA NITROGEN 10 MG/DL 7-18 N (test code = BUN) GLOMERULAR FILTRATION >=60 max estimate >60 RATE (test code = GFR) estGFR CREATININE (test code = 0.4 MG/DL 0.6-1.0 L CREAT) CALCIUM (test code = CA) 6.4 MG/DL 8.5-10.1 LL CBC W/AUTO [id number] 06:04:00 Test Item Value Reference Range Interpretation Comments WHITE BLOOD CELL (test code = 11.3 K/mm3 3.5-11.0 H WBC) RED BLOOD CELL (test code = 3.61 M/mm3 4.70-6.10 L RBC) HEMOGLOBIN (test code = HGB) 9.7 G/DL 10.4-14.9 L HEMATOCRIT (test code = HCT) 31.8 % 31.5-44.1 N MEAN CELL VOLUME (test code = 88.1 Fl 84.5-98.6 N MCV) MEAN CELL HGB (test code = MCH) 26.9 pg 27.0-34.2 L MEAN CELL HGB CONCETRATION 30.5 G/DL 31.5-34.0 L (test code = MCHC) RED CELL DISTRIBUTION WIDTH 15.9 SD 11.5-14.5 H (test code = RDW) PLATELET COUNT (test code = 338 K/mm3 150-450 N PLT) MEAN PLATELET VOLUME (test code 9.40 fL 7.0-10.5 N = MPV) NEUTROPHIL % (test code = NT%) 76.1 % 40-76 H IMMATURE GRANULOCYTE % (test 1.2 % 0.0-5.0 N code = IG%) LYMPHOCYTE % (test code = LY%) 13.5 % 20.5-51.1 L MONOCYTE % (test code = MO%) 9.0 % 1.7-9.3 N EOSINOPHIL % (test code = EO%) 0.1 % 0.0-6.0 N BASOPHIL % (test code = BA%) 0.1 % 0.0-2.0 N NUCLEATED RBC % (test code = 0.3 /100WBC% 0.0-1.0 N NRBC%) NEUTROPHIL # (test code = NT#) 8.6 K/mm3 1.8-7.6 H IMMATURE GRANULOCYTE # (test 0.13 x10 3/uL 0.00-0.03 H code = IG#) LYMPHOCYTE # (test code = LY#) 1.5 K/mm3 0.6-3.2 N MONOCYTE # (test code = MO#) 1.0 K/mm3 0.3-1.1 N EOSINOPHIL # (test code = EO#) 0.0 K/mm3 0.0-0.4 N BASOPHIL # (test code = BA#) 0.0 K/mm3 0.0-0.1 N NUCLEATED RBC # (test code = 0.0 K/mm3 0.0-0.1 N NRBC#) MANUAL DIFF REQUIRED (test code NO DIFF/SCN CRITERIA = MDIFF) [id number] 05:47:00 Test Item Value Reference Range Interpretation Comments PHOSPHOROUS (test code = PHOS) 2.3 MG/DL 2.5-4.9 L [id number] 05:47:00 Test Item Value Reference Range Interpretation Comments MAGNESIUM (test code = MAG) 2.2 MG/DL 1.8-2.4 N COMPREHENSIVE METABOLIC [id number] 05:47:00 Test Item Value Reference Range Interpretation Comments SODIUM (test code = NA) 144 mmol/L 134-147 N POTASSIUM (test code = 3.9 mmol/L 3.4-5.0 N K) CHLORIDE (test code = 114 mmol/L 100-108 H CL) CARBON DIOXIDE (test 25 mmol/L 21-32 N code = CO2) ANION GAP (test code = 5.0 GAP calc 4.0-15.0 N GAP) GLUCOSE (test code = 145 MG/DL 70-110 H GLU) BLOOD UREA NITROGEN 14 MG/DL 7-18 N (test code = BUN) GLOMERULAR FILTRATION >=60 max estimate >60 RATE (test code = GFR) estGFR CREATININE (test code = 0.7 MG/DL 0.6-1.0 N CREAT) TOTAL PROTEIN (test code 6.0 G/DL 6.4-8.2 L = PROT) ALBUMIN (test code = 2.1 G/DL 3.4-5.0 L ALB) GLOBULIN (test code = 3.9 GM/dL GLOB) ALBUMIN/GLOBULIN RATIO 0.5 RATIO 1.2-2.2 L (test code = A/G) CALCIUM (test code = CA) 7.7 MG/DL 8.5-10.1 L BILIRUBIN TOTAL (test 0.20 MG/DL 0.2-1.2 N code = BILT) SGOT/AST (test code = 16 Unit/L 15-37 N AST) SGPT/ALT (test code = 12 Unit/L 12-78 N ALT) ALKALINE PHOSPHATASE 59 Unit/L 45-117 N TOTAL (test code = ALKP) PROTHROMBIN [id number] 05:28:00 Test Item Value Reference Range Interpretation Comments PT PATIENT (test code = PTP) 14.2 SECONDS 9.3-12.9 H INTERNATIONAL NORMAL RATIO 1.25 INR Unit 0.8-1.2 H (test code = INR) COMPREHENSIVE METABOLIC [id number] 05:28:00 Test Item Value Reference Range Interpretation Comments SODIUM (test code = NA) 144 mmol/L 134-147 N POTASSIUM (test code = K) 3.9 mmol/L 3.4-5.0 N CHLORIDE (test code = CL) 114 mmol/L 100-108 H CARBON DIOXIDE (test code = CO2) 25 mmol/L 21-32 N ANION GAP (test code = GAP) 5.0 GAP calc 4.0-15.0 N GLUCOSE (test code = GLU) 145 MG/DL 70-110 H BLOOD UREA NITROGEN (test code = 14 MG/DL 7-18 N BUN) GLOMERULAR FILTRATION RATE (test estGFR >60 code = GFR) CREATININE (test code = CREAT) MG/DL 0.6-1.0 TOTAL PROTEIN (test code = PROT) G/DL 6.4-8.2 ALBUMIN (test code = ALB) G/DL 3.4-5.0 GLOBULIN (test code = GLOB) GM/dL ALBUMIN/GLOBULIN RATIO (test RATIO 1.2-2.2 code = A/G) CALCIUM (test code = CA) 7.7 MG/DL 8.5-10.1 L BILIRUBIN TOTAL (test code = MG/DL 0.2-1.2 BILT) SGOT/AST (test code = AST) Unit/L 15-37 SGPT/ALT (test code = ALT) Unit/L 12-78 ALKALINE PHOSPHATASE TOTAL (test Unit/L 45-117 code = ALKP) CBC W/AUTO [id number] 05:19:00 Test Item Value Reference Range Interpretation Comments WHITE BLOOD CELL (test code = 17.7 K/mm3 3.5-11.0 H WBC) RED BLOOD CELL (test code = 3.64 M/mm3 4.70-6.10 L RBC) HEMOGLOBIN (test code = HGB) 9.8 G/DL 10.4-14.9 L HEMATOCRIT (test code = HCT) 31.4 % 31.5-44.1 L MEAN CELL VOLUME (test code = 86.3 Fl 84.5-98.6 N MCV) MEAN CELL HGB (test code = MCH) 26.9 pg 27.0-34.2 L MEAN CELL HGB CONCETRATION 31.2 G/DL 31.5-34.0 L (test code = MCHC) RED CELL DISTRIBUTION WIDTH 15.9 SD 11.5-14.5 H (test code = RDW) PLATELET COUNT (test code = 362 K/mm3 150-450 N PLT) MEAN PLATELET VOLUME (test code 9.70 fL 7.0-10.5 N = MPV) NEUTROPHIL % (test code = NT%) 88.1 % 40-76 H IMMATURE GRANULOCYTE % (test 1.4 % 0.0-5.0 N code = IG%) LYMPHOCYTE % (test code = LY%) 5.4 % 20.5-51.1 L MONOCYTE % (test code = MO%) 4.9 % 1.7-9.3 N EOSINOPHIL % (test code = EO%) 0.1 % 0.0-6.0 N BASOPHIL % (test code = BA%) 0.1 % 0.0-2.0 N NUCLEATED RBC % (test code = 0.2 /100WBC% 0.0-1.0 N NRBC%) NEUTROPHIL # (test code = NT#) 15.6 K/mm3 1.8-7.6 H IMMATURE GRANULOCYTE # (test 0.24 x10 3/uL 0.00-0.03 H code = IG#) LYMPHOCYTE # (test code = LY#) 1.0 K/mm3 0.6-3.2 N MONOCYTE # (test code = MO#) 0.9 K/mm3 0.3-1.1 N EOSINOPHIL # (test code = EO#) 0.0 K/mm3 0.0-0.4 N BASOPHIL # (test code = BA#) 0.0 K/mm3 0.0-0.1 N NUCLEATED RBC # (test code = 0.0 K/mm3 0.0-0.1 N NRBC#) MANUAL DIFF REQUIRED (test code NO DIFF/SCN CRITERIA = MDIFF) UR HCG [id number] 14:15:00 Test Item Value Reference Range Interpretation Comments UR HCG QUAL (test code = HCGQLU) NEGATIVE NEGATIVE COMPREHENSIVE METABOLIC [id number] 13:11:00 Test Item Value Reference Range Interpretation Comments SODIUM (test code = NA) 142 mmol/L 134-147 N POTASSIUM (test code = 4.0 mmol/L 3.4-5.0 N K) CHLORIDE (test code = 113 mmol/L 100-108 H CL) CARBON DIOXIDE (test 24 mmol/L 21-32 N code = CO2) ANION GAP (test code = 5.0 GAP calc 4.0-15.0 N GAP) GLUCOSE (test code = 138 MG/DL 70-110 H GLU) BLOOD UREA NITROGEN 13 MG/DL 7-18 N (test code = BUN) GLOMERULAR FILTRATION >=60 max estimate >60 RATE (test code = GFR) estGFR CREATININE (test code = 0.9 MG/DL 0.6-1.0 N CREAT) TOTAL PROTEIN (test code 7.0 G/DL 6.4-8.2 N = PROT) ALBUMIN (test code = 2.4 G/DL 3.4-5.0 L ALB) GLOBULIN (test code = 4.6 GM/dL GLOB) ALBUMIN/GLOBULIN RATIO 0.5 RATIO 1.2-2.2 L (test code = A/G) CALCIUM (test code = CA) 8.3 MG/DL 8.5-10.1 L BILIRUBIN TOTAL (test 0.30 MG/DL 0.2-1.2 N code = BILT) SGOT/AST (test code = 9 Unit/L 15-37 L AST) SGPT/ALT (test code = 14 Unit/L 12-78 N ALT) ALKALINE PHOSPHATASE 75 Unit/L 45-117 N TOTAL (test code = ALKP) PROTHROMBIN [id number] 12:51:00 Test Item Value Reference Range Interpretation Comments PT PATIENT (test code = PTP) 15.6 SECONDS 9.3-12.9 H INTERNATIONAL NORMAL RATIO 1.37 INR Unit 0.8-1.2 H (test code = INR) THROMBOPLASTIN TIME [id number] 12:51:00 Test Item Value Reference Range Interpretation Comments THROMBOPLASTIN TIME PARTIAL 24.2 SECONDS 26-35 L (test code = PTT) CBC W/AUTO [id number] 12:46:00 Test Item Value Reference Range Interpretation Comments WHITE BLOOD CELL (test code = 17.4 K/mm3 3.5-11.0 H WBC) RED BLOOD CELL (test code = 3.66 M/mm3 4.70-6.10 L RBC) HEMOGLOBIN (test code = HGB) 9.9 G/DL 10.4-14.9 L HEMATOCRIT (test code = HCT) 31.3 % 31.5-44.1 L MEAN CELL VOLUME (test code = 85.5 Fl 84.5-98.6 N MCV) MEAN CELL HGB (test code = MCH) 27.0 pg 27.0-34.2 N MEAN CELL HGB CONCETRATION 31.6 G/DL 31.5-34.0 N (test code = MCHC) RED CELL DISTRIBUTION WIDTH 15.7 SD 11.5-14.5 H (test code = RDW) PLATELET COUNT (test code = 370 K/mm3 150-450 N PLT) MEAN PLATELET VOLUME (test code 9.90 fL 7.0-10.5 N = MPV) NEUTROPHIL % (test code = NT%) 89.1 % 40-76 H IMMATURE GRANULOCYTE % (test 3.8 % 0.0-5.0 N code = IG%) LYMPHOCYTE % (test code = LY%) 4.2 % 20.5-51.1 L MONOCYTE % (test code = MO%) 2.8 % 1.7-9.3 N EOSINOPHIL % (test code = EO%) 0.0 % 0.0-6.0 N BASOPHIL % (test code = BA%) 0.1 % 0.0-2.0 N NUCLEATED RBC % (test code = 0.0 /100WBC% 0.0-1.0 N NRBC%) NEUTROPHIL # (test code = NT#) 15.5 K/mm3 1.8-7.6 H IMMATURE GRANULOCYTE # (test 0.66 x10 3/uL 0.00-0.03 H code = IG#) LYMPHOCYTE # (test code = LY#) 0.7 K/mm3 0.6-3.2 N MONOCYTE # (test code = MO#) 0.5 K/mm3 0.3-1.1 N EOSINOPHIL # (test code = EO#) 0.0 K/mm3 0.0-0.4 N BASOPHIL # (test code = BA#) 0.0 K/mm3 0.0-0.1 N NUCLEATED RBC # (test code = 0.0 K/mm3 0.0-0.1 N NRBC#) - XR ABDOMEN 1 [id number] 11:32:00 [facility] 1970 Age/S: 49 / F [address] Unit #: [id number] Loc: [place] [address] Phys: Edouard Paz MD Acct: [id number] Dis Date: Status: ADM IN PHON E #: [phone] Exam Date: 12/06/2019 1118 FAX #: Reason: NG TUBE PLACEMENT CONFIRM EXAMS: CPT: [id number] XR ABDOMEN 1 V 05475 Fluoro Time: DAP (Gy m2): Air Kerma (mGy): LOCATION: T18 EXAM: - XR ABDOMEN 1 V INDICATION: NG TUBE PLACEMENT CONFIRM, COMPARISON: Abdominal radiographs December 05, 2019. TECHNIQUE: AP radiograph of the abdomen FINDINGS: NG tube tip and side port within stomach. Small bowelloops measure up to 3.2 cm. This is decreased from the previous exam. Patient status post cholecystectomy. Small amount of contrast within the renal collecting systems. IMPRESSION: Decreased small bowel loops measuring up to 3.2 cm. at 1132 Reported and signed by: Erwin Kwong M.D. CC: Edouard Paz MD PAGE 1 Signed Report Name: DEB ODEN [facility] : 1970 Age/S: 49 / F [address] [facility] Unit #: [id number] Loc: [place] [address] Phys: Edouard Paz MD Acct: [id number] Dis Date: Status: ADM IN PHONE #: [phone] Date: 12/06/2019 1118 FAX #: Reason: NG TUBE PLACEMENT CONFIRM EXAMS: CPT: [id number] XR ABDOMEN 1 V 94970 Fluoro Time: DAP (Gy m2): Air Kerma (mGy): (Continued) Technologist: Janina Boles RT(R) Trnscb Date/Time: 12/06/2019 (3609) [email or web address] Orig Print D/T: S: 12/06/2019 (7983) PAGE 2 Signed Report- CTA ABD PEL W [id number] 11:21:00 Name: DEB ODEN : 1970 Age/S: 49 / F [address] [address] Unit #: [id number] Loc: [place] [address] Phys: Edouard Paz MD Acct: [id number] Dis Date: Status: ADM IN PHONE #: [phone] Exam Date: 12/06/2019 1030 FAX #: Reason: EVALUATE for mesenteric ischemia vs obstruction EXAMS: CPT: [id number] CTA ABD PEL W CONT 47400 Examination: - CTA ABD PEL W CONT Clinical Indication: EVALUATE for mesenteric ischemia vs obstruction Location code: C3 Comparison: None TECHNIQUE: CT angiography abdomen, and pelvis was performed from the level of the diaphragm to the upper thighsafter administration of iodinated contrast. Coronal and sagittal reconstructions were obtained. 100 mL Isovue-370 contrast material was used for the exam. Patient's GFR is greater than 60 with a Cr of 1.0. 3-D reconstruction imaging with postprocessing was also performed of the arterial vessels. All CT scans are performed using radiation dose reduction technique. Technical factors are evaluated and adjusted to insure appropriate moderation of exposure. Automated dose management technology is appliedto adjust the radiation dose to minimize exposure while achieving a diagnostic quality image. FINDINGS: ABDOMINAL AND PELVIC ARTERIES: ABDOMINAL AORTA: Unremarkable. CELIAC TRUNK: Unremarkable. SMA: Unremarkable. ROMAN: Unremarkable. RENAL ARTERIES: Unremarkable. COMMON ILIAC ARTERIES: Unremarkable. EXTERNAL ILIAC ARTERIES: Unremarkable. INTERNAL ILIAC ARTERIES: Unremarkable. ABDOMEN AND PELVIS: LOWER T HORAX: Bibasilar subsegmental atelectasis is present. HEPATOBILIARY: There is diffuse hypoattenuation of the hepatic parenchyma suggestive of hepatic steatosis. No focal hepatic lesion is seen. No intrahepatic or extrahepatic biliary dilatation is seen. No portal venous gas is seen. GALLBLADDER: Surgic ally absent PANCREAS: Unremarkable. PAGE 1 Signed Report (CONTINUED) Name: DEB ODENland : 1970 Age/S: 49 / F [address] [address] Unit #: [id number] Loc: [place] [address] Phys: Edouard Paz MD Acct: [id number] Dis Date: Status: ADM IN PHONE #: [phone] Exam Date: 12/05 1030 FAX #: Reason: EVALUATE for mesenteric ischemia vs obstruction EXAMS: CPT: [id number] CTAABD PEL W CONT 14391 (Continued) SPLEEN: Unremarkable. ADRENALS: Unremarkable. KIDNEYS: There is noevidence of renal calculus. There is no evidence of hydronephrosis of either kidney. No solid renal lesion is identified. BLADDER/REPRODUCTIVE SYSTEM: Evaluation of the bladder is limited, but no obvious bladder abnormality is present. Endometrium appears to be thickened measuring 1.7 cm in thickness.GASTROINTESTINAL: Mildly dilated small bowel loops are seen in the central abdomen measuring up to 3.7 cm in diameter. Suspected transition point is identified in the right lower quadrant (series 2, image 124). Postsurgical changes are noted at the cecum likely from prior appendectomy. 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 LYMPHATICS: No enlarged lymph nodes by CT size criteria. PERITONEUM: Large amount of free air is noted throughout the abdomen. This is concerning for bowel perforation although no defined bowel wall defect is clearly seen. There are small amountof free fluid noted at the right lower quadrant. BONES AND SOFT TISSUES: Unremarkable. IMPRESSION: 1. Large amount of free air throughout the abdomen concerning for bowel perforation, although focal bowel wall defect is not clearly identified. 2. Mildly dilated small bowel loops in the central abdomen with transition point suspected in the right lower quadrant concerning for mild small bowel obstruction. 3. Unremarkable vasculature of the abdomen and pelvis with no CT findings suspicious for mesenteric ischemia. 4. Hepatic steatosis. Findings of concern for bowel perforation were communicated to patient's nurse José Miguel by telephone on 12/06/2019 at 11:16 AM. FOR INTERNAL CODING PURPOSES ONLY RESULT CODE: CVR at 1121 Reported and signed by: Deedee Francis MD PAGE 2 Signed Report (CONTINUED) Name: DEB ODENland : 1970 Age/S: 49 / F [address] [address] Unit#: [id number] Loc: [place] [address] Phys: Edouard Paz MD Acct: [id number] Dis Date: Status: ADMIN PHONE #: [phone] Exam Date: 12/06/2019 1030 FAX #: Reason: EVALUATE for mesenteric ischemia vs obstruction EXAMS: CPT: [id number] CTA ABD PEL W CONT 19040 (Continued) CC: Edouard Paz MD Technologist:Janina Boles, RT(R) CTDI: DLP: Trnscb Date/Time: 12/06/2019 (112) [email or web address] Orig PrintD/T: S: 12/06/2019 (1124) PAGE 3 Signed Report- XR ABDOMEN 1 [id number] 17:48:00 Name: DEB ODEN [place] : 1970 Age/S: 49 / F [address] [address] Unit #: [id number] Loc: [place] [address] Phys: Jann Godwin MD Acct: [id number] Dis Date: Status: ADM IN PHONE #: [phone] Exam Date: 12/05/2019 1740 FAX #: Reason: evalute for ileus and sbo EXAMS: CPT: [id number] XR ABDOMEN 1 V 80192 Fluoro Time: DAP (Gy m2): Air Kerma (mGy): Location H 31 EXAM: ABDOMEN AP History: Distention. Ileus/small bowel obstruction Comparison: None Findings: Multiple distended gas-filled small bowel loops filling and distending the abdomen. These measure up to 4.7 cm diameter. The colon is relatively gasless. Cholecystectomy clips are seen. Osseous structures are unremarkable. Impression: Multiple gas-filled distended small bowel loops filling and distending the abdomen. Relatively gasless colon. Findings may indicate an early small bowel obstruction versus. Small bowel ileus is the secondary consideration. at 1748 Reported and signed by: Zulma Leyva MD CC: Jann Tobias; Norbert Yepez MD PAGE 1 Signed Report Name: DEB ODEN : 1970 Age/S: 49 / F [address] [address] Unit #: [id number] Loc: [place] [address] Phys: Jann Godwin MD Acct: [id number] Dis Date: Status: ADM IN PHONE #: [phone] Exam Date: 12/05/20191739 FAX #: Reason: evalute for ileus and sbo EXAMS: CPT: [id number] XR ABDOMEN 1 V 82213 Fluoro Time: DAP (Gym2): Air Kerma (mGy): (Continued) Technologist: Rishabh Morrow, RT(R)(CT) Trnscb Date/Time: 12/05/2019 (1747) [email or web address] Orig Print D/T: S: 12/05/2019 (0362) PAGE 2 Signed ReportCBC W/AUTO [id number] 13:50:00 Test Item Value Reference Range Interpretation Comments WHITE BLOOD CELL (test code = 20.5 K/mm3 3.5-11.0 H WBC) RED BLOOD CELL (test code = 3.79 M/mm3 4.70-6.10 L RBC) HEMOGLOBIN (test code = HGB) 10.3 G/DL 10.4-14.9 L HEMATOCRIT (test code = HCT) 32.6 % 31.5-44.1 N MEAN CELL VOLUME (test code = 86.0 Fl 84.5-98.6 N MCV) MEAN CELL HGB (test code = MCH) 27.2 pg 27.0-34.2 N MEAN CELL HGB CONCETRATION 31.6 G/DL 31.5-34.0 N (test code = MCHC) RED CELL DISTRIBUTION WIDTH 15.7 SD 11.5-14.5 H (test code = RDW) PLATELET COUNT (test code = 316 K/mm3 150-450 N PLT) MEAN PLATELET VOLUME (test code 9.30 fL 7.0-10.5 N = MPV) NEUTROPHIL % (test code = NT%) 91.4 % 40-76 H IMMATURE GRANULOCYTE % (test 3.1 % 0.0-5.0 N code = IG%) LYMPHOCYTE % (test code = LY%) 3.0 % 20.5-51.1 L MONOCYTE % (test code = MO%) 2.4 % 1.7-9.3 N EOSINOPHIL % (test code = EO%) 0.0 % 0.0-6.0 N BASOPHIL % (test code = BA%) 0.1 % 0.0-2.0 N NUCLEATED RBC % (test code = 0.0 /100WBC% 0.0-1.0 N NRBC%) NEUTROPHIL # (test code = NT#) 18.7 K/mm3 1.8-7.6 H IMMATURE GRANULOCYTE # (test 0.64 x10 3/uL 0.00-0.03 H code = IG#) LYMPHOCYTE # (test code = LY#) 0.6 K/mm3 0.6-3.2 N MONOCYTE # (test code = MO#) 0.5 K/mm3 0.3-1.1 N EOSINOPHIL # (test code = EO#) 0.0 K/mm3 0.0-0.4 N BASOPHIL # (test code = BA#) 0.0 K/mm3 0.0-0.1 N NUCLEATED RBC # (test code = 0.0 K/mm3 0.0-0.1 N NRBC#) MANUAL DIFF REQUIRED (test code NO DIFF/SCN CRITERIA = MDIFF) UA RFLX MICR CULT IF [id number] 10:38:00 Test Item Value Reference Range Interpretation Comments UA COLOR (test code = YELLOW discript YEL/STRAW COLU) UA APPEARANCE (test code HAZY discript CLEAR A = APPU) UA GLUCOSE DIPSTICK (test NEGATIVE mg/dL NEG code = DGLUU) UA BILIRUBIN DIPSTICK NEGATIVE mg/dL NEG (test code = BILU) UA KETONE DIPSTICK (test NEGATIVE mg/dL NEG code = KETU) UA SPECIFIC GRAVITY (test 1.015 SG 1.005-1.030 code = SGU) UA BLOOD DIPSTICK (test 1+ mg/DL NEG A code = NARESH) UA PH DIPSTICK (test code 6.0 pH UNITS 5.0-7.0 = MIRIAN) UA PROTEIN DIPSTICK (test TRACE mg/dL NEG A code = PROU) UA UROBILINIOGEN DIPSTICK 0.2 mg/dL <2.0 (test code = URO) UA NITRITE DIPSTICK (test NEGATIVE SCREEN NEG code = RUBIA) UA LEUKOCYTE ESTERASE NEGATIVE Leuk/mcL NEGATIVE DIPSTICK (test code = LEUU) UA WBC (test code = WBCU) 0-1 #WBC/HPF 0-3 UA RBC (test code = RBCU) 1-3 #RBC/HPF 0-3 UA BACTERIA (test code = NONE SEEN /HPF NONE-TRACE BACU) UA SQUAMOUS CELLS (test TRACE /HPF NONE code = SQU) UA MUCUS (test code = 2+ /LPF NONE SEEN A MUCU) UA CULTURE NEEDED? (test NO, WBC<10 Criteria Culture CHK code = UACULT) Indication for culture: Suprapubic PainUA RFLX MICR CULT IF [id number] 10:37:00 Test Item Value Reference Range Interpretation Comments UA COLOR (test code = YELLOW discript YEL/STRAW COLU) UA APPEARANCE (test code HAZY discript CLEAR A = APPU) UA GLUCOSE DIPSTICK (test NEGATIVE mg/dL NEG code = DGLUU) UA BILIRUBIN DIPSTICK NEGATIVE mg/dL NEG (test code = BILU) UA KETONE DIPSTICK (test NEGATIVE mg/dL NEG code = KETU) UA SPECIFIC GRAVITY (test 1.015 SG 1.005-1.030 code = SGU) UA BLOOD DIPSTICK (test 1+ mg/DL NEG A code = NARESH) UA PH DIPSTICK (test code 6.0 pH UNITS 5.0-7.0 = MIRIAN) UA PROTEIN DIPSTICK (test TRACE mg/dL NEG A code = PROU) UA UROBILINIOGEN DIPSTICK 0.2 mg/dL <2.0 (test code = URO) UA NITRITE DIPSTICK (test NEGATIVE SCREEN NEG code = RUBIA) UA LEUKOCYTE ESTERASE NEGATIVE Leuk/mcL NEGATIVE DIPSTICK (test code = LEUU) UA WBC (test code = WBCU) 0-1 #WBC/HPF 0-3 UA RBC (test code = RBCU) 1-3 #RBC/HPF 0-3 UA BACTERIA (test code = NONE SEEN /HPF NONE-TRACE BACU) UA SQUAMOUS CELLS (test TRACE /HPF NONE code = SQU) UA CULTURE NEEDED? (test NO, WBC<10 Criteria Culture CHK code = UACULT) Indication for culture: Suprapubic PainUA RFLX MICR CULT IF [id number] 10:18:00 Test Item Value Reference Range Interpretation Comments UA COLOR (test code = COLU) YELLOW discript YEL/STRAW UA APPEARANCE (test code = HAZY discript CLEAR A APPU) UA GLUCOSE DIPSTICK (test NEGATIVE mg/dL NEG code = DGLUU) UA BILIRUBIN DIPSTICK (test NEGATIVE mg/dL NEG code = BILU) UA KETONE DIPSTICK (test NEGATIVE mg/dL NEG code = KETU) UA SPECIFIC GRAVITY (test 1.015 SG 1.005-1.030 code = SGU) UA BLOOD DIPSTICK (test 1+ mg/DL NEG A code = NARESH) UA PH DIPSTICK (test code = 6.0 pH UNITS 5.0-7.0 MIRIAN) UA PROTEIN DIPSTICK (test TRACE mg/dL NEG A code = PROU) UA UROBILINIOGEN DIPSTICK 0.2 mg/dL <2.0 (test code = URO) UA NITRITE DIPSTICK (test NEGATIVE SCREEN NEG code = RUBIA) UA LEUKOCYTE ESTERASE NEGATIVE Leuk/mcL NEGATIVE DIPSTICK (test code = LEUU) UA CULTURE NEEDED? (test Criteria Culture CHK code = UACULT) Indication for culture: Suprapubic PainSED [id number] 19:34:00 Test Item Value Reference Range Interpretation Comments SED RATE (test code = SEDW) 34 mm/hr 0-20 H C REACTIVE [id number] 18:47:00 Test Item Value Reference Range Interpretation Comments C REACTIVE PROTEIN (test code = 18.500 MG/DL 0.000-0.3 H CRP) - US ABDOMEN [id number] 15:31:00 Name: DEB ODEN [place] : 1970 Age/S: 49 / F [address] [address] Unit #: [id number] Loc: [place] [address] Phys: Edouard Paz MD Acct: [id number] Dis Date: Status: ADM IN PHONE #: [phone] Exam Date: 12/04/2019 6264 FAX #: Reason: abd pain EXAMS: CPT: [id number] US ABDOMEN COMPLETE 63712 EXAMINATION: - US ABDOMEN COMPLETE. LOCATION: B2. HISTORY: abd pain. COMPARISON: None. TECHNIQUE: Ultrasound imaging of the liver, gallbladder, biliary tract, spleen, pancreas, kidneys, aorta, and IVC was performed. FINDINGS: The liver is normal in size, measuring 16.1 cm in length. Echogenicity of the hepatic parenchyma is within normal limits. No focal liver masses are identified.The main portal vein is patent and demonstrates appropriate direction of flow. There has been prior c holecystectomy. There is no intra or extrahepatic bile duct dilatation with the common bile duct measuring 6 mm. The spleen measures 12.7 x 4.5 x 3.3 cm with a splenic index of 188, which is within normal limits. No focal masses are identified within the spleen. The pancreatic head and body appear within normal limits. The pancreatic tail is obscured by overlying bowel gas. The visualized portions of the abdominal aorta and IVC are normal in caliber. The kidneys are normal in size and appearance. The right kidney measures 10.6 cm, and the left kidney measures 11.8 cm in length. There is no evidence of renal mass, hydronephrosis or urolithiasis. IMPRESSION: Negative abdominal ultrasound exam. at 1531 Reported and signed by: Samir Bose M.D. PAGE 1 Signed Report (CONTINUED) Name: DEB ODEN [place] : 1970 Age/S: 49 / F [address] [address] Unit #: [id number] Loc: [place] [address] Phys: Edouard Paz MD Acct: [id number] Dis Date: Status: ADM IN PHONE #: [phone] Exam Date: 12/04/2019 4534 FAX #: Reason: abd pain EXAMS: CPT: [id number] US ABDOMEN COMPLETE 56690 (Continued) CC: Edouard Paz MD; Norbert Yepez MD Technologist: RT Richmond(R),NOLAN(AB) Trnscb Date/Time: 12/04/2019 (1531) [email or web address] PAGE2 Signed Report Name: DEB ODEN ADAMAgapito Diamondhead : 1970 Age/S: 49 / F [address] [address] Unit #: [id number] Loc: [place] [address] Phys: Edouard Paz MD Acct: [id number] Dis Date: Status: ADM IN PHONE #: [phone] Exam Date: 12/04/2019 1515 FAX #: Reason: abd pain EXAMS: CPT: [id number] US ABDOMEN COMPLETE 72766 (Continued) Orig Print D/T: S: 12/04/2019 (1534) Probe: PAGE 3 Signed ReportUA RFLX MICR CULT IF [id number] 13:12:00 Test Item Value Reference Range Interpretation Comments UA COLOR (test code = YELLOW discript YEL/STRAW COLU) UA APPEARANCE (test code CLEAR discript CLEAR = APPU) UA GLUCOSE DIPSTICK (test NEGATIVE mg/dL NEG code = DGLUU) UA BILIRUBIN DIPSTICK NEGATIVE mg/dL NEG (test code = BILU) UA KETONE DIPSTICK (test NEGATIVE mg/dL NEG code = KETU) UA SPECIFIC GRAVITY (test 1.020 SG 1.005-1.030 code = SGU) UA BLOOD DIPSTICK (test TRACE mg/DL NEG A code = NARESH) UA PH DIPSTICK (test code 6.0 pH UNITS 5.0-7.0 = MIRIAN) UA PROTEIN DIPSTICK (test NEGATIVE mg/dL NEG code = PROU) UA UROBILINIOGEN DIPSTICK 0.2 mg/dL <2.0 (test code = URO) UA NITRITE DIPSTICK (test NEGATIVE SCREEN NEG code = RUBIA) UA LEUKOCYTE ESTERASE NEGATIVE Leuk/mcL NEGATIVE DIPSTICK (test code = LEUU) UA WBC (test code = WBCU) 0-1 #WBC/HPF 0-3 UA RBC (test code = RBCU) 0-1 #RBC/HPF 0-3 UA BACTERIA (test code = NONE SEEN /HPF NONE-TRACE BACU) UA SQUAMOUS CELLS (test TRACE /HPF NONE code = SQU) UA CULTURE NEEDED? (test NO, WBC<10 Criteria Culture CHK code = UACULT) Indication for culture: Flank PainSOURCE OF URINE: CLEAN CATCHUA RFLX MICR CULT IF [id number] 12:57:00 Test Item Value Reference Range Interpretation Comments UA COLOR (test code = COLU) YELLOW discript YEL/STRAW UA APPEARANCE (test code = CLEAR discript CLEAR APPU) UA GLUCOSE DIPSTICK (test NEGATIVE mg/dL NEG code = DGLUU) UA BILIRUBIN DIPSTICK (test NEGATIVE mg/dL NEG code = BILU) UA KETONE DIPSTICK (test NEGATIVE mg/dL NEG code = KETU) UA SPECIFIC GRAVITY (test 1.020 SG 1.005-1.030 code = SGU) UA BLOOD DIPSTICK (test TRACE mg/DL NEG A code = NARESH) UA PH DIPSTICK (test code = 6.0 pH UNITS 5.0-7.0 MIRIAN) UA PROTEIN DIPSTICK (test NEGATIVE mg/dL NEG code = PROU) UA UROBILINIOGEN DIPSTICK 0.2 mg/dL <2.0 (test code = URO) UA NITRITE DIPSTICK (test NEGATIVE SCREEN NEG code = RUBIA) UA LEUKOCYTE ESTERASE NEGATIVE Leuk/mcL NEGATIVE DIPSTICK (test code = LEUU) UA CULTURE NEEDED? (test Criteria Culture CHK code = UACULT) Indication for culture: Flank PainSOURCE OF URINE: CLEAN CATCHCOMPREHENSIVE METABOLIC [id number] 02:47:00 Test Item Value Reference Range Interpretation Comments SODIUM (test code = NA) 140 mmol/L 134-147 N POTASSIUM (test code = 4.1 mmol/L 3.4-5.0 N K) CHLORIDE (test code = 111 mmol/L 100-108 H CL) CARBON DIOXIDE (test 24 mmol/L 21-32 N code = CO2) ANION GAP (test code = 5.0 GAP calc 4.0-15.0 N GAP) GLUCOSE (test code = 142 MG/DL 70-110 H GLU) BLOOD UREA NITROGEN 12 MG/DL 7-18 N (test code = BUN) GLOMERULAR FILTRATION >=60 max estimate >60 RATE (test code = GFR) estGFR CREATININE (test code = 1.0 MG/DL 0.6-1.0 N CREAT) TOTAL PROTEIN (test code 7.2 G/DL 6.4-8.2 N = PROT) ALBUMIN (test code = 3.1 G/DL 3.4-5.0 L ALB) GLOBULIN (test code = 4.1 GM/dL GLOB) ALBUMIN/GLOBULIN RATIO 0.8 RATIO 1.2-2.2 L (test code = A/G) CALCIUM (test code = CA) 8.4 MG/DL 8.5-10.1 L BILIRUBIN TOTAL (test 0.40 MG/DL 0.2-1.2 N code = BILT) SGOT/AST (test code = 14 Unit/L 15-37 L AST) SGPT/ALT (test code = 15 Unit/L 12-78 N ALT) ALKALINE PHOSPHATASE 90 Unit/L 45-117 N TOTAL (test code = ALKP) RULE OUT IN [id number] 02:47:00 Test Item Value Reference Range Interpretation Comments CREATINE KINASE 71 Unit/L 26-192 N (CK) (test code = CK) TROPONIN-I (test < 0.015 NG/ML 0.000-0.045 N Negative: </= 0.045 code = TROPI) Positive: >/= 0.046 Correlation wit h serial results, other cardiac markers , and clinical findin gs is necessary to de termine the clinical significance of this result. Quantit ative results using different methodologies s hould not be compared to one another as nume rical results may miriam yby method. [id number] 02:47:00 Test Item Value Reference Range Interpretation Comments LIPASE (test code = LIP) 127 Unit/L 114-286 N CBC W/AUTO [id number] 02:30:00 Test Item Value Reference Range Interpretation Comments WHITE BLOOD CELL (test code = 13.0 K/mm3 3.5-11.0 H WBC) RED BLOOD CELL (test code = 4.31 M/mm3 4.70-6.10 L RBC) HEMOGLOBIN (test code = HGB) 11.5 G/DL 10.4-14.9 N HEMATOCRIT (test code = HCT) 37.6 % 31.5-44.1 N MEAN CELL VOLUME (test code = 87.2 Fl 84.5-98.6 N MCV) MEAN CELL HGB (test code = MCH) 26.7 pg 27.0-34.2 L MEAN CELL HGB CONCETRATION 30.6 G/DL 31.5-34.0 L (test code = MCHC) RED CELL DISTRIBUTION WIDTH 15.4 SD 11.5-14.5 H (test code = RDW) PLATELET COUNT (test code = 371 K/mm3 150-450 N PLT) MEAN PLATELET VOLUME (test code 9.30 fL 7.0-10.5 N = MPV) NEUTROPHIL % (test code = NT%) 91.1 % 40-76 H IMMATURE GRANULOCYTE % (test 0.2 % 0.0-5.0 N code = IG%) LYMPHOCYTE % (test code = LY%) 4.8 % 20.5-51.1 L MONOCYTE % (test code = MO%) 3.7 % 1.7-9.3 N EOSINOPHIL % (test code = EO%) 0.0 % 0.0-6.0 N BASOPHIL % (test code = BA%) 0.2 % 0.0-2.0 N NUCLEATED RBC % (test code = 0.0 /100WBC% 0.0-1.0 N NRBC%) NEUTROPHIL # (test code = NT#) 11.8 K/mm3 1.8-7.6 H IMMATURE GRANULOCYTE # (test 0.03 x10 3/uL 0.00-0.03 N code = IG#) LYMPHOCYTE # (test code = LY#) 0.6 K/mm3 0.6-3.2 N MONOCYTE # (test code = MO#) 0.5 K/mm3 0.3-1.1 N EOSINOPHIL # (test code = EO#) 0.0 K/mm3 0.0-0.4 N BASOPHIL # (test code = BA#) 0.0 K/mm3 0.0-0.1 N NUCLEATED RBC # (test code = 0.0 K/mm3 0.0-0.1 N NRBC#) MANUAL DIFF REQUIRED (test code NO DIFF/SCN CRITERIA = MDIFF) SCR MAMM BILATERAL KATHY CAD [id number] 16:57:38 - SCR MAMM BILATERAL KATHY CAD DIGITALBILATERAL DIGITAL SCREENING MAMMOGRAM 3D/2D WITH CAD: 11/11/2019 CLINICAL: Asymptomatic. Digital breast tomosynthesis was performed in addition to routine CC and MLOviews. Current mammographic images were evaluated by either a obiwon M-Vu or a WOWIO ImageChecker CAD (computer aided detection system). Comparison is made to exams dated 10/21/2018 mammogram - [facility], 11/14/2017 mammogram - [facility], and 10/19/2016 mammogram - [facility]. The tissue of both breasts is heterogeneously dense. This may lower the sensitivity of mammography. There is a stable mass in the right breast. There also is a benign intramammary lymph node in the right breast.No suspicious mass, architectural distortion, malignant type calcif ication, or lymph node abnormality detected. Breast architecture is stable compared to prior exams.IMPRESSION: BENIGNThere is no mammographic evidence of malignancy. Resume annual screening mammographyin one year. Babita Gates M.D. cc/:11/11/2019 16:57:38 Gas Substation Operator: Chio BURKS, [facility]-GWletter sent: BIRADS 1-2 Normal Mammogram BI-RADS: 2 BenignSCR MAMM BILATERAL KATHY CAD [id number] 10:52:12 - SCR MAMM BILATERAL KATHY CAD DIGITALBILATERAL DIGITAL SCREENING MAMMOGRAM 3D/2D WITH CAD: 10/21/2018CLINICAL: Asymptomatic. Digital breast tomosynthesis was performed in addition to routine CC and MLOviews. Current mammographic images were evaluated by either a obiwon M-Vu or a WOWIO ImageChecker CAD (computer aided detection system). Comparison is made to exams dated 11/14/2017 mammogram - [facility], 10/19/2016 mammogram - [facility], and 12/08/2013 mammogram - [facility]. The tissue of both breasts is heterogeneously dense. This may lower the sensitivity of mammography. No suspicious mass, architectural distortion, malignant type calcification, or lymph node abnormality detected. Breast architecture is stable compared to prior exams.IMPRESSION: NEGATIVEThere is no mammographic evidence of malignancy. Resume annual screening mammography in one year. Kassidy Woodward M.D. yaq/penrad:10/21/2018 10:52:12 Gas Substation Operator: Adrianna PUENTE, [facility]-RGletter sent: BIRADS 1-2 Normal Mammogram BI-RADS: 1 Negative
[2022-03-28] MEDS ORDERED: METOCLOPRAMIDE 10 MG/2mL INJ ONE (16:13)
[2022-03-28] MEDS ORDERED: HYDROMORPHONE HCL 1 MG/ML INJ ONE ×2 (16:14→18:47)
[2022-03-28] MEDS ORDERED: NA CHLORIDE 0.9% 1,000 ML ONE ×2 (16:14→19:07)
[2022-03-28 16:43] LABS: Absolute Lymphocytes (CBC) 3.1 K/uL (0.7-4.9); Hematocrit 44.6 % (36.0-45.0); Lymphocytes % 37.2 % (15.3-44.8); MCV 93.1 fL (80-100); MPV 7.9 fL (7.6-11.3); RBC Red Blood Cell Count 4.79 M/uL (3.86-4.86)
--- NOTE | 2022-03-28 16:43 | RAD REPORT ---
EXAM DESCRIPTION: RAD - Chest Single View - 03/28/2022 4:34 pm CLINICAL HISTORY: upper abdomen pain Chest pain. COMPARISON: Chest Single View dated 09/05/2021; Chest Single View dated 08/26/2017; Chest Single View d ated 08/25/2017; Chest Single View dated 04/13/2017 FINDINGS: Portable technique limits examination quality. The lungs are grossly clear. The heart is normal in size. No displaced fractures. IMPRESSION: No acute intrathoracic process suspected.
[2022-03-28 17:02] LABS: Albumin 3.6 g/dL (3.4-5.0); Bilirubin Total 0.4 mg/dL (0.2-1.0); Potassium 3.5 mmol/L (3.5-5.1); Protein, Total 7.9 g/dL (6.4-8.2)
--- NOTE | 2022-03-28 19:23 | RAD REPORT ---
EXAM DESCRIPTION: CTAbdomen Pelvis W Contrast - 03/28/2022 7:13 pm CLINICAL HISTORY: Abdominal pain. ruq pain, give po contrast COMPARISON: Abdomen Pelvis W Contrast dated 10/14/2018; Abdomen Pelvis W Contrast dated 03/13/2017 ; Abdomen Pelvis W Contrast dated 11/24/2016; Abdomen Pelvis W Contrast dated 10/10/2016 TECHNIQUE: Biphasic CT imaging of the abdomen and pelvis was performed with 100 ml non-ionic IV cont rast. All CT scans are performed using dose optimization technique as appropriate and may include automated exposure control or mA/KV adjustment according to patient size. FINDINGS: The lung bases are clear.Cholecystectomy. The liver, spleen, pancreas, adrenal glands and kidneys are within normal limits. Punctate calculus i nferior right kidney. No bowel obstruction, free air, free fluid or abscess. Nonvisualized appendix. No evidence of signi ficant lymphadenopathy. No suspicious bony findings. IMPRESSION: No acute intra-abdominal or pelvic finding.
[2022-03-28 19:28] LABS: Urine Blood Negative (Negative); Urine Glucose Negative (Negative); Urine Protein Negative (Negative); Urine Specific Gravity 1.015 (1.005-1.030)
[2022-03-28 19:44] LABS: Urine Bacteria <20 /HPF (<20); Urine RBC <5 /HPF (None Seen)
[2022-03-28] MEDS ORDERED: PROMETHAZINE INJ 25 MG/ML AMP ONE (19:47)
--- NOTE | 2022-03-28 20:51 | ER ---
Nurse's Notes [facility] Name: Blanka Reilly Age: 51 yrs Sex: Female : 1970 Arrival Date: 03/28/2022 Time: 15:08 Bed 19 Private MD: Diagnosis: Upper abdominal pain, unspecified;Nausea with vomiting, unspecified Presentation: 03/28 15:46 Chief complaint: Patient states: RUQ pain since yesterday, states constant/dull pain vg1 with nausea and diarrhea. Denies vomiting. Coronavirus screen: Vaccine status: Patient reports receiving the 2nd dose of the covid vaccine. Client denies travel out of the [place] in the last 14 days. Ebola Screen: Patient negative for fever greater than or equal to 101.5 degrees Fahrenheit, and additional compatible Ebola Virus Disease symptoms Patient denies exposure to infectious person. Initial Sepsis Screen: Does the patient meet any 2 criteria? No. Patient's initial sepsis screen is negative. Does the patient have a suspected source of infection? No. Patient's initial sepsis screen is negative. Risk Assessment: Do you want to hurt yourself or someone else? Patient reports no desire to harm self or others. Onset of symptoms was March 27, 2022. 15:46 Method Of Arrival: Ambulatory vg1 15:46 Acuity: ILANA 3 vg1 Triage Assessment: 15:50 General: Appears uncomfortable, Behavior is cooperative. Pain: Complains of pain in vg1 right upper quadrant Pain currently is 8 out of 10 on a pain scale. GI: Abdomen is round distended, Reports diarrhea, nausea. 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 - Hysterectomy vg1 Historical: - Allergies: 15:48 Aspirin; vg1 15:48 Codeine; vg1 15:48 Demerol; vg1 15:48 HYDROCODONE; vg1 15:48 Levaquin; vg1 15:48 Morphine; vg1 15:48 PENICILLINS; vg1 15:48 Vancomycin; vg1 15:48 Zofran; vg1 - Home Meds: 15:48 Eliquis 5 mg Oral tab 1 tab 2 times per day [Active]; clonazepam 0.5 mg Oral TbDL 1 tab vg1 2 times per day [Active]; Ambien 5 mg Oral tab 1 tab once daily [Active]; Propranolol Oral [Active]; - PMHx: 15:48 colon cancer; in remission; kidney disease; Portal vein thrombosis; Crohn's disease; vg1 Hitatal Hernia; Factor V; - PSHx: 15:50 Hysterectomy; Appendectomy; "Most of colon'; Cholecystectomy; vg1 - Immunization history:: Client reports receiving the 2nd dose of the Covid vaccine. - Social history:: Smoking status: Patient reports the use of cigarette tobacco products, smokes one-half pack cigarettes per day. Screenin:02 [facility] ED Fall Risk Assessment (Adult) History of falling in the last 3 months, ap3 including since admission No falls in past 3 months (0 pts). Abuse screen: Denies threats or abuse. Nutritional screening: No deficits noted. Tuberculosis screening: No symptoms or risk factors identified. Assessment: 16:02 General: Appears uncomfortable, Behavior is cooperative, crying. Pain: Complains of ap3 pain in right upper quadrant Pain began gradually, 2-3 days ago. Neuro: Level of Consciousness is awake, alert, obeys commands, Oriented to person, place, time, situation, Gait is steady, Speech is normal. Cardiovascular: Patient's skin is warm and dry. Respiratory: Airway is patent Respiratory effort is even, unlabored, Respiratory pattern is regular, symmetrical. 16:14 GI: Reports upper abdominal pain, nausea. ap3 19:40 General: Appears in no apparent distress. comfortable, Behavior is calm, cooperative. lg3 Pain: Complains of pain in right upper quadrant Pain currently is 4 out of 10 on a pain scale. Neuro: No deficits noted. [place] Agitation-Sedation Scale (RASS): 0 - Alert and Calm Level of Consciousness is awake, alert, obeys commands, Oriented to person, place, time, situation, Gait is steady, Speech is normal. Cardiovascular: No deficits noted. Capillary refill < 3 seconds Clubbing of nail beds is absent JVD is absent Patient's skin is warm and dry. Respiratory: No deficits noted. Airway is patent Trachea midline Respiratory effort is even, unlabored, Respiratory pattern is regular, symmetrical. GI: Pt is actively vomiting undigested food, Reports upper abdominal pain, nausea, vomiting. : No deficits noted. No signs and/or symptoms were reported regarding the genitourinary system. EENT: No deficits noted. No signs and/or symptoms were reported regarding the EENT system. Derm: No deficits noted. No signs and/or symptoms reported regarding the dermatologic system. Skin is intact, is healthy with good turgor, Skin is dry, Skin is normal. Musculoskeletal: No deficits noted. No signs and/or symptoms reported regarding the musculoskeletal system. Circulation, motion, and sensation intact. Range of motion: intact in all extremities. 21:04 General: discharge pending passing PO challenge. lg3 Vital Signs: 15:46 BP 157 / 83; Pulse 75; Resp 16; Temp 98.3(O); Pulse Ox 100% on R/A; Weight 104.33 kg; vg1 Height 5 ft. 10 in. (177.80 cm); Pain 8/10; 18:09 BP 153 / 81; Pulse 51; Pulse Ox 100% on R/A; ap3 19:40 BP 173 / 101; Pulse 58; Resp 17 S; Pulse Ox 96% ; lg3 15:46 Body Mass Index 33.00 (104.33 kg, 177.80 cm) vg1 ED Course: 15:08 Patient arrived in ED. as 15:11 Jono Matos PA is PHCP. cp 15:12 Rodney Gotti MD is Attending Physician. cp 15:48 Triage completed. vg1 15:50 Arm band placed on. vg1 16:01 Mari Chris, RN is Primary Nurse. ap3 16:03 Patient has correct armband on for positive identification. Placed in gown. Bed in low ap3 position. Call light in reach. Side rails up X 1. Adult w/ patient. floor covering printer assistant on. Pulse ox on. NIBP on. Door closed. Noise minimized. 16:24 Initial lab(s) drawn, by la, sent to lab. Inserted saline lock: 20 gauge in left tm3 antecubital area, using aseptic technique. 16:36 XRAY Chest (1 view) In Process Unspecified. EDMS 19:15 CT Abd/Pelvis - PO and IV Contrast In Process Unspecified. EDMS 19:22 Primary Nurse role handed off by Mari Chris, RN mw2 19:28 Grace Thomas, RUBY is Primary Nurse. lg3 21:24 No provider procedures requiring assistance completed. IV discontinued, intact, lg3 bleeding controlled, No redness/swelling at site. Pressure dressing applied. Administered Medications: 16:05 Not Given (allergyy): Zofran (Ondansetron) 4 mg IVP once; over 2 minutes ap3 16:32 Drug: NS 0.9% 500 ml Route: IV; Rate: bolus; Site: left antecubital; ap3 16:32 Drug: Dilaudid (HYDROmorphone) 1 mg Route: IVP; Site: left antecubital; ap3 17:32 Follow up: Response: No adverse reaction; Pain is decreased ap3 16:32 Drug: Reglan (metoCLOPramide) 10 mg Route: IVP; Site: left antecubital; ap3 17:32 Follow up: Response: No adverse reaction; Nausea is decreased ap3 17:32 Drug: NS 0.9% 500 ml Route: IV; Rate: 100 ml/hr; Site: left antecubital; ap3 18:48 Drug: Dilaudid (HYDROmorphone) 1 mg Route: IVP; Site: left antecubital; ap3 19:28 Follow up: Response: No adverse reaction; Marked relief of symptoms; Pain is decreased; lg3 RASS: Alert and Calm (0) 19:28 Drug: NS 0.9% 1000 ml Route: IV; Rate: 100 ml/hr; Site: left antecubital; lg3 19:50 Drug: Phenergan (promethazine) 25 mg Route: IM; Site: left gluteus; lg3 20:55 Follow up: Response: Vomiting decreased lg3 Medication: 16:03 VIS not applicable for this client. ap3 Outcome: 20:51 Discharge ordered by . cp 21:25 Discharged to home ambulatory. lg3 21:25 Condition: stable 21:25 Discharge instructions given to patient, Instructed on discharge instructions, follow up and referral plans. medication usage, Demonstrated understanding of instructions, follow-up care, medications, Prescriptions given X 3. 21:25 Patient left the ED. lg3 Signatures: Dispatcher [employer] EDMS Tomas Thomas 3 Alejandra Falk Corey, PA PA cp Prokisch, Amanda, RN RN ap3 Leona Padilla mw2 Grace Thomas RN RN lg3 Jen Torres RN RN vg1
--- NOTE | 2022-03-28 20:51 | EDPHYS ---
Physician Documentation [facility] Name: Blanka Reilly Age: 51 yrs Sex: Female : 1970 Arrival Date: 03/28/2022 Time: 15:08 Bed 19 Private MD: ED Physician Rodney Gotti HPI: 03/28 16:10 This 51 yrs old Female presents to ER via Ambulatory with complaints of Epigastric Pain.cp 16:10 The patient presents with abdominal pain in the right upper quadrant. Onset: The cp symptoms/episode began/occurred yesterday, and became worse today. The symptoms do not radiate. 16:10 Associated signs and symptoms: Pertinent positives: nausea and vomiting. cp 16:10 The symptoms are described as constant, sharp. Severity of pain: in the emergency cp department the pain is unchanged. Patient reports history of multiple abdominal surgeries to include removal of most of her colon. 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 LMP N/A - Hysterectomy vg1 Historical: - Allergies: 15:48 Aspirin; vg1 15:48 Codeine; vg1 15:48 Demerol; vg1 15:48 HYDROCODONE; vg1 15:48 Levaquin; vg1 15:48 Morphine; vg1 15:48 PENICILLINS; vg1 15:48 Vancomycin; vg1 15:48 Zofran; vg1 - Home Meds: 15:48 Eliquis 5 mg Oral tab 1 tab 2 times per day [Active]; clonazepam 0.5 mg Oral TbDL 1 tab vg1 2 times per day [Active]; Ambien 5 mg Oral tab 1 tab once daily [Active]; Propranolol Oral [Active]; - PMHx: 15:48 colon cancer; in remission; kidney disease; Portal vein thrombosis; Crohn's disease; vg1 Hitatal Hernia; Factor V; - PSHx: 15:50 Hysterectomy; Appendectomy; "Most of colon'; Cholecystectomy; vg1 - Immunization history:: Client reports receiving the 2nd dose of the Covid vaccine. - Social history:: Smoking status: Patient reports the use of cigarette tobacco products, smokes one-half pack cigarettes per day. ROS: 16:15 Constitutional: Negative for body aches, chills, fever. cp 16:15 Eyes: Negative for injury, pain, redness, and discharge. cp 16:15 ENT: Negative for drainage from ear(s), ear pain, sore throat, difficulty swallowing, difficulty handling secretions. 16:15 Cardiovascular: Negative for chest pain, edema, palpitations. 16:15 Respiratory: Negative for cough, shortness of breath, wheezing. 16:15 Abdomen/GI: Positive for abdominal pain, nausea, vomiting, diarrhea, anorexia, Negative for constipation, hematemesis, black/tarry stool, rectal bleeding. 16:15 Back: Negative for pain at rest, pain with movement. 16:15 : Negative for urinary symptoms. 16:15 Neuro: Negative for altered mental status, dizziness, headache, weakness. 16:15 All other systems are negative. Exam: 16:25 Constitutional: The patient appears in no acute distress, alert, awake, cp non-diaphoretic, non-toxic, well developed, well nourished, uncomfortable, overweight 16:25 Head/Face: Normocephalic, atraumatic. cp 16:25 Eyes: Periorbital structures: Conjunctiva: normal, no exudate, no injection, Sclera: no appreciated abnormality, Lids and lashes: appear normal, bilaterally. 16:25 ENT: External ear(s): are unremarkable, Nose: is normal, Mouth: Lips: moist, Oral mucosa: pink and intact, moist, Posterior pharynx: is normal, airway is patent, no erythema, no exudate. 16:25 Chest/axilla: Inspection: normal. 16:25 Cardiovascular: Rate: normal, Rhythm: regular, Edema: is not appreciated, JVD: is not appreciated. 16:25 Respiratory: the patient does not display signs of respiratory distress, Respirations: normal, no use of accessory muscles, no retractions, labored breathing, is not present, Breath sounds: are clear throughout, no decreased breath sounds, no stridor, no wheezing. 16:25 Abdomen/GI: Inspection: distension, is not seen, scar(s), are noted in the midline, Bowel sounds: active, all quadrants, Palpation: soft, in all quadrants, severe abdominal tenderness, in the right upper quadrant, rebound tenderness, is not appreciated, voluntary guarding, is elicited in the right upper quadrant. 16:25 Back: CVA tenderness, is absent. 16:25 Neuro: Orientation: to person, place \\T\\ time. Mentation: is normal, Motor: moves all fours, strength is normal, Sensation: is normal. Vital Signs: 15:46 BP 157 / 83; Pulse 75; Resp 16; Temp 98.3(O); Pulse Ox 100% on R/A; Weight 104.33 kg; vg1 Height 5 ft. 10 in. (177.80 cm); Pain 8/10; 18:09 BP 153 / 81; Pulse 51; Pulse Ox 100% on R/A; ap3 19:40 BP 173 / 101; Pulse 58; Resp 17 S; Pulse Ox 96% ; lg3 15:46 Body Mass Index 33.00 (104.33 kg, 177.80 cm) vg1 MDM: 15:51 Patient medically screened. cp 16:30 Differential diagnosis: bowel obstruction, diverticulitis, pancreatitis, Peptic Ulcer cp Disease, Perf. Duodenal Ulcer, Perf. Gastric Ulcer, Pyelonephritis, Ureterolithiasis. 20:50 Data reviewed: vital signs, nurses notes, lab test result(s), radiologic studies, CT cp scan, plain films. 20:50 Consideration of Admission/Observation Escalation of care including cp admission/observation considered. I considered the following discharge prescriptions or medication management in the emergency department Medications were administered in the Emergency Department. See MAR. Independent interpretation of the following test(s) in the Emergency Department X-Ray: My interpretation is chest xray negative for focal pneumonia. Care significantly affected by the following chronic conditions: Crohn's disease. Counseling: I had a detailed discussion with the patient and/or guardian regarding: the historical points, exam findings, and any diagnostic results supporting the discharge/admit diagnosis, lab results, radiology results, to return to the emergency department if symptoms worsen or persist or if there are any questions or concerns that arise at home. Special discussion: Based on the patient's Hx, exam, and Dx evaluation, there is no indication for emergent surgery or inpatient Tx. It is understood by the patient/guardian that if the Sx's persist or worsen they need to return immediately for re-evaluation. 03/28 16:04 Order name: CBC with Diff; Complete Time: 17:02 cp 03/28 17:02 Interpretation: Reviewed. cp 03/28 16:04 Order name: CMP; Complete Time: 17:15 cp 03/28 17:16 Interpretation: Normal except: CL 110; CRE 1.05; GFR 65; GLOB 4.3; A/G 0.8. 03/28 16:04 Order name: Lipase; Complete Time: 17:15 cp 03/28 17:16 Interpretation: Reviewed. 03/28 16:04 Order name: Urine Microscopic Only; Complete Time: 19:50 cp 03/28 16:04 Order name: Lactate w/ 2H reflex if indic.; Complete Time: 17:15 cp 03/28 17:16 Interpretation: Reviewed. 03/28 19:28 Order name: Urine Dipstick-Ancillary; Complete Time: 19:50 EDMS 03/28 19:50 Interpretation: Normal except: UKET Trace. 03/28 16:04 Order name: XRAY Chest (1 view); Complete Time: 17:02 03/28 16:04 Order name: CT Abd/Pelvis - PO and IV Contrast; Complete Time: 19:25 cp 03/28 16:04 Order name: IV Saline Lock; Complete Time: 16:32 cp 03/28 16:04 Order name: Labs collected and sent; Complete Time: 16:32 cp 03/28 16:04 Order name: Urine Dipstick-Ancillary (obtain specimen); Complete Time: 19:28 03/28 19:26 Order name: PO challenge; Complete Time: 19:40 cp 03/28 20:46 Order name: PO challenge; Complete Time: 21:01 cp Administered Medications: 16:05 Not Given (allergyy): Zofran (Ondansetron) 4 mg IVP once; over 2 minutes ap3 16:32 Drug: NS 0.9% 500 ml Route: IV; Rate: bolus; Site: left antecubital; ap3 16:32 Drug: Dilaudid (HYDROmorphone) 1 mg Route: IVP; Site: left antecubital; ap3 17:32 Follow up: Response: No adverse reaction; Pain is decreased ap3 16:32 Drug: Reglan (metoCLOPramide) 10 mg Route: IVP; Site: left antecubital; ap3 17:32 Follow up: Response: No adverse reaction; Nausea is decreased ap3 17:32 Drug: NS 0.9% 500 ml Route: IV; Rate: 100 ml/hr; Site: left antecubital; ap3 18:48 Drug: Dilaudid (HYDROmorphone) 1 mg Route: IVP; Site: left antecubital; ap3 19:28 Follow up: Response: No adverse reaction; Marked relief of symptoms; Pain is decreased; lg3 RASS: Alert and Calm (0) 19:28 Drug: NS 0.9% 1000 ml Route: IV; Rate: 100 ml/hr; Site: left antecubital; lg3 19:50 Drug: Phenergan (promethazine) 25 mg Route: IM; Site: left gluteus; lg3 20:55 Follow up: Response: Vomiting decreased lg3 Disposition Summary: 03/28/22 20:51 Discharge Ordered Location: Home cp Problem: new cp Symptoms: have improved cp Condition: Stable cp Diagnosis - Upper abdominal pain, unspecified cp - Nausea with vomiting, unspecified cp Followup: cp - With: Private Physician - When: 2 - 3 days - Reason: Recheck today's complaints Discharge Instructions: - Discharge Summary Sheet cp - Abdominal Pain, Adult cp - Nausea and Vomiting, Adult cp Forms: - Medication Reconciliation Form cp - Thank You Letter cp - Antibiotic Education cp - Prescription Opioid Use cp - Work release form bb Prescriptions: - Protonix 40 mg Oral Tablet - take 1 tablet by ORAL route once daily; 30 tablet; Refills: 0, Product cp Selection Permitted - promethazine 25 mg Oral Tablet - take 1 tablet by ORAL route every 6 hours As needed; 20 tablet; Refills: 0, cp Product Selection Permitted - dicyclomine 20 mg Oral Tablet - take 1 tablet by ORAL route 4 times per day; 30 tablet; Refills: 0, Product cp Selection Permitted Signatures: Dispatcher [employer] EDJono Llamas PA PA cp Mari Chris RN RN ap3 Grace Thomas RN RN lg3 Jen Torres, RN RN vg1
[2022-03-28 21:51] VITALS: TEMP 98.3
[2022-03-28 21:53] VITALS: BP 173/101; O2SAT 96
== END 2022-03-28 21:25 | disposition home or self-care (01) ==
LOC: ER 15:07
DX: R10.11 Right upper quadrant pain (principal); R11.2 Nausea with vomiting, unspecified; N28.9 Disorder of kidney and ureter, unspecified; Z88.6 Allergy status to analgesic agent; Z88.1 Allergy status to other antibiotic agents; Z88.3 Allergy status to other anti-infective agents; Z88.0 Allergy status to penicillin; Z88.8 Allergy status to other drugs, medicaments and biological substances; Z79.01 Long term (current) use of anticoagulants
CPT/HCPCS: 85025; 36415; 83605; 83690; 80053; 74177; 71045; Q9967; J2765; J2550; J1170 ×2; J7030 ×2; 81003; 81015